=== PATIENT | male | born 1950 | race Caucasian/White ===

== ENCOUNTER 2020-08-09 12:09 | Outpatient (REF) | payer MEDICARE, MEDICAID, SELFPAY ==
[2020-08-09 13:25] LABS: MANUAL DIFF FLAG NO
[2020-08-09 13:29] LABS: Basophils Absolute Auto 0.1 X10*3/uL (0.0-0.2); Eosinophils Absolute Auto 0.6 X10*3/uL (0.0-0.4); Eosinophils Percent Auto 5.3 % (0-4); Hemoglobin 15.6 g/dl (14.0-18.0); Imm Gran Abs Auto 0.03 X10*3/uL (0.00-0.03); Imm Gran Pct Auto 0.3 % (0.0-0.4); Lymphocytes Absolute Auto 2.3 X10*3/uL (1.2-4.9); Lymphocytes Percent Auto 22.3 % (20-40); Mean Corpuscular HGB Conc 32.5 g/dl (31.0-36.0); Mean Corpuscular Hemoglobin 30.8 pg (27.0-33.0); Mean Corpuscular Volume 94.7 fL (80-98); Mean Platelet Volume 11.4 fL (9.4-12.4); Monocytes Absolute Auto 0.9 X10*3/uL (0.1-1.2); Monocytes Percent Auto 8.5 % (2-11); Neutrophils Absolute Auto 6.6 X10*3/uL (2.0-8.3); Neutrophils Percent Auto 62.6 % (45-73); Platelet Count 300 X10*3/uL (160-400); Red Blood Count 5.07 X10*6/uL (4.60-5.80); Red Cell Distribution Width 12.5 % (11.0-16.0); White Blood Count 10.5 X10*3/uL (4.8-10.8)
[2020-08-09 14:01] LABS: Alanine Aminotransferase 31 U/L (0-40); Albumin Level 4.7 g/dL (3.5-5.0); Alkaline Phosphatase 113 U/L (39-117); Anion Gap 14 (12-20); Aspartate Amino Transferase 25 U/L (5-37); Bilirubin Total 1.7 mg/dL (0.0-1.0); Blood Urea Nitrogen 21 mg/dL (9-16); Calcium 9.5 mg/dL (8.4-10.2); Carbon Dioxide 28 mmol/L (22-29); Chloride 105 mmol/L (96-108); Cholesterol 111 mg/dL; Estimated Glomerular Filt Rate > 60; Glucose Fasting 106 mg/dL (60-99); HDL Cholesterol 40 mg/dL; LDL Cholesterol Calculated 58 mg/dl; Sodium 142 mmol/L (135-145); Total Protein 7.3 g/dL (6.5-8.0); Triglycerides 67 mg/dL
[2020-08-09 14:21] LABS: TSH reflex Free T4 < 0.01 mIU/mL (0.32-4.0)
[2020-08-09 15:25] LABS: Free T4 (Free Thyroxine) 1.67 ng/dL (0.71-1.85)
== END 2020-08-09 12:10 | disposition home or self-care (01) ==
LOC: HO.WFDLDS 12:09
PROVIDERS: Visit Provider Pediatrics
DX: E78.00 Pure hypercholesterolemia, unspecified (principal); I26.99 Other pulmonary embolism without acute cor pulmonale; E03.9 Hypothyroidism, unspecified
CPT/HCPCS: 36415; 80053; 80061; 84439; 84443; 85025

== ENCOUNTER 2020-12-30 10:07 | Outpatient (REF) | payer MEDICARE, MEDICAID, SELFPAY ==
[2020-12-30 11:42] LABS: Hematocrit 47.9 % (42-52); Hemoglobin 15.8 g/dl (14.0-18.0); Mean Corpuscular Hemoglobin 30.9 pg (27.0-33.0); Mean Corpuscular Volume 93.6 fL (80-98); Mean Platelet Volume 12.2 fL (9.4-12.4); Platelet Count 253 X10*3/uL (160-400); Red Blood Count 5.12 X10*6/uL (4.60-5.80); Red Cell Distribution Width 12.4 % (11.0-16.0); White Blood Count 11.6 X10*3/uL (4.8-10.8)
[2020-12-30 12:20] LABS: TSH reflex Free T4 < 0.01 uIU/mL (0.32-4.0)
[2020-12-30 12:35] LABS: Alanine Aminotransferase 32 U/L (0-40); Albumin Level 4.6 g/dL (3.5-5.0); Alkaline Phosphatase 107 U/L (39-117); Anion Gap 13 (12-20); Aspartate Amino Transferase 25 U/L (5-37); Bilirubin Direct 0.6 mg/dL (0.0-0.5); Bilirubin Total 1.7 mg/dL (0.0-1.0); Blood Urea Nitrogen 22 mg/dL (9-16); Calcium 9.5 mg/dL (8.4-10.2); Carbon Dioxide 25 mmol/L (22-29); Chloride 108 mmol/L (96-108); Cholesterol 117 mg/dL; Estimated Glomerular Filt Rate > 60; Glucose Fasting 95 mg/dL (60-99); HDL Cholesterol 41 mg/dL; LDL Cholesterol Calculated 62 mg/dl; Potassium 4.2 mmol/L (3.3-5.1); Sodium 142 mmol/L (135-145); Triglycerides 74 mg/dL
[2020-12-30 14:14] LABS: Free T4 (Free Thyroxine) 1.68 ng/dL (0.71-1.85)
== END 2020-12-30 10:08 | disposition home or self-care (01) ==
LOC: HO.WFDLDS 10:07
PROVIDERS: Visit Provider Hospitalist
DX: Z00.00 Encounter for general adult medical examination without abnormal findings (principal)
CPT/HCPCS: 36415; 80048; 80061; 80076; 84439; 84443; 85027

== ENCOUNTER 2021-03-01 10:22 | Outpatient (REF) | payer MEDICARE, MEDICAID, SELFPAY ==
[2021-03-01 14:29] LABS: Alanine Aminotransferase 30 U/L (0-40); Albumin Level 4.4 g/dL (3.5-5.0); Alkaline Phosphatase 99 U/L (39-117); Aspartate Amino Transferase 28 U/L (5-37); Bilirubin Direct 0.6 mg/dL (0.0-0.5); Bilirubin Total 1.7 mg/dL (0.0-1.0); Total Protein 6.7 g/dL (6.5-8.0)
[2021-03-01 14:38] LABS: TSH reflex Free T4 0.34 uIU/mL (0.32-4.0)
== END 2021-03-01 10:23 | disposition home or self-care (01) ==
LOC: HO.WFDLDS 10:22
PROVIDERS: Visit Provider Physician Assistant
DX: R17 Unspecified jaundice (principal); E05.90 Thyrotoxicosis, unspecified without thyrotoxic crisis or storm; R94.6 Abnormal results of thyroid function studies
CPT/HCPCS: 36415; 80076; 84443

== ENCOUNTER 2021-08-02 10:35 | Outpatient (REF) | payer MEDICARE, MEDICAID, SELFPAY ==
[2021-08-02 14:14] LABS: Appearance Urine CLEAR; Color Urine YELLOW; Glucose Urine UA NEG (NEG); Leukocyte Esterase Urine NEG (NEG); Nitrite Urine NEG (NEG); Urine Blood NEG (NEG); Urine Ketones NEG (NEG); Urine Protein NEG (NEG-TRACE)
[2021-08-02 14:24] LABS: Alanine Aminotransferase 19 U/L (0-40); Albumin Level 4.5 g/dL (3.5-5.0); Alkaline Phosphatase 91 U/L (39-117); Anion Gap 14 (12-20); Aspartate Amino Transferase 20 U/L (5-37); Bilirubin Total 1.5 mg/dL (0.0-1.0); Blood Urea Nitrogen 18 mg/dL (9-16); Calcium 9.8 mg/dL (8.4-10.2); Carbon Dioxide 26 mmol/L (22-29); Chloride 108 mmol/L (96-108); Estimated Glomerular Filt Rate > 60; Glucose Random 93 mg/dL (60-115); Potassium 4.4 mmol/L (3.3-5.1); Sodium 144 mmol/L (135-145); Total Protein 6.8 g/dL (6.5-8.0)
[2021-08-02 15:19] LABS: Free T4 (Free Thyroxine) 0.77 ng/dL (0.71-1.85)
== END 2021-08-02 10:36 | disposition home or self-care (01) ==
LOC: HO.WFDLDS 10:35
PROVIDERS: PCP Hospitalist; Visit Provider Family Medicine
DX: Z00.00 Encounter for general adult medical examination without abnormal findings (principal); E86.0 Dehydration; R17 Unspecified jaundice; R94.6 Abnormal results of thyroid function studies; E05.90 Thyrotoxicosis, unspecified without thyrotoxic crisis or storm
CPT/HCPCS: 36415; 80053; 81003; 84439; 84443

== ENCOUNTER 2021-09-22 10:08 | Outpatient (REF) | payer MEDICARE, OTHER, SELFPAY ==
[2021-09-22 14:47] LABS: TSH reflex Free T4 0.01 uIU/mL (0.32-4.0)
[2021-09-22 15:32] LABS: Free T4 (Free Thyroxine) 1.81 ng/dL (0.71-1.85)
== END 2021-09-22 10:09 | disposition home or self-care (01) ==
LOC: HO.WFDLDS 10:08
PROVIDERS: Visit Provider Hospitalist
DX: E03.9 Hypothyroidism, unspecified (principal)
CPT/HCPCS: 36415; 84439; 84443

== ENCOUNTER 2021-10-08 00:47 | Inpatient (IN) | payer MEDICARE, OTHER, SELFPAY ==
[2021-10-08] VITALS (21 sets, daily range): BP systolic 78–138; BP diastolic 47–104; PULSE 88–170; RESP 14–33; TEMP 36.7–37; O2SAT 95–100; BMI 27.4
--- NOTE | 2021-10-08 | ECG_ITS ---
Test Reason : REPEAT Blood Pressure : / mmHG Vent. Rate : 078 BPM Atrial Rate : 078 BPM P-R Int : 122 ms QRS Dur : 088 ms QT Int : 446 ms P-R-T Axes : 045 003 211 degrees QTc Int : 508 ms Sinus rhythm with Premature atrial complexes ST & T wave abnormality, consider inferolateral ischemia Prolonged QT Abnormal ECG When compared with ECG of 08-OCT-2021 05:40, Sinus rhythm has replaced Atrial fibrillation Vent. rate has decreased BY 42 BPM Referred By: Omega Pierson Electronically Signed By:TUYET AGUILAR
--- NOTE | ~2021-10-08 | XR_ITS ---
EXAMINATION: XR CHEST CLINICAL INFORMATION: Shortness of breath COMPARISON: None TECHNIQUE: Frontal view of the chest was obtained. FINDINGS: The lungs are well expanded. There is no focal consolidation, edema, or effusion. No pneumothorax. The cardiomediastinal silhouette is within normal limits. No acute osseous abnormality. XR/XR chest 1V IMPRESSION: Clear lungs.
--- NOTE | 2021-10-08 05:20 | ED.SOB ---
HPI - SOB/Dyspnea General Chief Complaint: Dyspnea Stated Complaint: difficulty breathing Time Seen by Provider: 10/08/21 05:18 Source: patient Mode of arrival: ambulatory Limitations: no limitations History of Present Illness HPI Narrative: Patient with history of COPD with emphysema, ex-smoker, depression, diabetes, pulmonary embolism , CHF with LV ejection fraction 20-25% on Eliquis with lung nodules in the right lung been complaining of increased shortness of breath and cough mostly dry for last 5 weeks was seen at [facility] 09/05 workup was negative patient feels discomfort mid chest while coughing came here as is not getting better after course prednisone and Z-Vernon. No fever no chills no hemoptysis patient does have history of irregular heartbeat diagnose as PACs in the past. Patient does get palpitation whenever he exerts or ambulate. Related Data Home Medications Medication Instructions Recorded Confirmed apixaban 5 mg tablet (Eliquis) 5 mg PO BID 12/29/20 09/22/21 aspirin 81 mg chewable tablet 81 mg PO DAILY 12/29/20 09/22/21 (Lacy Chewable Low Dose Aspirin) Previous Rx's Medication Instructions Recorded atorvastatin 40 mg tablet 40 mg PO BEDTIME 90 Days #90 tab 07/04/21 fluticasone furoate 200 1 inh INHALATION DAILY 30 Days #28 08/10/21 mcg-vilanterol 25 mcg/dose ea inhalation powder (Breo Ellipta) albuterol sulfate 90 mcg/actuation 2 puff INHALATION Q6H PRN 30 Days 09/22/21 aerosol inhaler (ProAir HFA) #8.5 g levothyroxine 175 mcg capsule 175 mcg PO DAILY 30 Days #30 cap 09/29/21 Allergies Allergy/AdvReac Type Severity Reaction Status Date / Time No Known Allergies Allergy Mild NOT Verified 10/06/21 10:58 APPLICABLE Review of Systems Review of Systems: Yes all other systems are reviewed and are negative [facility] Past Medical History Medical History COPD (chronic obstructive pulmonary disease) Hypothyroid Surgical History History of cholecystectomy Family History Family History Father Stroke Other Mental health disorder Social History Social History Housing: Other Housing Other:: mobile home Alcohol intake: former Year quit: 1987 Patient Tobacco Use Status: Former Tobacco user (5.5 years ago ) e-Cigarette/Vaping Use: Never Used Advance Directives: No Advance Directives Information Provided: Yes Current occupational status: disabled Physical Exam Vital Signs: Vital Signs: Last Vital Signs Temp 98.6 F 10/08/21 05:04 Pulse 110 H 10/08/21 07:07 Resp 15 10/08/21 07:07 BP 100/47 L 10/08/21 07:07 Pulse Ox 95 10/08/21 07:07 BMI result Body Mass Index 27.4 Appearance: Alert. Oriented X3. No acute distress. Eyes: No pallor or icterus ENT: Pharynx normal. Oral Mucosa moist Neck: Normal inspection. Neck supple. CVS: Irregularly irregular heart rate tachycardia systolic ejection murmur at the base, Pulses normal. Respiratory: No respiratory distress. Equal air entry bilateral, no wheezing/rales, occasional rhonchi Abdomen: Soft and nontender. Bowel sounds are present, no mass palpable, no CVA tenderness Skin: Skin warm and dry. Normal skin color. Normal skin turgor. Extremities: No lower extremity edema. No calf tenderness Neuro: Oriented X 3. MDM - SOB/Dyspnea MDM Narrative Medical decision making narrative: Patient with COPD with chronic shortness of breath chest x-ray negative labs are stable, waiting for BNP and D-dimer unlikely to be CHF or PE as patient already on Eliquis and no signs of congestive heart failure. Patient records from [facility] reviewed had a echo done last year which showed decreased ejection fraction 20-25% old EKG showed PACs, today's EKG showed AFib heart rate increased to 164 beats per minute partially responded to IV Cardizem. 5 mg of Lopressor was also given , will start patient on Cardizem drip, Will admit patient for atrial fibrillation with fast ventricular rate with CHF. 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 Medical records narrative: cho Complete-Doppler, Colorflow, M-Mode Transthoracic Echocardiography Report (TTE) Indications TIA. Study Data Type of Study TTE procedure:Echo Complete-Doppler, Colorflow, M-Mode. Study Date07/16/2020 Start Time: 07:36 AM Study Location: [facility] Echo Study Status: Echo lab Patient Status: Routine Technical Quality: Adequate Blood Pressure:127/81 mmHg EKG: Normal sinus rhythm HR: 75 bpm 2D Measurements LV Diastolic Dimension: 5.23 cm LV Systolic Dimension: 4.13 cm LV Septum Diastolic: 0.83 cm LV PW Diastolic: 1.02 cm AO Root Dimension: 3.46 cm RV Diastolic Dimension: 3.4 cm LA Dimension: 3.63 cm LVOT Stroke Volume: 45.56 ml LVOT: 2.42 cm Stroke Volume Index26.96 ml/m2 Ascending Aorta:3.11 cm Cardiac Index:2.02 l/min/m2 Doppler Measurements AV Peak Velocity: 73.9 cm/s MV Peak E-Wave: 65.5 cm/s AV Peak Gradient: 2.18 mmHg MV Peak A-Wave: 21.8 cm/s AV Mean Gradient: 1.25 mmHg MV E/A Ratio: 3 AV VTI:14.9 cm MV P1/2t: 43.5 msec LVOT Peak Velocity: 57.2 cm/s MV Mean Gradient: 0.41 mmHg LVOT VTI9.91 cm MV Area (continuity): 3.35 cm2 AV Area (Continuity):3.06 cm2 MV Area (PHT): 5.06 cm2 TR Velocity:336 cm/s TR Gradient:45.16 mmHg PV Peak Velocity: 48.5 cm/s Estimated RAP:3 mmHg PV Peak Gradient: 0.94 mmHg Estimated RVSP: 48.2 mmHg E' Lateral Velocity: 6.27 cm/s E/Lat E':[id number] Cardiac Anatomy Left Ventricle/Interventricular Septum The left ventricular size is normal. Left ventricular wall thickness is normal. The LV systolic function is severely reduced . The left ventricular ejection fraction is 20-25 %. There is severe global hypokinesis with regional variation. Left ventricular filling pressures are indeterminate. Left Atrium/Interatrial Septum The left atrium is mildly dilated. The interatrial septum appears intact. Aortic Valve The aortic valve is trileaflet and normal in structure and function. There is no aortic stenosis or insufficiency. Mitral Valve The mitral valve is normal in structure and function. There is no mitral stenosis or insufficiency. Aorta The ascending aorta and aortic root are normal in size. Right Ventricle The right ventricle is mildly dilated. The right ventricular wall thickness is normal. Right ventricular systolic function is normal. Right Atrium The right atrium is normal in size. Pulmonic Valve The pulmonic valve is normal in structure and function. Tricuspid Valve There is mild tricuspid valve regurgitation. Pumonary Artery The main pulmonary artery appears mildly dilated. There is mild pulmonary hypertension. The pulmonary artery systolic pressure estimation is 40-45 mmHg. Venous Structures The inferior vena cava appears normal. Pericardium/Extracardiac There is no pericardial effusion. Summary The left atrium is mildly dilated. There is mild tricuspid valve regurgitation. There is mild pulmonary hypertension. The pulmonary artery systolic pressure estimation is 40-45 mmHg. The right ventricle is mildly dilated. The right ventricular wall thickness is normal. Right ventricular systolic function is normal. The left ventricular size is normal. Left ventricular wall thickness is normal. The LV systolic function is severely reduced . The left ventricular ejection fraction is 20-25 %. There is severe global hypokinesis with regional variation. Left ventricular filling pressures are indeterminate. Comparison No prior study available for comparison. Signature Lab Data Result diagrams: 10/08/21 06:00 10/08/21 06:01 Labs: Lab Results 10/08/21 10/08/21 10/08/21 Range/Units 05:03 06:00 06:00 WBC 12.3 H (4.8-10.8) X10*3/uL RBC 4.72 (4.60-5.80) X10*6/uL Hgb 14.7 (14.0-18.0) g/dl Hct 44.8 (42.0-52.0) % MCV 94.9 (80.0-98.0) fL MCH 31.1 (27.0-33.0) pg MCHC 32.8 (31.0-36.0) g/dl RDW 12.4 (11.0-16.0) % Plt Count 210 (160-400) X10*3/uL MPV 10.9 (9.4-12.4) fL Immature Gran % (Auto) 0.2 (0.0-0.4) % Neut % (Auto) 68.3 (45-73) % Lymph % (Auto) 19.1 L (20-40) % [place] % (Auto) 10.5 (2-11) % Eos % (Auto) 1.2 (0-4) % Baso % (Auto) 0.7 (0-2) % Lymph # (Auto) 2.3 (1.2-4.9) X10*3/uL Fill[place] # (Auto) 1.3 H (0.1-1.2) X10*3/uL Eos # (Auto) 0.2 (0.0-0.4) X10*3/uL Baso # (Auto) 0.1 (0.0-0.2) X10*3/uL Abs Immat Gran (auto) 0.03 (0.00-0.03) X10*3/uL Absolute Neuts (auto) 8.4 H (2.0-8.3) x10*3/uL Absolute Nucleated RBC 0.000 (0.0-0.012) X10*3/uL Nucleated RBC % (auto) 0.0 (0.0-0.2) /100WBC PT (9.9-13.0) SEC INR (0.9-1.1) APTT (24.1-38.0) SEC D-Dimer High Sensitivty NG/ML Sodium (135-145) mmol/L Potassium (3.3-5.1) mmol/L Chloride (96-108) mmol/L Carbon Dioxide (22-29) mmol/L Anion Gap (12-20) BUN (9-16) mg/dL Creatinine (0.5-1.4) mg/dL Estim Creat Clear Calc Estimated GFR Random Glucose (60-115) mg/dL Calcium (8.4-10.2) mg/dL Troponin I High Sens (<3.5-35.0) ng/L B-Natriuretic Peptide 1096 H (<100) pg/mL Influenza Type A (PCR) NEGATIVE (Negative) Influenza Type B (PCR) NEGATIVE (Negative) RSV RNA Qual (PCR) NEGATIVE (Negative) SARS-CoV-2 RNA (RT-PCR) NEGATIVE (Negative) 10/08/21 10/08/21 10/08/21 Range/Units 06:00 06:00 06:01 WBC (4.8-10.8) X10*3/uL RBC (4.60-5.80) X10*6/uL Hgb (14.0-18.0) g/dl Hct (42.0-52.0) % MCV (80.0-98.0) fL MCH (27.0-33.0) pg MCHC (31.0-36.0) g/dl RDW (11.0-16.0) % Plt Count (160-400) X10*3/uL MPV (9.4-12.4) fL Immature Gran % (Auto) (0.0-0.4) % Neut % (Auto) (45-73) % Lymph % (Auto) (20-40) % Fill[place] % (Auto) (2-11) % Eos % (Auto) (0-4) % Baso % (Auto) (0-2) % Lymph # (Auto) (1.2-4.9) X10*3/uL Fill[place] # (Auto) (0.1-1.2) X10*3/uL Eos # (Auto) (0.0-0.4) X10*3/uL Baso # (Auto) (0.0-0.2) X10*3/uL Abs Immat Gran (auto) (0.00-0.03) X10*3/uL Absolute Neuts (auto) (2.0-8.3) x10*3/uL Absolute Nucleated RBC (0.0-0.012) X10*3/uL Nucleated RBC % (auto) (0.0-0.2) /100WBC PT 18.0 H (9.9-13.0) SEC INR 1.6 H (0.9-1.1) APTT 44.7 H (24.1-38.0) SEC D-Dimer High Sensitivty < 150 NG/ML Sodium 143 (135-145) mmol/L Potassium 4.1 (3.3-5.1) mmol/L Chloride 109 H (96-108) mmol/L Carbon Dioxide 23 (22-29) mmol/L Anion Gap 15 (12-20) BUN 22 H (9-16) mg/dL Creatinine 0.79 (0.5-1.4) mg/dL Estim Creat Clear Calc 86.6 Estimated GFR > 60 Random Glucose 107 (60-115) mg/dL Calcium 9.5 (8.4-10.2) mg/dL Troponin I High Sens 212.1 H* (<3.5-35.0) ng/L B-Natriuretic Peptide (<100) pg/mL Influenza Type A (PCR) (Negative) Influenza Type B (PCR) (Negative) RSV RNA Qual (PCR) (Negative) SARS-CoV-2 RNA (RT-PCR) (Negative) ECG Data Attestation: I personally reviewed and interpreted this ECG as follows: Interpretation: Tachycardia atrial fibrillation with heart rate 120 beats per minute T inversion in lateral leads Critical Care Time Critical Care Time Critical Care Time: Yes Total Critical Care Time: 65 Attestation: I spent 65 minutes of critical care, with interventions, assessments, speaking to patient, consultants, and family. Discharge Plan Discharge Clinical Impression: Atrial fibrillation with rapid ventricular response COPD (chronic obstructive pulmonary disease) Qualifiers: COPD type: emphysema Emphysema type: panlobular Qualified Code(s): J43.1 - Panlobular emphysema Congestive heart failure Qualifiers: Heart failure type: systolic Heart failure chronicity: acute on chronic Qualified Code(s): I50.23 - Acute on chronic systolic (congestive) heart failure Patient Disposition: Admitted As Inpatient
--- NOTE | 2021-10-08 05:28 | ECG_ITS ---
Test Reason : SOB Blood Pressure : / mmHG Vent. Rate : 120 BPM Atrial Rate : 000 BPM P-R Int : 000 ms QRS Dur : 074 ms QT Int : 292 ms P-R-T Axes : 000 006 192 degrees QTc Int : 412 ms Sinus tachycardia with Premature atrial complexes ST & T wave changes, consider ischemia Abnormal ECG No previous ECGs available Referred By: Fransisco Whitehead Electronically Signed By:TUYET AGUILAR
[2021-10-08] MEDS: Albuterol/Iprat 2.5/0.5MG 3 ML AMPUL.NEB INHALE (05:48)
[2021-10-08] MEDS: methylPREDNISolone Sod Succ 125 MG/2 ML VIAL IVPUSH (06:02)
[2021-10-08 06:05] LABS: Basophils Absolute Auto 0.1 X10*3/uL (0.0-0.2); Basophils Percent Auto 0.7 % (0-2); Eosinophils Absolute Auto 0.2 X10*3/uL (0.0-0.4); Eosinophils Percent Auto 1.2 % (0-4); Hematocrit 44.8 % (42.0-52.0); Hemoglobin 14.7 g/dl (14.0-18.0); Imm Gran Abs Auto 0.03 X10*3/uL (0.00-0.03); Imm Gran Pct Auto 0.2 % (0.0-0.4); Lymphocytes Absolute Auto 2.3 X10*3/uL (1.2-4.9); Lymphocytes Percent Auto 19.1 % (20-40); MANUAL DIFF FLAG NO; Mean Corpuscular HGB Conc 32.8 g/dl (31.0-36.0); Mean Corpuscular Hemoglobin 31.1 pg (27.0-33.0); Mean Corpuscular Volume 94.9 fL (80.0-98.0); Mean Platelet Volume 10.9 fL (9.4-12.4); Monocytes Absolute Auto 1.3 X10*3/uL (0.1-1.2); Monocytes Percent Auto 10.5 % (2-11); Neutrophils Absolute Auto 8.4 x10*3/uL (2.0-8.3); Neutrophils Percent Auto 68.3 % (45-73); Platelet Count 210 X10*3/uL (160-400); Red Blood Count 4.72 X10*6/uL (4.60-5.80); Red Cell Distribution Width 12.4 % (11.0-16.0); White Blood Count 12.3 X10*3/uL (4.8-10.8)
[2021-10-08 06:29] LABS: Anion Gap 15 (12-20); Blood Urea Nitrogen 22 mg/dL (9-16); Calcium 9.5 mg/dL (8.4-10.2); Carbon Dioxide 23 mmol/L (22-29); Chloride 109 mmol/L (96-108); Creatinine Clr Calc Pharmacy 86.6; Estimated Glomerular Filt Rate > 60; Glucose Random 107 mg/dL (60-115); Potassium 4.1 mmol/L (3.3-5.1); Sodium 143 mmol/L (135-145)
[2021-10-08 06:32] LABS: B Type Natriuretic Peptide 1096 pg/mL (<100)
[2021-10-08 06:34] LABS: Troponin-I High Sensitivity 212.1 ng/L (<3.5-35.0)
--- NOTE | 2021-10-08 06:39 | PC.NURSE ---
per v/o from demarcus, 10mg cardizem IV. This RN overrode from pyxis
[2021-10-08] MEDS: dilTIAZem HCL 50 MG/10 ML VIAL 20 MG IVPUSH (06:50)
[2021-10-08] MEDS: Metoprolol Tartrate 5 MG/5 ML VIAL IVPUSH (06:51)
[2021-10-08] MEDS: 0.9 % Sodium Chloride 1,000 ML 999 ML IVCONT (06:52)
[2021-10-08 06:55] LABS: INTERNATIONAL NORM RATIO 1.6 (0.9-1.1)
[2021-10-08 06:58] LABS: Partial Thromboplastin Time 44.7 SEC (24.1-38.0)
[2021-10-08 07:02] LABS: D Dimer High Sensitivity < 150 NG/ML
[2021-10-08 07:11] LABS: Influenza A PCR NEGATIVE (Negative); Influenza B PCR NEGATIVE (Negative); Resp Syncy Virus RNA Qual PCR NEGATIVE (Negative); SARS COV2 PCR INHOUSE NEGATIVE (Negative)
--- NOTE | 2021-10-08 07:40 | PC.NURSE ---
this nurse assumed care at 0700. Cardizem titrated down to 5mg/hr per Dr. Armijo. Cardizem drip started by prior RN at 10mg/hr not noted in DEC. Per Dr. Armijo restart fluids to assist with low b/p
[2021-10-08] MEDS: dilTIAZem HCL 125 MG in 0.9 % Sodium Chloride 100 ML IVCONT (07:44)
[2021-10-08 08:04] LABS: Thyroid Stimulating Hormone < 0.01 uIU/mL (0.32-4.0)
[2021-10-08] MEDS: Digoxin 0.5 MG/2 ML AMPUL 0.25 MG IVPUSH (08:19)
--- NOTE | 2021-10-08 08:37 | PHA.MEDREC ---
Pharmacy Consult ? Medication Reconciliation Pharmacy has completed the medication reconciliation. Verified with HCP Goergette Barreto [phone]
--- NOTE | 2021-10-08 09:37 | P.HPHOSP_ITS ---
History of Present Illness Date of Service: 10/08/21 Chief Complaint: sob 71M presented with sob and chest discomfort with dry cough. pateint reports symptoms have been on and off over the past month or so. his sob is worse on exertion, denies orthopnea, pnd, or weight gain. he chest pain is sharp, midsternal, non radiating, and only when coughing, not reporducible. he was previously treated with prednisone and zpak with no improvement, so came to ED. in ED was noted to have irregualr tachycardia. was given diltiazem and digoxin, now appears to be sinus with pacs, feeling better. Review of Systems Review of Systems: Constitutional: Denies fever, denies Chills Eyes: denies blurry vision ENT: denies sore throat CVS: chest pain Respiratory: dyspnea GI: no abdominal pain : denies dysuria MSK: denies neck pain Skin: denies rash Neuro: denies specific motor weakness Psych: denies suicidal ideation Endocrine: denies heat/cold intolerance Hematologic: denies easy bleeding Allergy: denies hives [facility] Medical History Chronic systolic CHF (congestive heart failure) COPD (chronic obstructive pulmonary disease) Hypothyroid Pulmonary embolism Family History Father Stroke Other Mental health disorder Surgical History History of cholecystectomy Social History Housing: Other Housing Other:: mobile home Alcohol intake: former Year quit: 1987 Patient Tobacco Use Status: Former Tobacco user e-Cigarette/Vaping Use: Never Used Use of substances other than those prescribed or required for medical reasons: No Advance Directives: No Advance Directives Information Provided: Yes Current occupational status: disabled Meds Allergies Allergy/AdvReac Type Severity Reaction Status Date / Time No Known Allergies Allergy Mild NOT Verified 10/06/21 10:58 APPLICABLE Active Medications: Current Medications Acetaminophen (Acetaminophen 325 Mg Tablet) 650 mg PO Q6H PRN PRN Reason: Pain, Mild (Pain Scale 1-3) Albuterol Sulfate (Albuterol Sulfate 90 Mcg 8 Gm Inhaler) 2 puff INHALE Q6H PRN PRN Reason: wheezing and shortness of breast Apixaban (Apixaban 5 Mg Tablet) 5 mg PO BID [facility] Aspirin (Aspirin 81 Mg Tab.Chew) 81 mg PO DAILY [facility] Atorvastatin Calcium (Atorvastatin Calcium 40 Mg Tablet) 40 mg PO BEDTIME [facility] Fluticasone/Vilanterol (Fluticasone/Vilanterol 100/25 Blst.W.Dev) 1 puff INHALE RDAILY [facility] Last Admin: 10/08/21 09:31 Dose: Not Given Documented by: Levothyroxine Sodium (Levothyroxine Sodium 150 Mcg Tablet) 150 mcg PO DAILY@060 0 [facility] Pharmacy Consult (Consult Rx Perform Med Rec) 1 each MISCELLANE ONCE PRN PRN Reason: Consult order Sodium Chloride (0.9 % Sodium Chloride Flush 3 Ml Syringe) 3 ml IVFLUSH QSHIFT [facility] Tiotropium Holmen (Tiotropium Holmen 18 Mcg Cap.W.Dev) 1 puff INHALE RDAILY [facility] Home Medications Medication Instructions Recorded Confirmed Last Taken Type apixaban 5 mg tablet (Eliquis) 5 mg PO BID 12/29/20 10/08/21 10/07/21 History aspirin 81 mg chewable tablet 81 mg PO DAILY 12/29/20 10/08/21 10/07/21 History (Lacy Chewable Low Dose Aspirin) fluticasone furoate 100 1 puff INHALATION DAILY 10/08/21 10/08/21 10/07/21 History mcg-vilanterol 25 mcg/dose inhalation powder (Breo Ellipta) umeclidinium 62.5 mcg/actuation 1 puff INHALATION DAILY 10/08/21 10/08/21 10/07/21 History blister powder for inhalation (Incruse Ellipta) Physical Exam 2 Vital Signs and Narrative: Vital Signs: Last Vital Signs Temp 98.6 F 10/08/21 05:04 Pulse 91 10/08/21 09:27 Resp 22 H 10/08/21 09:27 BP 90/63 10/08/21 09:27 Pulse Ox 97 10/08/21 09:27 BMI result Body Mass Index 27.4 General: no acute distress HEENT: atraumatic Neck: normal to visual inspection CVS: S1, S2, irregular Resp: diminished Chest: non tender GI: soft, non tender, non distended : no CVA tenderness Skin: no rashes Extremities: no edema Neuro: Oriented X3, grossly intact Psych: cooperative Results Labs CBC and Chem 7: 10/08/21 06:00 10/08/21 06:01 Labs: Laboratory Results - last 24 hr 10/08/21 10/08/21 10/08/21 05:03 06:00 06:00 MCV 94.9 MCH 31.1 MCHC 32.8 RDW 12.4 Plt Count 210 MPV 10.9 Immature Gran % (Auto) 0.2 Neut % (Auto) 68.3 Lymph % (Auto) 19.1 L Cole % (Auto) 10.5 Eos % (Auto) 1.2 Baso % (Auto) 0.7 Lymph # (Auto) 2.3 Cole # (Auto) 1.3 H Eos # (Auto) 0.2 Baso # (Auto) 0.1 Abs Immat Gran (auto) 0.03 Absolute Neuts (auto) 8.4 H Absolute Nucleated RBC 0.000 Nucleated RBC % (auto) 0.0 PT INR APTT D-Dimer High Sensitivty Anion Gap Estim Creat Clear Calc Estimated GFR Random Glucose Calcium Troponin I High Sens B-Natriuretic Peptide 1096 H TSH Influenza Type A (PCR) NEGATIVE Influenza Type B (PCR) NEGATIVE RSV RNA Qual (PCR) NEGATIVE SARS-CoV-2 RNA (RT-PCR) NEGATIVE 10/08/21 10/08/21 10/08/21 06:00 06:00 06:01 MCV MCH MCHC RDW Plt Count MPV Immature Gran % (Auto) Neut % (Auto) Lymph % (Auto) Cole % (Auto) Eos % (Auto) Baso % (Auto) Lymph # (Auto) Cole # (Auto) Eos # (Auto) Baso # (Auto) Abs Immat Gran (auto) Absolute Neuts (auto) Absolute Nucleated RBC Nucleated RBC % (auto) PT 18.0 H INR 1.6 H APTT 44.7 H D-Dimer High Sensitivty < 150 Anion Gap 15 Estim Creat Clear Calc 86.6 Estimated GFR > 60 Random Glucose 107 Calcium 9.5 Troponin I High Sens 212.1 H* B-Natriuretic Peptide TSH < 0.01 L Influenza Type A (PCR) Influenza Type B (PCR) RSV RNA Qual (PCR) SARS-CoV-2 RNA (RT-PCR) Imaging Radiologist's Impressions: Impressions Chest X-Ray 10/08/21 02:20 IMPRESSION: Clear lungs. Assessment and Plan (1) Atrial fibrillation with rapid ventricular response: Status: Acute (2) Chronic systolic CHF (congestive heart failure): Status: Acute 71M presented with sob, chest pain, found to be in rapid irregular rhythm sob, chest pain, irregular rhythm appears to be aflutter vs afib, not mentioned previously, would be new onset chest pain appears to be MSK from cough, but has positive troponins and high risk for ischemia, follow up repeat, cardio eval continue eliquis (was on for pe) added toprol dc diltiazem thyrotoxicosis decrease synthroid from 175 to 150mcg, repeat tsh in 4 weeks chronic systolic chf toprol repeat echo, last 07/2020 (see ED note) COPD prn bronchodilators breo history of PE eliquis Quality Stroke Does the patient have a stroke diagnosis?: No VTE Prior VTE?: Yes VTE Risk Level:: Medical - moderate - high VTE Device Contraindication: Treatment Not Indicated VTE Drug Contraindication: N/A - Med Ordered
[2021-10-08] MEDS: Apixaban 5 MG TABLET PO ×2 (09:55→21:32)
[2021-10-08] MEDS: Metoprolol Succinate ER 25 MG TAB.ER.24H PO (09:55)
[2021-10-08] MEDS: Aspirin 81 MG TAB.CHEW PO (09:55)
--- NOTE | 2021-10-08 10:23 | P.CONCA_ITS ---
History of Present Illness History of Present Illness Date of Service: 10/08/21 Chief complaint: SOB Narrative: This is a cardiology consultation regarding atrial fibrillation. 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 When I questioned him regarding any cardiac issues, he states that he has never had any cardiac problems whatsoever. Denies any coronary disease or in fact any other issues. Current admission is because of coughing and discomfort like a pressure in the lower retrosternal/epigastric region. Apparently once in atrial fibrillation per ER and then converted to sinus/PACs. He was on Cardizem drip. Currently states he feels okay. Denies any clear anginal complaints. Not listed have any diabetes hypertension. Smoked till a few years ago. Has history of pulmonary embolism for which he takes Eliquis. With regard to family history, denies any coronary disease but father has had strokes. Review of Systems Review of Systems: Yes all other systems are reviewed and are negative Cardiovascular: Cardiovascular: Reports as per HPI, Reports no additional cardiovascular complaints, Denies acrocyanosis, Denies cool extremities, Denies painful fingertips, Denies chest pain, Denies chest pain at rest, Denies diaphoresis, Denies syncope, Denies irregular heart rhythm, Denies claudication, Denies leg edema, Denies lightheadedness, Denies palpitations and Reports dyspnea Respiratory: Respiratory: Reports cough and Reports dyspnea Neurologic: Denies syncope Endocrine: Endocrine: Denies palpitations PMFSH Past Medical History Medical History Chronic systolic CHF (congestive heart failure) COPD (chronic obstructive pulmonary disease) Hypothyroid Pulmonary embolism Family History Family History Father Stroke Other Mental health disorder Surgical History Surgical History History of cholecystectomy Social History Social History Housing: Other Housing Other:: mobile home Alcohol intake: former Year quit: 1987 Patient Tobacco Use Status: Former Tobacco user e-Cigarette/Vaping Use: Never Used Use of substances other than those prescribed or required for medical reasons: No Advance Directives: No Advance Directives Information Provided: Yes Current occupational status: disabled Meds Allergies Allergy/AdvReac Type Severity Reaction Status Date / Time No Known Allergies Allergy Mild NOT Verified 10/06/21 10:58 APPLICABLE Active Medications: Current Medications Acetaminophen (Acetaminophen 325 Mg Tablet) 650 mg PO Q6H PRN PRN Reason: Pain, Mild (Pain Scale 1-3) Albuterol Sulfate (Albuterol Sulfate 90 Mcg 8 Gm Inhaler) 2 puff INHALE Q6H PRN PRN Reason: wheezing and shortness of breast Apixaban (Apixaban 5 Mg Tablet) 5 mg PO BID [facility] Last Admin: 10/08/21 09:55 Dose: 5 mg Documented by: Aspirin (Aspirin 81 Mg Tab.Chew) 81 mg PO DAILY [facility] Last Admin: 10/08/21 09:55 Dose: 81 mg Documented by: Atorvastatin Calcium (Atorvastatin Calcium 40 Mg Tablet) 40 mg PO BEDTIME [facility] Fluticasone/Vilanterol (Fluticasone/Vilanterol 100/25 Blst.W.Dev) 1 puff INHALE RDAILY [facility] Last Admin: 10/08/21 09:31 Dose: Not Given Documented by: Levothyroxine Sodium (Levothyroxine Sodium 150 Mcg Tablet) 150 mcg PO DAILY@0600 [facility] Metoprolol Succinate (Metoprolol Succinate Er 25 Mg Tab.Er.24h) 25 mg PO DAILY [facility]; Protocol Last Admin: 10/08/21 09:55 Dose: 25 mg Documented by: Pharmacy Consult (Consult Rx Perform Med Rec) 1 each MISCELLANE ONCE PRN PRN Reason: Consult order Sodium Chloride (0.9 % Sodium Chloride Flush 3 Ml Syringe) 3 ml IVFLUSH QSHIFT [facility] Tiotropium [place] (Tiotropium [place] 18 Mcg Cap.W.Dev) 1 puff INHALE RDAILY [facility] Home Medications Medication Instructions Recorded Confirmed Last Taken Type apixaban 5 mg tablet (Eliquis) 5 mg PO BID 12/29/20 10/08/21 10/07/21 History aspirin 81 mg chewable tablet 81 mg PO DAILY 12/29/20 10/08/21 10/07/21 History (Lacy Chewable Low Dose Aspirin) fluticasone furoate 100 1 puff INHALATION DAILY 10/08/21 10/08/21 10/07/21 History mcg-vilanterol 25 mcg/dose inhalation powder (Breo Ellipta) umeclidinium 62.5 mcg/actuation 1 puff INHALATION DAILY 10/08/21 10/08/21 10/07/21 History blister powder for inhalation (Incruse Ellipta) Physical Exam Vital Signs: Vital Signs: Last Vital Signs Temp 98.6 F 10/08/21 05:04 Pulse 98 10/08/21 09:55 Resp 22 H 10/08/21 09:27 BP 94/68 10/08/21 09:55 Pulse Ox 97 10/08/21 09:27 BMI result Body Mass Index 27.4 Const: General: no acute distress HENMT: Other: Unremarkable Neck: Neck: Yes normal visual inspection Chest: Chest palpation & inspection: normal inspection of the chest Resp: Auscultation: no crackles and no wheezes Cardio: Palpation: normal PMI Heart sounds: S1 normal heart sound present, S2 normal heart sound present, no gallops, no murmurs and no rubs GI: Palpation (GI): Soft to palpation Back/Spine/Pelvis: Other: unremarkable Skin: Lesions: other Neuro: Cranial nerves: Yes Other cranial nerve findings present Extrem: General: Yes other Psych: Mental Status: other Objective Labs and Meds Result diagrams: 10/08/21 06:00 10/08/21 06:01 Lab results: Laboratory Results - last 24 hr 10/08/21 10/08/21 10/08/21 05:03 06:00 06:00 WBC 12.3 H RBC 4.72 Hgb 14.7 Hct 44.8 MCV 94.9 MCH 31.1 MCHC 32.8 RDW 12.4 Plt Count 210 MPV 10.9 Immature Gran % (Auto) 0.2 Neut % (Auto) 68.3 Lymph % (Auto) 19.1 L [place] % (Auto) 10.5 Eos % (Auto) 1.2 Baso % (Auto) 0.7 Lymph # (Auto) 2.3 [place] # (Auto) 1.3 H Eos # (Auto) 0.2 Baso # (Auto) 0.1 Abs Immat Gran (auto) 0.03 Absolute Neuts (auto) 8.4 H Absolute Nucleated RBC 0.000 Nucleated RBC % (auto) 0.0 PT INR APTT D-Dimer High Sensitivty Sodium Potassium Chloride Carbon Dioxide Anion Gap BUN Creatinine Estim Creat Clear Calc Estimated GFR Random Glucose Calcium Troponin I High Sens B-Natriuretic Peptide 1096 H TSH Influenza Type A (PCR) NEGATIVE Influenza Type B (PCR) NEGATIVE RSV RNA Qual (PCR) NEGATIVE SARS-CoV-2 RNA (RT-PCR) NEGATIVE 10/08/21 10/08/21 10/08/21 06:00 06:00 06:01 WBC RBC Hgb Hct MCV MCH MCHC RDW Plt Count MPV Immature Gran % (Auto) Neut % (Auto) Lymph % (Auto) [place] % (Auto) Eos % (Auto) Baso % (Auto) Lymph # (Auto) [place] # (Auto) Eos # (Auto) Baso # (Auto) Abs Immat Gran (auto) Absolute Neuts (auto) Absolute Nucleated RBC Nucleated RBC % (auto) PT 18.0 H INR 1.6 H APTT 44.7 H D-Dimer High Sensitivty < 150 Sodium 143 Potassium 4.1 Chloride 109 H Carbon Dioxide 23 Anion Gap 15 BUN 22 H Creatinine 0.79 Estim Creat Clear Calc 86.6 Estimated GFR > 60 Random Glucose 107 Calcium 9.5 Troponin I High Sens 212.1 H* B-Natriuretic Peptide TSH < 0.01 L Influenza Type A (PCR) Influenza Type B (PCR) RSV RNA Qual (PCR) SARS-CoV-2 RNA (RT-PCR) ECG Interpretation: EKG that is available shows sinus rhythm with PACs and lateral ST depression/T inversion which could be from ischemia or LVH. Rate in that EKGs 120/Min. There is another EKG there is not available in [place] but only in the paper chart and that could be either flutter or MAT versus atrial fibrillation at a faster rate. Imaging Radiologist's impression: Impressions Chest X-Ray 10/08/21 02:20 IMPRESSION: Clear lungs. Assessment and Plan (1) Atrial fibrillation with rapid ventricular response: Status: Acute (2) Chronic systolic CHF (congestive heart failure): Status: Acute Based on EKGs, difficult to say. Could be atrial fibrillation or flutter or multifocal atrial tachycardia. Currently in sinus with PACs. We can start him on a small dose of [id number]. Blood pressure is already on the lower side. Based on a prior echocardiogram from [facility], diminished LVEF in the 20% range. We need to repeat this as it is almost an year old. At that time, indication was TIA. Elevated troponin could be from demand from atrial arrhythmias but underlying coronary disease not excluded. We will repeat this. Ischemia workup at some point, probable cardiac catheterization. Will follow. Procedures Date of Service Date of Service: 10/08/21
[2021-10-08 11:24] LABS: Troponin-I High Sensitivity 285.5 ng/L (<3.5-35.0)
--- NOTE | 2021-10-08 11:45 | PC.NURSE ---
pt's repeat Trop 285.5, b/p running soft high 80s over high 50s, Dr. Pierson aware.
--- NOTE | 2021-10-08 12:53 | PC.NURSE ---
alert and oriented, vss remains stable. no c/o pain. no sob, no headache, no dizziness. pt resting quietly, no apparent distress. pt awaiting bed assignment.
--- NOTE | 2021-10-08 14:21 | MHC.CM.PN ---
IMM 10/08/21 male 71 dx sob. Vax x3 Pfizer. He lives with S.O.. He is independent all functional mobility. PCP Taye Hsieh. DP home no services family transport.
--- NOTE | 2021-10-08 15:14 | ECG_ITS ---
Test Reason : AFIB Blood Pressure : / mmHG Vent. Rate : 164 BPM Atrial Rate : 000 BPM P-R Int : 000 ms QRS Dur : 082 ms QT Int : 262 ms P-R-T Axes : 000 010 219 degrees QTc Int : 432 ms Atrial fibrillation with rapid ventricular response Minimal voltage criteria for LVH, may be normal variant ( Sokolow-Hinkle ) Marked ST abnormality, possible inferior subendocardial injury Marked ST abnormality, possible anterior subendocardial injury Abnormal ECG When compared with ECG of 08-OCT-2021 05:40, Previous ECG has undetermined rhythm, needs review ST more depressed Inferior leads Referred By: Yakelin Ceballos Electronically Signed By:Santi Gonzalez
[2021-10-08] MEDS: Atorvastatin Calcium 40 MG TABLET PO (21:32)
[2021-10-09] VITALS (8 sets, daily range): BP systolic 90–96; BP diastolic 55–80; PULSE 72–102; RESP 16–22; TEMP 36.6–36.8; O2SAT 94–97
[2021-10-09] MEDS: 0.9 % Sodium Chloride Flush 3 ML SYRINGE IVFLUSH ×3 (01:14→18:26)
[2021-10-09] MEDS: Levothyroxine Sodium 150 MCG TABLET PO (05:57)
[2021-10-09 08:02] LABS: Hemoglobin 13.8 g/dl (14.0-18.0); Mean Corpuscular HGB Conc 32.9 g/dl (31.0-36.0); Mean Corpuscular Hemoglobin 30.8 pg (27.0-33.0); Mean Corpuscular Volume 93.8 fL (80.0-98.0); Mean Platelet Volume 12.1 fL (9.4-12.4); Platelet Count 220 X10*3/uL (160-400); Red Blood Count 4.48 X10*6/uL (4.60-5.80); Red Cell Distribution Width 12.4 % (11.0-16.0)
[2021-10-09 08:22] LABS: Anion Gap 14 (12-20); Blood Urea Nitrogen 26 mg/dL (9-16); Calcium 9.5 mg/dL (8.4-10.2); Carbon Dioxide 24 mmol/L (22-29); Chloride 109 mmol/L (96-108); Creatinine Clr Calc Pharmacy 99.2; Estimated Glomerular Filt Rate > 60; Glucose Fasting 125 mg/dL (60-99); Magnesium 2.3 mg/dL (1.6-2.6); Potassium 4.5 mmol/L (3.3-5.1); Sodium 142 mmol/L (135-145)
[2021-10-09] MEDS: Apixaban 5 MG TABLET PO (08:31)
[2021-10-09] MEDS: Aspirin 81 MG TAB.CHEW PO (08:31)
[2021-10-09] MEDS: Metoprolol Succinate ER 25 MG TAB.ER.24H PO (08:31)
[2021-10-09] MEDS: Fluticasone/Vilanterol 100/25 BLST.W.DEV 1 PUFF INHALE (09:15)
--- NOTE | 2021-10-09 09:24 | HO.PM.IMPN ---
Subjective Subjective Date of Service: 10/09/21 Interval History: cc: chest pain, sob interval history: unchanged Gastrointestinal Gastrointestinal: Reports no additional gastrointestinal complaints Genitourinary Genitourinary: Reports no additional male genitourinary complaints Physical Exam Vital Signs: Vital Signs: Last Vital Signs Temp 98.0 F 10/09/21 09:20 Pulse 89 10/09/21 09:20 Resp 21 H 10/09/21 09:20 BP 92/67 10/09/21 09:20 Pulse Ox 94 10/09/21 09:20 BMI result Body Mass Index 27.4 General: AO X 3, no acute distress Resp: CTA bilateral, no accessory muscles used CVS: S1,S2,RRR GI: soft, non tender, non distended Neuro: motor grossly intact, alert Psych: appropriate affect, appropriate insight Objective Data Active Medications Acetaminophen (Acetaminophen 325 Mg Tablet) 650 mg PO Q6H PRN PRN Reason: Pain, Mild (Pain Scale 1-3) Albuterol Sulfate (Albuterol Sulfate 90 Mcg 8 Gm Inhaler) 2 puff INHALE Q6H PRN PRN Reason: wheezing and shortness of breast Apixaban (Apixaban 5 Mg Tablet) 5 mg PO BID [facility] Last Admin: 10/09/21 08:31 Dose: 5 mg Documented by: LEXI Aspirin (Aspirin 81 Mg Tab.Chew) 81 mg PO DAILY [facility] Last Admin: 10/09/21 08:31 Dose: 81 mg Documented by: LEXI Atorvastatin Calcium (Atorvastatin Calcium 40 Mg Tablet) 40 mg PO BEDTIME [facility] Last Admin: 10/08/21 21:32 Dose: 40 mg Documented by: ANEUDY Fluticasone/Vilanterol (Fluticasone/Vilanterol 100/25 Blst.W.Dev) 1 puff INHALE RDAILY [facility] Last Admin: 10/09/21 09:15 Dose: 1 puff Documented by: CLAUDE Levothyroxine Sodium (Levothyroxine Sodium 150 Mcg Tablet) 150 mcg PO DAILY@0600 [facility] Last Admin: 10/09/21 05:57 Dose: 150 mcg Documented by: JANIS Metoprolol Succinate (Metoprolol Succinate Er 25 Mg Tab.Er.24h) 25 mg PO DAILY [facility]; Protocol Last Admin: 10/09/21 08:31 Dose: 25 mg Documented by: LEXI Pharmacy Consult (Consult Rx Perform Med Rec) 1 each MISCELLANE ONCE PRN PRN Reason: Consult order Sodium Chloride (0.9 % Sodium Chloride Flush 3 Ml Syringe) 3 ml IVFLUSH QSHIFT [facility] Last Admin: 10/09/21 08:35 Dose: 3 ml Documented by: LEXI Tiotropium [place] (Tiotropium [place] 18 Mcg Cap.W.Dev) 1 puff INHALE RDAILY [facility] Last Admin: 10/09/21 09:15 Dose: 1 puff Documented by: CLAUDE Labs CBC & Chem 7: 10/09/21 07:12 10/09/21 07:12 Labs: Laboratory Results - last 24 hr 10/08/21 10/09/21 10/09/21 10:50 07:12 07:12 MCV 93.8 MCH 30.8 MCHC 32.9 RDW 12.4 Plt Count 220 MPV 12.1 Absolute Nucleated RBC 0.000 Nucleated RBC % (auto) 0.0 Anion Gap Estim Creat Clear Calc Estimated GFR Fasting Glucose Calcium Magnesium Troponin I High Sens 285.5 H* 223.0 H* 10/09/21 07:12 MCV MCH MCHC RDW Plt Count MPV Absolute Nucleated RBC Nucleated RBC % (auto) Anion Gap 14 Estim Creat Clear Calc 99.2 Estimated GFR > 60 Fasting Glucose 125 H Calcium 9.5 Magnesium 2.3 Troponin I High Sens Assessment and Plan (1) Chronic systolic CHF (congestive heart failure): Status: Acute (2) Atrial fibrillation with rapid ventricular response: Status: Acute Assessment and Plan: 71M presented with sob, chest pain, found to be in rapid irregular rhythm sob, chest pain, irregular rhythm appears to be aflutter vs afib vs MAT not mentioned previously, would be new onset now in sinus chest pain appears to be MSK from cough, but has positive troponins and high risk for ischemia, follow up repeat, cardio appreciated, likely need ischemic work up continue eliquis (was on for pe) started on toprol thyrotoxicosis decreased synthroid from 175 to 150mcg, repeat tsh in 4 weeks chronic systolic chf toprol repeat echo, last 07/2020 (see ED note) COPD prn bronchodilators breo history of PE eliquis Quality Stroke Does the patient have a stroke diagnosis?: No VTE Prior VTE?: Yes VTE Risk Level:: Medical - moderate - high VTE Device Contraindication: Treatment Not Indicated VTE Drug Contraindication: N/A - Med Ordered
--- NOTE | 2021-10-09 11:24 | PM.PNCARD ---
Subjective Subjective Date of Service: 10/09/21 Interval history: He feels ok. Denies any angina or other complaints. Review of Systems Review of Systems Yes all other systems are reviewed and are negative Cardiovascular: Reports as per HPI, Reports no additional cardiovascular complaints, Denies acrocyanosis, Denies cool extremities, Denies painful fingertips, Denies chest pain, Denies chest pain at rest, Denies diaphoresis, Denies syncope, Denies irregular heart rhythm, Denies claudication, Denies leg edema, Denies lightheadedness, Denies palpitations and Reports dyspnea Respiratory: Reports cough and Reports dyspnea Denies syncope Endocrine: Denies palpitations Physical Exam Vital Signs: Last Vital Signs Temp 98.0 F 10/09/21 09:20 Pulse 89 10/09/21 09:20 Resp 21 H 10/09/21 09:20 BP 92/67 10/09/21 09:20 Pulse Ox 94 10/09/21 09:20 BMI result Body Mass Index 27.4 Const General: no acute distress HENKS Other: Unremarkable Neck Neck: Yes normal visual inspection Chest Chest palpation & inspection: normal inspection of the chest Resp Auscultation: no crackles and no wheezes Cardio Palpation: normal PMI Heart sounds: S1 normal heart sound present, S2 normal heart sound present, no gallops, no murmurs and no rubs GI Palpation (GI): Soft to palpation Back/Spine/Pelvis Other: unremarkable Skin Lesions: other Neuro Cranial nerves: Yes Other cranial nerve findings present Extrem General: Yes other Psych Mental Status: other Objective Labs and Meds Result diagrams: 10/09/21 07:12 10/09/21 07:12 Lab results: Laboratory Results - last 24 hr 10/08/21 10/09/21 10/09/21 10:50 07:12 07:12 WBC 17.0 H RBC 4.48 L Hgb 13.8 L Hct 42.0 MCV 93.8 MCH 30.8 MCHC 32.9 RDW 12.4 Plt Count 220 MPV 12.1 Absolute Nucleated RBC 0.000 Nucleated RBC % (auto) 0.0 Sodium Potassium Chloride Carbon Dioxide Anion Gap BUN Creatinine Estim Creat Clear Calc Estimated GFR Fasting Glucose Calcium Magnesium Troponin I High Sens 285.5 H* 223.0 H* 10/09/21 07:12 WBC RBC Hgb Hct MCV MCH MCHC RDW Plt Count MPV Absolute Nucleated RBC Nucleated RBC % (auto) Sodium 142 Potassium 4.5 Chloride 109 H Carbon Dioxide 24 Anion Gap 14 BUN 26 H Creatinine 0.69 Estim Creat Clear Calc 99.2 Estimated GFR > 60 Fasting Glucose 125 H Calcium 9.5 Magnesium 2.3 Troponin I High Sens Progress Note: A&P Assessment and plan (1) Atrial fibrillation with rapid ventricular response: Status: Acute (2) Chronic systolic CHF (congestive heart failure): Status: Acute Assessment and Plan: Based on EKGs, difficult to say. Could be atrial fibrillation or flutter or multifocal atrial tachycardia. Currently in sinus with PACs. Continue Toprol-XL. Blood pressure is already on the lower side. Based on a prior echocardiogram from [facility], diminished LVEF in the 20% range. At that time, indication was TIA. Repeat echo is similar. . Elevated troponin could be from demand from atrial arrhythmias but underlying coronary disease not excluded. Ideally needs cardiac catheterization. Will follow with you. Fall Risk Details Current Medications: Current Medications Acetaminophen (Acetaminophen 325 Mg Tablet) 650 mg PO Q6H PRN PRN Reason: Pain, Mild (Pain Scale 1-3) Albuterol Sulfate (Albuterol Sulfate 90 Mcg 8 Gm Inhaler) 2 puff INHALE Q6H PRN PRN Reason: wheezing and shortness of breast Apixaban (Apixaban 5 Mg Tablet) 5 mg PO BID [facility] Last Admin: 10/09/21 08:31 Dose: 5 mg Documented by: Aspirin (Aspirin 81 Mg Tab.Chew) 81 mg PO DAILY [facility] Last Admin: 10/09/21 08:31 Dose: 81 mg Documented by: Atorvastatin Calcium (Atorvastatin Calcium 40 Mg Tablet) 40 mg PO BEDTIME [facility] Last Admin: 10/08/21 21:32 Dose: 40 mg Documented by: Fluticasone/Vilanterol (Fluticasone/Vilanterol 100/25 Blst.W.Dev) 1 puff INHALE RDAILY [facility] Last Admin: 10/09/21 09:15 Dose: 1 puff Documented by: Levothyroxine Sodium (Levothyroxine Sodium 150 Mcg Tablet) 150 mcg PO DAILY@0600 [facility] Last Admin: 10/09/21 05:57 Dose: 150 mcg Documented by: Metoprolol Succinate (Metoprolol Succinate Er 25 Mg Tab.Er.24h) 25 mg PO DAILY [facility]; Protocol Last Admin: 10/09/21 08:31 Dose: 25 mg Documented by: Pharmacy Consult (Consult Rx Perform Med Rec) 1 each MISCELLANE ONCE PRN PRN Reason: Consult order Sodium Chloride (0.9 % Sodium Chloride Flush 3 Ml Syringe) 3 ml IVFLUSH QSHIFT [facility] Last Admin: 10/09/21 08:35 Dose: 3 ml Documented by: Tiotropium [place] (Tiotropium [place] 18 Mcg Cap.W.Dev) 1 puff INHALE RDAILY [facility] Last Admin: 10/09/21 09:15 Dose: 1 puff Documented by: Time Spent With Patient Time: Total time spent is greater than 50% in coordination of care (as documented) at patient's floor/unit and/or counseling patient: Time with patient: less than 15 minutes Progress Note: Quality Stroke Does the patient have a stroke diagnosis?: No Procedures Date of Service Date of Service: 10/09/21
--- NOTE | 2021-10-09 14:00 | CA_ITS ---
Transthoracic Echocardiogram Patient (Last, First, Middle): Tico Barahona, Gender: Male Date of : 1950 Age: 71 Procedure Date: 10/09/2021 Procedure Type: Transthoracic Echocardiogram Location: ER Height: 170.18 cm Weight: 79.38 kg BSA: 1.91 m2 Heart Rate: bpm BP: 96 / 68 mmHg Real Estate Associate: Referring MD: Omega Pierson MD Symptoms: afib Study Quality: Fair ECG Rhythm: Sinus/PACs Conclusions: - The left ventricular systolic function is severely decreased. The visually estimated ejection fraction is between 20-25%. - Evidence suggests grade II (moderate) diastolic dysfunction. - The left atrium is severely dilated. - Mild pulmonary hypertension is present. Findings Left Ventricle Normal left ventricular cavity size. There is mildly increased left ventricular wall thickness. The left ventricular systolic function is severely decreased. The visually estimated ejection fraction is between 20 25%. There is severe global hypokinesis. E/E prime ratio is >15, consistent with elevated filling pressures. Evidence suggests grade II (moderate) diastolic dysfunction. Right Ventricle Normal right ventricular cavity size and systolic function. Atria The left atrium is severely dilated. The right atrium is normal in size. Aortic Valve There is a normal trileaflet aortic valve. There is no aortic valve stenosis. There is no aortic valve regurgitation. Mitral Valve The mitral valve appears normal. There is trace mitral valve regurgitation. There is no mitral valve stenosis. Pulmonic Valve The pulmonic valve was not well visualized. There is trace to mild pulmonic valve regurgitation. Tricuspid Valve Normal tricuspid valve structure. There is mild tricuspid valve regurgitation. The right ventricular systolic pressure is 47 mmHg. Mild pulmonary hypertension is present. Great Vessels The aortic annulus, sinuses of valsalva, and asc aorta are normal in size. Venous The inferior vena cava is normal in size and collapses less than 50% with inspiration. Pericardium/Pleural There is a trivial pericardial effusion. Prior Study Comparison No prior study available for comparison. Measurements 2D Linear Measurements IVSd: 1.10 0.6-0.9/0.6-1.0 cm LVIDd: 5.10 3.9-5.3/4.2-5.9 cm LVIDd Index: 2.67 2.4-3.2/2.2-3.1 cm/m2 LVIDs: 3.80 2.0-3.6 cm LVPWd: 1.07 0.7-1.1 cm Ao Root: 3.40 2.1-3.5 cm LA Diam: 3.90 2.7-3.8/3.0-4.0 cm LAIDs Index: 2.04 1.5-2.3 cm/m2 LV Mass: 261.65 67-162/88-224 g LV Mass Index: 136.99 43-95/49-115 g/m2 LVOT Diam: 2.40 3.0+(-)1.3 cm 2D Systolic Function EF 4C: 33.90 >55% EF 2C: 9.49 >55% EF BiP: 24.00 >55% Mitral Valve MV Pk E: 0.67 MV PK A: 0.33 MV Decel Time: 150.00 E/A: 2.10 E'Lateral: 4.35 E'Medial: 3.81 E/E' Med: 17.70 E/E' Lat: 15.50 PHT: 44.00 MVA PHT: 5.00 Decel [place]: 4.49 Aortic Valve AoV Pk Kwadwo: 0.82 AoV Mn Kwadwo: 0.49 AoV VTI: 0.19 AoV Pk Grad: 3.00 Aov Mn Grad: 1.00 SONAL Cont.VTI: 2.31 LVOT LVOT Pk Kwadwo: 0.48 LVOT Mn Kwadwo: 0.29 LVOT VTI: 0.10 LVOT Pk Grad: 1.00 LVOT Mn Grad: 0.00 LVOT Diam: 2.40 LVOT Area: 4.52 Diastolic Function MV Pk E: 0.67 MV Pk A: 0.33 E/A: 2.10 E'Medial: 3.81 E/E' Med: 17.70 E' Laterial: 4.35 E/E' Lat: 15.50 Right Ventricle TAPSE (mm): 21.00 TVS' Kwadwo: 10.00 Tricuspid Valve TR Pk Kwadwo: 3.12 TR Pk Grad: 39.00 RVSP: 47.00 Great Vessels Aorta Ao Root-2D: 3.40 2.0-3.7 cm Ao Asc: 3.20 2.1-3.4 cm Pulmonary Valve PV Pk Kwadwo: 0.54 Peak PV Grad: 1.00 Updated in Other Vendor System with Status of Final Orestes Melvin MD electronically signed on 10/09/2021 11:24:10 AM with status of Final
[2021-10-09] MEDS: Acetaminophen 325 MG TABLET 650 MG PO (19:44)
[2021-10-09] MEDS: Atorvastatin Calcium 40 MG TABLET PO (21:42)
[2021-10-09] MEDS: Enoxaparin Sodium 80 MG/0.8 ML SYRINGE SUBCUT (21:42)
[2021-10-10] VITALS (14 sets, daily range): BP systolic 89–128; BP diastolic 55–89; PULSE 50–170; RESP 15–30; TEMP 36.2–37.5; O2SAT 93–98; BMI 27.2
[2021-10-10] MEDS: Benzonatate 100 MG CAPSULE PO (02:54)
[2021-10-10] MEDS: 0.9 % Sodium Chloride Flush 3 ML SYRINGE IVFLUSH ×4 (02:55→20:24)
[2021-10-10] MEDS: Levothyroxine Sodium 150 MCG TABLET PO (06:31)
[2021-10-10 07:17] LABS: Hematocrit 45.2 % (42.0-52.0); Hemoglobin 14.9 g/dl (14.0-18.0); Mean Corpuscular Hemoglobin 31.2 pg (27.0-33.0); Mean Corpuscular Volume 94.6 fL (80.0-98.0); Mean Platelet Volume 12.1 fL (9.4-12.4); Platelet Count 213 X10*3/uL (160-400); Red Blood Count 4.78 X10*6/uL (4.60-5.80); Red Cell Distribution Width 12.5 % (11.0-16.0); White Blood Count 15.4 X10*3/uL (4.8-10.8)
[2021-10-10 07:44] LABS: Alanine Aminotransferase 41 U/L (0-40); Albumin Level 3.8 g/dL (3.5-5.0); Alkaline Phosphatase 82 U/L (39-117); Anion Gap 13 (12-20); Aspartate Amino Transferase 79 U/L (5-37); Bilirubin Direct 0.6 mg/dL (0.0-0.5); Bilirubin Total 1.6 mg/dL (0.0-1.0); Blood Urea Nitrogen 22 mg/dL (9-16); Calcium 9.2 mg/dL (8.4-10.2); Carbon Dioxide 24 mmol/L (22-29); Chloride 109 mmol/L (96-108); Creatinine Clr Calc Pharmacy 102.1; Estimated Glomerular Filt Rate > 60; Glucose Fasting 92 mg/dL (60-99); Potassium 4.2 mmol/L (3.3-5.1); Sodium 142 mmol/L (135-145); Total Protein 5.8 g/dL (6.5-8.0)
[2021-10-10] MEDS: Fluticasone/Vilanterol 100/25 BLST.W.DEV 1 PUFF INHALE (07:59)
[2021-10-10] MEDS: Enoxaparin Sodium 80 MG/0.8 ML SYRINGE SUBCUT ×2 (08:55→20:23)
[2021-10-10] MEDS: Aspirin 81 MG TAB.CHEW PO (08:56)
--- NOTE | 2021-10-10 08:57 | PC.NURSE ---
Addendum entered by Miranda Ngo RN 10/10/21 15:07: RN TO RN GIVEN TO [facility] [place] BELONGINGS BAGGED. Addendum entered by Miranda Ngo RN 10/10/21 09:28: FREDDIE DOAN COLLECTED AND SENT TO LAB ORDERED. Original Note: AM METOPROLOL HELD PER MD DUE TO SBP 80S MANUALLY. WILL CONTINUE TO MONITOR. MD NOTIFIED OF PERSISTENT WET, NONPRODUCTIVE COUGH.
--- NOTE | 2021-10-10 09:14 | P.PNCA_ITS ---
Subjective Subjective Date of Service: 10/10/21 Principal diagnosis: Atrial arrythmia, Elevated Troponin, CMP, hyperthyroid Interval history: Cardiology follow up for the above. Seen at 0830. Today he reports frequent coughing, especially when he lays down. Feels sob only during coughing episodes. No chest pains or pressure. No heart palpitations or dizziness. No abdominal discomfort. States he has not slept in 3 nights due to the cough. Ate breakfast. Review of Systems Review of Systems as above Yes all other systems are reviewed and are negative Physical Exam Vital Signs: Last Vital Signs Temp 99.5 F 10/10/21 09:00 Pulse 102 H 10/10/21 09:00 Resp 20 10/10/21 09:00 BP 89/64 L 10/10/21 09:00 Pulse Ox 95 10/10/21 09:00 BMI result Body Mass Index 27.4 Const Other: nonproductive cough present when laying down during exam General: cooperative, no acute distress, alert and awake Orientation/consciousness: patient oriented x3 Eyes Conjunctivae: conjunctivae normal Neck Neck: Yes normal visual inspection and Yes JVD (mild elevation) Resp Effort & Inspection: normal respiratory effort, able to speak in complete sentences, Actively coughing and not labored Auscultation: clear to auscultation bilaterally, no rales, no rhonchi and no wheezes Cardio Jugular venous distension: JVD Palpation: normal PMI Rate: regular rate Rhythm: abnormal rhythm irregularly irregular Heart sounds: S1 normal heart sound present and S2 normal heart sound present Peripheral pulses: Peripheral pulses 2+ throughout GI Other: not distended, nontender Inspection: Yes normal to inspection Neuro General: patient oriented x3 Extrem General: Yes normal to inspection and No edema Objective Labs and Meds Result diagrams: 10/10/21 06:48 10/10/21 06:48 Lab results: Laboratory Results - last 24 hr 10/10/21 10/10/21 06:48 06:48 WBC 15.4 H RBC 4.78 Hgb 14.9 Hct 45.2 MCV 94.6 MCH 31.2 MCHC 33.0 RDW 12.5 Plt Count 213 MPV 12.1 Absolute Nucleated RBC 0.000 Nucleated RBC % (auto) 0.0 Sodium 142 Potassium 4.2 Chloride 109 H Carbon Dioxide 24 Anion Gap 13 BUN 22 H Creatinine 0.67 Estim Creat Clear Calc 102.1 Estimated GFR > 60 Fasting Glucose 92 Calcium 9.2 Total Bilirubin 1.6 H Direct Bilirubin 0.6 H AST 79 H ALT 41 H Alkaline Phosphatase 82 Total Protein 5.8 L Albumin 3.8 Progress Note: A&P Assessment and plan (1) Atrial arrhythmia: Status: Acute Assessment and Plan: Presented to [facility] with cough and sob. EKG and Tele with narrow complex irregular rhythm, concerning for possible AF vs MAT. Rates elevated and he was started on Metoprolol to assist with rate control. Tele still shows irregular rhythm with frequent atrial ectopy, could be SR/ ST with freq PACs vs MAT, rates 80s- 110. Pt denies having heart palpitations. Echo shows EF 20-25%, grade II diastolic dysfunction, LA severely dilated. Ongoing tele monitoring while inpt. BP low with Metoprolol this am. Will stop Metoprolol and start on Digoxin. (2) Hyperthyroidism: Status: Acute Assessment and Plan: TSH < 0.01. On Levothyroxine for hypothyroidism - Home dose was 175mcg. Was already reduced by hospitalist to 150mcq. Recommend further eval of thyroid. Being hyperthyroid will contribute to his fast heart rates. (3) Elevated troponin: Status: Acute Assessment and Plan: Troponin elevated up to 285 then down to 223 yesterday. No known hx of CAD. Does have prior echo showing reduced EF. Had not been on medical mgt. Unknown if CMP is ischemia or nonischemia. Troponin elevation may be related demand from atrial arrythmia and elevated heart rates. His is on Lovenox therapeutic dose for anticoagulation. On Aspirin, Atorvastatin, Metoprolol. Cardiac cath was discussed however will be placed on hold at present due to hyperthyroid state. No plan for [facility] transfer at ths time. (4) NSVT (nonsustained ventricular tachycardia): Status: Acute Assessment and Plan: Short runs of NSVT seen on tele monitoring this admit. Has known reduced EF. No reports of dizziness, presycope. Longest 9 beats in last 24 hr. Has known reduced EF. Changing Metoprolol to Dig as above. Will follow. (5) Cardiomyopathy: Status: Acute Assessment and Plan: Echo at [facility] last year with EF 20%. He was not on neurohormonal modulators for unclear reason. Echo this admit, again with reduced EF 20-25%. He had been started on Metoprolol. BP now low and will need to hold BB at present. Not yet started on grace/ arb. (6) Chronic systolic CHF (congestive heart failure): Status: Acute Assessment and Plan: He does report sob and cough. On exam he has mild JVD elevation, no rales or edema. BNP elevated on admit 1096 and down to 907 today. CXR showed NAD. He has not recieved diuretics this admit. Does not appear fluid overloaded. Fall Risk Details Current Medications: Current Medications Acetaminophen (Acetaminophen 325 Mg Tablet) 650 mg PO Q6H PRN PRN Reason: Pain, Mild (Pain Scale 1-3) Last Admin: 10/09/21 19:44 Dose: 650 mg Documented by: Albuterol Sulfate (Albuterol Sulfate 90 Mcg 8 Gm Inhaler) 2 puff INHALE Q6H PRN PRN Reason: wheezing and shortness of breast Aspirin (Aspirin 81 Mg Tab.Chew) 81 mg PO DAILY [facility] Last Admin: 10/10/21 08:56 Dose: 81 mg Documented by: Atorvastatin Calcium (Atorvastatin Calcium 40 Mg Tablet) 40 mg PO BEDTIME [facility] Last Admin: 10/09/21 21:42 Dose: 40 mg Documented by: Benzonatate (Benzonatate 100 Mg Capsule) 100 mg PO TID PRN PRN Reason: Cough Last Admin: 10/10/21 02:54 Dose: 100 mg Documented by: Enoxaparin Sodium (Enoxaparin Sodium 80 Mg/0.8 Ml Syringe) 80 mg 1 mg/kg (80 mg) SUBCUT Q12H [facility] Last Admin: 10/10/21 08:55 Dose: 80 mg Documented by: Fluticasone/Vilanterol (Fluticasone/Vilanterol 100/25 Blst.W.Dev) 1 puff INHALE RDAILY [facility] Last Admin: 10/10/21 07:59 Dose: 1 puff Documented by: Levothyroxine Sodium (Levothyroxine Sodium 150 Mcg Tablet) 150 mcg PO DAILY@0600 [facility] Last Admin: 10/10/21 06:31 Dose: 150 mcg Documented by: Metoprolol Succinate (Metoprolol Succinate Er 25 Mg Tab.Er.24h) 25 mg PO DAILY [facility]; Protocol Last Admin: 10/10/21 08:56 Dose: Not Given Documented by: Pharmacy Consult (Consult Rx Perform Med Rec) 1 each MISCELLANE ONCE PRN PRN Reason: Consult order Sodium Chloride (0.9 % Sodium Chloride Flush 3 Ml Syringe) 3 ml IVFLUSH QSHIFT [facility] Last Admin: 10/10/21 08:34 Dose: 3 ml Documented by: Tiotropium [place] (Tiotropium [place] 18 Mcg Cap.W.Dev) 1 puff INHALE RDAILY [facility] Last Admin: 10/10/21 07:59 Dose: 1 puff Documented by: Time Spent With Patient Time: Total time spent is greater than 50% in coordination of care (as documented) at patient's floor/unit and/or counseling patient: Time with patient: 15 - 24 minutes Progress Note: Quality Stroke Does the patient have a stroke diagnosis?: No Procedures Date of Service Date of Service: 10/10/21
[2021-10-10 09:58] LABS: COVID-19 Test Negative (Negative); IDNOW Serial# 9DD0AD1C
[2021-10-10 10:58] LABS: B Type Natriuretic Peptide 907 pg/mL (<100)
[2021-10-10 11:00] LABS: Free T4 (Free Thyroxine) 1.62 ng/dL (0.71-1.85)
--- NOTE | 2021-10-10 11:24 | P.PNIM_ITS ---
Subjective Subjective Date of Service: 10/10/21 Interval History: cc: chest pain, sob interval history: unchanged Cardiovascular Cardiovascular: Reports no additional cardiovascular complaints Respiratory Respiratory: Reports no additional respiratory complaints Physical Exam Vital Signs: Vital Signs: Last Vital Signs Temp 98.6 F 10/10/21 11:13 Pulse 83 10/10/21 11:13 Resp 24 H 10/10/21 11:13 BP 111/61 10/10/21 11:13 Pulse Ox 96 10/10/21 11:13 BMI result Body Mass Index 27.4 General: AO X 3, no acute distress Resp:? CTA bilateral, no accessory muscles used CVS: S1,S2,RRR GI: soft, non tender, non distended Neuro:? motor grossly intact, alert Psych: appropriate affect, appropriate insight? Objective Data Active Medications Acetaminophen (Acetaminophen 325 Mg Tablet) 650 mg PO Q6H PRN PRN Reason: Pain, Mild (Pain Scale 1-3) Last Admin: 10/09/21 19:44 Dose: 650 mg Documented by: LEXI Albuterol Sulfate (Albuterol Sulfate 90 Mcg 8 Gm Inhaler) 2 puff INHALE Q6H PRN PRN Reason: wheezing and shortness of breast Aspirin (Aspirin 81 Mg Tab.Chew) 81 mg PO DAILY [facility] Last Admin: 10/10/21 08:56 Dose: 81 mg Documented by: JORGE Atorvastatin Calcium (Atorvastatin Calcium 40 Mg Tablet) 40 mg PO BEDTIME [facility] Last Admin: 10/09/21 21:42 Dose: 40 mg Documented by: LEXI Benzonatate (Benzonatate 100 Mg Capsule) 100 mg PO TID PRN PRN Reason: Cough Last Admin: 10/10/21 02:54 Dose: 100 mg Documented by: LANCE Enoxaparin Sodium (Enoxaparin Sodium 80 Mg/0.8 Ml Syringe) 80 mg 1 mg/kg (80 mg) SUBCUT Q12H [facility] Last Admin: 10/10/21 08:55 Dose: 80 mg Documented by: JORGE Fluticasone/Vilanterol (Fluticasone/Vilanterol 100/25 Blst.W.Dev) 1 puff INHALE RDAILY [facility] Last Admin: 10/10/21 07:59 Dose: 1 puff Documented by: SORAIDA Levothyroxine Sodium (Levothyroxine Sodium 150 Mcg Tablet) 150 mcg PO DAILY@0600 [facility] Last Admin: 10/10/21 06:31 Dose: 150 mcg Documented by: LANCE Pharmacy Consult (Consult Rx Perform Med Rec) 1 each MISCELLANE ONCE PRN PRN Reason: Consult order Sodium Chloride (0.9 % Sodium Chloride Flush 3 Ml Syringe) 3 ml IVFLUSH QSHIFT [facility] Last Admin: 10/10/21 08:34 Dose: 3 ml Documented by: JORGE Tiotropium [place] (Tiotropium [place] 18 Mcg Cap.W.Dev) 1 puff INHALE RDAILY [facility] Last Admin: 10/10/21 07:59 Dose: 1 puff Documented by: SORAIDA Labs CBC & Chem 7: 10/10/21 06:48 10/10/21 06:48 Labs: Laboratory Results - last 24 hr 10/10/21 10/10/21 10/10/21 06:48 06:48 06:48 MCV 94.6 MCH 31.2 MCHC 33.0 RDW 12.5 Plt Count 213 MPV 12.1 Absolute Nucleated RBC 0.000 Nucleated RBC % (auto) 0.0 Anion Gap 13 Estim Creat Clear Calc 102.1 Estimated GFR > 60 Fasting Glucose 92 Calcium 9.2 Total Bilirubin 1.6 H Direct Bilirubin 0.6 H AST 79 H ALT 41 H Alkaline Phosphatase 82 B-Natriuretic Peptide 907 H Total Protein 5.8 L Albumin 3.8 Free T4 1.62 COVID-19 (KELLEN) COVID-19 [place] 10/10/21 09:23 MCV MCH MCHC RDW Plt Count MPV Absolute Nucleated RBC Nucleated RBC % (auto) Anion Gap Estim Creat Clear Calc Estimated GFR Fasting Glucose Calcium Total Bilirubin Direct Bilirubin AST ALT Alkaline Phosphatase B-Natriuretic Peptide Total Protein Albumin Free T4 COVID-19 (KELLEN) Negative COVID-19 Clin [email or web address] See Note Assessment and Plan (1) Chronic systolic CHF (congestive heart failure): Status: Acute (2) Atrial fibrillation with rapid ventricular response: Status: Acute Assessment and Plan: 71M presented with sob, chest pain, found to be in rapid irregular rhythm sob, chest pain, irregular rhythm appears to be aflutter vs afib vs MAT not mentioned previously, would be new onset frequent PVCs, nsvt chest pain appears to be MSK from cough, but has positive troponins and high risk for ischemia, follow up repeat, cardio appreciated, likely need ischemic work up changed eliquis to lovenox for possible cath started on toprol, but low bp, not getting consistently thyrotoxicosis decreased synthroid from 175 to 150mcg, repeat tsh in 4 weeks, follow up t3,t4 chronic systolic chf toprol echo wiith global hypokniesis, ef 20-25%, grade II diasotlic dysfunction, mild pulm htn COPD prn bronchodilators breo history of PE lvoenox (normally on eliquis) Quality Stroke Does the patient have a stroke diagnosis?: No VTE Prior VTE?: Yes VTE Risk Level:: Medical - moderate - high VTE Device Contraindication: Treatment Not Indicated VTE Drug Contraindication: N/A - Med Ordered
[2021-10-10] MEDS: Digoxin 0.5 MG/2 ML AMPUL 0.25 MG IVPUSH ×2 (13:37→20:23)
[2021-10-10] MEDS: Atorvastatin Calcium 40 MG TABLET PO (20:23)
[2021-10-10] MEDS: Metoprolol Tartrate 5 MG/5 ML VIAL IVPUSH (21:55)
[2021-10-10] MEDS: dilTIAZem HCL 125 MG in 0.9 % Sodium Chloride 100 ML 10 MG IVCONT (22:19)
--- NOTE | 2021-10-10 22:22 | PM.EVENT ---
Event Note Date of Service: 10/10/21 Event Note: Pt went into SVT w HR between 140s-170s. pt HDS with no symptoms. laying in bed comfortably. multiple vasovagel maneuvers attempted with no change in HR. BP 100s/50s. received 5 mg of IV lopressor push with no change, received 2 x 6mg IV adenosis with HR dropping to 110s-130s. EKG obtained at this time showed A.fib with RVR. given 5 mg of diltiazem iv, and started on dilt drip. pt remained HDS through the whole event.
[2021-10-10] MEDS: Acetaminophen 325 MG TABLET 650 MG PO (22:49)
[2021-10-10] MEDS: guaiFENesin 200 MG/10 ML 10 ML LIQUID PO (22:49)
[2021-10-10 23:11] LABS: Troponin-I High Sensitivity 244.1 ng/L (<3.5-35.0)
--- NOTE | 2021-10-11 00:28 | PC.NURSE ---
Around 21:50 pt HR jumped to 120-170's. Pt laying in bed, asymptomatic. MD made aware and order for 5mg IV Lopressor ordered and administered with no effect. MD order for 6mg Adenosine x2 with minimal to no effect. Pt ordered to bear down. HR sustaining 120's-140's. EKG obtained and showing Afib RVR. MD order for 5mg IVP cardizem administered with some effect. HR slowly dropped to low 100's. Cardizem gtt started at 10mg/hr, but only ran for a couple of minutes due to pt rhythm converting back to NSR with HR sustaining in the 80's. Pt remained asymptomatic, only complaining of slight headache which he was medicated for with tylenol. He has pacer pads placed. Troponin was ordered, first came back 244.1. Awaiting results for next tropinin. MD aware. HR sustaining 70-80's. Pt resting. Will continue to monitor.
[2021-10-11 02:35] LABS: Troponin-I High Sensitivity 218.2 ng/L (<3.5-35.0)
[2021-10-11 03:04] VITALS: BP 123/64; PULSE 62; RESP 15; TEMP 36.5; O2SAT 95
[2021-10-11] MEDS: Levothyroxine Sodium 150 MCG TABLET PO (05:28)
[2021-10-11 07:25] VITALS: BP 105/61; PULSE 70; RESP 18; TEMP 36.6; O2SAT 97
[2021-10-11] MEDS: Enoxaparin Sodium 80 MG/0.8 ML SYRINGE SUBCUT (07:33)
[2021-10-11] MEDS: Aspirin 81 MG TAB.CHEW PO (07:33)
[2021-10-11] MEDS: 0.9 % Sodium Chloride Flush 3 ML SYRINGE IVFLUSH ×2 (07:33→20:41)
[2021-10-11 08:57] LABS: Triiodothyronine T3 Total 105 ng/dL (76-181)
--- NOTE | 2021-10-11 09:27 | P.PNIM_ITS ---
Subjective Subjective Date of Service: 10/11/21 Interval History: ?cc: chest pain, sob interval history: unchanged Cardiovascular Cardiovascular: Reports no additional cardiovascular complaints Respiratory Respiratory: Reports no additional respiratory complaints Physical Exam Vital Signs: Vital Signs: Last Vital Signs Temp 97.8 F 10/11/21 07:25 Pulse 70 10/11/21 07:25 Resp 18 10/11/21 07:25 BP 105/61 10/11/21 07:25 Pulse Ox 97 10/11/21 07:25 BMI result Body Mass Index 27.2 General: AO X 3, no acute distress Resp:? CTA bilateral, no accessory muscles used CVS: S1,S2,RRR GI: soft, non tender, non distended Neuro:? motor grossly intact, alert Psych: appropriate affect, appropriate insight? Objective Data Active Medications Acetaminophen (Acetaminophen 325 Mg Tablet) 650 mg PO Q6H PRN PRN Reason: Pain, Mild (Pain Scale 1-3) Last Admin: 10/10/21 22:49 Dose: 650 mg Documented by: SAUL Albuterol Sulfate (Albuterol Sulfate 90 Mcg 8 Gm Inhaler) 2 puff INHALE Q6H PRN PRN Reason: wheezing and shortness of breast Aspirin (Aspirin 81 Mg Tab.Chew) 81 mg PO DAILY [facility] Last Admin: 10/11/21 07:33 Dose: 81 mg Documented by: TIMOTHY Atorvastatin Calcium (Atorvastatin Calcium 40 Mg Tablet) 40 mg PO BEDTIME [facility] Last Admin: 10/10/21 20:23 Dose: 40 mg Documented by: SAUL Benzonatate (Benzonatate 100 Mg Capsule) 100 mg PO TID PRN PRN Reason: Cough Last Admin: 10/10/21 02:54 Dose: 100 mg Documented by: LANCE Enoxaparin Sodium (Enoxaparin Sodium 80 Mg/0.8 Ml Syringe) 80 mg 1 mg/kg (80 mg) SUBCUT Q12H [facility] Last Admin: 10/11/21 07:33 Dose: 80 mg Documented by: TIMOTHY Fluticasone/Vilanterol (Fluticasone/Vilanterol 100/25 Blst.W.Dev) 1 puff INHALE RDAILY [facility] [place] Last Admin: 10/11/21 07:33 Dose: Not Given Documented by: CLARENCE Non-Admin Reason: Med Not Available Guaifenesin (Guaifenesin 200 Mg/10 Ml 10 Ml Liquid) 10 ml PO Q6H PRN PRN Reason: cough Last Admin: 10/10/21 22:49 Dose: 10 ml Documented by: SAUL Levothyroxine Sodium (Levothyroxine Sodium 150 Mcg Tablet) 150 mcg PO DAILY@0600 [facility] [place] Last Admin: 10/11/21 05:28 Dose: 150 mcg Documented by: SAUL Pharmacy Consult (Consult Rx Perform Med Rec) 1 each MISCELLANE ONCE PRN PRN Reason: Consult order Sodium Chloride (0.9 % Sodium Chloride Flush 3 Ml Syringe) 3 ml IVFLUSH QSHIFT [facility] [place] Last Admin: 10/11/21 07:33 Dose: 3 ml Documented by: TIMOTHY Tiotropium [place] (Tiotropium [place] 18 Mcg Cap.W.Dev) 1 puff INHALE RDAILY [facility] [place] Last Admin: 10/11/21 07:33 Dose: Not Given Documented by: CLARENCE Non-Admin Reason: Med Not Available Labs CBC & Chem 7: 10/10/21 06:48 10/10/21 06:48 Labs: Laboratory Results - last 24 hr 10/10/21 10/10/21 10/10/21 06:48 06:48 06:48 Troponin I High Sens B-Natriuretic Peptide 907 H Free T4 1.62 Total T3 105 COVID-19 (KELLEN) COVID-19 Clin Com 10/10/21 10/10/21 10/11/21 09:23 22:30 01:46 Troponin I High Sens 244.1 H* 218.2 H* B-Natriuretic Peptide Free T4 Total T3 COVID-19 (KELLEN) Negative COVID-19 Clin Com See Note Assessment and Plan (1) Chronic systolic CHF (congestive heart failure): Status: Acute (2) Atrial fibrillation with rapid ventricular response: Status: Acute Assessment and Plan: 71M presented with sob, chest pain, found to be in rapid irregular rhythm sob, chest pain, irregular rhythm appears to be aflutter vs afib vs MAT not mentioned previously, would be new onset frequent PVCs, nsvt chest pain appears to be MSK from cough, but has positive troponins and high risk for ischemia, follow up repeat, cardio appreciated, likely need ischemic work up changed eliquis to lovenox for possible cath started on toprol, but low bp, not getting consistently had rapid irregular rhythm again last night, was given adenosine and diltiazem nad lopressor, no in sinus, will dc diltiazem subclinical thyrotoxicosis decreased synthroid from 175 to 150mcg, repeat tsh in 4 weeks, t3, t4 WNL chronic systolic chf toprol echo wiith global hypokniesis, ef 20-25%, grade II diasotlic dysfunction, mild pulm htn COPD prn bronchodilators breo history of PE lovenox (normally on eliquis) Quality Stroke Does the patient have a stroke diagnosis?: No VTE Prior VTE?: Yes VTE Risk Level:: Medical - moderate - high VTE Device Contraindication: Treatment Not Indicated VTE Drug Contraindication: N/A - Med Ordered
--- NOTE | 2021-10-11 09:42 | PM.PNCARD ---
Subjective Subjective Date of Service: 10/11/21 Principal diagnosis: Atrial arrythmia, Elevated Troponin, CMP, hyperthyroid Interval history: Cardiology follow up for the above. Seen at 0930. Today he reports that he did not feel symptoms when he had the fast heart beat last evening. He does notice some increased sob this am. Intermittent cough which is not new. No chest pains or palpitation. He does feel an epigastric discomfort when he drinks water. Able to eat breakfast without issues. Did not sleep well due to interruptions. Has been up to bathroom without assistance. Review of Systems Review of Systems as above Yes all other systems are reviewed and are negative Physical Exam Vital Signs: Last Vital Signs Temp 97.8 F 10/11/21 07:25 Pulse 70 10/11/21 07:25 Resp 18 10/11/21 07:25 BP 105/61 10/11/21 07:25 Pulse Ox 97 10/11/21 07:25 BMI result Body Mass Index 27.2 Const General: cooperative, no acute distress, alert and awake Orientation/consciousness: patient oriented x3 Neck Neck: Yes normal visual inspection and Yes no JVD Resp Effort & Inspection: normal respiratory effort, able to speak in complete sentences and not labored Auscultation: clear to auscultation bilaterally, no rales, no rhonchi and no wheezes Cardio Palpation: normal PMI Rate: regular rate Rhythm: abnormal rhythm Heart sounds: S1 normal heart sound present and S2 normal heart sound present Peripheral pulses: Peripheral pulses 2+ throughout GI Inspection: Yes normal to inspection Neuro General: patient oriented x3 Extrem General: Yes normal to inspection and No edema Objective Labs and Meds Result diagrams: 10/10/21 06:48 10/10/21 06:48 Lab results: Laboratory Results - last 24 hr 10/10/21 10/10/21 10/10/21 06:48 06:48 06:48 Troponin I High Sens B-Natriuretic Peptide 907 H Free T4 1.62 Total T3 105 COVID-19 ([facility]) COVID-19 Clin Com 10/10/21 10/10/21 10/11/21 09:23 22:30 01:46 Troponin I High Sens 244.1 H* 218.2 H* B-Natriuretic Peptide Free T4 Total T3 COVID-19 ([facility]) Negative COVID-19 Clin Com See Note Progress Note: A&P Assessment and plan (1) Atrial arrhythmia: Status: Acute Assessment and Plan: Presented to [facility] with cough and sob. EKG and Tele with narrow complex irregular rhythm, concerning for possible AF vs MAT. Rates elevated and he was started on Metoprolol to assist with rate control. BP low yesterday and Metoprolol stopped - he was given 2 doses of Digoxin 0.25mg IV. Last evening he had episode of narrow complex tachycardia that was treated with Metoprolol IV, adenosine IV x2 and then Diltiazem IV. Tele strips reviewed and does look like atrial fibrillation with RVR. He has since gone back into his SR with freq PACs Vs multifocal atrial rhythm. Today he does report feeling sob but no chest pains or palpitation. Echo shows EF 20-25%, grade II diastolic dysfunction, LA severely dilated. Would not use Diltiazem on him due to reduced EF. Will give Digoxin 0.125mg EOD. Will add Bisoprolol 2.5mg daily to help with rate control. CHADSVASc score 2. He normally is on Eliquis due to prior PE. At present he is on Lovenox at therapeutic dose. No plan for cardiac cath at this time - Recommend stop Lovenox and restart Eliquis. Ongoing tele monitoring while inpt. (2) Atrial fibrillation with rapid ventricular response: Status: Acute Assessment and Plan: as above. He does recall having episode of afib in the past as well. He is currently thyroid toxic which likely contributes to his tachyarrythmias. Thyroid supplement has already been reduced. (3) Cardiomyopathy: Status: Acute Assessment and Plan: [place] [facility] [place] EF 20%. He was not on neurohormonal modulators for unclear reason. Echo this admit, again with reduced EF 20-25%. He had been started on Metoprolol and BP was too low and it was stopped. BPs this am 105/61 and 123/64. Will be starting Bisoprolol as above. No grace/ arb at this time due to low BPs. He does have an intermittent cough and reports feeling sob. Lungs seem clear, JVD is present. Hx of COPD. Will start on Lasix 40mg IV daily. Follow I+Os on him. Close monitoring of electrolyte and kidney function. (4) NSVT (nonsustained ventricular tachycardia): Status: Acute Assessment and Plan: Short runs of NSVT this admit. Asymptomatic. Longest 10 beats, occurring last evening. Has known reduced EF. Following. (5) Thyrotoxicosis: Status: Acute Assessment and Plan: TSH < 0.01, Normal free T4 and free T3. Hx of hypothyroid and on supplement. Had his dose increased a month ago and this admit it was decreased already based on labs. Followed by hospitalist (6) Elevated troponin: Status: Acute Assessment and Plan: Troponin elevated up to 285 then trending down. No known hx of CAD. Does have prior echo showing reduced EF. Had not been on medical mgt. Unknown if CMP is ischemic or nonischemic. Troponin elevation may be related demand from atrial arrythmia and elevated heart rates. His is on Lovenox therapeutic dose for anticoagulation. On Aspirin, Atorvastatin, Metoprolol. Cardiac cath was discussed however will be placed on hold at present due to thyroid toxic state. No plan for [facility] transfer at this time. Will likely plan for diagnostic cardiac cath as outpt (7) Chronic systolic CHF (congestive heart failure): Status: Acute Assessment and Plan: He does report sob and cough. Starting Lasix as above Fall Risk Details Current Medications: Current Medications Acetaminophen (Acetaminophen 325 Mg Tablet) 650 mg PO Q6H PRN PRN Reason: Pain, Mild (Pain Scale 1-3) Last Admin: 10/10/21 22:49 Dose: 650 mg Documented by: Albuterol Sulfate (Albuterol Sulfate 90 Mcg 8 Gm Inhaler) 2 puff INHALE Q6H PRN PRN Reason: wheezing and shortness of breast Aspirin (Aspirin 81 Mg Tab.Chew) 81 mg PO DAILY [facility] Last Admin: 10/11/21 07:33 Dose: 81 mg Documented by: Atorvastatin Calcium (Atorvastatin Calcium 40 Mg Tablet) 40 mg PO BEDTIME KAREN Last Admin: 10/10/21 20:23 Dose: 40 mg Documented by: Benzonatate (Benzonatate 100 Mg Capsule) 100 mg PO TID PRN PRN Reason: Cough Last Admin: 10/10/21 02:54 Dose: 100 mg Documented by: Enoxaparin Sodium (Enoxaparin Sodium 80 Mg/0.8 Ml Syringe) 80 mg 1 mg/kg (80 mg) SUBCUT Q12H [facility] Last Admin: 10/11/21 07:33 Dose: 80 mg Documented by: Fluticasone/Vilanterol (Fluticasone/Vilanterol 100/25 Blst.W.Dev) 1 puff INHALE RDAILY [facility], [facility] Last Admin: 10/11/21 07:33 Dose: Not Given Documented by: Guaifenesin (Guaifenesin 200 Mg/10 Ml 10 Ml Liquid) 10 ml PO Q6H PRN PRN Reason: cough Last Admin: 10/10/21 22:49 Dose: 10 ml Documented by: Levothyroxine Sodium (Levothyroxine Sodium 150 Mcg Tablet) 150 mcg PO DAILY@0600 [facility] Last Admin: 10/11/21 05:28 Dose: 150 mcg Documented by: Pharmacy Consult (Consult Rx Perform Med Rec) 1 each MISCELLANE ONCE PRN PRN Reason: Consult order Sodium Chloride (0.9 % Sodium Chloride Flush 3 Ml Syringe) 3 ml IVFLUSH QSHIFT [facility] Last Admin: 10/11/21 07:33 Dose: 3 ml Documented by: Tiotropium [place] (Tiotropium [place] 18 Mcg Cap.W.Dev) 1 puff INHALE RDAILY [facility] Last Admin: 10/11/21 07:33 Dose: Not Given Documented by: Time Spent With Patient Time: Total time spent is greater than 50% in coordination of care (as documented) at patient's floor/unit and/or counseling patient: Time with patient: 15 - 24 minutes Progress Note: Quality Stroke Does the patient have a stroke diagnosis?: No Procedures Date of Service Date of Service: 10/11/21
--- NOTE | 2021-10-11 10:31 | PC.NURSE ---
HR pt has frequent episodes of ST with PAC's; MD sal aware and cardiology consulted.
[2021-10-11 11:09] VITALS: BP 132/79; PULSE 83; RESP 18; TEMP 36.8; O2SAT 98
[2021-10-11] MEDS: Bisoprolol Fumarate 5 MG TABLET 2.5 MG PO (13:24)
[2021-10-11] MEDS: Furosemide 40 MG/4 ML VIAL IVPUSH (13:24)
[2021-10-11 14:56] VITALS: BP 109/61; PULSE 48; RESP 20; TEMP 36.2; O2SAT 94
[2021-10-11 19:23] VITALS: BP 124/76; PULSE 73; RESP 16; TEMP 36.5; O2SAT 96
[2021-10-11] MEDS: Acetaminophen 325 MG TABLET 650 MG PO (20:41)
[2021-10-11] MEDS: Apixaban 5 MG TABLET PO (20:41)
[2021-10-11] MEDS: Atorvastatin Calcium 40 MG TABLET PO (20:41)
[2021-10-11 23:03] VITALS: BP 102/70; PULSE 53; RESP 15; TEMP 36.7; O2SAT 97
--- NOTE | 2021-10-12 02:15 | PC.NURSE ---
at approx 0130 pt had a 9 beat of vtach. pt asymptomatic, notified. No new orders at this time.
[2021-10-12 04:00] VITALS: BP 131/93; PULSE 72; RESP 15; TEMP 36.2; O2SAT 98
[2021-10-12 04:46] LABS: Hematocrit 50.6 % (42.0-52.0); Mean Corpuscular HGB Conc 33.6 g/dl (31.0-36.0); Mean Corpuscular Hemoglobin 31.3 pg (27.0-33.0); Mean Platelet Volume 11.1 fL (9.4-12.4); Platelet Count 314 X10*3/uL (160-400); Red Blood Count 5.44 X10*6/uL (4.60-5.80); Red Cell Distribution Width 12.1 % (11.0-16.0); White Blood Count 12.9 X10*3/uL (4.8-10.8)
[2021-10-12 05:06] LABS: Anion Gap 14 (12-20); Blood Urea Nitrogen 25 mg/dL (9-16); Calcium 9.8 mg/dL (8.4-10.2); Carbon Dioxide 29 mmol/L (22-29); Chloride 103 mmol/L (96-108); Creatinine Clr Calc Pharmacy 79.1; Estimated Glomerular Filt Rate > 60; Glucose Random 94 mg/dL (60-115); Magnesium 2.1 mg/dL (1.6-2.6); Potassium 4.1 mmol/L (3.3-5.1); Sodium 142 mmol/L (135-145)
[2021-10-12] MEDS: Levothyroxine Sodium 150 MCG TABLET PO (05:17)
[2021-10-12 06:53] VITALS: BP 110/73; PULSE 62; RESP 20; TEMP 35.9; O2SAT 99
[2021-10-12] MEDS: 0.9 % Sodium Chloride Flush 3 ML SYRINGE IVFLUSH (10:53)
[2021-10-12] MEDS: Aspirin 81 MG TAB.CHEW PO (10:54)
[2021-10-12] MEDS: Bisoprolol Fumarate 5 MG TABLET 2.5 MG PO (10:54)
[2021-10-12] MEDS: Apixaban 5 MG TABLET PO (10:55)
[2021-10-12] MEDS: Furosemide 40 MG/4 ML VIAL IVPUSH (10:55)
[2021-10-12 10:59] VITALS: PULSE 62
[2021-10-12] MEDS: Digoxin 0.125 MG TABLET PO (10:59)
--- NOTE | 2021-10-12 10:59 | P.PNCA_ITS ---
Subjective Subjective Date of Service: 10/12/21 Principal diagnosis: Atrial arrythmia, Afib, Elevated Troponin, CMP, hyperthyroid Interval history: Cardiology follow up for the above. Seen at 1030. Today he continues to report having cough that bothers him mostly at night. He states having shortness of breath. Observed to be ambulating steady in room without noted sob. Denies have chest pains, palpitations, dizziness. Slept 4 hrs last night. Voiding in bathroom. States he may be going home today. Review of Systems Review of Systems as above Yes all other systems are reviewed and are negative Physical Exam Vital Signs: Last Vital Signs Temp 96.7 F L 10/12/21 06:53 Pulse 62 10/12/21 06:53 Resp 20 10/12/21 06:53 BP 110/73 10/12/21 06:53 Pulse Ox 99 10/12/21 06:53 BMI result Body Mass Index 27.2 Const General: cooperative, no acute distress, alert and awake Orientation/consciousness: patient oriented x3 Neck Neck: Yes normal visual inspection and Yes no JVD Resp Effort & Inspection: normal respiratory effort, able to speak in complete sentences and not labored Auscultation: clear to auscultation bilaterally, no crackles, no rales, no rhonchi and no wheezes Cardio Palpation: normal PMI Rate: regular rate Rhythm: regular rhythm Heart sounds: S1 normal heart sound present and S2 normal heart sound present Peripheral pulses: Peripheral pulses 2+ throughout GI Inspection: Yes normal to inspection Neuro General: patient oriented x3 Extrem General: Yes normal to inspection and No edema Objective Labs and Meds Result diagrams: 10/12/21 04:29 10/12/21 04:29 Lab results: Laboratory Results - last 24 hr 10/12/21 10/12/21 10/12/21 04:29 04:29 04:29 WBC 12.9 H RBC 5.44 Hgb 17.0 Hct 50.6 MCV 93.0 MCH 31.3 MCHC 33.6 RDW 12.1 Plt Count 314 D MPV 11.1 Absolute Nucleated RBC 0.000 Nucleated RBC % (auto) 0.0 Sodium Cancelled 142 Potassium Cancelled 4.1 Chloride Cancelled 103 Carbon Dioxide Cancelled 29 Anion Gap Cancelled 14 BUN Cancelled 25 H Creatinine Cancelled 0.80 Estim Creat Clear Calc Cancelled 79.1 Estimated GFR Cancelled > 60 Random Glucose 94 Fasting Glucose Cancelled Calcium Cancelled 9.8 D Magnesium 2.1 Progress Note: A&P Assessment and plan (1) Atrial fibrillation with rapid ventricular response: Status: Acute Assessment and Plan: Initially this admit with narrow complex irregular rhythm thought to be multifoc al atrrial tach. During admit he has had confirmed atrial fibrillation with RVR treated with rate slowing meds. No prior known hx of atrial fibrillation. He initially was on Metoprolol and BP was low. He was started on Digoxin load then 0.125mg EOD and Bisoprolol 2.5mg added yesterday. Tele this am shows SR, freq PACs, rate 60-80s. He has hx of ?PE and was already on Eliquis for anticoagulation. CHADSVASc score of 2. Continue Eliquis. Can be discharged from a cardiology perspective. We will arrange for outpt holter monitor and follow up. (2) NSVT (nonsustained ventricular tachycardia): Status: Acute Assessment and Plan: Episodes of NSVT noted while on Tele monitor this admit. Longest 10 beats, noted this am. Today K 4.1, Mg 2.1. No dizziness, presyncope, syncope, falls. Has EF 20-25%. Started on Bisoprolol. Will check outpt holter. (3) Cardiomyopathy: Status: Acute Assessment and Plan: Echo at [facility] [place] last year with EF 20%. He was not on neurohormonal modulators for unclear reason. Echo this admit, again with reduced EF 20-25%. He had been started on Metoprolol and BP was too low and it was stopped.?He was started on Bisoprolol yesterday. BP this amd 110/73. Not on grace/ arb at this time due to low BPs.?Has normal Cr. Will plan to add when BP allows. He does have an intermittent cough and reports feeling sob that has been present throughout admit. His BNP was elevated. Was started on Lasix 40mg IV daily yesterday. On exam today has no findings of fluid overload. Less cough noted. Discussed with Dr Gonzalez, recommend continue lasix 40mg po daily for now. Labs ordered for 1 week from now. (4) Elevated troponin: Status: Acute Assessment and Plan: Troponin elevated up to 285 then trending down.? No known hx of CAD. Does have prior echo showing reduced EF. Had not been on medical mgt. Unknown if CMP is ischemic or nonischemic. Troponin elevation may be related demand from atrial arrythmia and elevated heart rates. Initially discussed cardiac cath, Now due to atrial arrythmias, thyroidtoxicosis, it will be planned as outpt. He has not reported chest discomfort. Will continue medical mgt with Aspirin, Atorvastatin, Bisoprolol. Pt agreeable to this plan. We will see him as outpt and set up outpt cath. (5) Thyrotoxicosis: Status: Acute Assessment and Plan: TSH < 0.01, Normal free T4 and free T3. Hx of hypothyroid and on supplement. Had his dose increased a month ago and this admit it was decreased already based on labs. Followed by hospitalist Fall Risk Details Current Medications: Current Medications Acetaminophen (Acetaminophen 325 Mg Tablet) 650 mg PO Q6H PRN PRN Reason: Pain, Mild (Pain Scale 1-3) Last Admin: 10/11/21 20:41 Dose: 650 mg Documented by: Albuterol Sulfate (Albuterol Sulfate 90 Mcg 8 Gm Inhaler) 2 puff INHALE Q6H PRN PRN Reason: wheezing and shortness of breast Apixaban (Apixaban 5 Mg Tablet) 5 mg PO BID [facility] Last Admin: 10/11/21 20:41 Dose: 5 mg Documented by: Aspirin (Aspirin 81 Mg Tab.Chew) 81 mg PO DAILY [facility] Last Admin: 10/11/21 07:33 Dose: 81 mg Documented by: Atorvastatin Calcium (Atorvastatin Calcium 40 Mg Tablet) 40 mg PO BEDTIME [facility] Last Admin: 10/11/21 20:41 Dose: 40 mg Documented by: Benzonatate (Benzonatate 100 Mg Capsule) 100 mg PO TID PRN PRN Reason: Cough Last Admin: 10/10/21 02:54 Dose: 100 mg Documented by: Bisoprolol Fumarate (Bisoprolol Fumarate 5 Mg Tablet) 2.5 mg PO DAILY [facility] Last Admin: 10/11/21 13:24 Dose: 2.5 mg Documented by: Digoxin (Digoxin 0.125 Mg Tablet) 0.125 mg PO Q2D [facility] Fluticasone/Vilanterol (Fluticasone/Vilanterol 100/25 Blst.W.Dev) 1 puff INHALE RDAILY [facility] Last Admin: 10/12/21 07:19 Dose: Not Given Documented by: Furosemide (Furosemide 40 Mg/4 Ml Vial) 40 mg IVPUSH DAILY [facility]; Protocol Last Admin: 10/11/21 13:24 Dose: 40 mg Documented by: Guaifenesin (Guaifenesin 200 Mg/10 Ml 10 Ml Liquid) 10 ml PO Q6H PRN PRN Reason: cough Last Admin: 10/10/21 22:49 Dose: 10 ml Documented by: Levothyroxine Sodium (Levothyroxine Sodium 150 Mcg Tablet) 150 mcg PO DAILY@0600 [facility] Last Admin: 10/12/21 05:17 Dose: 150 mcg Documented by: Pharmacy Consult (Consult Rx Perform Med Rec) 1 each MISCELLANE ONCE PRN PRN Reason: Consult order Sodium Chloride (0.9 % Sodium Chloride Flush 3 Ml Syringe) 3 ml IVFLUSH QSHIFT [facility] Last Admin: 10/11/21 20:41 Dose: 3 ml Documented by: Tiotropium [place] (Tiotropium [place] 18 Mcg Cap.W.Dev) 1 puff INHALE RDAILY [facility] Last Admin: 10/12/21 07:19 Dose: Not Given Documented by: Time Spent With Patient Time: Total time spent is greater than 50% in coordination of care (as documented) at patient's floor/unit and/or counseling patient: Time with patient: 15 - 24 minutes Progress Note: Quality Stroke Does the patient have a stroke diagnosis?: No Procedures Date of Service Date of Service: 10/12/21
--- NOTE | 2021-10-12 11:19 | PM.DS ---
DS: Providers Provider Date of Service: 10/12/21 Date of admission: 10/08/21 09:33 Primary care physician: Unknown Physician Consults: 10/08/21 07:57 Consult to Cardiology Routine Consulting Provider: Orestes Melvin Reason for consultation: afib rvr, chf DS: Diagnosis Discharge Diagnosis (1) Atrial fibrillation with rapid ventricular response: Status: Acute (2) NSVT (nonsustained ventricular tachycardia): Status: Acute (3) Cardiomyopathy: Status: Acute (4) Elevated troponin: Status: Acute (5) Thyrotoxicosis: Status: Acute (6) Atrial arrhythmia: Status: Acute (7) Chronic systolic CHF (congestive heart failure): Status: Acute DS: Summary Hospital Course Hospital Course: Admission note HPI 71M presented with sob and chest discomfort with dry cough. pateint reports symptoms have been on and off over the past month or so. his sob is worse on exertion, denies orthopnea, pnd, or weight gain. he chest pain is sharp, midsternal, non radiating, and only when coughing, not reporducible. he was previously treated with prednisone and zpak with no improvement, so came to ED. in ED was noted to have irregualr tachycardia. was given diltiazem and digoxin, now appears to be sinus with pacs, feeling better. Hospital Course Patient was admitted to the hospital. Appears to be on a flutter versus AFib. Evaluated by Cardiology team with thought also about possible atria tachycardia. The patient started on bisoprolol and loaded with digoxin with good response as the heart rate controlled and the chest pain resolved. Troponin was mildly elevated but cardiology recommended not to do ischemia workup at this point and to follow in the clinic. Most recent echo showed low EF. He was treated for a acute on chronic CHF exacerbation with IV Lasix with good response. Plan to follow up with Cardiology as outpatient. Noticed to a very low TSH of 0.01. Normal T3, T4. Levothyroxine dose decreased to 150 mcg from 175. To follow-up as outpatient with primary to repeat TSH in 2 3 months. Time Spent with Patient Time attestation: Total time spent providing and/or coordinating discharge services: Discharge coordination time: Greater than 30 minutes Quality: Stroke Does the patient have a stroke diagnosis?: No Physical Exam Vital Signs: Vital Signs: Last Vital Signs Temp 96.7 F L 10/12/21 06:53 Pulse 62 10/12/21 10:59 Resp 20 10/12/21 06:53 BP 110/73 10/12/21 06:53 Pulse Ox 99 10/12/21 06:53 BMI result Body Mass Index 27.2 Const: Other: Constitutional : Alert, oriented, not in distress Neck : Normal inspection, Supple Cardiovascular : RRR, S1 S2, no lower extremity edema Respiratory : Good bilateral air entry, Basal fine left-sided crackles, no wheezes or rhonchi Gastrointestinal: soft, lax, Normal bowel sounds, Non tender Skin : Warm, Dry Neurological : Alert & oriented x3, No focal deficit DS: Data Data Completed and Pending Labs on day of discharge: Laboratory Results - last 24 hr 10/12/21 10/12/21 10/12/21 04:29 04:29 04:29 WBC 12.9 H RBC 5.44 Hgb 17.0 Hct 50.6 MCV 93.0 MCH 31.3 MCHC 33.6 RDW 12.1 Plt Count 314 D MPV 11.1 Absolute Nucleated RBC 0.000 Nucleated RBC % (auto) 0.0 Sodium Cancelled 142 Potassium Cancelled 4.1 Chloride Cancelled 103 Carbon Dioxide Cancelled 29 Anion Gap Cancelled 14 BUN Cancelled 25 H Creatinine Cancelled 0.80 Estim Creat Clear Calc Cancelled 79.1 Estimated GFR Cancelled > 60 Random Glucose 94 Fasting Glucose Cancelled Calcium Cancelled 9.8 D Magnesium 2.1 Discharge Plan Discharge Patient Disposition: Home Health Service Discharge Diagnosis: Heart failure exacerbation Atrial tachycardia Referrals: [facility] [Other] - 1 Week Physician,Unknown J [Physician] - 1 Week Discharge Medications: New bisoprolol fumarate 5 mg Tablet 2.5 mg PO DAILY 30 Days Qty: 15 RF: 0 benzonatate 100 mg Capsule 100 mg PO TID PRN (Reason: Cough) Qty: 30 RF: 0 levothyroxine 150 mcg Tablet 150 mcg PO DAILY@0600 30 Days Qty: 30 RF: 0 digoxin 125 mcg (0.125 mg) Tablet 0.125 mg PO Q2D 30 Days Qty: 15 RF: 0 furosemide 40 mg tablet 40 mg PO DAILY Qty: 30 RF: 0 Continued atorvastatin 40 mg tablet 40 mg PO BEDTIME 90 Days Qty: 90 RF: 2 Breo Ellipta 100-25 mcg/dose blister with device 1 puff inhalation DAILY RF: 0 Incruse Ellipta 62.5 mcg/actuation blister with device 1 puff inhalation DAILY RF: 0 Eliquis 5 mg tablet 5 mg PO BID RF: 0 aspirin [Lacy Chewable Aspirin] 81 mg tablet,chewable 81 mg PO DAILY RF: 0 albuterol sulfate [ProAir HFA] 90 mcg/actuation HFA aerosol inhaler 2 puff inhalation Q6H PRN (Reason: wheezing and shortness of breast) 30 Days Qty: 8.5 RF: 5 Discontinued levothyroxine 175 mcg capsule 175 mcg PO DAILY 30 Days Qty: 30 RF: 3 Discharge Orders: Discharge Order (Routine); Ordered 10/12/21 Ordered By: Barb Simons Diet: advance to usual diet and low salt diet Activity on Discharge: As tolerated Stand Alone Forms: Patient Portal Discharge page Other Ambulatory Orders: Basic Metabolic Panel (Routine) Timeframe: 1 Week Facility: [facility] - Location: Laboratory Ordered By: Barb Simons Care Plan Goals: Read below Health Concerns: Read below Plan of Treatment: Read below Assessment: you were admitted to the hospital for evaluation of difficulty breathing. Found to be on heart failure. Treated with IV Lasix with good response over the course of hospital stay. Your noted to rapid heartbeats on occasions. Evaluated by Cardiology team and started on bisoprolol and digoxin with good response. Your thyroid gland function was evaluated and we ended up decreasing the dose of levothyroxine. To repeat the test in months after following up with your PCP. Start Lasix, digoxin and bisoprolol as prescribed To follow up with Cardiology as outpatient for Holter monitor placement and to plan for cardiac angiogram Decrease levothyroxine to 150 mcg daily, follow-up with PCP To repeat kidney function test in 1 week Discharge Date/Time: 10/12/21 17:12
--- NOTE | 2021-10-12 11:29 | W.MHC.F2F ---
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 Certification: Based on the above findings, I certify that this patient is confined to the home and needs intermittent retirement care, physical therapy and/or speech therapy, or continues to need occupational therapy. The patient is under my care, and I have initiated the establishment of the plan of care. The patient will be followed by a physician who will periodically review the plan of care.
[2021-10-12 12:00] VITALS: BP 132/64; PULSE 87; RESP 16; TEMP 36.6; O2SAT 96
--- NOTE | 2021-10-12 12:11 | MHC.CM.PN ---
prt is dcd today will be seen by [facility]
[2021-10-12 12:36] VITALS: BP 132/64; PULSE 87; O2SAT 96
[2021-10-12] MEDS: Omeprazole 20 MG CAPSULE.DR PO (12:56)
[2021-10-12 15:20] VITALS: BP 109/73; PULSE 70; RESP 16; TEMP 36.1; O2SAT 97
== END 2021-10-12 17:12 | disposition home health service (06) | DRG 308 ==
LOC: HO.ED 07:19 → HO.EDOVER 09:38 → HO.IMC 10-10 15:43
PROVIDERS: Internal Medicine; Admitting Provider Internal Medicine; Emergency Provider Internal Medicine; PCP Hospitalist; Visit Provider Student in an Organized Health Care Education/Training Program
DX: I48.91 Unspecified atrial fibrillation (principal); I50.23 Acute on chronic systolic (congestive) heart failure; J43.1 Panlobular emphysema; I42.9 Cardiomyopathy, unspecified; I47.1 Supraventricular tachycardia; I48.92 Unspecified atrial flutter; Z20.822 Contact with and (suspected) exposure to COVID-19; E05.90 Thyrotoxicosis, unspecified without thyrotoxic crisis or storm; E03.9 Hypothyroidism, unspecified; Z86.711 Personal history of pulmonary embolism; Z87.891 Personal history of nicotine dependence; Z79.01 Long term (current) use of anticoagulants; Z79.82 Long term (current) use of aspirin; Z79.890 Hormone replacement therapy; Z79.899 Other long term (current) drug therapy
CPT/HCPCS: 0241U; 36415; 71045; 80048; 80076; 83735; 83880; 84439; 84443; 84480; 84484; 85025; 85027; 85379; 85610; 85730; 87635; 93005; 93306; 94640; 96365; 96366; 96375; 97162; 99285; 99291; J0153; J1160; J1650; J1940; J2930

== ENCOUNTER 2021-10-18 17:09 | Outpatient (REF) | payer OTHER, SELFPAY ==
[2021-10-18 19:05] LABS: Influenza A PCR NEGATIVE (Negative); Influenza B PCR NEGATIVE (Negative); Resp Syncy Virus RNA Qual PCR NEGATIVE (Negative); SARS COV2 PCR INHOUSE NEGATIVE (Negative)
== END 2021-10-18 17:10 | disposition home or self-care (01) ==
LOC: HO.LAB 17:09
PROVIDERS: Visit Provider Family Medicine
DX: Z20.822 Contact with and (suspected) exposure to COVID-19 (principal); B34.9 Viral infection, unspecified
CPT/HCPCS: 0241U

== ENCOUNTER 2021-11-01 11:07 | Outpatient (REF) | payer OTHER, MEDICARE, SELFPAY ==
[2021-11-01 14:25] LABS: Anion Gap 14 (12-20); Blood Urea Nitrogen 21 mg/dL (9-16); Calcium 10.1 mg/dL (8.4-10.2); Carbon Dioxide 31 mmol/L (22-29); Chloride 105 mmol/L (96-108); Estimated Glomerular Filt Rate > 60; Glucose Random 108 mg/dL (60-115); Potassium 4.6 mmol/L (3.3-5.1); Sodium 145 mmol/L (135-145)
== END 2021-11-01 11:08 | disposition home or self-care (01) ==
LOC: HO.WFDLDS 11:07
PROVIDERS: Absent Provider Hospitalist; Visit Provider Student in an Organized Health Care Education/Training Program
DX: I50.41 Acute combined systolic (congestive) and diastolic (congestive) heart failure (principal)
CPT/HCPCS: 36415; 80048

== ENCOUNTER → 2021-11-09 13:41 | Outpatient (BNVA) | payer OTHER, SELFPAY | PROVIDERS: PCP Family Medicine; Referring Provider Family Medicine; Visit Provider Internal Medicine | DX: I50.22 Chronic systolic (congestive) heart failure (principal); I48.0 Paroxysmal atrial fibrillation | CPT/HCPCS: 93005; 99212 ==

== ENCOUNTER 2021-11-16 11:38 | Outpatient (REF) | payer MEDICARE, OTHER, SELFPAY ==
[2021-11-16 14:11] LABS: Hematocrit 50.2 % (42.0-52.0); Hemoglobin 16.2 g/dl (14.0-18.0); Mean Corpuscular HGB Conc 32.3 g/dl (31.0-36.0); Mean Corpuscular Hemoglobin 30.7 pg (27.0-33.0); Mean Corpuscular Volume 95.1 fL (80.0-98.0); Mean Platelet Volume 11.9 fL (9.4-12.4); Platelet Count 256 X10*3/uL (160-400); Red Blood Count 5.28 X10*6/uL (4.60-5.80); Red Cell Distribution Width 12.2 % (11.0-16.0); White Blood Count 10.4 X10*3/uL (4.8-10.8)
[2021-11-16 14:41] LABS: Anion Gap 11 (12-20); Blood Urea Nitrogen 18 mg/dL (9-16); Calcium 9.9 mg/dL (8.4-10.2); Carbon Dioxide 32 mmol/L (22-29); Chloride 104 mmol/L (96-108); Estimated Glomerular Filt Rate > 60; Glucose Random 100 mg/dL (60-115); Potassium 4.4 mmol/L (3.3-5.1); Sodium 143 mmol/L (135-145)
[2021-11-16 15:31] LABS: INTERNATIONAL NORM RATIO 1.2 (0.9-1.1); Prothrombin Time 13.8 SEC (9.9-13.0)
== END 2021-11-16 11:39 | disposition home or self-care (01) ==
LOC: HO.WFDLDS 11:38
PROVIDERS: Visit Provider Internal Medicine
DX: I50.22 Chronic systolic (congestive) heart failure (principal)
CPT/HCPCS: 36415; 80048; 85027; 85610

== ENCOUNTER 2021-12-17 10:24 | Outpatient (REF) | payer MEDICARE, SELFPAY ==
[2021-12-17 11:16] LABS: Hematocrit 47.8 % (42.0-52.0); Hemoglobin 15.5 g/dl (14.0-18.0); Mean Corpuscular HGB Conc 32.4 g/dl (31.0-36.0); Mean Corpuscular Hemoglobin 30.4 pg (27.0-33.0); Mean Corpuscular Volume 93.7 fL (80.0-98.0); Mean Platelet Volume 11.4 fL (9.4-12.4); Platelet Count 304 X10*3/uL (160-400); Red Cell Distribution Width 12.8 % (11.0-16.0); White Blood Count 11.8 X10*3/uL (4.8-10.8)
[2021-12-17 11:35] LABS: INTERNATIONAL NORM RATIO 1.8 (0.9-1.1); Prothrombin Time 20.2 SEC (9.9-13.0)
[2021-12-17 11:36] LABS: Anion Gap 13 (12-20); Blood Urea Nitrogen 21 mg/dL (9-16); Calcium 10.5 mg/dL (8.4-10.2); Carbon Dioxide 33 mmol/L (22-29); Chloride 102 mmol/L (96-108); Estimated Glomerular Filt Rate > 60; Glucose Random 96 mg/dL (60-115); Potassium 4.6 mmol/L (3.3-5.1); Sodium 143 mmol/L (135-145)
== END 2021-12-17 10:25 | disposition home or self-care (01) ==
LOC: HO.LAB 10:24
PROVIDERS: PCP Family Medicine; Visit Provider Internal Medicine
DX: I50.22 Chronic systolic (congestive) heart failure (principal); I42.9 Cardiomyopathy, unspecified; I48.0 Paroxysmal atrial fibrillation
CPT/HCPCS: 36415; 80048; 85027; 85610

== ENCOUNTER 2021-12-27 08:59 | Outpatient (REF) | payer MEDICARE, SELFPAY ==
[2021-12-27 11:27] LABS: MANUAL DIFF FLAG NO
[2021-12-27 11:53] LABS: Basophils Absolute Auto 0.1 X10*3/uL (0.0-0.2); Basophils Percent Auto 0.8 % (0-2); Eosinophils Absolute Auto 0.4 X10*3/uL (0.0-0.4); Eosinophils Percent Auto 3.8 % (0-4); Hematocrit 46.4 % (42.0-52.0); Imm Gran Abs Auto 0.06 X10*3/uL (0.00-0.03); Imm Gran Pct Auto 0.5 % (0.0-0.4); Lymphocytes Absolute Auto 2.4 X10*3/uL (1.2-4.9); Lymphocytes Percent Auto 21.4 % (20-40); Mean Corpuscular HGB Conc 32.3 g/dl (31.0-36.0); Mean Corpuscular Hemoglobin 30.9 pg (27.0-33.0); Mean Corpuscular Volume 95.7 fL (80.0-98.0); Monocytes Absolute Auto 0.8 X10*3/uL (0.1-1.2); Monocytes Percent Auto 7.3 % (2-11); Neutrophils Absolute Auto 7.4 x10*3/uL (2.0-8.3); Neutrophils Percent Auto 66.2 % (45-73); Platelet Count 307 X10*3/uL (160-400); Red Blood Count 4.85 X10*6/uL (4.60-5.80); Red Cell Distribution Width 13.2 % (11.0-16.0); White Blood Count 11.2 X10*3/uL (4.8-10.8)
[2021-12-27 12:12] LABS: Alanine Aminotransferase 25 U/L (0-40); Albumin Level 4.2 g/dL (3.5-5.0); Alkaline Phosphatase 90 U/L (39-117); Anion Gap 12 (12-20); Aspartate Amino Transferase 23 U/L (5-37); Bilirubin Total 1.9 mg/dL (0.0-1.0); Blood Urea Nitrogen 16 mg/dL (9-16); Calcium 9.6 mg/dL (8.4-10.2); Carbon Dioxide 27 mmol/L (22-29); Chloride 106 mmol/L (96-108); Estimated Glomerular Filt Rate > 60; Glucose Random 102 mg/dL (60-115); Potassium 4.1 mmol/L (3.3-5.1); Sodium 141 mmol/L (135-145); Total Protein 6.5 g/dL (6.5-8.0)
[2021-12-27 12:23] LABS: TSH reflex Free T4 < 0.01 uIU/mL (0.32-4.0)
[2021-12-27 12:38] LABS: Free T4 (Free Thyroxine) 1.92 ng/dL (0.71-1.85); Thyroid Stimulating Hormone < 0.01 uIU/mL (0.32-4.0)
[2021-12-28 21:57] LABS: Triiodothyronine T3 Total 125 ng/dL (76-181)
== END 2021-12-27 09:00 | disposition home or self-care (01) ==
LOC: HO.WFDLDS 08:59
PROVIDERS: Hospitalist; Visit Provider Family Medicine
DX: Z00.00 Encounter for general adult medical examination without abnormal findings (principal); E05.90 Thyrotoxicosis, unspecified without thyrotoxic crisis or storm; E03.9 Hypothyroidism, unspecified; I48.91 Unspecified atrial fibrillation
CPT/HCPCS: 36415; 80053; 84439; 84443; 84480; 85025

== ENCOUNTER → 2022-01-03 13:35 | Outpatient (BNVA) | payer MEDICARE, SELFPAY | PROVIDERS: PCP Family Medicine; Referring Provider Family Medicine; Visit Provider Nurse Practitioner Family | DX: I42.9 Cardiomyopathy, unspecified (principal); I47.2 Ventricular tachycardia; I50.22 Chronic systolic (congestive) heart failure; I48.0 Paroxysmal atrial fibrillation; Z98.890 Other specified postprocedural states; E05.90 Thyrotoxicosis, unspecified without thyrotoxic crisis or storm | CPT/HCPCS: Q3014 ==

== ENCOUNTER 2022-01-11 08:47 | Outpatient (REF) | payer MEDICARE, MEDICAID, SELFPAY ==
--- NOTE | ~2022-01-11 | CT_ITS ---
EXAMINATION: CT CHEST WITHOUT CONTRAST CLINICAL INFORMATION: Pulmonary nodule COMPARISON: Previous chest x-ray September 2021 TECHNIQUE: Multidetector volumetric CT imaging of the chest was done. Axial MIP volume rendering provided. Sagittal and coronal reformatted images were obtained. This CT examination was performed using dose optimization techniques as appropriate, variously including the following: *Automated exposure control *Adjustment of mA and/or kV according to patient size (this includes techniques or standardized protocols for targeted exams where dose is matched to indication/reason for exam; i.e. extremities or head) *Use of iterative reconstruction technique DLP: 104 mGy-cm FINDINGS: LUNGS: There is mild biapical pleural parenchymal scarring. There is emphysema. There is a 6 mm nodule in the right middle lobe along the minor fissure probably representing a peripheral or subpleural lymph node axial image 341 series 5. There is a 3 mm peripheral or subpleural right middle lobe nodule axial image 360 series 5 probably representing a subpleural lymph node. The lungs are otherwise clear. There is a surgical sutures seen in the anterior right lower lobe at the right lung base adjacent to the diaphragm. There is increased soft tissue seen in the kay. This is mixed with air and probably related to patient secretions. MEDIASTINUM: There is mild coronary artery calcification. The mediastinum is otherwise normal. PLEURA: There is no pleural effusion. No pleural mass or thickening. AXILLA: No lymphadenopathy. UPPER ABDOMEN: The gallbladder has been removed. There is a small high attenuation subcentimeter lesion in the upper pole of the right kidney probably representing a hyperdense cyst. OSSEOUS STRUCTURES: Mild degenerative changes of the spine. CT/CT chest wo con IMPRESSION: Biapical pleural parenchymal scarring. Emphysema. Postsurgical changes to the right lower lobe. 2 small right middle lobe nodules probably representing subpleural lymph nodes. Mild coronary artery calcification. Fleischner guidelines were followed.
== END 2022-01-11 08:48 | disposition home or self-care (01) ==
LOC: HO.CT 08:47
PROVIDERS: Visit Provider Internal Medicine Critical Care Medicine
DX: R91.1 Solitary pulmonary nodule (principal)
CPT/HCPCS: 71250

== ENCOUNTER → 2022-03-22 07:04 | Outpatient (REF) | payer MEDICARE, MEDICAID, SELFPAY ==
--- NOTE | 2022-03-22 07:10 | CA_ITS ---
Transthoracic Echocardiogram Patient (Last, First, Middle): Tico Barahona, Gender: Male Date of : 1950 Age: 71 Procedure Date: 03/22/2022 Procedure Type: Transthoracic Echocardiogram Location: OP Height: 167.64 cm Weight: 56.7 kg BSA: 1.64 m2 Heart Rate: bpm BP: 124 / 70 mmHg Pulp Screen Operator: BARON Referring MD: Chaya Solis TELECOM NETWORK MANAGERRadha Symptoms: I42.9 - Cardiomyopathy, unspecified Study Quality: Good ECG Rhythm: Sinus with extra beats Conclusions: - The left ventricular systolic function is severely decreased. The visually estimated ejection fraction is between 25-30%. Findings Left Ventricle Normal left ventricular cavity size. There is mildly increased left ventricular wall thickness. The left ventricular systolic function is severely decreased. The visually estimated ejection fraction is between 25 30%. There is severe global hypokinesis. Right Ventricle Normal right ventricular cavity size and systolic function. Tricuspid Valve There is mild tricuspid valve regurgitation. The pulmonary artery systolic pressure is normal. Venous The inferior vena cava is normal in size and collapses greater than 50% with inspiration. Prior Study Comparison No significant change compared to prior study dated: 10/09/2021. Measurements 2D Linear Measurements IVSd: 1.28 0.6-0.9/0.6-1.0 cm LVIDd: 4.61 3.9-5.3/4.2-5.9 cm LVIDd Index: 2.81 2.4-3.2/2.2-3.1 cm/m2 LVIDs: 3.79 2.0-3.6 cm LVPWd: 1.24 0.7-1.1 cm LA Diam: 4.10 2.7-3.8/3.0-4.0 cm LAIDs Index: 2.50 1.5-2.3 cm/m2 LV Mass: 275.07 67-162/88-224 g LV Mass Index: 167.73 43-95/49-115 g/m2 LVOT Diam: 2.40 3.0+(-)1.3 cm 2D Systolic Function EF 4C: 30.90 >55% EF 2C: 33.10 >55% EF BiP: 33.90 >55% Mitral Valve MV Pk E: 0.57 MV PK A: 0.42 MV Decel Time: 142.00 E/A: 1.30 E'Lateral: 5.22 E'Medial: 4.35 E/E' Med: 13.10 E/E' Lat: 10.90 PHT: 42.00 MVA PHT: 5.24 Decel [place]: 4.00 LVOT LVOT Pk Kwadwo: 0.52 LVOT Mn Kwadwo: 0.33 LVOT VTI: 0.10 LVOT Pk Grad: 1.00 LVOT Mn Grad: 1.00 LVOT Diam: 2.40 LVOT Area: 4.52 Diastolic Function MV Pk E: 0.57 MV Pk A: 0.42 E/A: 1.30 E'Medial: 4.35 E/E' Med: 13.10 E' Laterial: 5.22 E/E' Lat: 10.90 Tricuspid Valve TR Pk Kwadwo: 2.58 TR Pk Grad: 27.00 RA Press: 3.00 RVSP: 30.00 Updated in Other Vendor System with Status of Final Orestes Melvin MD electronically signed on 03/26/2022 1:42:52 PM with status of Final
--- NOTE | 2022-03-22 07:11 | HM_ITS ---
* Total monitoring time 3 days and 14 hours. * Underlying rhythm is sinus. Average 79/Min. Range 75 to 134/Min. * Frequent supraventricular ectopy. Overall burden 27%. Short runs but nothing prolonged. * Rare PVCs. 3 short runs. Longest 7 beats. * No patient events. MTDD
== END ==
LOC: HO.CARD 07:04
PROVIDERS: Visit Provider Nurse Practitioner Family
DX: I42.9 Cardiomyopathy, unspecified (principal)
CPT/HCPCS: 93242; 93308

== ENCOUNTER 2022-04-07 11:26 | Outpatient (REF) | payer MEDICARE, SELFPAY ==
[2022-04-07 13:56] LABS: Alanine Aminotransferase 24 U/L (0-40); Albumin Level 4.4 g/dL (3.5-5.0); Alkaline Phosphatase 129 U/L (39-117); Anion Gap 15 (12-20); Aspartate Amino Transferase 20 U/L (5-37); Bilirubin Total 1.1 mg/dL (0.0-1.0); Blood Urea Nitrogen 14 mg/dL (9-16); Calcium 9.7 mg/dL (8.4-10.2); Carbon Dioxide 29 mmol/L (22-29); Chloride 103 mmol/L (96-108); Estimated Glomerular Filt Rate > 60; Glucose Random 107 mg/dL (60-115); Potassium 4.2 mmol/L (3.3-5.1); Sodium 143 mmol/L (135-145); Total Protein 7.1 g/dL (6.5-8.0)
[2022-04-07 14:09] LABS: B Type Natriuretic Peptide 438 pg/mL (<100)
[2022-04-07 14:14] LABS: Free T4 (Free Thyroxine) 1.78 ng/dL (0.71-1.85); Thyroid Stimulating Hormone < 0.01 uIU/mL (0.32-4.0)
[2022-04-08 22:27] LABS: Triiodothyronine T3 Total 146 ng/dL (76-181)
== END 2022-04-07 11:27 | disposition home or self-care (01) ==
LOC: HO.WFDLDS 11:26
PROVIDERS: Visit Provider Family Medicine
DX: I50.22 Chronic systolic (congestive) heart failure (principal); E03.9 Hypothyroidism, unspecified
CPT/HCPCS: 36415; 80053; 83880; 84439; 84443; 84480

== ENCOUNTER → 2022-04-13 13:28 | Outpatient (BNVA) | payer MEDICARE, MEDICAID, SELFPAY | PROVIDERS: PCP Family Medicine; Referring Provider Family Medicine; Visit Provider Nurse Practitioner Family | DX: I42.9 Cardiomyopathy, unspecified (principal); I50.22 Chronic systolic (congestive) heart failure; I48.0 Paroxysmal atrial fibrillation; I47.2 Ventricular tachycardia; E05.90 Thyrotoxicosis, unspecified without thyrotoxic crisis or storm; Z79.01 Long term (current) use of anticoagulants; Z79.899 Other long term (current) drug therapy | CPT/HCPCS: 99212 ==

== ENCOUNTER 2022-05-11 09:13 | Outpatient (REF) | payer MEDICARE, MEDICAID, SELFPAY ==
[2022-05-11 11:44] LABS: MANUAL DIFF FLAG NO
[2022-05-11 11:50] LABS: Basophils Absolute Auto 0.1 X10*3/uL (0.0-0.2); Basophils Percent Auto 0.9 % (0-2); Eosinophils Absolute Auto 0.3 X10*3/uL (0.0-0.4); Eosinophils Percent Auto 2.9 % (0-4); Hematocrit 46.5 % (42.0-52.0); Hemoglobin 14.9 g/dl (14.0-18.0); Imm Gran Abs Auto 0.05 X10*3/uL (0.00-0.03); Imm Gran Pct Auto 0.5 % (0.0-0.4); Lymphocytes Absolute Auto 2.2 X10*3/uL (1.2-4.9); Lymphocytes Percent Auto 19.5 % (20-40); Mean Corpuscular Hemoglobin 30.5 pg (27.0-33.0); Mean Corpuscular Volume 95.3 fL (80.0-98.0); Mean Platelet Volume 11.8 fL (9.4-12.4); Neutrophils Absolute Auto 7.5 x10*3/uL (2.0-8.3); Neutrophils Percent Auto 67.2 % (45-73); Platelet Count 300 X10*3/uL (160-400); Red Blood Count 4.88 X10*6/uL (4.60-5.80); Red Cell Distribution Width 12.8 % (11.0-16.0); White Blood Count 11.1 X10*3/uL (4.8-10.8)
[2022-05-11 12:05] LABS: Alanine Aminotransferase 30 U/L (0-40); Albumin Level 4.5 g/dL (3.5-5.0); Alkaline Phosphatase 114 U/L (39-117); Anion Gap 13 (12-20); Aspartate Amino Transferase 22 U/L (5-37); Bilirubin Total 1.2 mg/dL (0.0-1.0); Blood Urea Nitrogen 21 mg/dL (9-16); Calcium 9.7 mg/dL (8.4-10.2); Carbon Dioxide 27 mmol/L (22-29); Chloride 106 mmol/L (96-108); Estimated Glomerular Filt Rate > 60; Glucose Random 101 mg/dL (60-115); Potassium 4.6 mmol/L (3.3-5.1); Sodium 141 mmol/L (135-145); Total Protein 6.9 g/dL (6.5-8.0)
[2022-05-11 12:15] LABS: B Type Natriuretic Peptide 298 pg/mL (<100)
[2022-05-11 12:28] LABS: Free T4 (Free Thyroxine) 1.61 ng/dL (0.71-1.85); Thyroid Stimulating Hormone < 0.01 uIU/mL (0.32-4.0)
[2022-05-14 01:37] LABS: Triiodothyronine T3 Total 111 ng/dL (76-181)
== END 2022-05-11 09:14 | disposition home or self-care (01) ==
LOC: HO.WFDLDS 09:13
PROVIDERS: Visit Provider Family Medicine
DX: Z00.00 Encounter for general adult medical examination without abnormal findings (principal); E03.9 Hypothyroidism, unspecified; E05.90 Thyrotoxicosis, unspecified without thyrotoxic crisis or storm; I50.9 Heart failure, unspecified; I42.9 Cardiomyopathy, unspecified; I48.0 Paroxysmal atrial fibrillation
CPT/HCPCS: 36415; 80053; 83880; 84439; 84443; 84480; 85025

== ENCOUNTER → 2022-06-08 13:01 | Outpatient (BNVA) | payer MEDICARE, MEDICAID, SELFPAY | PROVIDERS: PCP Family Medicine; Referring Provider Family Medicine; Visit Provider Nurse Practitioner Family | DX: I42.9 Cardiomyopathy, unspecified (principal); I50.22 Chronic systolic (congestive) heart failure; I48.0 Paroxysmal atrial fibrillation; I47.2 Ventricular tachycardia; E05.90 Thyrotoxicosis, unspecified without thyrotoxic crisis or storm; Z79.01 Long term (current) use of anticoagulants; Z79.899 Other long term (current) drug therapy | CPT/HCPCS: 99212 ==

== ENCOUNTER 2022-07-03 09:27 | Outpatient (REF) | payer MEDICARE, SELFPAY ==
[2022-07-03 11:48] LABS: Alanine Aminotransferase 24 U/L (0-40); Albumin Level 4.2 g/dL (3.5-5.0); Alkaline Phosphatase 108 U/L (39-117); Anion Gap 16 (12-20); Aspartate Amino Transferase 21 U/L (5-37); Bilirubin Total 1.6 mg/dL (0.0-1.0); Blood Urea Nitrogen 22 mg/dL (9-16); Calcium 9.5 mg/dL (8.4-10.2); Carbon Dioxide 25 mmol/L (22-29); Chloride 106 mmol/L (96-108); Estimated Glomerular Filt Rate > 60; Glucose Random 105 mg/dL (60-115); Potassium 4.2 mmol/L (3.3-5.1); Sodium 143 mmol/L (135-145); Total Protein 6.4 g/dL (6.5-8.0)
[2022-07-03 12:11] LABS: B Type Natriuretic Peptide 265 pg/mL (<100); Free T4 (Free Thyroxine) 1.56 ng/dL (0.71-1.85); Thyroid Stimulating Hormone < 0.01 uIU/mL (0.32-4.0)
[2022-07-04 21:52] LABS: Triiodothyronine T3 Total 119 ng/dL (76-181)
== END 2022-07-03 09:28 | disposition home or self-care (01) ==
LOC: HO.WFDLDS 09:27
PROVIDERS: Visit Provider Family Medicine
DX: E03.9 Hypothyroidism, unspecified (principal); I50.22 Chronic systolic (congestive) heart failure
CPT/HCPCS: 36415; 80053; 83880; 84439; 84443; 84480

== ENCOUNTER → 2022-07-11 12:09 | Outpatient (REF) | payer MEDICARE, MEDICAID, SELFPAY ==
--- NOTE | 2022-07-11 12:21 | CA_ITS ---
Transthoracic Echocardiogram Patient (Last, First, Middle): Tico Barahona, Gender: Male Date of : 1950 Age: 71 Procedure Date: 07/11/2022 Procedure Type: Transthoracic Echocardiogram Location: OP Height: 167.64 cm Weight: 58.97 kg BSA: 1.67 m2 Heart Rate: 58 bpm BP: 100 / 60 mmHg Telecom Specialist: MARYANNE Referring MD: Chaya Solis COIL FINISHER-Lizette Symptoms: I42.9 - Cardiomyopathy, unspecified Study Quality: Adequate ECG Rhythm: Bradycardia Conclusions: - The left ventricular systolic function is moderately decreased. The calculated ejection fraction is 39% by biplane method. Findings Left Ventricle Normal left ventricular cavity size. There is mildly increased left ventricular wall thickness. The left ventricular systolic function is moderately decreased. The calculated ejection fraction is 39% by biplane method. There is moderate global hypokinesis. E/E prime ratio is between 8 and 15 consistent with indeterminate filling pressures. Evidence suggests grade II (moderate) diastolic dysfunction. Tricuspid Valve There is mild tricuspid valve regurgitation. Borderline pulmonary artery systolic pressure. Venous The inferior vena cava is normal in size and collapses greater than 50% with inspiration. Prior Study Comparison Changes noted compared to prior study dated: 03/22/2022. LVEF seems improved. Measurements 2D Linear Measurements IVSd: 1.06 0.6-0.9/0.6-1.0 cm LVIDd: 4.99 3.9-5.3/4.2-5.9 cm LVIDd Index: 2.99 2.4-3.2/2.2-3.1 cm/m2 LVIDs: 4.05 2.0-3.6 cm LVPWd: 1.23 0.7-1.1 cm LV Mass: 272.04 67-162/88-224 g LV Mass Index: 162.90 43-95/49-115 g/m2 2D Systolic Function EF 4C: 47.80 >55% EF 2C: 29.90 >55% EF BiP: 39.10 >55% Mitral Valve MV Pk E: 0.56 MV PK A: 0.25 MV Decel Time: 232.00 E/A: 2.20 E'Lateral: 6.20 E'Medial: 4.90 E/E' Med: 11.40 E/E' Lat: 9.00 PHT: 68.00 MVA PHT: 3.24 Decel [place]: 2.42 Diastolic Function MV Pk E: 0.56 MV Pk A: 0.25 E/A: 2.20 E'Medial: 4.90 E/E' Med: 11.40 E' Laterial: 6.20 E/E' Lat: 9.00 Tricuspid Valve TR Pk Kwadwo: 2.72 TR Pk Grad: 30.00 Updated in Other Vendor System with Status of Final Orestes Melvin MD electronically signed on 07/12/2022 2:54:39 PM with status of Final
== END ==
LOC: HO.CARD 12:09
PROVIDERS: PCP Family Medicine; Visit Provider Nurse Practitioner Family
DX: I42.9 Cardiomyopathy, unspecified (principal)
CPT/HCPCS: 93308

== ENCOUNTER → 2022-07-19 09:39 | Outpatient (BNVA) | payer MEDICARE, SELFPAY | PROVIDERS: PCP Family Medicine; Referring Provider Family Medicine; Visit Provider Internal Medicine | DX: I42.9 Cardiomyopathy, unspecified (principal); I50.22 Chronic systolic (congestive) heart failure; I48.0 Paroxysmal atrial fibrillation; Z79.01 Long term (current) use of anticoagulants; Z79.899 Other long term (current) drug therapy | CPT/HCPCS: 99212 ==

== ENCOUNTER 2022-08-03 10:47 | Outpatient (REF) | payer MEDICARE, SELFPAY ==
[2022-08-03 14:40] LABS: Free T4 (Free Thyroxine) 1.56 ng/dL (0.71-1.85); Thyroid Stimulating Hormone < 0.01 uIU/mL (0.32-4.0)
[2022-08-05 04:32] LABS: Triiodothyronine T3 Total 101 ng/dL (76-181)
== END 2022-08-03 10:48 | disposition home or self-care (01) ==
LOC: HO.WFDLDS 10:47
PROVIDERS: Visit Provider Family Medicine
DX: E03.9 Hypothyroidism, unspecified (principal)
CPT/HCPCS: 36415; 84439; 84443; 84480

== ENCOUNTER 2022-08-22 09:28 | Outpatient (REF) | payer MEDICARE, MEDICAID, SELFPAY ==
--- NOTE | ~2022-08-22 | CT_ITS ---
EXAMINATION: CT CHEST WITHOUT CONTRAST CLINICAL INFORMATION: Emphysema, pulmonary nodule. COMPARISON: None TECHNIQUE: Multidetector volumetric CT imaging of the chest was done. Axial MIP volume rendering provided. Sagittal and coronal reformatted images were obtained. This CT examination was performed using dose optimization techniques as appropriate, variously including the following: *Automated exposure control *Adjustment of mA and/or kV according to patient size (this includes techniques or standardized protocols for targeted exams where dose is matched to indication/reason for exam; i.e. extremities or head) *Use of iterative reconstruction technique DLP: 119 mGy-cm FINDINGS: PROPULSION MOTOR AND GENERATOR REPAIRER: Unremarkable. LUNGS: There is diffuse centrilobular emphysema with bilateral apical pleural/parenchymal scarring and thickening. Postsurgical suture line is seen in the right lower lobe. There is a 4 mm nodular thickening right middle lobe along the minor fissure axial image 351/5, previously measured 6 mm. 3 mm nodule subpleural based right middle lobe axial image 358/5 is stable. There is a right lower lobe 4 mm nodule adjacent to the right hemidiaphragm axial image 501/5, stable. There are several 2 mm nodules adjacent to each other on axial image 388/5 and 397/5. 7 mm thickening left major fissure axial image 298/5 is stable. MEDIASTINUM: The heart size and great vessels are normal caliber. Central trachea and the bronchi widely patent. No abnormal size mediastinal or hilar lymph nodes seen. No pericardial effusion seen. CORONARY ARTERY CALCIFICATION: Trace coronary artery calcifications are present. PLEURA: There is no pleural effusion. No pleural mass or thickening. AXILLA: No lymphadenopathy. UPPER ABDOMEN: Visualized liver, spleen, pancreas, and bilateral adrenal glands unremarkable. The gallbladder has been surgically removed. OSSEOUS STRUCTURES: No aggressive lytic or sclerotic process seen. CT/CT chest wo IV con IMPRESSION: 1. Diffuse centrilobular emphysema with postsurgical changes right lower lobe. 2. Multiple bilateral pulmonary nodules are stable. No new nodules seen. 3. No abnormal mediastinal or axillary lymphadenopathy seen. Fleischner guidelines were followed.
== END 2022-08-22 09:29 | disposition home or self-care (01) ==
LOC: HO.CT 09:28
PROVIDERS: PCP Family Medicine; Visit Provider Internal Medicine Critical Care Medicine
DX: R91.8 Other nonspecific abnormal finding of lung field (principal); J43.9 Emphysema, unspecified
CPT/HCPCS: 71250

== ENCOUNTER 2022-09-04 | Outpatient (REF) | payer MEDICARE, MEDICAID, SELFPAY ==
[2022-09-05 12:29] LABS: Influenza A PCR NEGATIVE (Negative); Influenza B PCR NEGATIVE (Negative); Resp Syncy Virus RNA Qual PCR NEGATIVE (Negative); SARS COV2 PCR INHOUSE NEGATIVE (Negative)
== END 2022-09-04 00:01 | disposition home or self-care (01) ==
LOC: HO.LNP
PROVIDERS: Visit Provider Hospitalist
DX: Z20.822 Contact with and (suspected) exposure to COVID-19 (principal); R05.9 Cough, unspecified
CPT/HCPCS: 0241U

== ENCOUNTER 2022-09-05 11:38 | Outpatient (REF) | payer MEDICARE, MEDICAID, SELFPAY | END 2022-09-05 11:39 | disposition home or self-care (01) | LOC: HO.LNP 11:38 | PROVIDERS: Visit Provider Hospitalist | DX: Z13.89 Encounter for screening for other disorder (principal) ==

== ENCOUNTER 2022-09-19 12:58 | Outpatient (REF) | payer MEDICARE, MEDICAID, SELFPAY ==
[2022-09-19 14:32] LABS: B Type Natriuretic Peptide 245 pg/mL (<100)
[2022-09-19 14:44] LABS: Anion Gap 13 (12-20); Blood Urea Nitrogen 19 mg/dL (9-16); Calcium 9.8 mg/dL (8.4-10.2); Carbon Dioxide 31 mmol/L (22-29); Chloride 105 mmol/L (96-108); Estimated Glomerular Filt Rate > 60; Glucose Random 89 mg/dL (60-115); Potassium 4.7 mmol/L (3.3-5.1); Prostate Specific Antigen Scr 0.82 ng/mL (<0.05-4.0); Sodium 144 mmol/L (135-145)
== END 2022-09-19 12:59 | disposition home or self-care (01) ==
LOC: HO.LAB 12:58
PROVIDERS: PCP Family Medicine; Visit Provider Internal Medicine
DX: I50.22 Chronic systolic (congestive) heart failure (principal); I42.9 Cardiomyopathy, unspecified; Z12.5 Encounter for screening for malignant neoplasm of prostate
CPT/HCPCS: 36415; 80048; 83880; 84153

== ENCOUNTER 2022-10-05 09:42 | Outpatient (REF) | payer MEDICARE, MEDICAID, SELFPAY ==
[2022-10-05 12:06] LABS: Free T4 (Free Thyroxine) 1.28 ng/dL (0.71-1.85); Thyroid Stimulating Hormone 0.02 uIU/mL (0.32-4.0)
[2022-10-06 21:43] LABS: Triiodothyronine T3 Total 122 ng/dL (76-181)
== END 2022-10-05 09:43 | disposition home or self-care (01) ==
LOC: HO.WFDLDS 09:42
PROVIDERS: Visit Provider Family Medicine
DX: E05.90 Thyrotoxicosis, unspecified without thyrotoxic crisis or storm (principal); E03.9 Hypothyroidism, unspecified
CPT/HCPCS: 36415; 84439; 84443; 84480

== ENCOUNTER → 2022-10-20 13:58 | Outpatient (BNVA) | payer MEDICARE, MEDICAID, SELFPAY | PROVIDERS: PCP Family Medicine; Visit Provider Nurse Practitioner Family | DX: Z12.11 Encounter for screening for malignant neoplasm of colon (principal); I42.9 Cardiomyopathy, unspecified; J44.9 Chronic obstructive pulmonary disease, unspecified; I50.22 Chronic systolic (congestive) heart failure | CPT/HCPCS: 99202 ==

== ENCOUNTER → 2022-10-25 13:07 | Outpatient (BNVA) | payer MEDICARE, MEDICAID, SELFPAY | PROVIDERS: PCP Family Medicine; Referring Provider Family Medicine; Visit Provider Internal Medicine | DX: Z01.810 Encounter for preprocedural cardiovascular examination (principal); I50.22 Chronic systolic (congestive) heart failure; I48.0 Paroxysmal atrial fibrillation | CPT/HCPCS: 93005; 99212 ==

== ENCOUNTER 2022-12-07 08:32 | Outpatient (REF) | payer MEDICARE, MEDICAID, SELFPAY ==
[2022-12-07 11:51] LABS: Anion Gap 16 (12-20); Blood Urea Nitrogen 17 mg/dL (9-16); Calcium 9.5 mg/dL (8.4-10.2); Carbon Dioxide 27 mmol/L (22-29); Chloride 107 mmol/L (96-108); Estimated Glomerular Filt Rate > 60; Glucose Random 98 mg/dL (60-115); Potassium 4.5 mmol/L (3.3-5.1); Sodium 145 mmol/L (135-145)
[2022-12-07 12:15] LABS: Free T4 (Free Thyroxine) 1.17 ng/dL (0.71-1.85); Thyroid Stimulating Hormone 0.04 uIU/mL (0.32-4.0)
[2022-12-08 18:48] LABS: Triiodothyronine T3 Total 99 ng/dL (76-181)
== END 2022-12-07 08:33 | disposition home or self-care (01) ==
LOC: HO.WFDLDS 08:32
PROVIDERS: Visit Provider Family Medicine
DX: Z00.00 Encounter for general adult medical examination without abnormal findings (principal); E03.9 Hypothyroidism, unspecified
CPT/HCPCS: 36415; 80048; 84439; 84443; 84480

== ENCOUNTER → 2023-01-30 13:45 | Outpatient (BNVA) | payer MEDICARE, MEDICAID, SELFPAY | PROVIDERS: PCP Family Medicine; Visit Provider Nurse Practitioner Family | DX: Z12.11 Encounter for screening for malignant neoplasm of colon (principal) | CPT/HCPCS: 99212 ==

== ENCOUNTER → 2023-02-13 12:37 | Outpatient (REF) | payer MEDICARE, MEDICAID, SELFPAY ==
--- NOTE | 2023-02-13 12:40 | CA_ITS ---
Transthoracic Echocardiogram Patient (Last, First, Middle): Tico Barahona, Gender: Male Date of : 1950 Age: 72 Procedure Date: 02/13/2023 Procedure Type: Transthoracic Echocardiogram Location: OP Height: 167.64 cm Weight: 58.51 kg BSA: 1.66 m2 Heart Rate: 47 bpm BP: 110 / 60 mmHg Director Of National Sales: SAV Referring MD: Orestes Melvin MD Carbonizer: Fransisco Menjivar MD Symptoms: cardiomyopathy Study Quality: Adequate ECG Rhythm: Bradycardia Conclusions: - [id number] LV systolic dysfunction with LVEF of 40-45% with impaired relaxation filling pattern Findings Left Ventricle Normal left ventricular cavity size. There is normal left ventricular wall thickness. The left ventricular systolic function is mild to moderately decreased. The visually estimated ejection fraction is between 40-45%. Spectral Doppler is indicative of an impaired relaxation filling pattern. Peak GLS is -8.4%, which is significantly reduced. Prior Study Comparison Changes noted compared to prior study dated: 07/11/2022. LV systolic function is marginally improved Measurements 2D Linear Measurements IVSd: 0.98 0.6-0.9/0.6-1.0 cm LVIDd: 4.96 3.9-5.3/4.2-5.9 cm LVIDd Index: 2.99 2.4-3.2/2.2-3.1 cm/m2 LVIDs: 3.80 2.0-3.6 cm LVPWd: 1.11 0.7-1.1 cm LV Mass: 237.67 67-162/88-224 g LV Mass Index: 143.17 43-95/49-115 g/m2 LVOT Diam: 2.40 3.0+(-)1.3 cm 2D Systolic Function EF 4C: 41.10 >55% EF 2C: 44.00 >55% EF BiP: 42.00 >55% Mitral Valve MV Pk E: 0.46 MV PK A: 0.26 MV Decel Time: 351.00 E/A: 1.80 E'Lateral: 5.25 E'Medial: 3.45 E/E' Med: 13.40 E/E' Lat: 8.80 PHT: 103.00 MVA PHT: 2.14 Decel [place]: 1.32 LVOT LVOT Pk Kwadwo: 0.52 LVOT Mn Kwadwo: 0.34 LVOT VTI: 0.11 LVOT Pk Grad: 1.00 LVOT Mn Grad: 1.00 LVOT Diam: 2.40 LVOT Area: 4.52 Diastolic Function MV Pk E: 0.46 MV Pk A: 0.26 E/A: 1.80 E'Medial: 3.45 E/E' Med: 13.40 E' Laterial: 5.25 E/E' Lat: 8.80 Updated in Other Vendor System with Status of Final Fransisco Menjivar MD electronically signed on 02/14/2023 3:44:03 PM with status of Final
== END ==
LOC: HO.CARD 12:37
PROVIDERS: PCP Family Medicine; Visit Provider Internal Medicine
DX: I42.9 Cardiomyopathy, unspecified (principal); I48.91 Unspecified atrial fibrillation; I50.22 Chronic systolic (congestive) heart failure
CPT/HCPCS: 93308; 93356

== ENCOUNTER 2023-03-14 09:56 | Outpatient (REF) | payer MEDICARE, MEDICAID, SELFPAY ==
[2023-03-14 11:18] LABS: MANUAL DIFF FLAG NO
[2023-03-14 11:37] LABS: Basophils Absolute Auto 0.1 X10*3/uL (0.0-0.2); Basophils Percent Auto 0.9 % (0-2); Eosinophils Absolute Auto 0.7 X10*3/uL (0.0-0.4); Eosinophils Percent Auto 6.8 % (0-4); Hematocrit 48.7 % (42.0-52.0); Imm Gran Abs Auto 0.02 X10*3/uL (0.00-0.03); Imm Gran Pct Auto 0.2 % (0.0-0.4); Lymphocytes Absolute Auto 2.8 X10*3/uL (1.2-4.9); Lymphocytes Percent Auto 29.1 % (20-40); Mean Corpuscular HGB Conc 32.9 g/dl (31.0-36.0); Mean Corpuscular Hemoglobin 31.3 pg (27.0-33.0); Mean Corpuscular Volume 95.1 fL (80.0-98.0); Mean Platelet Volume 11.6 fL (9.4-12.4); Monocytes Absolute Auto 0.9 X10*3/uL (0.1-1.2); Neutrophils Absolute Auto 5.1 x10*3/uL (2.0-8.3); Platelet Count 273 X10*3/uL (160-400); Red Blood Count 5.12 X10*6/uL (4.60-5.80); Red Cell Distribution Width 12.4 % (11.0-16.0); White Blood Count 9.5 X10*3/uL (4.8-10.8)
[2023-03-14 12:05] LABS: Alanine Aminotransferase 24 U/L (0-40); Albumin Level 4.2 g/dL (3.5-5.0); Alkaline Phosphatase 117 U/L (39-117); Anion Gap 12 (12-20); Aspartate Amino Transferase 20 U/L (5-37); Bilirubin Total 2.4 mg/dL (0.0-1.0); Blood Urea Nitrogen 19 mg/dL (9-16); Calcium 9.7 mg/dL (8.4-10.2); Carbon Dioxide 27 mmol/L (22-29); Chloride 106 mmol/L (96-108); Estimated Glomerular Filt Rate > 60; Glucose Fasting 81 mg/dL (60-99); Potassium 4.2 mmol/L (3.3-5.1); Sodium 141 mmol/L (135-145); Total Protein 6.5 g/dL (6.5-8.0)
[2023-03-14 12:27] LABS: Free T4 (Free Thyroxine) 1.16 ng/dL (0.71-1.85); Thyroid Stimulating Hormone 0.03 uIU/mL (0.32-4.0)
[2023-03-16 15:29] LABS: Triiodothyronine T3 Total 103 ng/dL (76-181)
[2023-03-21 14:03] LABS: Testosterone, Total 615 ng/dL (250-1100)
== END 2023-03-14 09:57 | disposition home or self-care (01) ==
LOC: HO.WFDLDS 09:56
PROVIDERS: Visit Provider Family Medicine
DX: Z00.00 Encounter for general adult medical examination without abnormal findings (principal); E03.9 Hypothyroidism, unspecified; R53.83 Other fatigue
CPT/HCPCS: 36415; 80053; 84402; 84403; 84439; 84443; 84480; 85025

== ENCOUNTER 2023-04-03 08:21 | Day surgery (SDC) | payer MEDICARE, MEDICAID, SELFPAY ==
--- NOTE | 2023-04-02 10:48 | HO.ANESPROP2 ---
Documented by User: Nidia Smalls NP 04/02/23 10:52 HPI - Anesthesia Eval Consult details Narrative: 72yo M for Colonoscopy Cardiac cleared Eliquis for afib - ok to hold per cardio PMFSH Active Problems Active Problems: All Active Problems (Updated 03/29/23 @ 15:21 by Dunia Henry, RN) COPD exacerbation (Acute) Hypothyroidism (Acute) Lump in the groin (Acute) Viral illness (Acute) Viral illness (Acute) History of COVID-19 (Acute) Atrial fibrillation with RVR (Acute) PAF (paroxysmal atrial fibrillation) (Acute) Cardiomyopathy (Acute) Fungal infection of skin (Acute) Adult general medical exam (Acute) Screening for colon cancer (Acute) Immunization counseling (Acute) Screening for prostate cancer (Acute) Cough (Acute) Preoperative cardiovascular examination (Acute) Hypertension (Acute) Fatigue (Acute) NSVT (nonsustained ventricular tachycardia) (Acute) Status post cardiac catheterization (Acute) COPD (chronic obstructive pulmonary disease) (Acute) Thyrotoxicosis (Acute) Chronic systolic CHF (congestive heart failure) (Acute) Cardiomyopathy (Acute) Pulmonary embolism (Acute) Past Medical History Medical History (Updated 03/29/23 @ 15:21 by Dunia Henry RN) Cardiomyopathy Chronic systolic CHF (congestive heart failure) COPD (chronic obstructive pulmonary disease) Hypothyroid NSVT (nonsustained ventricular tachycardia) On anticoagulant therapy On beta brennon at home Pulmonary embolism Thyrotoxicosis Family History Family History Father Stroke Other Mental health disorder Surgical History Surgical History History of cholecystectomy Status post cardiac catheterization Social History Social History Household Members: Family Housing: House Housing Other:: mobile home Do you presently have visiting nurse or other home services: No Alcohol intake: former Year quit: 1987 Patient Tobacco Use Status: Former Tobacco user e-Cigarette/Vaping Use: Never Used Second Hand Smoke Exposure: Yes Are you DNR?: No Advance Directives: No Advance Directives Information Provided: Yes Recently lost weight without trying: Unsure service: No Current occupational status: disabled Current occupational exposures/hazards: No Cognitive needs: No Hearing needs: No Vision needs: No Meds Allergies Allergy/AdvReac Type Severity Reaction Status Date / Time No Known Allergies Allergy Mild NOT Verified 03/27/23 12:16 APPLICABLE Home Medications Medication Instructions Recorded Confirmed Last Taken Type fluticasone furoate 100 1 puff inhalation DAILY 10/08/21 03/29/23 10/07/21 History mcg-vilanterol 25 mcg/dose inhalation powder (Breo Ellipta) montelukast 10 mg tablet 10 mg PO DAILY 04/13/22 03/29/23 Unknown History umeclidinium 62.5 mcg/actuation 1 inh inhalation DAILY 06/12/22 03/29/23 Unknown History blister powder for inhalation (Incruse Ellipta) dapagliflozin propanediol 10 mg 10 mg PO DAILY 04/03/23 04/03/23 Unknown History tablet (Farxiga) dapagliflozin propanediol 10 mg 10 mg PO DAILY 04/03/23 04/03/23 Unknown History tablet (Farxiga) Exam Exam Date and Time: April 02, 2023 1048 Pertinent Lab Results Pertinent Lab Results: Laboratory Tests 03/14/23 03/14/23 10:00 10:00 WBC 9.5 Hgb 16.0 Hct 48.7 Plt Count 273 Sodium 141 Potassium 4.2 Chloride 106 Carbon Dioxide 27 BUN 19 H Creatinine 1.01 Narrative Narrative: ECHO 02/2023 Conclusions: - [id number] LV systolic dysfunction with LVEF of 40-45% ? with impaired relaxation filling pattern ? Cardiac catheterization 12/2021 proximal LAD 30% stenosis but otherwise normal. Assessment and Plan Assessment Anesthesia Assessment: Chart Reviewed Documented by User: Margo Coronado MD 04/03/23 10:42 [facility] Past Medical History Medical History (Updated 03/29/23 @ 15:21 by Dunia Henry RN) Cardiomyopathy Chronic systolic CHF (congestive heart failure) COPD (chronic obstructive pulmonary disease) Hypothyroid NSVT (nonsustained ventricular tachycardia) On anticoagulant therapy On beta brennon at home Pulmonary embolism Thyrotoxicosis Family History Family History Father Stroke Other Mental health disorder Family history of problems with anesthesia: No Surgical History Surgical History History of cholecystectomy Status post cardiac catheterization History of Problems with Anesthesia: No Social History Social History Household Members: Family Housing: House Housing Other:: mobile home Do you presently have visiting nurse or other home services: No Alcohol intake: former Year quit: 1987 Patient Tobacco Use Status: Former Tobacco user e-Cigarette/Vaping Use: Never Used Second Hand Smoke Exposure: Yes Are you DNR?: No Advance Directives: No Advance Directives Information Provided: Yes Recently lost weight without trying: Unsure service: No Current occupational status: disabled Current occupational exposures/hazards: No Cognitive needs: No Hearing needs: No Vision needs: No Meds Allergies Allergy/AdvReac Type Severity Reaction Status Date / Time No Known Allergies Allergy Mild NOT Verified 03/27/23 12:16 APPLICABLE Home Medications Medication Instructions Recorded Confirmed Last Taken Type fluticasone furoate 100 1 puff inhalation DAILY 10/08/21 03/29/23 10/07/21 History mcg-vilanterol 25 mcg/dose inhalation powder (Breo Ellipta) montelukast 10 mg tablet 10 mg PO DAILY 04/13/22 03/29/23 Unknown History umeclidinium 62.5 mcg/actuation 1 inh inhalation DAILY 06/12/22 03/29/23 Unknown History blister powder for inhalation (Incruse Ellipta) dapagliflozin propanediol 10 mg 10 mg PO DAILY 04/03/23 04/03/23 Unknown History tablet (Farxiga) dapagliflozin propanediol 10 mg 10 mg PO DAILY 04/03/23 04/03/23 Unknown History tablet (Farxiga) Exam Airway Mallampati Class: I TM Dist: >3cm Neck ROM: Full Denture: Upper and Lower Loose/Missing/Broken Teeth: No Heart: rr Lungs: cta Assessment and Plan Assessment Anesthesia Assessment: Anesthesia Plan Discussed Final Anesthetic Review Family History of Problems with Anesthesia: No History of Problems with Anesthesia: No NPO: Yes ASA Class: III Final Preanesthetic Review: No Changes in Pt Med Stat, Meds/Allgs Chart Reviewed, Consent Obtained/Reviewed and Anes Risks/Benef Reviewed Patient Risk: Low Procedure Risk: Low Anesthetic Plan Anesthetic Plan: MAC: Disposition: Standard PACU
[2023-04-03 08:47] LABS: Glucose, Whole Blood 100 mg/dL (60-115)
[2023-04-03 08:52] VITALS: BP 123/81; PULSE 71; RESP 20; TEMP 36.6; O2SAT 97; BMI 21.6
[2023-04-03] MEDS: Lactated Ringers 1,000 ML 50 ML IVCONT (08:59)
--- NOTE | 2023-04-03 09:16 | MHC.SHP ---
Pre-Procedural Eval Section A Date of Service: 04/03/23 Section B Chief Complaint: Encounter for screening for malignant neoplasm Relevant Family History (Specify if Yes): No Relevant Social History: None Present Medications: see Short Stay Collaborative assessment Medical History: Significant History (Cardiomyopathy Chronic systolic CHF (congestive heart failure) COPD (chronic obstructive pulmonary disease) Hypothyroid NSVT (nonsustained ventricular tachycardia) On anticoagulant therapy On beta brennon at home Pulmonary embolism Thyrotoxicosis) History of Previous Operations: Relevant previous surgery/procedure and date(s) (History of cholecystectomy Status post cardiac catheterization) Allergies: Allergies Allergy/AdvReac Type Severity Reaction Status Date / Time No Known Allergies Allergy Mild NOT Verified 03/27/23 12:16 APPLICABLE Review of Systems Sugical H&P ROS: Negative: Constitution, Cardiovascular, Respiratory, Neurological, Psychiatric, Hem-Onc, Allergic/Immunologic, Gastrointestinal, Genitourinary, Musculoskeletal, Integumentary, Endocrine and Eyes/Ears/Nose/Throat Exam Surgical H&P Exam: Normal: HEENT, Normal: Heart, Normal: Lungs, Normal: Extremities, Normal: Abdomen, Normal: Skin and Normal: Neurological Plan Diagnosis/Plan: Unchanged I have reviewed the history and physical and performed a pertinent physical examination on my patient. No changes have occurred unless specified. Time Spent With Patient Time: Total time managing care of this patient today ____ minutes.
--- NOTE | 2023-04-03 09:39 | W.PM.OPN ---
Operative Note Operative Note Date of Service: 04/03/23 Narrative: Operative Information Procedure Description: Colonoscopy Indication: screening Anesthesia: MAC COLONOSCOPY Instrument: Olympus variable stiffness pediatric scope 190L Colonoscopy Monitoring: Vital signs and clinical assessment, continuous EKG monitoring, Pulse oximetry, Carbon Dioxide monitoring and blood pressure monitoring were done throughout the procedure. Colon withdrawal time was 11 minutes. Procedure: The patient was placed in the left lateral decubitis position and pre-procedure medications were administered. After a digital rectal examination of the ano-rectum, the video colonoscope was inserted into the rectum and advanced through the colon to the cecum/TI. The colonoscope was slowly withdrawn in a retrograde panoramic fashion and the colon mucosa was carefully examined including a retroflexed view of the rectum. Findings and interventions are described below. Procedure Difficulty: easy Findings: Terminal Ileum-normal Cecum:normal Ascending Colon: normal Transverse Colon -normal Descending Colon:normal Sigmoid Colon: normal Rectum: Retroflexion with small internal hemorrhoids, grade I Anorectum - normal Colon preparation: Jefferson Bowel Preparation Scale Right colon; 2 Transverse colon: 2 Left colon; 3 (0 = Unprepared colon segment with mucosa not seen due to solid stool that cannot be cleared. 1 = Portion of mucosa of the colon segment seen, but other areas of the colon segment not well seen due to staining, residual stool and/or opaque liquid. 2 = Minor amount of residual staining, small fragments of stool and/or opaque liquid, but mucosa of colon segment seen well. 3 = Entire mucosa of colon segment seen well with no residual staining, small fragments of stool or opaque liquid) Impression and Post Procedure Diagnosis: internal hemorrhoids Plan: High fiber diet leaflet Avoid straining at stool, epsom salts and sitz bath, anusol supps or cream Repeat Colonoscopy in 10 years if health allows and patient wishes or earlier if clinically indicated, otherwise this is his last screening colo Above findings were reviewed with the patient and relevant handouts were provided if indicated.
[2023-04-03 10:27] VITALS: BP 77/49; PULSE 79; RESP 16; TEMP 36.3; O2SAT 97
[2023-04-03 10:42] VITALS: BP 75/45; PULSE 81; RESP 18; O2SAT 99
[2023-04-03 10:57] VITALS: BP 100/69; PULSE 76; RESP 18; TEMP 36.1; O2SAT 76
== END 2023-04-03 11:52 | disposition home or self-care (01) ==
PROVIDERS: PCP Family Medicine; Visit Provider Internal Medicine Gastroenterology
PROC: 0DJD8ZZ Inspection of Lower Intestinal Tract, Via Natural or Artificial Opening Endoscopic (ICD-10-PCS; CPT 45378; principal; 2023-04-03 10:10)
DX: Z12.11 Encounter for screening for malignant neoplasm of colon (principal); K64.0 First degree hemorrhoids; I50.22 Chronic systolic (congestive) heart failure; I42.9 Cardiomyopathy, unspecified; I48.0 Paroxysmal atrial fibrillation; J44.9 Chronic obstructive pulmonary disease, unspecified; E03.9 Hypothyroidism, unspecified; Z79.01 Long term (current) use of anticoagulants; Z79.899 Other long term (current) drug therapy; Z90.49 Acquired absence of other specified parts of digestive tract; Z87.891 Personal history of nicotine dependence
CPT/HCPCS: G0121; 82947

== ENCOUNTER 2023-05-07 10:30 | Outpatient (REF) | payer MEDICARE, MEDICAID, SELFPAY ==
[2023-05-07 14:50] LABS: Free T4 (Free Thyroxine) 0.72 ng/dL (0.71-1.85); Thyroid Stimulating Hormone 3.41 uIU/mL (0.32-4.0)
[2023-05-08 20:22] LABS: Triiodothyronine T3 Total 89 ng/dL (76-181)
== END 2023-05-07 10:31 | disposition home or self-care (01) ==
LOC: HO.WFDLDS 10:30
PROVIDERS: Visit Provider Family Medicine
DX: E03.9 Hypothyroidism, unspecified (principal)
CPT/HCPCS: 36415; 84439; 84443; 84480

== ENCOUNTER 2023-05-09 11:30 | Outpatient (AMB) | payer MEDICARE, MEDICAID, SELFPAY ==
--- NOTE | 2023-05-09 11:43 | MHC.PC.OV ---
Vital Signs 05/09/23 11:47 Height 5 ft 5 in Weight 133 lb BMI 22.1 BP 100/68 Blood Pressure Location Rt brachial Position Sitting Pulse 59 Pulse Source Pulse Oximeter Temp 98.9 F Temp Source Temporal Artery Scan Pulse Oximetry (%) 98 Oxygen Delivery Method Room Air Intake Visit Reasons: f/u hypertension and hypothyroidism Intake Note: Patient is here to follow up regarding his thyroid and blood pressure. Patient would also like to double check his medications do not need any more refills. 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 Accompanied by: Self / Same As Patient Allergies No Known Allergies Allergy (Mild, Verified 05/09/23 11:51) NOT APPLICABLE Medication List - Last Reconciled 05/09/23 by Mac Lockwood MD albuterol sulfate 90 mcg/actuation (ProAir HFA) 2 puffs inhalation Q6H PRN 1 month apixaban (Eliquis) 5 mg PO BID 90 days atorvastatin 40 mg PO BEDTIME bisoprolol fumarate 2.5 mg (1/2 x 5 mg) PO DAILY clotrimazole 1% (Antifungal (clotrimazole)) 1 appl topical BID 2 weeks dapagliflozin propanediol (Farxiga) 10 mg PO DAILY dapagliflozin propanediol (Farxiga) 10 mg PO DAILY dapagliflozin propanediol (Farxiga) 10 mg PO DAILY 90 days fluticasone furoate-vilanterol 100-25 mcg/dose (Breo Ellipta) 1 puff inhalation DAILY furosemide 40 mg PO DAILY levothyroxine 50 mcg PO DAILY@0600 30 days losartan 12.5 mg (1/2 x 25 mg) PO DAILY 90 days montelukast 10 mg PO DAILY umeclidinium 62.5 mcg/actuation (Incruse Ellipta) 1 inh inhalation DAILY Tobacco use date assessed: 03/27/23 Fall risk assessment: No Falls in past year Last assessed Fall Risk: 05/09/23 Dental Screening Dental Screen Date: 05/09/23 Did you have a dental visit in the last 12 months?: No Did you have a dental problem in the last 6 months where you did not have access to dental care?: No Was dental information given to patient?: Patient declined HPI f/u hypertension and hypothyroidism HPI Details 72 y/o male presents to f/u hypertension and hypothyroidism. Blood pressure today is 100/68. He is on losartan 12.5mg daily. Thyroid levels drawn 05/07/23. TSH 3.41. Free T4 0.72. Total T3 89. [facility] Medical History (Updated 03/29/23 @ 15:21 by Dunia Henry RN) Cardiomyopathy Chronic systolic CHF (congestive heart failure) COPD (chronic obstructive pulmonary disease) Hypothyroid NSVT (nonsustained ventricular tachycardia) On anticoagulant therapy On beta brennon at home Pulmonary embolism Thyrotoxicosis Surgical History (Updated 04/23/23 @ 16:29 by Kishor Sorto) History of cholecystectomy Hx of colonoscopy Status post cardiac catheterization Family History Father Stroke Other Mental health disorder Social History Household Members: Family Housing: House Housing Other:: mobile home Do you presently have visiting nurse or other home services: No Alcohol intake: former Year quit: 1987 Patient Tobacco Use Status: Former Tobacco user e-Cigarette/Vaping Use: Never Used Second Hand Smoke Exposure: Yes service: No Current occupational status: disabled Current occupational exposures/hazards: No Cognitive needs: No Hearing needs: No Vision needs: No Questionnaire Thrive Questionnaire Date Thrive assessed: 11/01/21 VAHID-7 AMB Questionnaire VAHID-7 Date VAHID - 7 assessed: 08/10/22 Source: Developed by Drs. Kieran Robledo, Elayne Cameron, Candido Antonio and colleagues, with an educational boogie from [employer] Review of Systems Const Denies chills, Denies fatigue, Denies fever(s), Denies headache(s) and Denies weakness ENT Denies dizziness and Denies headache(s) Card Denies chest pain, Denies lightheadedness, Denies dyspnea and Denies other (Palpitations) Resp Denies cough, Denies dyspnea, Denies wheezing and Denies other ( shortness of breath) Musc Denies numbness and Denies tingling Neuro Denies dizziness, Denies headache(s), Denies numbness, Denies tingling, Denies paresthesias and Denies weakness Psych Denies anxiety and Denies depression Endo Denies fatigue Aller/Immun Denies wheezing Physical exam (Primary Care) Vital Signs: Last Vital Signs Temp 98.9 F 05/09/23 11:47 Pulse 59 05/09/23 11:47 BP 100/68 05/09/23 11:47 Pulse Ox 98 05/09/23 11:47 Oxygen Delivery Method Room Air 05/09/23 11:47 BMI result Body Mass Index 22.1 Tobacco/Smoking Status: Tobacco use Status Tobacco use date assessed 03/27/23 05/09/23 11:45 Patient Tobacco Use Status Former Tobacco user 05/09/23 11:45 e-Cigarette/Vaping Use Never Used 05/09/23 11:45 Thrive Assessment: Date of Thrive Assessment Date Thrive assessed 11/01/21 05/09/23 11:45 Const General: no acute distress and well developed Nutritional Appearance: well nourished Orientation/consciousness: patient oriented x3 HENMT Head: Yes normocephalic and Yes atraumatic Eyes General: appearance normal, both eyes and all related structures Pupils: Equal, round and reactive pupils present EOM: EOMs intact bilaterally Resp Effort & Inspection: normal respiratory effort Auscultation: clear to auscultation bilaterally Cardio Rate: regular rate Rhythm: regular rhythm Heart sounds: S1 normal heart sound present, S2 normal heart sound present, no gallops, no murmurs and no rubs Neuro General: patient oriented x3 and gait normal Cranial nerves: Yes Equal, round and reactive pupils present Psych Affect: normal affect Assessment and Plan Assessment & Plan (1) Hypertension: Code(s): I10 - Essential (primary) hypertension Plan: Blood pressure is controlled. No problems with his medications Continue current medication regimen Hydrate well (2) Hypothyroidism: Code(s): E03.9 - Hypothyroidism, unspecified Plan: Thyroid hormone levels now within normal limits after decreasing levothyroxine to 50 mcg daily Continue current medication regimen Coding Level of Care Code Est Pt Level 3 (54501) Diagnoses Hypertension I10 Hypothyroidism E03.9
[2023-05-09 11:47] VITALS: BP 100/68; PULSE 59; TEMP 37.2; O2SAT 98; BMI 22.1
== END 2023-05-09 12:27 | disposition home or self-care (01) ==
PROVIDERS: PCP Family Medicine; Visit Provider Family Medicine
DX: I10 Essential (primary) hypertension (principal); E03.9 Hypothyroidism, unspecified
CPT/HCPCS: 99213

== ENCOUNTER 2023-06-14 08:55 | Outpatient (AMB) | payer MEDICARE, MEDICAID, SELFPAY ==
[2023-06-14 08:57] VITALS: BP 100/72; PULSE 58; BMI 22.0
--- NOTE | 2023-06-14 08:57 | A.OFFVIS_ITS ---
Intake Vital Signs 06/14/23 08:57 Height 5 ft 5 in Weight 132 lb 4.438 oz BMI 22.0 BP 100/72 Blood Pressure Location Rt brachial Position Sitting Pulse 58 Pulse Source Pulse Oximeter Intake Visit Reasons: follow up Intake Note: follow up Secretary Of State Required: No Allergies No Known Allergies Allergy (Mild, Verified 06/14/23 09:04) NOT APPLICABLE Medication List - Last Reconciled 06/14/23 by Chaya Solis, GROUND SUPPORT EQUIPMENT MECHANIC-C albuterol sulfate 90 mcg/actuation (ProAir HFA) 2 puffs inhalation Q6H PRN 1 month apixaban (Eliquis) 5 mg PO BID 90 days atorvastatin 40 mg PO BEDTIME bisoprolol fumarate 2.5 mg (1/2 x 5 mg) PO DAILY dapagliflozin propanediol (Farxiga) 10 mg PO DAILY fluticasone furoate-vilanterol 100-25 mcg/dose (Breo Ellipta) 1 puff inhalation DAILY furosemide 40 mg PO DAILY levothyroxine 50 mcg PO DAILY@0600 30 days losartan 12.5 mg (1/2 x 25 mg) PO DAILY 90 days montelukast 10 mg PO DAILY umeclidinium 62.5 mcg/actuation (Incruse Ellipta) 1 inh inhalation DAILY HPI follow up HPI Details Tico is a 72-year-old male with past medical history of thyroid toxicosis, now stable on thyroid supplement, cardiomyopathy with EF as low as 20%, 07/2020, prior smoking, diabetes, pulmonary embolism 07/2020, systolic heart failure, atrial fibrillation, nonobstructive coronary disease on cardiac catheterization who presents for follow-up after recent echocardiogram. Today he reports he has been doing generally well. Has no specific cardiac complaints. Denies chest discomfort at rest or with activity. He does report some fatigue. No shortness of breath that is concerning to him. No palpitations, dizziness, presyncope, syncope, PND, orthopnea or edema. He is taking his medications as directed. No bleeding issues reported. Significant other is present. [facility] Medical History Cardiomyopathy Chronic systolic CHF (congestive heart failure) COPD (chronic obstructive pulmonary disease) Hypothyroid NSVT (nonsustained ventricular tachycardia) On anticoagulant therapy On beta brennon at home Pulmonary embolism Thyrotoxicosis Surgical History History of cholecystectomy Hx of colonoscopy Status post cardiac catheterization Family History Father Stroke Other Mental health disorder Social History Household Members: Family Housing: House Housing Other:: mobile home Do you presently have visiting nurse or other home services: No Alcohol intake: former Year quit: 1987 Patient Tobacco Use Status: Former Tobacco user e-Cigarette/Vaping Use: Never Used Second Hand Smoke Exposure: Yes service: No Current occupational status: disabled Current occupational exposures/hazards: No Cognitive needs: No Hearing needs: No Vision needs: No Review of Systems Const Details: Doing only light physical activity All systems reviewed & are unremarkable except as noted in HPI and below ENT Denies dizziness Card Details: Intermittent cough Denies chest pain, Denies chest pain at rest, Denies chest pain with activity, Denies rapid heart rate, Denies pedal edema, Denies edema, Denies leg edema, Denies lightheadedness, Denies palpitations, Denies dyspnea, Denies dyspnea on exertion and Denies orthopnea Resp Denies cough, Denies dyspnea and Denies dyspnea on exertion GI Denies hematochezia and Denies change in stool character Musc Denies abnormal gait, Denies limited range of motion, Denies muscle cramps, Denies muscle weakness, Denies numbness, Denies radiating pain into limb, Denies stiffness and Denies tingling Neuro Denies abnormal gait, Denies dizziness, Denies numbness and Denies tingling Endo Denies palpitations Physical Exam Vital Signs: Last Vital Signs Pulse 58 06/14/23 08:57 BP 100/72 06/14/23 08:57 BMI result Body Mass Index 22.0 Const General: cooperative, healthy appearing, comfortable and no acute distress Orientation/consciousness: patient oriented x3 Neck Neck: Yes normal visual inspection Resp Effort & Inspection: normal respiratory effort Auscultation: clear to auscultation bilaterally, no crackles, no rales, no rhonchi and no wheezes Cardio Jugular venous distension: no JVD Rate: regular rate Rhythm: regular rhythm Heart sounds: S1 normal heart sound present, S2 normal heart sound present, no murmurs and no rubs Neuro General: patient oriented x3 Extrem General: Yes normal to inspection Psych Appearance: grossly normal Mental Status: mental status grossly normal Speech and movement: Normal speech and movement present Assessment & Plan Assessment & Plan (1) Cardiomyopathy: Code(s): I42.9 - Cardiomyopathy, unspecified Plan: History of nonischemic cardiomyopathy with EF as low as 20% 07/2020. Cardiac catheterization done 12/20/2021 shows only mild nonobstructive coronary artery disease. He has been managed medically with gradual improvement in his EF. Echocardiogram done on 02/13/2023 shows EF 40-45%. On examination today he has no clinical signs indicating decompensated heart failure. He continues on losartan and bisoprolol for neurohormonal modulation. He continues on Lasix 40 mg daily. Signs and symptoms of heart failure reviewed with him. Cardiology follow-up in 6 months, sooner if needed (2) Status post cardiac catheterization: Comment: 12/20/2021 showing left main, left circumflex, RCA all normal, lad mild proximal stenosis, 30%. Code(s): Z98.890 - Other specified postprocedural states (3) PAF (paroxysmal atrial fibrillation): Code(s): I48.0 - Paroxysmal atrial fibrillation Plan: History of paroxysmal atrial fibrillation. He is not reporting issues with heart palpitations. Heart tones regular on examination with early beat noted at times consistent with sinus rhythm with PACs. ECG strips from 04/03/2023 reviewed and do show sinus rhythm with PACs. He is on bisoprolol for heart rate control. Pulse rate today in the upper 50s. He is on Eliquis for anticoagulation. No bleeding issues reported. Labs done 03/14/2023 shows creatinine 1.01, hematocrit 48.7. Continue current treatment Medications: New dapagliflozin propanediol (Farxiga) 10 mg PO DAILY 90 tabs 3RF Coding Level of Care Code Est Pt Level 3 (72210) Diagnoses Cardiomyopathy I42.9 Status post cardiac catheterization Z98.890 PAF (paroxysmal atrial fibrillation) I48.0 Time Spent (min) 26 Comment Chart review, documentation, interview, assess
== END 2023-06-14 09:33 | disposition home or self-care (01) ==
PROVIDERS: PCP Family Medicine; Referring Provider Family Medicine; Visit Provider Nurse Practitioner Family
DX: I42.9 Cardiomyopathy, unspecified (principal); Z98.890 Other specified postprocedural states; I48.0 Paroxysmal atrial fibrillation
CPT/HCPCS: 99213

== ENCOUNTER → 2023-06-14 08:55 | Outpatient (BNVA) | payer MEDICARE, MEDICAID, SELFPAY | PROVIDERS: PCP Family Medicine; Referring Provider Family Medicine; Visit Provider Nurse Practitioner Family | DX: I42.8 Other cardiomyopathies (principal); I48.0 Paroxysmal atrial fibrillation; Z79.01 Long term (current) use of anticoagulants; Z79.899 Other long term (current) drug therapy | CPT/HCPCS: 99212 ==

== ENCOUNTER 2023-07-11 10:59 | Outpatient (AMB) | payer MEDICARE, MEDICAID, SELFPAY ==
[2023-07-11 11:24] VITALS: BP 104/60; PULSE 63; RESP 14; TEMP 37.2; O2SAT 98; BMI 22.5
--- NOTE | 2023-07-11 11:24 | A.OFFPC_ITS ---
Vital Signs 07/11/23 11:24 Height 5 ft 5 in Weight 135 lb 8 oz BMI 22.5 BP 104/60 Blood Pressure Location Rt brachial Position Sitting Respiration 14 Pulse 63 Pulse Source Pulse Oximeter Temp 98.9 F Temp Source Oral Pulse Oximetry (%) 98 Oxygen Delivery Method Room Air Intake Visit Reasons: f/u hypertension Intake Note: Patient is here to follow up for blood pressure and thyroid labs. Patient reports he will need med refills. Transition Specialist Required: No Accompanied by: Self / Same As Patient Allergies No Known Allergies Allergy (Mild, Verified 07/11/23 11:41) NOT APPLICABLE Tobacco use date assessed: 03/27/23 Fall risk assessment: No Falls in past year Last assessed Fall Risk: 07/11/23 HPI f/u hypertension HPI Details 72 y/o male presents to f/u hypertension . Blood pressure today is 104/60. He is on losartan 12.5mg daily. [facility] Medical History Cardiomyopathy Chronic systolic CHF (congestive heart failure) COPD (chronic obstructive pulmonary disease) Hypothyroid NSVT (nonsustained ventricular tachycardia) On anticoagulant therapy On beta brennon at home Pulmonary embolism Thyrotoxicosis Surgical History History of cholecystectomy Hx of colonoscopy Status post cardiac catheterization Family History Father Stroke Other Mental health disorder Social History Household Members: Family Housing: House Housing Other:: mobile home Do you presently have visiting nurse or other home services: No Alcohol intake: former Year quit: 1987 Patient Tobacco Use Status: Former Tobacco user e-Cigarette/Vaping Use: Never Used Second Hand Smoke Exposure: Yes service: No Current occupational status: disabled Current occupational exposures/hazards: No Cognitive needs: No Hearing needs: No Vision needs: No Questionnaire Thrive Questionnaire Date Thrive assessed: 11/01/21 VAHID-7 AMB Questionnaire VAHID-7 Date VAHID - 7 assessed: 08/10/22 Source: Developed by Drs. Kieran Robledo, Elayne Cameron, Candido Antonio and colleagues, with an educational boogie from [employer]. Review of Systems Const Denies chills, Denies fatigue, Denies fever(s), Denies headache(s) and Denies weakness ENT Denies dizziness and Denies headache(s) Card Denies chest pain, Denies lightheadedness, Denies dyspnea and Denies other (Palpitations) Resp Denies cough, Denies dyspnea, Denies wheezing and Denies other ( shortness of b reath) Musc Denies numbness and Denies tingling Neuro Denies dizziness, Denies headache(s), Denies numbness, Denies tingling, Denies paresthesias and Denies weakness Psych Denies anxiety and Denies depression Endo Denies fatigue Aller/Immun Denies wheezing Physical exam (Primary Care) Vital Signs: Last Vital Signs Temp 98.9 F 07/11/23 11:24 Pulse 63 07/11/23 11:24 Resp 14 07/11/23 11:24 BP 104/60 07/11/23 11:24 Pulse Ox 98 07/11/23 11:24 Oxygen Delivery Method Room Air 07/11/23 11:24 BMI result Body Mass Index 22.5 Tobacco/Smoking Status: Tobacco use Status Tobacco use date assessed 03/27/23 07/11/23 11:26 Patient Tobacco Use Status Former Tobacco user 07/11/23 11:26 e-Cigarette/Vaping Use Never Used 07/11/23 11:26 Thrive Assessment: Date of Thrive Assessment Date Thrive assessed 11/01/21 07/11/23 11:26 Const General: no acute distress and well developed Nutritional Appearance: well nourished Orientation/consciousness: patient oriented x3 [facility] Head: Yes normocephalic and Yes atraumatic Eyes General: appearance normal, both eyes and all related structures Pupils: Equal, round and reactive pupils present EOM: EOMs intact bilaterally Resp Effort & Inspection: normal respiratory effort Auscultation: clear to auscultation bilaterally Cardio Other: Irregularly?irregular?rhythm Rate: regular rate Heart sounds: S1 normal heart sound present, S2 normal heart sound present, no gallops, no murmurs and no rubs Neuro General: patient oriented x3 and gait normal Cranial nerves: Yes Equal, round and reactive pupils present Extrem Other: 1+?L radial?pulse. Hand?is?warm. No?cyanosis.??Mildly?decr eased?capillary?refill. Psych Affect: normal affect Assessment and Plan Assessment & Plan (1) Hypertension: Code(s): I10 - Essential (primary) hypertension Plan: Blood?pressure?is?well?contr olled.??Goal?is?less?than?a?130/80?for?patient?with?cardiomyopathy. Continue?losartan (2) Cardiomyopathy: Code(s): I42.9 - Cardiomyopathy, unspecified Plan: Stable.??EF?has?improved?since?last?year?from?around?20%?to?40-50%. Follow-up?with?Cardiology?as?recommended Continue?Farxiga (3) PAF (paroxysmal atrial fibrillation): Code(s): I48.0 - Paroxysmal atrial fibrillation Plan: Stable He?is?on?Eliquis (4) Decreased radial pulse: Code(s): R09.89 - Other specified symptoms and signs involving the circulatory and respiratory systems Plan: Mildly?decreased?L radial?pulse. Limb is?not?cold. Likely?partly?due?to?atrial?fibrillation?and?to?decreased?ejection?fraction. Patient?is?significantly?concerned. Referred?to?vascular?surgery Orders: Referrals Vascular Surgery Referral R09.89 - Other specified symptoms and signs involving the circulatory and respiratory systems Coding Level of Care Code Est Pt Level 4 (00112) Diagnoses Hypertension I10 Cardiomyopathy I42.9 PAF (paroxysmal atrial fibrillation) I48.0 Decreased radial pulse R09.89
== END 2023-07-11 13:07 | disposition home or self-care (01) ==
PROVIDERS: PCP Family Medicine; Visit Provider Family Medicine
DX: I10 Essential (primary) hypertension (principal); I42.9 Cardiomyopathy, unspecified; I48.0 Paroxysmal atrial fibrillation; R09.89 Other specified symptoms and signs involving the circulatory and respiratory systems
CPT/HCPCS: 99214

== ENCOUNTER 2023-08-30 10:10 | Outpatient (AMB) | payer MEDICARE, MEDICAID, SELFPAY ==
--- NOTE | 2023-08-30 10:14 | MHC.OFFVIS ---
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 He had been seen by his primary care noticed a blood pressure differential in bilateral upper extremities. He has a prior history of smoking and quit nearly 8 years ago. Prior to that he was smoking a pack or 2 daily. He has a prior history of congestive heart failure as well. He presents concerned of about his left upper extremity. Of note he reports that he is asymptomatic from this. He denies any pain or discomfort or arm claudication type symptoms. [facility] Medical History On beta brennon at home On anticoagulant therapy Thyrotoxicosis Cardiomyopathy NSVT (nonsustained ventricular tachycardia) Pulmonary embolism Chronic systolic CHF (congestive heart failure) COPD (chronic obstructive pulmonary disease) Hypothyroid Surgical History Hx of colonoscopy Status post cardiac catheterization History of cholecystectomy Family History Father Stroke Other Mental health disorder Social History Household Members: Family Housing: House Housing Other:: mobile home Do you presently have visiting nurse or other home services: No Alcohol intake: former Year quit: 1987 Patient Tobacco Use Status: Former Tobacco user e-Cigarette/Vaping Use: Never Used Second Hand Smoke Exposure: Yes service: No Current occupational status: disabled Current occupational exposures/hazards: No Cognitive needs: No Hearing needs: No Vision needs: No Review of Systems Const All systems reviewed & are unremarkable except as noted in HPI and below Reports no additional complaints ENT Reports Normal hearing present Card Denies chest pain, Denies chest pain at rest, Denies chest pain with activity and Denies pedal edema Resp Denies cough GI Denies abdominal pain Musc Denies abnormal gait, Denies muscle cramps and Denies radiating pain into limb Skin/Breast Denies skin ulcer and Denies wounds Neuro Reports Normal hearing present and Denies abnormal gait Psych Reports no additional complaints Physical Exam Vital Signs: BMI result Body Mass Index 22.5 Const General: cooperative, healthy appearing and comfortable Orientation/consciousness: oriented to person, oriented to place and oriented to time HEENT Head: Yes normal to inspection Neck Other: Bilateral carotid bruits Neck: Yes normal visual inspection Carotids: no bruits Chest Chest palpation & inspection: normal inspection of the chest Resp Effort & Inspection: normal respiratory effort and able to speak in complete sentences Auscultation: clear to auscultation bilaterally, no crackles, no rales, no rhonchi and no wheezes Cardio Other: Diminished left upper extremity brachial radial ulnar pulses Rate: regular rate Rhythm: regular rhythm Heart sounds: S1 normal heart sound present and S2 normal heart sound present Bruits: no carotid bruits Peripheral pulses: Peripheral pulses 2+ throughout GI Inspection: Yes normal to inspection Skin Wounds: no wounds Hair: normal Neuro General: oriented to person, oriented to place and oriented to time Cranial nerves: Yes CN's II-XII intact bilaterally and Yes Normal hearing present Cognition (Neuro): normal cognition Motor exam (neuro): 5/5 motor strength present throughout Extrem Other: venous exam: No significant superficial varicosities or spider telangiectasias, minimal edema General: No clubbing, No cyanosis and No edema Psych Appearance: grossly normal Mental Status: mental status grossly normal Speech and movement: Normal speech and movement present Assessment & Plan Assessment & Plan (1) Decreased radial pulse: Code(s): R09.89 - Other specified symptoms and signs involving the circulatory and respiratory systems Plan: At the current time he is asymptomatic regarding his left upper extremity diminished brachial radial and ulnar pulses. May have some subclavian stenosis. Would not intervene until he becomes symptomatic from it. We did discuss risk factor modification. He will follow up with us regarding his carotids and aorta. (2) Bilateral carotid artery stenosis: Code(s): I65.23 - Occlusion and stenosis of bilateral carotid arteries Plan: I did appreciate some bruits. Would recommend carotid ultrasound to better elucidate this. In addition this will give us additional information regarding his subclavian arteries and vertebral. (3) Screening for abdominal aortic aneurysm: Code(s): Z13.6 - Encounter for screening for cardiovascular disorders Plan: Due to his significant smoking history would root obtain screening aneurysm ultrasound. He will follow up with us after testing. Orders: Orders US abdominal aortic aneurysm 1 Week Z13.6 - Encounter for screening for cardiovascular disorders US carotid duplex BI 1 Week I65.23 - Occlusion and stenosis of bilateral carotid arteries Coding Level of Care Code New Pt Level 4 (99601) Diagnoses Decreased radial pulse R09.89 Bilateral carotid artery stenosis I65.23 Screening for abdominal aortic aneurysm Z13.6
[2023-08-30 10:17] VITALS: BMI 22.5
== END 2023-08-30 10:54 | disposition home or self-care (01) ==
PROVIDERS: PCP Family Medicine; Visit Provider Surgery Vascular Surgery
DX: R09.89 Other specified symptoms and signs involving the circulatory and respiratory systems (principal); I65.23 Occlusion and stenosis of bilateral carotid arteries; Z13.6 Encounter for screening for cardiovascular disorders
CPT/HCPCS: 99203

== ENCOUNTER → 2023-08-30 10:10 | Outpatient (BNVA) | payer MEDICARE, MEDICAID, SELFPAY | PROVIDERS: PCP Family Medicine; Visit Provider Surgery Vascular Surgery | DX: Z13.6 Encounter for screening for cardiovascular disorders (principal); I65.23 Occlusion and stenosis of bilateral carotid arteries; R09.89 Other specified symptoms and signs involving the circulatory and respiratory systems | CPT/HCPCS: 99202 ==

== ENCOUNTER 2023-10-04 08:41 | Outpatient (REF) | payer MEDICARE, MEDICAID, SELFPAY ==
--- NOTE | ~2023-10-04 | US_ITS ---
EXAMINATION: US EXTRACRANIAL CAROTID DUPLEX, BILATERAL CLINICAL INFORMATION: Left subclavian stenosis and carotid bruit. COMPARISON: None available. TECHNIQUE: Real-time ultrasound and Doppler techniques (integrating B-mode 2-D vascular images, Doppler spectral analysis and color-flow Doppler imaging) were utilized to interrogate the extracranial carotid arteries, the vertebral arteries and proximal subclavian arteries bilaterally. The degree of stenosis is determined by criteria similar to NASCET. FINDINGS: Right Side: 1. There is no atherosclerotic plaque seen in the bifurcation/proximal ICA region. 2. The common carotid artery PSV proximally is 85 cm/s and distally 66 cm/s. 3. The proximal internal carotid artery velocities are 57 cm/s systolic and 19 cm/s diastolic. 4. The proximal external carotid artery PSV is 56 cm/s. 5. The vertebral artery shows antegrade flow. 6. The subclavian artery waveforms are normal. Left Side: 1. There is no atherosclerotic plaque seen in the bifurcation/proximal ICA region. 2. The common carotid artery PSV proximally is 80 cm/s and distally 64 cm/s. 3. The proximal internal carotid artery velocities are 75 cm/s systolic and 30 cm/s diastolic. 4. The proximal external carotid artery PSV is 65 cm/s. 5. The vertebral artery shows antegrade flow. 6. The subclavian artery waveform is abnormal monophasic. US/US carotid duplex BI IMPRESSION: 1. RIGHT: Normal right internal carotid artery without atherosclerotic plaque or hemodynamically significant stenosis. 2. LEFT: Normal left internal carotid artery without atherosclerotic plaque or hemodynamically significant stenosis. 3. Monophasic waveform left subclavian artery consistent with significant stenosis. Antegrade flow in the left vertebral artery.
--- NOTE | ~2023-10-04 | US_ITS ---
EXAMINATION: US RETROPERITONEAL LIMITED (AORTA) CLINICAL INFORMATION: Screening for cardiovascular disorders. History of smoking. COMPARISON: None available. TECHNIQUE: Valera-scale, color Doppler and spectral Doppler evaluation of the abdominal aorta. FINDINGS: The measurements of the aorta in maximum AP and transverse dimensions respectively are as follows: Proximal: 2.1 x 2.3 cm. Mid: 1.6 x 2.0 cm. Distal: 1.7 x 1.7 cm. PSV: 56.1 cm/s. The measurements of the common iliac arteries in maximum AP and TRV dimensions are as follows: Right Common Iliac Artery: 1.0 x 1.0 cm. Left Common Iliac Artery: 1.1 x 0.93 cm. US/US abdominal aortic aneurysm IMPRESSION: Negative for abdominal aortic aneurysm.
== END 2023-10-04 08:42 | disposition home or self-care (01) ==
LOC: HO.US 08:41
PROVIDERS: PCP Family Medicine; Visit Provider Surgery Vascular Surgery
DX: Z13.6 Encounter for screening for cardiovascular disorders (principal); I65.23 Occlusion and stenosis of bilateral carotid arteries
CPT/HCPCS: 76706; 93880

== ENCOUNTER 2023-10-10 10:33 | Outpatient (AMB) | payer MEDICARE, MEDICAID, SELFPAY ==
--- NOTE | 2023-10-10 11:02 | A.OFFPC_ITS ---
Vital Signs 10/10/23 11:03 Height 5 ft 5 in Weight 135 lb 2 oz BMI 22.5 BP 110/66 Blood Pressure Location Lt brachial Position Sitting Pulse 57 Pulse Source Pulse Oximeter Pulse Oximetry (%) 99 Oxygen Delivery Method Room Air Intake Visit Reasons: f/u hypertension and hypothyroidism Intake Note: Patient is following up on hypertension and hypothyroid symptoms. Allergies No Known Allergies Allergy (Mild, Verified 10/10/23 11:09) NOT APPLICABLE Tobacco use date assessed: 10/10/23 Fall risk assessment: No Falls in past year Last assessed Fall Risk: 10/10/23 HPI f/u hypertension and hypothyroidism HPI Details 73 y/o male presents to f/u hypertension and hypothyroidism. Blood pressure today 110/66. He is on losartan 12.5mg. No recent labs to review for his thyroid levels. [facility] Medical History On beta brennon at home On anticoagulant therapy Thyrotoxicosis Cardiomyopathy NSVT (nonsustained ventricular tachycardia) Pulmonary embolism Chronic systolic CHF (congestive heart failure) COPD (chronic obstructive pulmonary disease) Hypothyroid Surgical History Hx of colonoscopy Status post cardiac catheterization History of cholecystectomy Family History Father Stroke Other Mental health disorder Social History Household Members: Family Housing: House Housing Other:: mobile home Do you presently have visiting nurse or other home services: No Alcohol intake: former Year quit: 1987 Patient Tobacco Use Status: Former Tobacco user e-Cigarette/Vaping Use: Never Used Second Hand Smoke Exposure: Yes service: No Current occupational status: disabled Current occupational exposures/hazards: No Cognitive needs: No Hearing needs: No Vision needs: No Questionnaire PHQ-9 Over the last 2 weeks, how often have you been bothered by any of the following problems? 1. Little interest or pleasure in doing things: more than half the days 2. Feeling down, depressed, or hopeless: several days 3. Trouble falling or staying asleep, or sleeping too much: not at all 4. Feeling tired or having little energy: several days 5. Poor appetite or overeating: not at all 6. Feeling bad about yourself - or that you are a failure or have let yourself or your family down: nearly every day 7. Trouble concentrating on things, such as reading the newspaper or watching television: not at all 8. Moving or speaking so slowly that other people could have noticed. Or the opposite - being so fidgety or restless that you have been moving around a lot more than usual: not at all 9. Thoughts that you would be better off or of hurting yourself in some way: not at all Total score: 7 Depression Screening Interpretation: Positive Depression Screening Done: Yes Source: Developed by Drs. Kieran Robledo, Elayne Cameron, Candido Antonio and colleagues, with an educational boogie from [employer]. Thrive Questionnaire Date Thrive assessed: 11/01/21 AUDIT C Alcohol Use Questionnaire (AUDIT-C) 1. How often do you have a drink containing alcohol?: Never 3. How often do you have six or more drinks on one occasion?: Never Total Score: 0 VAHID-7 AMB Questionnaire VAHID-7 Date VAHID - 7 assessed: 10/10/23 Feeling nervous, anxious, or on edge: 2 = More than half the days Not being able to stop or control worryin = Nearly every day Worrying too much about different things: 3 = Nearly every day Trouble relaxin = Nearly every day Being so restless that it is hard to sit still: 1 = Several days Becoming easily annoyed or irritable: 3 = Nearly every day Feeling afraid as if something awful might happen: 0 = Not at all Total VAHID-7 score (0-4 normal; 5-9 mild; 10-14 moderate; 15-21 severe): 15 Source: Developed by Drs. Kieran Robledo, Elayne Cameron, Candido Antonio and colleagues, with an educational boogie from [employer]. Review of Systems Const Denies chills, Denies fatigue, Denies fever(s), Denies headache(s) and Denies weakness ENT Denies dizziness and Denies headache(s) Card Denies chest pain, Denies lightheadedness, Denies dyspnea and Denies other (Palpitations) Resp Denies cough, Denies dyspnea, Denies wheezing and Denies other ( shortness of breath) Musc Denies numbness and Denies tingling Neuro Denies dizziness, Denies headache(s), Denies numbness, Denies tingling, Denies paresthesias and Denies weakness Psych Denies anxiety and Denies depression Endo Denies fatigue Aller/Immun Denies wheezing Physical exam (Primary Care) Vital Signs: Last Vital Signs Pulse 57 10/10/23 11:03 BP 110/66 10/10/23 11:03 Pulse Ox 99 10/10/23 11:03 Oxygen Delivery Method Room Air 10/10/23 11:03 BMI result Body Mass Index 22.5 Tobacco/Smoking Status: Tobacco use Status Tobacco use date assessed 10/10/23 10/10/23 11:10 Patient Tobacco Use Status Former Tobacco user 10/10/23 11:02 e-Cigarette/Vaping Use Never Used 10/10/23 11:02 PHQ-9: PHQ-9 Score PHQ-9: Total score 7 10/10/23 11:15 Depression Screening Interpretation: Positive Thrive Assessment: Date of Thrive Assessment Date Thrive assessed 11/01/21 10/10/23 11:02 Const General: no acute distress and well developed Nutritional Appearance: well nourished Orientation/consciousness: patient oriented x3 [facility] Head: Yes normocephalic and Yes atraumatic Eyes General: appearance normal, both eyes and all related structures Pupils: Equal, round and reactive pupils present EOM: EOMs intact bilaterally Resp Effort & Inspection: normal respiratory effort Auscultation: clear to auscultation bilaterally Cardio Rate: regular rate Rhythm: regular rhythm Heart sounds: S1 normal heart sound present, S2 normal heart sound present, no gallops, no murmurs and no rubs Neuro General: patient oriented x3 and gait normal Cranial nerves: Yes Equal, round and reactive pupils present Psych Affect: normal affect Assessment and Plan Assessment & Plan (1) Hypertension: Code(s): I10 - Essential (primary) hypertension Plan: Blood?pressure?shows?good?control.??Goal?is?less?than?140/90 Continue?current?medications (2) Hypothyroidism: Code(s): E03.9 - Hypothyroidism, unspecified Plan: Patient?has?not?sabina en?his?labs?drawn?but?will?do?so?at?next?chance?when?he?is?fasting?as?we?are?als o?checking?other?lab?work?in?preparation?for?next?visits?physical (3) Immunization counseling: Code(s): Z71.85 - Encounter for immunization safety counseling Plan: Patient?had?thought?he?would?gotten?his?flu?sh ot?but?I?do?not?see?any?record?of?this. He?can?get?this?today?if?his?pharmacy?confirms?he?has?not?gotten?it?yet. Medications: Refilled levothyroxine 50 mcg PO DAILY@0600 30 days 30 tabs 3RF Coding Level of Care Code Est Pt Level 4 (87367) Diagnoses Hypertension I10 Hypothyroidism E03.9 Immunization counseling Z71.85
[2023-10-10 11:03] VITALS: BP 110/66; PULSE 57; O2SAT 99; BMI 22.5
== END 2023-10-10 12:27 | disposition home or self-care (01) ==
PROVIDERS: PCP Family Medicine; Visit Provider Family Medicine
DX: I10 Essential (primary) hypertension (principal); E03.9 Hypothyroidism, unspecified; Z71.85 Encounter for immunization safety counseling
CPT/HCPCS: 99214

== ENCOUNTER 2023-10-10 12:20 | Outpatient (REF) | payer MEDICARE, MEDICAID, SELFPAY ==
[2023-10-10 14:22] LABS: Appearance Urine Clear; Color Urine Yellow; Glucose Urine UA >=1000 mg/dL (Negative); Leukocyte Esterase Urine Negative (Negative); MANUAL DIFF FLAG NO; Nitrite Urine Negative (Negative); PH 6.5 (5.0-9.0); UMIC TRIGGER UA YES; Urine Blood Negative (Negative); Urine Ketones Negative (Negative); Urine Protein Negative (Neg-Trace)
[2023-10-10 14:25] LABS: Basophils Absolute Auto 0.1 X10*3/uL (0.0-0.2); Basophils Percent Auto 0.8 % (0-2); Eosinophils Absolute Auto 0.5 X10*3/uL (0.0-0.4); Hematocrit 50.5 % (42.0-52.0); Hemoglobin 16.6 g/dl (14.0-18.0); Imm Gran Abs Auto 0.03 X10*3/uL (0.00-0.03); Imm Gran Pct Auto 0.4 % (0.0-0.4); Lymphocytes Absolute Auto 1.8 X10*3/uL (1.2-4.9); Lymphocytes Percent Auto 21.4 % (20-40); Mean Corpuscular HGB Conc 32.9 g/dl (31.0-36.0); Mean Corpuscular Hemoglobin 31.1 pg (27.0-33.0); Mean Corpuscular Volume 94.7 fL (80.0-98.0); Mean Platelet Volume 11.4 fL (9.4-12.4); Monocytes Absolute Auto 0.9 X10*3/uL (0.1-1.2); Neutrophils Absolute Auto 5.3 x10*3/uL (2.0-8.3); Neutrophils Percent Auto 61.4 % (45-73); Platelet Count 232 X10*3/uL (160-400); Red Blood Count 5.33 X10*6/uL (4.60-5.80); Red Cell Distribution Width 12.8 % (11.0-16.0); White Blood Count 8.5 X10*3/uL (4.8-10.8)
[2023-10-10 14:28] LABS: Bacteria Urine None Seen (None Seen); Hyaline Casts Urine 0-2 /LPF (0-2); RBC Urine 0-2 /HPF (0-2); Squamous Epithelial Cell Urine 0-2 /HPF (0-2); WBC Urine 0-5 /HPF (0-5)
[2023-10-10 14:55] LABS: Creatinine Urine 57.84 mg/dL; Microalbum/Creatinine Ratio Ur 8.6 ug/mg cr (<30)
[2023-10-10 17:03] LABS: Alanine Aminotransferase 28 U/L (0-40); Albumin Level 4.7 g/dL (3.5-5.0); Alkaline Phosphatase 96 U/L (39-117); Anion Gap 9 (12-20); Aspartate Amino Transferase 30 U/L (5-37); Bilirubin Total 1.3 mg/dL (0.0-1.0); Blood Urea Nitrogen 14 mg/dL (9-16); Calcium 9.8 mg/dL (8.4-10.2); Carbon Dioxide 30 mmol/L (22-29); Chloride 106 mmol/L (96-108); Cholesterol 120 mg/dL (<200); Estimated Glomerular Filt Rate > 60; Glucose Fasting 88 mg/dL (60-99); HDL Cholesterol 37 mg/dL (>40); LDL Cholesterol Calculated 63 mg/dL (<100); Potassium 4.3 mmol/L (3.3-5.1); Sodium 141 mmol/L (135-145); Total Protein 7.7 g/dL (6.5-8.0); Triglycerides 101 mg/dL (<150)
[2023-10-10 17:07] LABS: Free T4 (Free Thyroxine) 0.68 ng/dL (0.71-1.85); Thyroid Stimulating Hormone 28.29 uIU/mL (0.32-4.0)
[2023-10-10 17:21] LABS: Prostate Specific Antigen Scr 0.84 ng/mL (<0.05-4.0)
[2023-10-11 08:18] LABS: Triiodothyronine T3 Total 66 ng/dL (76-181)
== END 2023-10-10 12:21 | disposition home or self-care (01) ==
LOC: HO.WFDLDS 12:20
PROVIDERS: Visit Provider Family Medicine
DX: Z00.00 Encounter for general adult medical examination without abnormal findings (principal); E03.9 Hypothyroidism, unspecified; I10 Essential (primary) hypertension; Z12.5 Encounter for screening for malignant neoplasm of prostate
CPT/HCPCS: 36415; 80053; 80061; 81001; 82043; 82570; 84153; 84439; 84443; 84480; 85025

== ENCOUNTER 2023-11-09 13:32 | Outpatient (AMB) | payer MEDICARE, MEDICAID, SELFPAY ==
--- NOTE | 2023-11-09 13:26 | A.OFFPC_ITS ---
Intake Visit Reasons: f/u labs Intake Note: Patient is following up on labs today. Allergies No Known Allergies Allergy (Mild, Verified 11/09/23 13:27) NOT APPLICABLE Tobacco use date assessed: 11/09/23 Fall risk assessment: No Falls in past year Last assessed Fall Risk: 11/09/23 Dental Screening Dental Screen Date: 11/09/23 Did you have a dental visit in the last 12 months?: No Did you have a dental problem in the last 6 months where you did not have access to dental care?: No Was dental information given to patient?: Patient has dentist HPI f/u labs HPI Details Patient?presents?to?follow-up?labs?including?thyroid?labs TSH?had?been?in?the?normal?range?at?his?last?check?but?more?recently?TSH?is?now? quite?high. He?was?being?prescribed?75?mcg?daily (50?mcg?tabs x 1.5?tabs?daily)?but?he?has?only?been?taking?50?mcg?(1?tab?daily) [facility] Medical History On beta brennon at home On anticoagulant therapy Thyrotoxicosis Cardiomyopathy NSVT (nonsustained ventricular tachycardia) Pulmonary embolism Chronic systolic CHF (congestive heart failure) COPD (chronic obstructive pulmonary disease) Hypothyroid Surgical History Hx of colonoscopy Status post cardiac catheterization History of cholecystectomy Family History Father Stroke Other Mental health disorder Social History Household Members: Family Housing: House Housing Other:: mobile home Do you presently have visiting nurse or other home services: No Alcohol intake: former Year quit: 1987 Patient Tobacco Use Status: Former Tobacco user e-Cigarette/Vaping Use: Never Used Second Hand Smoke Exposure: Yes service: No Current occupational status: disabled Current occupational exposures/hazards: No Cognitive needs: No Hearing needs: No Vision needs: No Questionnaire PHQ-9 Over the last 2 weeks, how often have you been bothered by any of the following problems? 1. Little interest or pleasure in doing things: several days 2. Feeling down, depressed, or hopeless: several days 3. Trouble falling or staying asleep, or sleeping too much: several days 4. Feeling tired or having little energy: several days 5. Poor appetite or overeating: several days 6. Feeling bad about yourself - or that you are a failure or have let yourself or your family down: several days 7. Trouble concentrating on things, such as reading the newspaper or watching television: several days 8. Moving or speaking so slowly that other people could have noticed. Or the opposite - being so fidgety or restless that you have been moving around a lot more than usual: several days 9. Thoughts that you would be better off or of hurting yourself in some way: several days Total score: 9 Source: Developed by Drs. Kieran Robledo, Elayne Cameron, Candido Antonio and colleagues, with an educational boogie from [employer]. Thrive Questionnaire Date Thrive assessed: 11/09/23 I am a: Patient What is your living situation today?: I have a steady place to live Within the past 12 months, did the food you bought not last and you didn't have the money to get more?: Never true Within the past 12 months, did you worry whether your food would run out before you got money to buy more?: Never true Do you have trouble paying for medicines?: No Do you have trouble paying your heating and electricity bill?: No Do you have trouble taking care of your child, family member or friend?: No Do you have trouble with day-to-day activities such as bathing, preparing meals, shopping, managing finances, etc.?: No Are you currently unemployed and looking for a job?: No Are you interested in more education?: No THRIVE Score: 0 AUDIT C Alcohol Use Questionnaire (AUDIT-C) 1. How often do you have a drink containing alcohol?: Never 3. How often do you have six or more drinks on one occasion?: Never Total Score: 0 VAHID-7 AMB Questionnaire VAHID-7 Date VAHID - 7 assessed: 11/09/23 Feeling nervous, anxious, or on edge: 1 = Several days Not being able to stop or control worryin = Several days Worrying too much about different things: 1 = Several days Trouble relaxin = Several days Being so restless that it is hard to sit still: 1 = Several days Becoming easily annoyed or irritable: 1 = Several days Feeling afraid as if something awful might happen: 1 = Several days Total VAHID-7 score (0-4 normal; 5-9 mild; 10-14 moderate; 15-21 severe): 7 Source: Developed by Drs. Kieran Robledo, Elayne Cameron, Candido Antonio and colleagues, with an educational boogie from [employer]. Review of Systems Const Denies chills, Denies fatigue, Denies fever(s), Denies headache(s) and Denies weakness ENT Denies dizziness and Denies headache(s) Card Denies chest pain, Denies lightheadedness, Denies dyspnea and Denies other (Palpitations) Resp Denies cough, Denies dyspnea, Denies wheezing and Denies other ( shortness of breath) Musc Denies numbness and Denies tingling Neuro Denies dizziness, Denies headache(s), Denies numbness, Denies tingling, Denies paresthesias and Denies weakness Psych Denies anxiety and Denies depression Endo Denies fatigue Aller/Immun Denies wheezing Physical exam (Primary Care) Tobacco/Smoking Status: Tobacco use Status Tobacco use date assessed 11/09/23 11/09/23 13:30 Patient Tobacco Use Status Former Tobacco user 11/09/23 13:30 e-Cigarette/Vaping Use Never Used 11/09/23 13:30 PHQ-9: PHQ-9 Score PHQ-9: Total score 9 11/09/23 13:30 Thrive Assessment: Date of Thrive Assessment Date Thrive assessed 11/09/23 11/09/23 13:30 Telehealth Telehealth Location of provider rendering services: practice address Location of patient: address on file Patient Identification confirmed using: Name, : Yes Telehealth method: voice only Patient verbally consented to treatment: Yes Patient verbally consented to billing insurance company: Yes Patient informed of any privacy concerns related to visit: Yes Minutes spent on Phone/Video with Pt.: 7 Assessment and Plan Assessment & Plan (1) Hypothyroidism: Code(s): E03.9 - Hypothyroidism, unspecified Plan: Patient?had?not?been?taking?75?mcg?daily?as?prescribed.??He?was?taking?50?mg?marylu ly. He?will?take?75?mcg?daily Recheck?thyroid?hormone?levels?prior?to?his?next?visit?which?is?in?December. Orders: Orders Free T4 (Free Thyroxine) Today E03.9 - Hypothyroidism, unspecified Thyroid Stimulating Hormone Today E03.9 - Hypothyroidism, unspecified Triiodothyronine T3 Total Today E03.9 - Hypothyroidism, unspecified Basic Metabolic Panel Today E03.9 - Hypothyroidism, unspecified, Z00.00 - Encounter for general adult medical examination without abnormal findings Medications: Refilled levothyroxine 75 mcg (1.5 x 50 mcg) PO DAILY@0600 30 days 45 tabs 3RF Coding Level of Care Code Tele Est Pt Level 2 (22663) Diagnoses Hypothyroidism E03.9
== END 2023-11-09 14:42 | disposition home or self-care (01) ==
LOC: HO.HMGFM 13:32
PROVIDERS: PCP Family Medicine; Visit Provider Family Medicine
DX: E03.9 Hypothyroidism, unspecified (principal)
CPT/HCPCS: 99441

== ENCOUNTER 2023-11-15 10:10 | Outpatient (AMB) | payer MEDICARE, MEDICAID, SELFPAY ==
[2023-11-15 10:23] VITALS: BMI 22.5
--- NOTE | 2023-11-15 10:23 | MHC.OFFVIS ---
Intake Vital Signs 11/15/23 10:23 Height 5 ft 5 in Weight 135 lb BMI 22.5 Intake Visit Reasons: follow up carotid and AAA US 10/04/23 Intake Note: follow up carotid US & AAA US 10/04/23, pt states no changes Accompanied by: friend/ healthcare or medical Allergies No Known Allergies Allergy (Mild, Verified 11/15/23 10:25) NOT APPLICABLE HPI follow up carotid and AAA US 10/04/23 HPI Details Very pleasant 73-year-old gentleman presents for follow-up regarding carotid disease along with aortic aneurysm. The workup originally began as workup for diminished pulses of the left upper extremity. He reports that he has had no interval issues with that left upper extremity. He does feel that it occasionally does get tired. That being said he is able to rake for 15 minutes to a 1/2 hour with no significant difficulty with use of that left upper extremity. Now presents for follow-up with noninvasive testing. [facility] Medical History On beta brennon at home On anticoagulant therapy Thyrotoxicosis Cardiomyopathy NSVT (nonsustained ventricular tachycardia) Pulmonary embolism Chronic systolic CHF (congestive heart failure) COPD (chronic obstructive pulmonary disease) Hypothyroid Surgical History Hx of colonoscopy Status post cardiac catheterization History of cholecystectomy Family History Father Stroke Other Mental health disorder Social History Household Members: Family Housing: House Housing Other:: mobile home Do you presently have visiting nurse or other home services: No Alcohol intake: former Year quit: 1987 Patient Tobacco Use Status: Former Tobacco user e-Cigarette/Vaping Use: Never Used Second Hand Smoke Exposure: Yes service: No Current occupational status: disabled Current occupational exposures/hazards: No Cognitive needs: No Hearing needs: No Vision needs: No Review of Systems Const All systems reviewed & are unremarkable except as noted in HPI and below Reports no additional complaints ENT Reports Normal hearing present Card Denies chest pain, Denies chest pain at rest, Denies chest pain with activity and Denies pedal edema Resp Denies cough GI Denies abdominal pain Musc Denies abnormal gait, Denies muscle cramps and Denies radiating pain into limb Skin/Breast Denies skin ulcer and Denies wounds Neuro Reports Normal hearing present and Denies abnormal gait Psych Reports no additional complaints Physical Exam Vital Signs: BMI result Body Mass Index 22.5 Const General: cooperative, healthy appearing and comfortable Orientation/consciousness: oriented to person, oriented to place and oriented to time HEENT Head: Yes normal to inspection Neck Neck: Yes normal visual inspection Carotids: no bruits Chest Chest palpation & inspection: normal inspection of the chest Resp Effort & Inspection: normal respiratory effort and able to speak in complete sentences Auscultation: clear to auscultation bilaterally, no crackles, no rales, no rhonchi and no wheezes Cardio Other: Right upper extremity palpable brachial radial ulnar pulses Left upper extremity radial and ulnar signals only Rate: regular rate Rhythm: regular rhythm Heart sounds: S1 normal heart sound present and S2 normal heart sound present Bruits: no carotid bruits Peripheral pulses: Peripheral pulses 2+ throughout GI Inspection: Yes normal to inspection Skin Wounds: no wounds Hair: normal Neuro General: oriented to person, oriented to place and oriented to time Cranial nerves: Yes CN's II-XII intact bilaterally and Yes Normal hearing present Cognition (Neuro): normal cognition Motor exam (neuro): 5/5 motor strength present throughout Extrem Other: venous exam: No significant superficial varicosities or spider telangiectasias, minimal edema General: No clubbing, No cyanosis and No edema Psych Appearance: grossly normal Mental Status: mental status grossly normal Speech and movement: Normal speech and movement present Results Reviewed Results Reviewed: Noninvasive testing regarding aorta dated 10/04/2023 was negative for any aortic aneurysm Carotid testing dated 10/04/2023 demonstrates bilateral 0-49% stenosis. There is monophasic waveform and left subclavian consistent with stenosis. Antegrade flow in the vertebral Assessment & Plan Assessment & Plan (1) Bilateral carotid artery stenosis: Code(s): I65.23 - Occlusion and stenosis of bilateral carotid arteries Plan: In short carotid testing is within normal limits. He does have left subclavian stenosis. At the current time he is relatively asymptomatic from this. I did recommend observing it for now. He is in agreement. We will schedule him for surveillance follow-up within 1 year's time. Should there be any interval issues, happy to see him back sooner. Thank you for allowing us to assist in his care. If there are any questions or concerns please do not hesitate to contact us. Coding Level of Care Code Est Pt Level 4 (72503) Diagnoses Bilateral carotid artery stenosis I65.23
== END 2023-11-15 10:44 | disposition home or self-care (01) ==
PROVIDERS: PCP Family Medicine; Visit Provider Surgery Vascular Surgery
DX: I65.23 Occlusion and stenosis of bilateral carotid arteries (principal)
CPT/HCPCS: 99213

== ENCOUNTER → 2023-11-15 10:10 | Outpatient (BNVA) | payer MEDICARE, MEDICAID, SELFPAY | PROVIDERS: PCP Family Medicine; Visit Provider Surgery Vascular Surgery | DX: I65.23 Occlusion and stenosis of bilateral carotid arteries (principal) | CPT/HCPCS: 99212 ==

== ENCOUNTER 2023-11-21 11:20 | Outpatient (AMB) | payer MEDICARE, MEDICAID, SELFPAY ==
--- NOTE | 2023-11-21 11:22 | MHC.OFFVIS ---
Intake Vital Signs 11/21/23 11:33 Height 5 ft 5 in Weight 135 lb BMI 22.5 BP 98/62 Blood Pressure Location Lt brachial Position Sitting Pulse 59 Intake Visit Reasons: rediscuss colo Intake Note: Patient follow up to pre colonoscopy screening. Patient cc: between diarrhea and constipation and gassy. Denies any other GI issues. Instructor Modeling Required: No Accompanied by: Family/Other Allergies No Known Allergies Allergy (Mild, Verified 11/21/23 11:22) NOT APPLICABLE HPI rediscuss colo HPI Details LAST VISIT: Screening for colon cancer Patient is cleared for the procedure will going bulk the procedure today. Went over again with patient and discuss how to prep. What to do before during and after the procedure discussed with patient. Stressed the importance of clear liquid diet to patient day before the procedure. Patient is accompanied by his friend who helps patient with the prep. Patient was cleared by his apparel machinery instructor for the procedure with intermediate low risk. Hold Eliquis for 2 days before the procedure. I will see him after the procedure. Patient is agreeable to this plan and verbalizes understanding of instructions. He was given the opportunity to ask questions and all questions answered. ? Thank you for allowing me to participate in his care Plan Medications Refilled bisacodyl (Dulcolax (bisacodyl)) take 2 tabs at noon the day before your colonoscopy 10 mg (2 x 5 mg) PO ONCE 1 day 2 tabs 0RF Z12.11 - Encounter for screening for malignant neoplasm of colon polyethylene glycol 3350 (Miralax) As directed by gastroenterology department at [facility] 238 grams PO ONCE 238 grams 0RF Z12.11 - Encounter for screening for malignant neoplasm of colon COLONOSCOPY: Findings: Terminal Ileum-normal Cecum:normal Ascending Colon: normal Transverse Colon -normal Descending Colon:normal Sigmoid Colon: normal Rectum: Retroflexion with small internal hemorrhoids, grade I Anorectum - normal Colon preparation: [place] Bowel Preparation Scale Right colon; 2 Transverse colon: 2 Left colon; 3 (0 = Unprepared colon segment with mucosa not seen due to solid stool that cannot be cleared. 1 = Portion of mucosa of the colon segment seen, but other areas of the colon segment not well seen due to staining, residual stool and/or opaque liquid. 2 = Minor amount of residual staining, small fragments of stool and/or opaque liquid, but mucosa of colon segment seen well. 3 = Entire mucosa of colon segment seen well with no residual staining, small fragments of stool or opaque liquid) Impression and Post Procedure Diagnosis: internal hemorrhoids Plan: High fiber diet leaflet Avoid straining at stool, epsom salts and sitz bath, anusol supps or cream Repeat Colonoscopy in 10 years if health allows and patient wishes or earlier if clinically indicated, otherwise this is his last screening colo TODAY'S VISIT Patient is here today for follow-up. Patient reports that he has been feeling well. Never followed up after colonoscopy. Patient had no polyps his prep was good and colonoscopy recommended in 10 years depending on health. Patient reports that since the last time I have seen him he has been doing better. Depending on what he eats he might have occasional loose stools. Patient reports that he is not taking anything to help her move his bowels. Most of the time he is moving his bowels well. Patient reports that he drink plenty fluids. Has good appetite. Denies melena hematochezia, unintentional weight loss or ribbon like stools. Patient denies any dyspepsia, dysphagia or odynophagia. FORMERLY [facility], [facility] Medical History On beta brennon at home On anticoagulant therapy Thyrotoxicosis Cardiomyopathy NSVT (nonsustained ventricular tachycardia) Pulmonary embolism Chronic systolic CHF (congestive heart failure) COPD (chronic obstructive pulmonary disease) Hypothyroid Surgical History Hx of colonoscopy Status post cardiac catheterization History of cholecystectomy Family History Father Stroke Other Mental health disorder Social History Household Members: Family Housing: House Housing Other:: mobile home Do you presently have visiting nurse or other home services: No Alcohol intake: former Year quit: 1987 Patient Tobacco Use Status: Former Tobacco user e-Cigarette/Vaping Use: Never Used Second Hand Smoke Exposure: Yes service: No Current occupational status: disabled Current occupational exposures/hazards: No Cognitive needs: No Hearing needs: No Vision needs: No Review of Systems Const Denies weight gain and Denies weight loss ENT Reports no additional complaints, Denies dysphagia and Denies odynophagia Card Reports no additional complaints Resp Reports no additional complaints GI Denies abdominal pain, Denies belching, Denies melena, Denies bloating, Reports constipation, Denies dysphagia, Denies excessive flatus, Denies dyspepsia, Denies heartburn, Denies diarrhea, Reports loose stools, Denies nausea, Denies odynophagia and Denies vomiting Reports no additional complaints Musc Reports no additional complaints Neuro Reports no additional complaints Psych Reports no additional complaints Endo Reports no additional complaints Physical Exam Vital Signs: Last Vital Signs Pulse 59 11/21/23 11:33 BP 98/62 11/21/23 11:33 BMI result Body Mass Index 22.5 Const General: healthy appearing, no acute distress and well developed Nutritional Appearance: well nourished Orientation/consciousness: patient oriented x3 Resp Effort & Inspection: normal respiratory effort, able to speak in complete sentences, no tracheal deviation and symmetric chest movement Auscultation: clear to auscultation bilaterally Cardio Rate: regular rate GI Inspection: Yes normal to inspection and No distended Palpation (GI): Soft to palpation, not firm, nontender and No hepatosplenomegaly present Auscultation: normal bowel sounds General: Yes no CVA tenderness Back/Spine/Pelvis Back: no CVA tenderness Skin General skin exam: elasticity normal, turgor normal and dry skin Neuro General: patient oriented x3 Psych Appearance: grossly normal Mental Status: mental status grossly normal Assessment & Plan Assessment & Plan (1) IBS (irritable bowel syndrome): Code(s): K58.9 - Irritable bowel syndrome without diarrhea Qualifiers: Irritable bowel syndrome type: with both diarrhea and constipation Qualified Code(s): K58.2 - Mixed irritable bowel syndrome Plan Continue low FODMAP diet. List of food recommended as well as list of food to avoid. Patient will follow-up in our office on as needed basis. He is agreeable to this plan and verbalizes understanding of instructions. He was given the opportunity to ask questions and all questions answered. Thank you for allowing me to participate in his care Coding Level of Care Code Est Pt Level 3 (86524) Diagnoses Irritable bowel syndrome with both constipation and diarrhea K58.2 Irritable bowel syndrome type: with both diarrhea and constipation Time Spent (min) 25 Comment 15 minutes spent with patient and additional 10 minutes spent reviewing his records
[2023-11-21 11:33] VITALS: BP 98/62; PULSE 59; BMI 22.5
== END 2023-11-21 12:16 | disposition home or self-care (01) ==
PROVIDERS: PCP Family Medicine; Visit Provider Nurse Practitioner Family
DX: K58.2 Mixed irritable bowel syndrome (principal)
CPT/HCPCS: 99213

== ENCOUNTER → 2023-11-21 11:20 | Outpatient (BNVA) | payer MEDICARE, MEDICAID, SELFPAY | PROVIDERS: PCP Family Medicine; Visit Provider Nurse Practitioner Family | DX: K58.2 Mixed irritable bowel syndrome (principal) | CPT/HCPCS: 99212 ==

== ENCOUNTER 2023-12-11 09:22 | Outpatient (AMB) | payer MEDICARE, MEDICAID, SELFPAY ==
[2023-12-11 09:47] VITALS: BP 120/72; PULSE 59; BMI 22.9
--- NOTE | 2023-12-11 09:47 | A.OFFVIS_ITS ---
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 Required: No Director Trading: Director Trading Present Allergies No Known Allergies Allergy (Mild, Verified 12/11/23 09:49) NOT APPLICABLE Medication List - Last Reconciled 12/11/23 by WARREN LeeC albuterol sulfate 90 mcg/actuation (ProAir HFA) 2 puffs inhalation Q6H PRN 1 mo nth apixaban (Eliquis) 5 mg PO BID 90 days atorvastatin 40 mg PO BEDTIME bisoprolol fumarate 2.5 mg (1/2 x 5 mg) PO DAILY 90 days dapagliflozin propanediol (Farxiga) 10 mg PO DAILY fluticasone furoate-vilanterol 100-25 mcg/dose (Breo Ellipta) 1 puff inhalation DAILY furosemide 40 mg PO DAILY levothyroxine 75 mcg (1.5 x 50 mcg) PO DAILY@0600 30 days losartan 12.5 mg (1/2 x 25 mg) PO DAILY 90 days montelukast 10 mg PO DAILY umeclidinium 62.5 mcg/actuation (Incruse Ellipta) 1 inh inhalation DAILY HPI 6 month follow uo HPI Details Tico is a 73-year-old male with past medical history thyroid toxicosis, now on thyroid supplement, cardiomyopathy with EF as low as 20% in 07/2020, prior history of smoking, diabetes, pulmonary embolism 07/2020, systolic heart failure, atrial fibrillation, nonobstructive coronary artery disease who presents for follow-up. Today he reports feeling well since his last visit in May. He has not had any hospitalizations or ER trips. He denies chest discomfort at rest or with activity. He does have some shortness of breath and fatigue with exertional activities but does admit to being mostly sedentary. No palpitations, lightheadedness, presyncope, syncope, PND, orthopnea or edema. He is taking his medications as directed. No bleeding issues reported. Significant other is present. FORMERLY [facility] Medical History On beta brennon at home On anticoagulant therapy Thyrotoxicosis Cardiomyopathy NSVT (nonsustained ventricular tachycardia) Pulmonary embolism Chronic systolic CHF (congestive heart failure) COPD (chronic obstructive pulmonary disease) Hypothyroid Surgical History Hx of colonoscopy Status post cardiac catheterization History of cholecystectomy Family History Father Stroke Other Mental health disorder Social History Household Members: Family Housing: House Housing Other:: mobile home Do you presently have visiting nurse or other home services: No Alcohol intake: former Year quit: 1987 Patient Tobacco Use Status: Former Tobacco user e-Cigarette/Vaping Use: Never Used Second Hand Smoke Exposure: Yes service: No Current occupational status: disabled Current occupational exposures/hazards: No Cognitive needs: No Hearing needs: No Vision needs: No Review of Systems Const All systems reviewed & are unremarkable except as noted in HPI and below ENT Denies dizziness Card Denies chest pain, Denies chest pain at rest, Denies chest pain with activity, Denies rapid heart rate, Denies pedal edema, Denies edema, Denies leg edema, Denies lightheadedness, Denies palpitations, Denies dyspnea, Denies dyspnea on exertion and Denies orthopnea Resp Denies cough, Denies dyspnea and Denies dyspnea on exertion GI Denies hematochezia and Denies change in stool character Musc Denies abnormal gait, Denies limited range of motion, Denies muscle cramps, Denies muscle weakness, Denies numbness, Denies radiating pain into limb, Denies stiffness and Denies tingling Neuro Denies abnormal gait, Denies dizziness, Denies numbness and Denies tingling Endo Denies palpitations Physical Exam Vital Signs: BMI result Body Mass Index 22.9 Const General: cooperative, healthy appearing, comfortable and no acute distress Orientation/consciousness: patient oriented x3 Neck Neck: Yes normal visual inspection Resp Effort & Inspection: normal respiratory effort Auscultation: clear to auscultation bilaterally, no crackles, no rales, no rhonchi and no wheezes Cardio Jugular venous distension: no JVD Rate: regular rate Rhythm: regular rhythm Heart sounds: S1 normal heart sound present, S2 normal heart sound present, no murmurs and no rubs Neuro General: patient oriented x3 Extrem General: Yes normal to inspection Psych Appearance: grossly normal Mental Status: mental status grossly normal Speech and movement: Normal speech and movement present Office Procedures EKG Details: Today, read by me, sinus bradycardia, PACs, nonspecific ST and T-wave abnormality, no significant change from prior EKG, QTC 465 milliseconds, rate 59 [id number], Complete Assessment & Plan Assessment & Plan (1) Cardiomyopathy: Code(s): I42.9 - Cardiomyopathy, unspecified Plan: History of nonischemic cardiomyopathy with EF as low as 20% 07/2020. Cardiac catheterization done 12/20/2021 shows only mild nonobstructive coronary artery disease. He has been managed medically with gradual improvement in his EF. Last Echocardiogram done on 02/13/2023 shows EF 40-45%. On examination today he has no clinical signs indicating decompensated heart failure. He continues on losartan and bisoprolol for neurohormonal modulation. He continues on Lasix 40 mg daily. Labs done 10/10/2023 shows potassium 4.3, creatinine 0.98. Signs and symptoms of heart failure reviewed with him. Cardiology follow-up in 6 months, sooner if needed (2) Status post cardiac catheterization: Comment: 12/20/2021 showing left main, left circumflex, RCA all normal, lad mild proximal stenosis, 30%. Code(s): Z98.890 - Other specified postprocedural states Plan: As above (3) PAF (paroxysmal atrial fibrillation): Code(s): I48.0 - Paroxysmal atrial fibrillation Plan: History of paroxysmal atrial fibrillation. He is not reporting issues with heart palpitations. Heart tones regular on examination with early beat noted at times consistent with sinus rhythm with PACs. EKG done today showing sinus rhythm with to PACs, rate 59. He is on bisoprolol for heart rate control. He is on Eliquis for anticoagulation. No bleeding issues reported. Labs done 10/10/2023 shows creatinine 0.98, hematocrit 50.5. Continue current treatment (4) Coronary artery disease: Code(s): I25.10 - Atherosclerotic heart disease of [place] coronary artery without angina pectoris Plan: History of nonobstructive coronary artery disease. EKG today showing sinus rhythm with nonspecific ST and T-wave abnormality as seen on prior EKG, rate 59. No reports of anginal sounding symptoms. He is not on aspirin as he is on Eliquis. He is on atorvastatin 40 mg daily with ideal LDL goal less than 70. Labs done 10/10/2023 shows LDL 63. He is on bisoprolol and losartan. No med changes made. Signs and symptoms of angina reviewed. Plan Time spent on chart review, documentation, interview and assessment Orders: Orders CA echo transthoracic complete 6 Months I42.9 - Cardiomyopathy, unspecified Coding Level of Care Code Est Pt Level 4 (36498) Diagnoses Cardiomyopathy I42.9 Status post cardiac catheterization Z98.890 PAF (paroxysmal atrial fibrillation) I48.0 Coronary artery disease I25.10 CPT Codes EKG - CPT: 12869-[id number], Complete ([id number]) Time Spent (min) 28
== END 2023-12-11 10:15 | disposition home or self-care (01) ==
PROVIDERS: PCP Family Medicine; Visit Provider Nurse Practitioner Family
DX: I42.9 Cardiomyopathy, unspecified (principal); Z98.890 Other specified postprocedural states; I48.0 Paroxysmal atrial fibrillation; I25.10 Atherosclerotic heart disease of native coronary artery without angina pectoris
CPT/HCPCS: 93010; 99214

== ENCOUNTER → 2023-12-11 09:22 | Outpatient (BNVA) | payer MEDICARE, MEDICAID, SELFPAY | PROVIDERS: PCP Family Medicine; Visit Provider Nurse Practitioner Family | DX: I42.9 Cardiomyopathy, unspecified (principal); I48.0 Paroxysmal atrial fibrillation; I25.10 Atherosclerotic heart disease of native coronary artery without angina pectoris; Z98.890 Other specified postprocedural states | CPT/HCPCS: 93005; 99212 ==

== ENCOUNTER 2023-12-13 10:45 | Outpatient (REF) | payer MEDICARE, MEDICAID, SELFPAY ==
[2023-12-13 14:21] LABS: Appearance Urine Clear; Color Urine Yellow; Glucose Urine UA >=1000 mg/dL (Negative); Leukocyte Esterase Urine Negative (Negative); Nitrite Urine Negative (Negative); PH 6.5 (5.0-9.0); Specific Gravity - Urine >= 1.030 (1.005-1.025); UMIC TRIGGER UA YES; Urine Blood Negative (Negative); Urine Ketones Negative (Negative); Urine Protein Negative (Neg-Trace)
[2023-12-13 14:29] LABS: Bacteria Urine None Seen (None Seen); Hyaline Casts Urine 0-2 /LPF (0-2); RBC Urine 0-2 /HPF (0-2); Squamous Epithelial Cell Urine 0-2 /HPF (0-2); WBC Urine 0-5 /HPF (0-5)
[2023-12-13 14:45] LABS: Alanine Aminotransferase 24 U/L (0-40); Albumin Level 4.4 g/dL (3.5-5.0); Alkaline Phosphatase 108 U/L (39-117); Anion Gap 13 (12-20); Aspartate Amino Transferase 24 U/L (5-37); Bilirubin Total 1.6 mg/dL (0.0-1.0); Blood Urea Nitrogen 18 mg/dL (9-16); Calcium 9.4 mg/dL (8.4-10.2); Carbon Dioxide 29 mmol/L (22-29); Chloride 106 mmol/L (96-108); Estimated Glomerular Filt Rate > 60; Glucose Random 94 mg/dL (60-115); Potassium 3.9 mmol/L (3.3-5.1); Sodium 144 mmol/L (135-145); Total Protein 7.2 g/dL (6.5-8.0)
[2023-12-13 15:02] LABS: Free T4 (Free Thyroxine) 0.92 ng/dL (0.71-1.85); Thyroid Stimulating Hormone 4.11 uIU/mL (0.32-4.0)
[2023-12-15 02:04] LABS: Triiodothyronine T3 Total 89 ng/dL (76-181)
== END 2023-12-13 10:46 | disposition home or self-care (01) ==
LOC: HO.WFDLDS 10:45
PROVIDERS: Visit Provider Family Medicine
DX: Z00.00 Encounter for general adult medical examination without abnormal findings (principal); E03.9 Hypothyroidism, unspecified
CPT/HCPCS: 36415; 80053; 81001; 84439; 84443; 84480

== ENCOUNTER 2023-12-19 13:12 | Outpatient (AMB) | payer MEDICARE, MEDICAID, SELFPAY ==
[2023-12-19 13:20] VITALS: BP 114/70; PULSE 73; RESP 13; TEMP 35.9; O2SAT 99; BMI 23.2
--- NOTE | 2023-12-19 13:20 | A.OFFPC_ITS ---
Vital Signs 12/19/23 13:20 Height 5 ft 5 in Weight 139 lb 6 oz BMI 23.2 BP 114/70 Blood Pressure Location Rt brachial Position Sitting Respiration 13 Pulse 73 Pulse Source Pulse Oximeter Temp 96.7 F L Temp Source Temporal Artery Scan Pulse Oximetry (%) 99 Oxygen Delivery Method Room Air Intake Visit Reasons: Extended exam with f/u labs and health maint Promotional Marketing Agent Required: No Accompanied by: Family/Other Allergies No Known Allergies Allergy (Mild, Verified 12/19/23 13:26) NOT APPLICABLE Tobacco use date assessed: 11/09/23 Fall risk assessment: No Falls in past year Last assessed Fall Risk: 12/19/23 Dental Screening Dental Screen Date: 12/19/23 Did you have a dental visit in the last 12 months?: No Did you have a dental problem in the last 6 months where you did not have access to dental care?: No Was dental information given to patient?: Patient declined HPI Extended exam with f/u labs and health maint HPI Details 73 y/o male presents for an extended exa m with f/u labs and health maintenance. Labs were drawn 12/13/23. Reviewed labs with pt. TSH improved from 28.29 to 4.11. No recent lipid panel. Blood pressure today 114/70. He is on losartan 12.5mg, bisoprolol 2.5mg daily. FORMERLY [facility], [facility] Medical History On beta brennon at home On anticoagulant therapy Thyrotoxicosis Cardiomyopathy NSVT (nonsustained ventricular tachycardia) Pulmonary embolism Chronic systolic CHF (congestive heart failure) COPD (chronic obstructive pulmonary disease) Hypothyroid Surgical History Hx of colonoscopy Status post cardiac catheterization History of cholecystectomy Family History Father Stroke Other Mental health disorder Social History Household Members: Family Housing: House Housing Other:: mobile home Do you presently have visiting nurse or other home services: No Alcohol intake: former Year quit: 1987 Patient Tobacco Use Status: Former Tobacco user e-Cigarette/Vaping Use: Never Used Second Hand Smoke Exposure: Yes service: No Current occupational status: disabled Current occupational exposures/hazards: No Cognitive needs: No Hearing needs: No Vision needs: No Questionnaire Thrive Questionnaire Date Thrive assessed: 11/09/23 AUDIT C Alcohol Use Questionnaire (AUDIT-C) 1. How often do you have a drink containing alcohol?: Never 3. How often do you have six or more drinks on one occasion?: Never Total Score: 0 VAHID-7 AMB Questionnaire VAHID-7 Date VAHID - 7 assessed: 11/09/23 Source: Developed by Drs. Kieran Robledo, Elayne Cameron, Candido nAtonio and colleagues, with an educational boogie from [employer]. Review of Systems Const Denies chills, Denies fatigue, Denies fever(s), Denies headache(s) and Denies weakness Eyes Denies change in vision ENT Denies dizziness, Denies headache(s), Denies hearing loss, Denies nasal congest ion, Denies sinus pain, Denies sinus pressure and Denies sore throat Card Denies chest pain, Denies lightheadedness, Denies dyspnea and Denies other (palpitations) Resp Denies cough, Denies dyspnea and Denies wheezing GI Denies abdominal pain, Denies melena, Denies hematochezia, Denies change in bowel habits, Denies dyspepsia and Denies nausea Denies hematuria and Denies dysuria Musc Denies abnormal gait, Denies myalgias, Denies arthralgias, Denies numbness and Denies tingling Skin/Breast Denies rash, Denies unusual bruising and Denies wounds Neuro Denies abnormal gait, Denies dizziness, Denies headache(s), Denies memory loss, Denies numbness, Denies Sensory deficit (Neuro), Denies tingling and Denies weakness Psych Denies anxiety, Denies depression and Denies memory loss Endo Denies cold intolerance, Denies fatigue, Denies heat intolerance, Denies polydipsia and Denies polyuria Jose A/Lymph Denies easy bleeding and Denies easy bruising Aller/Immun Denies wheezing Physical exam (Primary Care) Vital Signs: Last Vital Signs Temp 96.7 F L 12/19/23 13:20 Pulse 73 12/19/23 13:20 Resp 13 12/19/23 13:20 BP 114/70 12/19/23 13:20 Pulse Ox 99 12/19/23 13:20 Oxygen Delivery Method Room Air 12/19/23 13:20 BMI result Body Mass Index 23.2 Tobacco/Smoking Status: Tobacco use Status Tobacco use date assessed 11/09/23 12/19/23 13:31 Patient Tobacco Use Status Former Tobacco user 12/19/23 13:31 e-Cigarette/Vaping Use Never Used 12/19/23 13:31 Thrive Assessment: Date of Thrive Assessment Date Thrive assessed 11/09/23 12/19/23 13:31 Const General: no acute distress, well developed, alert and awake Nutritional Appearance: well nourished Orientation/consciousness: patient oriented x3 HENMT Head: Yes normocephalic and Yes atraumatic Ears: hearing grossly normal bilaterally and TM's normal bilaterally General nose exam: Normal external nose present and Normal nares present Mouth: Normal oral and palatal mucosa present and moist mucous membranes Teeth and gingiva: dentition normal Throat: Yes posterior oropharynx normal Eyes General: appearance normal, both eyes and all related structures Pupils: Equal, round and reactive pupils present and Pupil accommodation reflex normal EOM: EOMs intact bilaterally Neck Neck: Yes normal visual inspection, Yes no lymphadenopathy and Yes trachea midline Thyroid: Thyroid normal Carotids: no bruits Lymphatic: no lymphadenopathy noted Chest Chest palpation & inspection: normal inspection of the chest Resp Effort & Inspection: normal respiratory effort Auscultation: clear to auscultation bilaterally Cardio Rate: regular rate Rhythm: regular rhythm Heart sounds: S1 normal heart sound present, S2 normal heart sound present, no gallops, no murmurs and no rubs Bruits: no abdominal aortic bruits and no carotid bruits GI Palpation (GI): No Abdominal aortic bruit present, Soft to palpation, nontender, No hepatosplenomegaly present and No Rebound tenderness present Auscultation: normal bowel sounds General: Yes no CVA tenderness Back/Spine/Pelvis Back: no CVA tenderness Cervical Spine: cervical ROM normal and No Cervical spine tenderness Thoracic/Lumbar Spine: thoraco-lumbar ROM normal, No pain with thoraco-lumbar ROM, No thoracic spinal tenderness and No lumbar spinal tenderness Skin Lesions: no lesions Rashes: no rashes Trauma: no lacerations or abrasions Wounds: no wounds Nails: normal Neuro General: patient oriented x3 Cranial nerves: Yes Equal, round and reactive pupils present Cognition (Neuro): normal cognition Gait exam (Neuro): Normal gait present Motor exam (neuro): 5/5 motor strength present throughout Sensory Exam: No Sensory deficit (Neuro) Deep tendon reflexes (DTR's): Right patellar reflex intensity grade: 2+ and Left patellar reflex intensity grade: 2+ Extrem General: Yes normal to inspection and No edema Psych Appearance: grossly normal Affect: normal affect Attitude: cooperative Thought process: Normal thought process present Assessment and Plan Assessment & Plan (1) Hypothyroidism: Code(s): E03.9 - Hypothyroidism, unspecified Plan: History?of?thyrotoxicosis?and?subsequent?hypothyroidism Had?been?taking?50?mcg?of?levothyroxine?rather?than?recommended?75?mcg Increased?medication?to?75?mcg?daily?at?last?office?visit?about?a?month?ago. TSH?almost?within?normal?range?now?and?likely?not?quite?at?steady?state Continue?current?medication?and?we?can?follow-up?again?with?next?lab?draw (2) Coronary artery disease: Code(s): I25.10 - Atherosclerotic heart disease of [place] coronary artery without angina pectoris Plan: Recently?saw?Cardiology. Stable Follow-up?with?Cardiology?as?recommended (3) Bilateral carotid artery stenosis: Code(s): I65.23 - Occlusion and stenosis of bilateral carotid arteries Plan: Saw?vascular?and?no?carotid?stenosis?though?he?does?have?subclavian?stenosis Recommended?monitoring. Follow-up?with?vascular?as?recommended (4) Atrial fibrillation with RVR: Code(s): I48.91 - Unspecified atrial fibrillation Plan: Currently?stable Continue?Eliquis Follow-up?with?Cardiology?as?recommended (5) Hypertension: Code(s): I10 - Essential (primary) hypertension Plan: Blood?pressure?is?well?controlled.??Goal?is?less?than?130/80 Continue?current?medication?regimen (6) Screening for prostate cancer: Code(s): Z12.5 - Encounter for screening for malignant neoplasm of prostate Plan: PSA?in?September?was?within?normal?limits Continue?annual?screening (7) Immunization counseling: Code(s): Z71.85 - Encounter for immunization safety counseling Plan: Advised?COVID?booster Advised?RSV Advised?shingles He?can?consider?pneumonia?20?vaccine?as?well (8) Screening for colon cancer: Code(s): Z12.11 - Encounter for screening for malignant neoplasm of colon Plan: Up-to-date Follow-up?with?Gastroenterology?as?recommended (9) Adult general medical exam: Code(s): Z00.00 - Encounter for general adult medical examination without abnormal findings Plan: 73-year-old?male?presents?for?complete?physical?exam Medications: Changed From montelukast 10 mg PO DAILY To montelukast 10 mg PO DAILY 30 days 30 tabs 2RF Coding Level of Care Code Est Pt Level 4 (67389) Diagnoses Hypothyroidism E03.9 Coronary artery disease I25.10 Bilateral carotid artery stenosis I65.23 Atrial fibrillation with RVR I48.91 Hypertension I10 Screening for prostate cancer Z12.5 Immunization counseling Z71.85 Screening for colon cancer Z12.11 Adult general medical exam Z00.00
== END 2023-12-19 14:44 | disposition home or self-care (01) ==
PROVIDERS: PCP Family Medicine; Visit Provider Family Medicine
DX: Z00.00 Encounter for general adult medical examination without abnormal findings (principal); I48.91 Unspecified atrial fibrillation; E03.9 Hypothyroidism, unspecified; I25.10 Atherosclerotic heart disease of native coronary artery without angina pectoris; I65.23 Occlusion and stenosis of bilateral carotid arteries; I10 Essential (primary) hypertension; Z12.5 Encounter for screening for malignant neoplasm of prostate; Z71.85 Encounter for immunization safety counseling; Z12.11 Encounter for screening for malignant neoplasm of colon
CPT/HCPCS: 99397

== ENCOUNTER 2024-02-18 08:39 | Outpatient (REF) | payer MEDICARE, MEDICAID, SELFPAY ==
--- NOTE | 2024-02-18 10:38 | MHC.AU.HA1 ---
Hearing Aid Evaluation Date of Visit: 02/18/24 Historical Information: Description of Hearing: Mild sloping to severe sensorineural hearing loss. Summary: Seen for evaluation. Accompanied by Georgette. Amplification recommended. Reviewed options. Counseled on adjustment to amplification. Pt. would like rechargeable. Would like to connect with Android phone, difficulty hearing on the phone noted. Hearing Aid Prescription: Based on the individual?s shared listening needs, communication environments, dexterity, desire for connectivity, and personal preferences, the following prescription for amplification has been made: Right ear: Make, Model, Color: Phonak Audeo L 70 R, pirate blue Battery Size: Rechargeable Broach Setter/Slim Tube: 2M Type of Earmold/Dome/CShell/SlimTip: med vented Left ear: Make, Model, Color: Phonak Audeo L 70 R, pirate blue Battery Size: Rechargeable Broach Setter/Slim Tube: 2M Type of Earmold/Dome/CShell/SlimTip: med vented Plan of Care: Patient wishes to purchase hearing aids as prescribed. [facility] to be billed. Action Taken/Action Needed: Medical Clearance to be requested from PCP/ENT Hearing Instrument Fitting to be scheduled when materials arrive Primary Diagnosis: H90.3 Bilateral Sensorineural Hearing Loss Signature: Provider: Virgen Win, MARI-A
== END 2024-02-18 08:40 | disposition home or self-care (01) ==
LOC: HO.SH 08:39
PROVIDERS: PCP Family Medicine; Visit Provider Family Medicine
DX: Z01.118 Encounter for examination of ears and hearing with other abnormal findings (principal); Z46.1 Encounter for fitting and adjustment of hearing aid; H90.3 Sensorineural hearing loss, bilateral
CPT/HCPCS: 92557; 92591

== ENCOUNTER 2024-02-20 11:25 | Outpatient (AMB) | payer MEDICARE, MEDICAID, SELFPAY ==
--- NOTE | 2024-02-20 11:27 | A.OFFPC_ITS ---
Vital Signs 02/20/24 11:29 Height 5 ft 5 in Weight 138 lb 8 oz BMI 23.0 BP 123/76 Blood Pressure Location Lt brachial Position Sitting Pulse 62 Pulse Source Pulse Oximeter Pulse Oximetry (%) 99 Oxygen Delivery Method Room Air Intake Visit Reasons: f/u hypertension and hypothyroid Intake Note: Patient is here for follow up on hypertension and will get labs done today for thyroid. Allergies No Known Allergies Allergy (Mild, Verified 12/19/23 13:26) NOT APPLICABLE Medication List - Last Reconciled 02/20/24 by Mac Lockwood MD albuterol sulfate 90 mcg/actuation (ProAir HFA) 2 puffs inhalation Q6H PRN 1 month apixaban (Eliquis) 5 mg PO BID 90 days atorvastatin 40 mg PO BEDTIME bisoprolol fumarate 2.5 mg (1/2 x 5 mg) PO DAILY 90 days dapagliflozin propanediol (Farxiga) 10 mg PO DAILY fluticasone furoate-vilanterol 100-25 mcg/dose (Breo Ellipta) 1 puff inhalation DAILY furosemide 40 mg PO DAILY levothyroxine 75 mcg (1.5 x 50 mcg) PO DAILY@0600 30 days losartan 12.5 mg (1/2 x 25 mg) PO DAILY 90 days montelukast 10 mg PO DAILY 30 days umeclidinium 62.5 mcg/actuation (Incruse Ellipta) 1 inh inhalation DAILY Tobacco use date assessed: 02/20/24 Dental Screening Dental Screen Date: 12/19/23 HPI f/u hypertension and hypothyroid HPI Details 73 y/o male presents to f/u hypertension . Blood pressure today 123/76. He is on losartan 12.5mg daily, bisoprolol 2.5mg. [facility] Medical History On beta brennon at home On anticoagulant therapy Thyrotoxicosis Cardiomyopathy NSVT (nonsustained ventricular tachycardia) Pulmonary embolism Chronic systolic CHF (congestive heart failure) COPD (chronic obstructive pulmonary disease) Hypothyroid Surgical History Hx of colonoscopy Status post cardiac catheterization History of cholecystectomy Family History Father Stroke Other Mental health disorder Social History Household Members: Family Housing: House Housing Other:: mobile home Do you presently have visiting nurse or other home services: No Alcohol intake: former Year quit: 1987 Patient Tobacco Use Status: Former Tobacco user e-Cigarette/Vaping Use: Never Used Second Hand Smoke Exposure: Yes service: No Current occupational status: disabled Current occupational exposures/hazards: No Cognitive needs: No Hearing needs: No Vision needs: No Questionnaire Thrive Questionnaire Date Thrive assessed: 11/09/23 VAHID-7 AMB Questionnaire VAHID-7 Date VAHID - 7 assessed: 11/09/23 Source: Developed by Drs. Kieran Robledo, Elayne Cameron, Candido Antonio and colleagues, with an educational boogie from [employer]. Review of Systems Const Denies chills, Denies fatigue, Denies fever(s), Denies headache(s) and Denies weakness ENT Denies dizziness and Denies headache(s) Card Denies dyspnea Resp Denies cough, Denies dyspnea, Denies wheezing and Denies other (shortness of breath) Musc Denies numbness and Denies tingling Neuro Denies dizziness, Denies headache(s), Denies numbness, Denies tingling and Denies weakness Psych Denies anxiety and Denies depression Endo Denies fatigue Aller/Immun Denies wheezing Physical exam (Primary Care) Vital Signs: Last Vital Signs Pulse 62 02/20/24 11:29 BP 123/76 02/20/24 11:29 Pulse Ox 99 02/20/24 11:29 Oxygen Delivery Method Room Air 02/20/24 11:29 BMI result Body Mass Index 23.0 Tobacco/Smoking Status: Tobacco use Status Tobacco use date assessed 02/20/24 02/20/24 11:35 Patient Tobacco Use Status Former Tobacco user 02/20/24 11:28 e-Cigarette/Vaping Use Never Used 02/20/24 11:28 Thrive Assessment: Date of Thrive Assessment Date Thrive assessed 11/09/23 02/20/24 11:28 Const General: well developed; No acute distress Nutritional Appearance: well nourished Orientation/consciousness: patient oriented x3 HENMT Head: Yes normocephalic and Yes atraumatic Eyes General: appearance normal, both eyes and all related structures Pupils: Equal, round and reactive pupils present EOM: EOMs intact bilaterally Resp Effort & Inspection: normal respiratory effort Neuro General: patient oriented x3 and gait normal Cranial nerves: Yes Equal, round and reactive pupils present Psych Affect: normal affect Assessment and Plan Assessment & Plan (1) Hypertension: Code(s): I10 - Essential (primary) hypertension Plan: Blood?pressure?is?controlled.??Goal?is?less?than?130/80 Continue?losartan (2) Coronary artery disease: Code(s): I25.10 - Atherosclerotic heart disease of [place] coronary artery without angina pectoris Plan: Currently?stable (3) Hearing loss: Code(s): H91.90 - Unspecified hearing loss, unspecified ear Plan: Will?benefit?from?amplification Will?sign?forms?for?hearing?aids. (4) Hypothyroidism: Code(s): E03.9 - Hypothyroidism, unspecified Plan: Has?not?had?his?labs?drawn He?will?get?his?labs?drawn?today. Will?call?him?if?action?is?required.??Otherwise?will?follow- up?on?lab?values?at?his?next?visit Coding Level of Care Code Est Pt Level 3 (07875) Diagnoses Hypertension I10 Coronary artery disease I25.10 Hearing loss H91.90 Hypothyroidism E03.9
[2024-02-20 11:29] VITALS: BP 123/76; PULSE 62; O2SAT 99; BMI 23.0
== END 2024-02-20 12:11 | disposition home or self-care (01) ==
PROVIDERS: PCP Family Medicine; Visit Provider Family Medicine
DX: I10 Essential (primary) hypertension (principal); I25.10 Atherosclerotic heart disease of native coronary artery without angina pectoris; H91.93 Unspecified hearing loss, bilateral; E03.9 Hypothyroidism, unspecified
CPT/HCPCS: 99213

== ENCOUNTER 2024-02-20 12:09 | Outpatient (REF) | payer MEDICARE, MEDICAID, SELFPAY ==
[2024-02-20 14:36] LABS: Appearance Urine Clear; Color Urine Yellow; Glucose Urine UA >=1000 mg/dL (Negative); Leukocyte Esterase Urine Negative (Negative); Nitrite Urine Negative (Negative); Specific Gravity - Urine 1.025 (1.005-1.025); UMIC TRIGGER UA YES; Urine Blood Negative (Negative); Urine Ketones Negative (Negative); Urine Protein Negative (Neg-Trace)
[2024-02-20 14:44] LABS: Bacteria Urine None Seen (None Seen); Hyaline Casts Urine 0-2 /LPF (0-2); RBC Urine 0-2 /HPF (0-2); Squamous Epithelial Cell Urine 0-2 /HPF (0-2); WBC Urine 0-5 /HPF (0-5)
[2024-02-20 15:03] LABS: Anion Gap 14 (12-20); Blood Urea Nitrogen 19 mg/dL (9-16); Calcium 9.7 mg/dL (8.4-10.2); Carbon Dioxide 25 mmol/L (22-29); Chloride 106 mmol/L (96-108); Estimated Glomerular Filt Rate > 60; Glucose Random 90 mg/dL (60-115); Sodium 141 mmol/L (135-145)
[2024-02-20 15:23] LABS: Free T4 (Free Thyroxine) 1.07 ng/dL (0.71-1.85); Thyroid Stimulating Hormone 2.88 uIU/mL (0.32-4.0)
[2024-02-21 09:04] LABS: Triiodothyronine T3 Total 90 ng/dL (76-181)
== END 2024-02-20 12:10 | disposition home or self-care (01) ==
LOC: HO.WFDLDS 12:09
PROVIDERS: Visit Provider Family Medicine
DX: Z00.00 Encounter for general adult medical examination without abnormal findings (principal); E03.9 Hypothyroidism, unspecified
CPT/HCPCS: 36415; 80048; 81001; 84439; 84443; 84480

== ENCOUNTER 2024-03-14 09:43 | Outpatient (REF) | payer MEDICARE, MEDICAID, SELFPAY ==
--- NOTE | 2024-03-14 12:30 | MHC.AU.HA2 ---
Hearing Instrument Fitting- Adult- Binaural Date of Visit: 03/14/24 Hearing Instruments Dispensed: Right Ear: Make, Model, Color, Serial Number: Phonak Audeo L 70 R, pirate blue [id number] Tool And Die Maker Repair Warranty: 03/22/2027 Tool And Die Maker Loss and Damage Warranty: 03/22/2027 [facility] Service Plan: 03/14/25 Battery Size: Rechargeable Planimeter Operator/Slim Tube: 2M Earmold/Dome/CShell/SlimTip: med vented Type of Wax Guard: Cerustop Left Ear: Make, Model, Color, Serial Number: Phonak Audeo L 70 R, pirate blue [id number] Tool And Die Maker Repair Warranty: 03/22/2027 Tool And Die Maker Loss and Damage Warranty: 03/22/2027 [facility] Service Plan: 03/14/25 Battery Size: Rechargeable Planimeter Operator/Slim Tube: 2M Earmold/Dome/CShell/SlimTip: med vented Type of Wax Guard: Cerustop Accessories/Assistive Technology: Phonak Knitting Demonstrator Ease S#[id number] Summary of Fitting: Here for hearing aid fitting, accompanied by Georgette. Fit with and oriented to binaural Phonak Audeo L70 R HAs. Set to DSL 5 adult targets, could not store verification measures, equipment malfunction. Feedback management run. Good subjective comfort and benefit reported. Demonstrated charging, maintenance. Practiced insertion and removal. Reviewed precautions. VC disabled. Tico does not have a phone at the moment, may want to pair to phone in the future. Recommendations: Recommendations: Hearing instrument care and maintenance were discussed and practiced. A hearing instrument follow-up was scheduled. Diagnosis Code(s): Primary Diagnosis: H90.3 Bilateral Sensorineural Hearing Loss Signature: Provider: Virgen Win, CCC-A
== END 2024-03-14 09:44 | disposition home or self-care (01) ==
LOC: HO.HAP 09:43
PROVIDERS: Visit Provider Family Medicine
DX: Z46.1 Encounter for fitting and adjustment of hearing aid (principal); H90.3 Sensorineural hearing loss, bilateral
CPT/HCPCS: V5011; V5020; V5160; V5261

== ENCOUNTER 2024-04-10 09:32 | Outpatient (REF) | payer MEDICARE, MEDICAID, SELFPAY ==
--- NOTE | 2024-04-10 11:08 | MHC.AU.HA3 ---
Hearing Instrument Follow-Up- Binaural Date of Visit: 04/10/24 Right Ear: Nirmal, Model, Color, Serial Number: Gavino Cormiereo L 70 R, pirate blue [id number] Water Safety Teacher Repair Warranty: 03/22/2027 Water Safety Teacher Loss and Damage Warranty: 03/22/2027 [facility] Service Plan: 03/14/25 Battery Size: Rechargeable Linux Support Engineer/Slim Tube: 2M Earmold/Dome/CShell/SlimTip:med vented Type of Wax Guard: Cerustop Dispensed By: [facility] Date of Fittin03/14/2024 Left Ear: Nirmal, Model, Color, Serial Number: Gavino Cormiereo L 70 R, pirate blue [id number] Water Safety Teacher Repair Warranty: 03/22/2027 Water Safety Teacher Loss and Damage Warranty: 03/22/2027 [facility] Service Plan: 03/14/25 Battery Size: Rechargeable Linux Support Engineer/Slim Tube: 2M Earmold/Dome/CShell/SlimTip: med vented Type of Wax Guard: Cerustop Dispensed By: [facility] Date of Fittin03/14/2024 Follow-Up Summary: Here for follow up, accompanied by Georgette. They report that Tico lost the left hearing aid about 1.5 weeks ago, got tangled up in his mask at somepoint during a doctor appointment. They report looking for it, calling the office, and calling the transportation service to no avail. They report good satisfaction with hearing aids prior to losing left. Filled out L&D to send to [facility]. Recommendations: Recommendations: Patient will be contacted when materials have arrived. Diagnosis Code(s): Primary Diagnosis: H90.3 Bilateral Sensorineural Hearing Loss Signature: Provider: Virgen Win, [facility]
== END 2024-04-10 09:33 | disposition home or self-care (01) ==
LOC: HO.HAP 09:32
PROVIDERS: Visit Provider Family Medicine
DX: Z13.89 Encounter for screening for other disorder (principal)

== ENCOUNTER 2024-05-01 09:42 | Outpatient (REF) | payer MEDICARE, MEDICAID, SELFPAY ==
--- NOTE | 2024-05-01 10:11 | MHC.AU.HA3 ---
Hearing Instrument Follow-Up- Binaural Date of Visit: 05/01/24 Right Ear: Nirmal, Model, Color, Serial Number: Gavino Cormiereo L 70 R, pirate blue [id number] Director Non Profit Repair Warranty: 03/22/2027 Director Non Profit Loss and Damage Warranty: 03/22/2027 [facility] Service Plan: 03/14/25 Battery Size: Rechargeable Freight Brakeman/Slim Tube: 2M Earmold/Dome/CShell/SlimTip:med vented Type of Wax Guard: Cerustop Dispensed By: [facility] Date of Fittin03/14/2024 Left Ear: Nirmal, Model, Color, Serial Number: Gavino Cormiereo L 70 R, pirate blue [id number] Director Non Profit Repair Warranty: 03/22/2027 Director Non Profit Loss and Damage Warranty: Used [facility] Service Plan: 03/14/25 Battery Size: Rechargeable Freight Brakeman/Slim Tube: 2M Earmold/Dome/CShell/SlimTip: med vented Type of Wax Guard: Cerustop Dispensed By: [facility] Date of Fittin03/14/2024 Follow-Up Summary: Dispensed L&D replacement left. Tico did not have his right aid today. Reports he has been afraid to wear them out of the house since losing the left one. Practiced insertion. Practiced mask removal. Encouraged to wear both aids consistently for the next couple weeks and return for follow up. Recommendations: Recommendations: An additional follow-up was scheduled to monitor progress. Diagnosis Code(s): Primary Diagnosis: H90.3 Bilateral Sensorineural Hearing Loss Signature: Provider: Virgen Win, [facility]
== END 2024-05-01 09:43 | disposition home or self-care (01) ==
LOC: HO.HAP 09:42
PROVIDERS: Visit Provider Family Medicine
DX: Z13.89 Encounter for screening for other disorder (principal)

== ENCOUNTER 2024-05-12 11:40 | Outpatient (AMB) | payer MEDICARE, MEDICAID, SELFPAY ==
--- NOTE | 2024-05-12 12:14 | A.OFFPC_ITS ---
Vital Signs 05/12/24 12:15 Height 5 ft 5 in Weight 137 lb BMI 22.8 BP 109/70 Blood Pressure Location Rt brachial Position Sitting Respiration 12 Pulse 60 Pulse Source Pulse Oximeter Temp 97.5 F Temp Source Temporal Artery Scan Pulse Oximetry (%) 97 Oxygen Delivery Method Room Air Intake Visit Reasons: fu labs Intake Note: Patient is here to follow up for labs. Knurling Machine Tender Required: No Accompanied by: Self / Same As Patient Allergies No Known Allergies Allergy (Mild, Verified 05/12/24 12:37) NOT APPLICABLE Medication List - Last Reconciled 05/12/24 by Latesha Whitaker, WORKFORCE MANAGEMENT CONSULTANT- albuterol sulfate 90 mcg/actuation (ProAir HFA) 2 puffs inhalation Q6H PRN 1 month apixaban (Eliquis) 5 mg PO BID 90 days atorvastatin 40 mg PO BEDTIME bisoprolol fumarate 2.5 mg (1/2 x 5 mg) PO DAILY 90 days dapagliflozin propanediol (Farxiga) 10 mg PO DAILY fluticasone furoate-vilanterol 100-25 mcg/dose (Breo Ellipta) 1 puff inhalation DAILY furosemide 40 mg PO DAILY levothyroxine 75 mcg (1.5 x 50 mcg) PO DAILY@0600 30 days losartan 12.5 mg (1/2 x 25 mg) PO DAILY 90 days montelukast 10 mg PO DAILY 30 days umeclidinium 62.5 mcg/actuation (Incruse Ellipta) 1 inh inhalation DAILY Tobacco use date assessed: 02/20/24 Dental Screening Dental Screen Date: 12/19/23 HPI HPI Comments History of Present Illness Details 73-year-old male with hypothyroid, hyper tension and cardiomyopathy here today for follow up of the labs done by his primary care provider February of 2024. 02/2024 normal CMP, TSH, UA + glucose on farxiga A1c done in the office today 5.8%, within normal limits, no diagnosis of diabetes. Tolerating compliant of his current medications losartan and levothyroxine. Also has questions about vaccines. Wondering about which ones he should get based on his age and chronic conditions. Has not had pneumococcal, shingles, RSV. Exam awake alert, NAD, chronically ill appearing, accompanied by female RRR LS dim throughout No edema BLE Plan: Cont levothyroxine and losartan at same dose. refills sent today Vaccine edu provided today FU with PCP in 3 months, sooner as needed This note is constructed using voice recognition software. While every effort has been made to ensure accuracy in extractor operator helper, still errors may have been included Sometimes, these errors may affect the content or meaning of the given sentence . Total time spent caring for the patient today was 30 minutes. This includes time spent before the visit reviewing the chart, time spent during the visit, and time spent after the visit on documentation PFSH Medical History On beta brennon at home On anticoagulant therapy Thyrotoxicosis Cardiomyopathy NSVT (nonsustained ventricular tachycardia) Pulmonary embolism Chronic systolic CHF (congestive heart failure) COPD (chronic obstructive pulmonary disease) Hypothyroid Surgical History Hx of colonoscopy Status post cardiac catheterization History of cholecystectomy Family History Father Stroke Other Mental health disorder Social History Household Members: Family Housing: House Housing Other:: mobile home Do you presently have visiting nurse or other home services: No Alcohol intake: former Year quit: 1987 Patient Tobacco Use Status: Former Tobacco user e-Cigarette/Vaping Use: Never Used Second Hand Smoke Exposure: Yes service: No Current occupational status: disabled Current occupational exposures/hazards: No Cognitive needs: No Hearing needs: No Vision needs: No Questionnaire Thrive Questionnaire Date Thrive assessed: 11/09/23 VAHID-7 AMB Questionnaire VAHID-7 Date VAHID - 7 assessed: 11/09/23 Source: Developed by Drs. Kieran Robledo, Elayne Cameron, Candido Antonio and colleagues, with an educational boogie from [employer] (acquired by [employer] in 2014). Physical exam (Primary Care) Vital Signs: Last Vital Signs Temp 97.5 F 05/12/24 12:15 Pulse 60 05/12/24 12:15 Resp 12 05/12/24 12:15 BP 109/70 05/12/24 12:15 Pulse Ox 97 05/12/24 12:15 Oxygen Delivery Method Room Air 05/12/24 12:15 BMI result Body Mass Index 22.8 Tobacco/Smoking Status: Tobacco use Status Tobacco use date assessed 02/20/24 05/12/24 12:23 Patient Tobacco Use Status Former Tobacco user 05/12/24 12:23 e-Cigarette/Vaping Use Never Used 05/12/24 12:23 Thrive Assessment: Date of Thrive Assessment Date Thrive assessed 11/09/23 05/12/24 12:23 Results AMB Hemoglobin A1c AMB Hemoglobin A1c 5.8 % Last Edit by Raven Skinner CMA on 05/12/24 12:30 Results Reviewed Results Reviewed: Laboratory Last Values Hgb A1c (Clinic) 5.8 % (4.0-6.0) 05/12/24 12:29 Assessment and Plan Assessment & Plan (1) Hypothyroidism: Code(s): E03.9 - Hypothyroidism, unspecified Qualifiers: Hypothyroidism type: acquired Qualified Code(s): E03.9 - Hypothyroidism, unspecified (2) Hypertension: Code(s): I10 - Essential (primary) hypertension Qualifiers: Hypertension type: primary hypertension Qualified Code(s): I10 - Essential (primary) hypertension (3) Vaccine counseling: Code(s): Z71.85 - Encounter for immunization safety counseling Orders: Orders AMB Hemoglobin A1c Today E11.9 - Type 2 diabetes mellitus without complications Medications: Refilled levothyroxine 75 mcg (1.5 x 50 mcg) PO DAILY@0600 45 tabs 3RF 30 days losartan 12.5 mg (1/2 x 25 mg) PO DAILY 45 tabs 2RF 90 days Patient Instructions: Ask pharmacy about the RSV vaccine, COVID and flu vaccine, Shingles vaccine and pneumonia vaccines RTO in 3 months for routine f/u with PCP, sooner as needed. Coding Level of Care Code Est Pt Level 4 (77612) Diagnoses Acquired hypothyroidism E03.9 Hypothyroidism type: acquired Primary hypertension I10 Hypertension type: primary hypertension Vaccine counseling Z71.85
[2024-05-12 12:15] VITALS: BP 109/70; PULSE 60; RESP 12; TEMP 36.4; O2SAT 97; BMI 22.8
== END 2024-05-12 12:51 | disposition home or self-care (01) ==
PROVIDERS: PCP Family Medicine; Visit Provider Nurse Practitioner Family
DX: E03.9 Hypothyroidism, unspecified (principal); I10 Essential (primary) hypertension; E11.9 Type 2 diabetes mellitus without complications
CPT/HCPCS: 83036; 99214

== ENCOUNTER 2024-05-22 09:18 | Outpatient (REF) | payer MEDICARE, MEDICAID, SELFPAY | END 2024-05-22 09:19 | disposition home or self-care (01) | LOC: HO.HAP 09:18 | PROVIDERS: Visit Provider Family Medicine | DX: Z13.89 Encounter for screening for other disorder (principal) ==

== ENCOUNTER → 2024-05-29 10:33 | Outpatient (REF) | payer MEDICARE, MEDICAID, SELFPAY ==
--- NOTE | 2024-05-29 10:36 | CA_ITS ---
Transthoracic Echocardiogram Patient (Last, First, Middle): Tico Barahona, Gender: Male Date of : 1950 Age: 73 Procedure Date: 05/29/2024 Procedure Type: Transthoracic Echocardiogram Location: OP Height: 167.64 cm Weight: 61.24 kg BSA: 1.69 m2 Heart Rate: 57 bpm BP: 110 / 70 mmHg Gear And Spline Grinder: MARYANNE Referring MD: Chaya Solis OFFICE SUPPORT ASSISTANT-Lizette Symptoms: I42.9 - Cardiomyopathy, unspecified Study Quality: Adequate ECG Rhythm: Sinus Conclusions: - The left ventricular systolic function is mildly decreased. The calculated ejection fraction is 45% by biplane method. - No obvious valvular pathology seen on this study. Findings Left Ventricle Normal left ventricular cavity size. There is mildly increased left ventricular wall thickness. The left ventricular systolic function is mildly decreased. The calculated ejection fraction is 45% by biplane method. There is mild global hypokinesis. Evidence suggests grade II (moderate) diastolic dysfunction. LV peak GLS -8.9% (diminished). Right Ventricle Normal right ventricular cavity size. There is mildly decreased right ventricular systolic function. Atria The left atrium is mildly dilated. The right atrium is normal in size. Aortic Valve There is a normal trileaflet aortic valve. There is mild calcification of the aortic valve. There is no aortic valve stenosis. There is no aortic valve regurgitation. Mitral Valve The mitral valve appears normal. There is trace mitral valve regurgitation. There is no mitral valve stenosis. Pulmonic Valve The pulmonic valve is likely normal. Tricuspid Valve Normal tricuspid valve structure. There is mild tricuspid valve regurgitation. There is no evidence of pulmonary hypertension. Great Vessels The asc aorta is normal in size. Venous The inferior vena cava was not well visualized. Pericardium/Pleural There is no evidence of pericardial effusion. Prior Study Comparison No significant change compared to prior study dated: 02/13/2023. Recommendations, Care & Conclusions No obvious valvular pathology seen on this study. Measurements 2D Linear Measurements IVSd: 1.15 0.6-0.9/0.6-1.0 cm LVIDd: 4.77 3.9-5.3/4.2-5.9 cm LVIDd Index: 2.82 2.4-3.2/2.2-3.1 cm/m2 LVIDs: 3.81 2.0-3.6 cm LVPWd: 1.22 0.7-1.1 cm LA Diam: 3.40 2.7-3.8/3.0-4.0 cm LAIDs Index: 2.01 1.5-2.3 cm/m2 LV Mass: 265.68 67-162/88-224 g LV Mass Index: 157.21 43-95/49-115 g/m2 LVOT Diam: 2.40 3.0+(-)1.3 cm 2D Systolic Function EF 4C: 42.90 >55% EF 2C: 45.20 >55% EF BiP: 45.00 >55% Mitral Valve MV Pk E: 0.55 MV PK A: 0.30 MV Decel Time: 175.00 E/A: 1.80 E'Lateral: 4.47 E'Medial: 3.59 E/E' Med: 15.30 E/E' Lat: 12.30 PHT: 51.00 MVA PHT: 4.31 Decel Price: 3.13 Aortic Valve AoV Pk Kwadwo: 0.89 AoV Mn Kwadwo: 0.64 AoV VTI: 0.20 AoV Pk Grad: 3.00 Aov Mn Grad: 2.00 SONAL Cont.VTI: 2.86 LVOT LVOT Pk Kwadwo: 0.61 LVOT Mn Kwadwo: 0.38 LVOT VTI: 0.13 LVOT Pk Grad: 1.00 LVOT Mn Grad: 1.00 LVOT Diam: 2.40 LVOT Area: 4.52 Diastolic Function MV Pk E: 0.55 MV Pk A: 0.30 E/A: 1.80 E'Medial: 3.59 E/E' Med: 15.30 E' Laterial: 4.47 E/E' Lat: 12.30 Right Ventricle TAPSE (mm): 15.60 TVS' Kwadwo: 9.81 Tricuspid Valve TR Pk Kwadwo: 2.37 TR Pk Grad: 22.00 Great Vessels Aorta Sinus of Valsalva: 3.70 2.0-3.5 cm Ao Asc: 3.20 2.1-3.4 cm Pulmonary Valve PV Pk Kwadwo: 0.57 Peak PV Grad: 1.00 Updated in Other Vendor System with Status of Final Orestes Melvin MD electronically signed on 05/31/2024 2:38:12 PM with status of Final
== END ==
LOC: HO.CARD 10:33
PROVIDERS: PCP Family Medicine; Visit Provider Nurse Practitioner Family
DX: I42.9 Cardiomyopathy, unspecified (principal)
CPT/HCPCS: 93306; 93356

== ENCOUNTER → 2024-05-29 10:36 | Outpatient (BNV) | payer MEDICARE, MEDICAID, SELFPAY | PROVIDERS: PCP Family Medicine; Visit Provider Internal Medicine | DX: I36.1 Nonrheumatic tricuspid (valve) insufficiency (principal); I35.8 Other nonrheumatic aortic valve disorders; R93.1 Abnormal findings on diagnostic imaging of heart and coronary circulation | CPT/HCPCS: 93306; 93356 ==

== ENCOUNTER 2024-06-10 09:29 | Outpatient (AMB) | payer MEDICARE, MEDICAID, SELFPAY ==
[2024-06-10 10:08] VITALS: BP 116/60; PULSE 62; BMI 22.7
--- NOTE | 2024-06-10 10:08 | A.OFFVIS_ITS ---
Vital Signs 06/10/24 10:08 Height 5 ft 5 in Weight 136 lb 10.986 oz BMI 22.7 BP 116/60 Blood Pressure Location Lt brachial Position Sitting Pulse 62 Pulse Source Pulse Oximeter Intake Visit Reasons: 6 mth f/up Allergies No Known Allergies Allergy (Mild, Verified 05/12/24 12:37) NOT APPLICABLE Medication List - Last Reconciled 06/10/24 by Chaya Solis, [employer] albuterol sulfate 90 mcg/actuation (ProAir HFA) 2 puffs inhalation Q6H PRN 1 month apixaban (Eliquis) 5 mg PO BID 90 days atorvastatin 40 mg PO BEDTIME bisoprolol fumarate 2.5 mg (1/2 x 5 mg) PO DAILY 90 days dapagliflozin propanediol (Farxiga) 10 mg PO DAILY fluticasone furoate-vilanterol 100-25 mcg/dose (Breo Ellipta) 1 puff inhalation DAILY furosemide 40 mg PO DAILY levothyroxine 75 mcg (1.5 x 50 mcg) PO DAILY@0600 30 days losartan 12.5 mg (1/2 x 25 mg) PO DAILY 90 days montelukast 10 mg PO DAILY 30 days umeclidinium 62.5 mcg/actuation (Incruse Ellipta) 1 inh inhalation DAILY HPI HPI 6 mth f/up: Details: Tico is a 73-year-old male with past medical history thyroid toxicosis, 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 Today he reports feeling well since his last visit in November. He has not had any hospitalizations or ER trips. He denies chest discomfort at rest or with activity. He does have some shortness of breath and fatigue with exertional activities but does admit to being mostly sedentary. No palpitations, lightheadedness, presyncope, syncope, PND, orthopnea or edema. He is taking his medications as directed. No bleeding issues reported. Significant other is present. [facility] Medical History On beta brennon at home On anticoagulant therapy Thyrotoxicosis Cardiomyopathy NSVT (nonsustained ventricular tachycardia) Pulmonary embolism Chronic systolic CHF (congestive heart failure) COPD (chronic obstructive pulmonary disease) Hypothyroid Surgical History Hx of colonoscopy Status post cardiac catheterization History of cholecystectomy Family History Father Stroke Other Mental health disorder Social History Household Members: Family Housing: House Housing Other:: mobile home Do you presently have visiting nurse or other home services: No Alcohol intake: former Year quit: 1987 Patient Tobacco Use Status: Former Tobacco user e-Cigarette/Vaping Use: Never Used Second Hand Smoke Exposure: Yes service: No Current occupational status: disabled Current occupational exposures/hazards: No Cognitive needs: No Hearing needs: No Vision needs: No Review of Systems Const All systems reviewed & are unremarkable except as noted in HPI and below Denies weakness ENT Denies dizziness Card Denies chest pain, Denies chest pain with activity, Denies syncope, Denies rapid heart rate, Denies pedal edema, Denies edema, Denies leg edema, Denies lightheadedness, Denies palpitations, Denies dyspnea, Denies dyspnea on exertion and Denies orthopnea Resp Denies cough, Denies dyspnea and Denies dyspnea on exertion GI Denies hematochezia and Denies change in stool character Musc Denies abnormal gait, Denies muscle cramps, Denies muscle weakness, Denies numbness, Denies radiating pain into limb and Denies tingling Neuro Denies abnormal gait, Denies dizziness, Denies syncope, Denies numbness, Denies tingling and Denies weakness Endo Denies palpitations Physical Exam Vital Signs: Last Vital Signs Pulse 62 06/10/24 10:08 BP 116/60 06/10/24 10:08 BMI result Body Mass Index 22.7 Const General: cooperative, healthy appearing, comfortable and no acute distress Orientation/consciousness: patient oriented x3 Neck Neck: Yes normal visual inspection Resp Effort & Inspection: normal respiratory effort Auscultation: clear to auscultation bilaterally, no rales, no rhonchi and no wheezes Cardio Jugular venous distension: no JVD Rate: regular rate Rhythm: regular rhythm Heart sounds: S1 normal heart sound present, S2 normal heart sound present, no murmurs and no rubs Neuro General: patient oriented x3 Extrem General: Yes normal to inspection and No no pedal edema Psych Appearance: grossly normal Mental Status: mental status grossly normal Speech and movement: Normal speech and movement present Assessment & Plan Assessment & Plan (1) Cardiomyopathy: Code(s): I42.9 - Cardiomyopathy, unspecified Category: Medical Plan: History of nonischemic cardiomyopathy with EF as low as 20% 07/2020. Cardiac catheterization done 12/20/2021 shows only mild nonobstructive coronary artery disease. He has been managed medically with gradual improvement in his EF. Echocardiogram done on 05/29/2024 shows EF 45%. On examination today he has no clinical signs indicating decompensated heart failure. He continues on losartan and bisoprolol for neurohormonal modulation. He continues on Lasix 40 mg daily. Labs done 02/20/2024 shows creatinine 0.92. Signs and symptoms of heart failure reviewed with him. Cardiology follow-up in 6 months, sooner if needed (2) Status post cardiac catheterization: Comment: 12/20/2021 showing left main, left circumflex, RCA all normal, lad mild proximal stenosis, 30%. Code(s): Z98.890 - Other specified postprocedural states Category: Surgical Plan: As above (3) PAF (paroxysmal atrial fibrillation): Code(s): I48.0 - Paroxysmal atrial fibrillation Category: Medical Plan: History of paroxysmal atrial fibrillation. He denies any recent heart pa lpitations. Heart tones regular on examination. EKG done last visit showed sinus rhythm with to PACs, rate 59. He is on bisoprolol for heart rate control. He is on Eliquis for anticoagulation. No bleeding issues reported. Continue current treatment (4) Coronary artery disease: Code(s): I25.10 - Atherosclerotic heart disease of [place] coronary artery without angina pectoris Category: Medical Plan: History of nonobstructive coronary artery disease. No reports of anginal sounding symptoms. He is not on aspirin as he is on Eliquis. He is on atorvastatin 40 mg daily with ideal LDL goal less than 70. Labs done 10/10/2023 shows LDL 63. He is on bisoprolol and losartan. No med changes made. Signs and symptoms of angina reviewed. Plan Time spent on chart review, documentation, interview and assessment Coding Level of Care Code Est Pt Level 4 (89055) Diagnoses Cardiomyopathy I42.9 Status post cardiac catheterization Z98.890 PAF (paroxysmal atrial fibrillation) I48.0 Coronary artery disease I25.10 Time Spent (min) 28
== END 2024-06-10 10:48 | disposition home or self-care (01) ==
PROVIDERS: PCP Family Medicine; Visit Provider Nurse Practitioner Family
DX: I42.9 Cardiomyopathy, unspecified (principal); Z98.890 Other specified postprocedural states; I48.0 Paroxysmal atrial fibrillation; I25.10 Atherosclerotic heart disease of native coronary artery without angina pectoris
CPT/HCPCS: 99214

== ENCOUNTER → 2024-06-10 09:29 | Outpatient (BNVA) | payer MEDICARE, MEDICAID, SELFPAY | PROVIDERS: PCP Family Medicine; Visit Provider Nurse Practitioner Family | DX: I42.9 Cardiomyopathy, unspecified (principal); I48.0 Paroxysmal atrial fibrillation; I25.10 Atherosclerotic heart disease of native coronary artery without angina pectoris; Z98.890 Other specified postprocedural states | CPT/HCPCS: 99212 ==

== ENCOUNTER 2024-08-06 11:27 | Outpatient (AMB) | payer MEDICARE, MEDICAID, SELFPAY ==
--- NOTE | 2024-08-06 11:35 | A.OFFPC_ITS ---
Vital Signs 08/06/24 11:38 Height 5 ft 5 in Weight 134 lb 2 oz BMI 22.3 BP 109/70 Blood Pressure Location Rt brachial Position Sitting Respiration 16 Pulse 70 Pulse Source Pulse Oximeter Temp 97.7 F Temp Source Temporal Artery Scan Pulse Oximetry (%) 97 Oxygen Delivery Method Room Air Intake Visit Reasons: FOLLOW UP - see comments Intake Note: follow up labs fron 05/02/24 Allergies No Known Allergies Allergy (Mild, Verified 08/06/24 11:37) NOT APPLICABLE Medication List - Last Reconciled 08/06/24 by Mac Lockwood MD albuterol sulfate 90 mcg/actuation (ProAir HFA) 2 puffs inhalation Q6H PRN 1 month apixaban (Eliquis) 5 mg PO BID 90 days atorvastatin 40 mg PO BEDTIME bisoprolol fumarate 2.5 mg (1/2 x 5 mg) PO DAILY 90 days Farxiga (dapagliflozin propanediol) 10 mg PO DAILY NS fluticasone furoate-vilanterol 100-25 mcg/dose (Breo Ellipta) 1 puff inhalation DAILY furosemide 40 mg PO DAILY levothyroxine 75 mcg (1.5 x 50 mcg) PO DAILY@0600 30 days losartan 12.5 mg (1/2 x 25 mg) PO DAILY 90 days montelukast 10 mg PO DAILY 30 days umeclidinium 62.5 mcg/actuation (Incruse Ellipta) 1 inh inhalation DAILY Tobacco use date assessed: 02/20/24 Dental Screening Dental Screen Date: 12/19/23 HPI FOLLOW UP - see comments HPI Details 73 y/o male presents to f/u hypertension , chronic conditions. Blood pressure today 109/70, 70p. He is on losartan 12.5mg, bisoprolol 2.5mg daily. Had been following up with Cardiology for cardiomyopathy/CAD. They deny any recent chest pain. Continues taking levothyroxine 75mcg. [facility] Medical History On beta brennon at home On anticoagulant therapy Thyrotoxicosis Cardiomyopathy NSVT (nonsustained ventricular tachycardia) Pulmonary embolism Chronic systolic CHF (congestive heart failure) COPD (chronic obstructive pulmonary disease) Hypothyroid Surgical History Hx of colonoscopy Status post cardiac catheterization History of cholecystectomy Family History Father Stroke Other Mental health disorder Social History Household Members: Family Housing: House Housing Other:: mobile home Do you presently have visiting nurse or other home services: No Alcohol intake: former Year quit: 1987 Patient Tobacco Use Status: Former Tobacco user e-Cigarette/Vaping Use: Never Used Second Hand Smoke Exposure: Yes service: No Current occupational status: disabled Current occupational exposures/hazards: No Cognitive needs: No Hearing needs: No Vision needs: No Questionnaire PHQ-9 Over the last 2 weeks, how often have you been bothered by any of the following problems? 1. Little interest or pleasure in doing things: several days 2. Feeling down, depressed, or hopeless: several days 3. Trouble falling or staying asleep, or sleeping too much: several days 4. Feeling tired or having little energy: several days 5. Poor appetite or overeating: several days 6. Feeling bad about yourself - or that you are a failure or have let yourself or your family down: several days 7. Trouble concentrating on things, such as reading the newspaper or watching television: not at all 8. Moving or speaking so slowly that other people could have noticed. Or the opposite - being so fidgety or restless that you have been moving around a lot more than usual: several days 9. Thoughts that you would be better off or of hurting yourself in some way: not at all Total score: 7 Source: Developed by Drs. Kieran Robledo, Elayne Cameron, Candido Antonio and colleagues, with an educational boogie from [employer]. Thrive Questionnaire Date Thrive assessed: 11/09/23 I am a: Patient What is your living situation today?: I have a steady place to live Within the past 12 months, did the food you bought not last and you didn't have the money to get more?: Sometimes True Within the past 12 months, did you worry whether your food would run out before you got money to buy more?: Sometimes True Do you have trouble paying for medicines?: No Do you have trouble getting transportation to medical appointments?: No Do you have trouble paying your heating and electricity bill?: No Do you have trouble taking care of your child, family member or friend?: No Do you have trouble with day-to-day activities such as bathing, preparing meals, shopping, managing finances, etc.?: Yes Are you currently unemployed and looking for a job?: No Are you interested in more education?: No Please select the resources that you would like help with: None Currently or been in a relationship where the following occur: No concerns r eported THRIVE Score: 2 AUDIT C Alcohol Use Questionnaire (AUDIT-C) 1. How often do you have a drink containing alcohol?: Never Total Score: 0 VAHID-7 AMB Questionnaire VAHID-7 Date VAHID - 7 assessed: 11/09/23 Feeling nervous, anxious, or on edge: 1 = Several days Not being able to stop or control worryin = Several days Worrying too much about different things: 1 = Several days Trouble relaxin = Several days Being so restless that it is hard to sit still: 1 = Several days Becoming easily annoyed or irritable: 1 = Several days Feeling afraid as if something awful might happen: 1 = Several days Total VAHID-7 score (0-4 normal; 5-9 mild; 10-14 moderate; 15-21 severe): 7 Source: Developed by Drs. Kieran Robledo, Elayne Cameron, Candido Antonio and colleagues, with an educational boogie from [employer]. Review of Systems Const Denies chills, Denies fatigue, Denies fever(s), Denies headache(s) and Denies weakness ENT Denies dizziness and Denies headache(s) Card Denies dyspnea Resp Denies cough, Denies dyspnea, Denies wheezing and Denies other (shortness of breath) Musc Denies numbness and Denies tingling Neuro Denies dizziness, Denies headache(s), Denies numbness, Denies tingling and Denies weakness Psych Denies anxiety and Denies depression Endo Denies fatigue Aller/Immun Denies wheezing Physical exam (Primary Care) Vital Signs: Last Vital Signs Temp 97.7 F 08/06/24 11:38 Pulse 70 08/06/24 11:38 Resp 16 08/06/24 11:38 BP 109/70 08/06/24 11:38 Pulse Ox 97 08/06/24 11:38 Oxygen Delivery Method Room Air 08/06/24 11:38 BMI result Body Mass Index 22.3 Tobacco/Smoking Status: Tobacco use Status Tobacco use date assessed 02/20/24 08/06/24 11:35 Patient Tobacco Use Status Former Tobacco user 08/06/24 11:35 e-Cigarette/Vaping Use Never Used 08/06/24 11:35 PHQ-9: PHQ-9 Score PHQ-9: Total score 7 08/06/24 11:45 Thrive Assessment: Date of Thrive Assessment Date Thrive assessed 11/09/23 08/06/24 11:35 Currently or been in a relationship where the following occur: No concerns reported Const General: well developed; No acute distress Nutritional Appearance: well nourished Orientation/consciousness: patient oriented x3 HENMT Head: Yes normocephalic and Yes atraumatic Eyes General: appearance normal, both eyes and all related structures Pupils: Equal, round and reactive pupils present EOM: EOMs intact bilaterally Resp Effort & Inspection: normal respiratory effort Auscultation: clear to auscultation bilaterally Cardio Rate: regular rate Rhythm: regular rhythm Heart sounds: S1 normal heart sound present, S2 normal heart sound present, no gallops, no murmurs and no rubs Neuro General: patient oriented x3 and gait normal Cranial nerves: Yes Equal, round and reactive pupils present Psych Affect: normal affect Coding Level of Care Code Est Pt Level 4 (38988) Diagnoses Primary hypertension I10 Hypertension type: primary hypertension Coronary artery disease I25.10 Acquired hypothyroidism E03.9 Hypothyroidism type: acquired Cardiomyopathy I42.9 Assessment & Plan Assessment & Plan (1) Hypertension: Code(s): I10 - Essential (primary) hypertension Category: Medical Qualifiers: Hypertension type: primary hypertension Qualified Code(s): I10 - Essential (primary) hypertension Plan: Blood?pressure?is?controlled.??Goal?is?less?than?130/80 Continue?current?medications (2) Coronary artery disease: Code(s): I25.10 - Atherosclerotic heart disease of [place] coronary artery without angina pectoris Category: Medical Plan: Stable Continue?current?medication?regimen Follow-up?with?Cardiology?as?recommended (3) Hypothyroidism: Code(s): E03.9 - Hypothyroidism, unspecified Category: Medical Qualifiers: Hypothyroidism type: acquired Qualified Code(s): E03.9 - Hypot hyroidism, unspecified Plan: Thyroid?hormone?levels?in?May?were?within?normal?range Continue?current?levothyroxine?regimen Will?recheck?prior?to?next?visit (4) Cardiomyopathy: Code(s): I42.9 - Cardiomyopathy, unspecified Category: Medical Plan: Stable Continue?current?regimen?with?Eliquis?and?Farxiga?and?furosemide. Control?blood?pressure Continue?atorvastatin I?recommended?mild?but?regular?exercise Follow-up?with?Cardiology?as?recommended Orders: Orders Triiodothyronine T3 Total Today E03.9 - Hypothyroidism, unspecified [facility] [place]. Panel Fast Today E03.9 - Hypothyroidism, unspecified, Z00.00 - Encounter for general adult medical examination without abnormal findings Free T4 (Free Thyroxine) Today E03.9 - Hypothyroidism, unspecified Thyroid Stimulating Hormone Today E03.9 - Hypothyroidism, unspecified Medications: New fluticasone furoate-vilanterol 100-25 mcg/dose (Breo Ellipta) 1 inh inhalation DAILY 30 days 60 ea 3RF Refilled apixaban (Eliquis) 5 mg PO BID 90 days 180 tabs 3RF montelukast 10 mg PO DAILY 30 days 30 tabs 2RF atorvastatin 40 mg PO BEDTIME 90 tabs 3RF
[2024-08-06 11:38] VITALS: BP 109/70; PULSE 70; RESP 16; TEMP 36.5; O2SAT 97; BMI 22.3
== END 2024-08-06 12:07 | disposition home or self-care (01) ==
PROVIDERS: PCP Family Medicine; Visit Provider Family Medicine
DX: I10 Essential (primary) hypertension (principal); I25.10 Atherosclerotic heart disease of native coronary artery without angina pectoris; E03.9 Hypothyroidism, unspecified; I42.9 Cardiomyopathy, unspecified

== ENCOUNTER → 2024-08-06 11:27 | Outpatient (BNVA) | payer MEDICARE, MEDICAID, SELFPAY | PROVIDERS: PCP Family Medicine; Visit Provider Family Medicine | DX: I10 Essential (primary) hypertension (principal); I25.10 Atherosclerotic heart disease of native coronary artery without angina pectoris; E03.9 Hypothyroidism, unspecified; I42.9 Cardiomyopathy, unspecified; Z79.01 Long term (current) use of anticoagulants; Z79.899 Other long term (current) drug therapy | CPT/HCPCS: 96127; 99212 ==

== ENCOUNTER 2024-09-15 10:48 | Outpatient (AMB) | payer MEDICARE, MEDICAID, SELFPAY ==
--- NOTE | 2024-09-15 11:35 | MHC.PC.OV ---
Vital Signs 09/15/24 11:37 Height 5 ft 5 in Weight 136 lb 6 oz BMI 22.7 BP 96/60 Blood Pressure Location Rt brachial Position Sitting Respiration 14 Pulse 57 Pulse Source Pulse Oximeter Pulse Oximetry (%) 97 Oxygen Delivery Method Room Air Intake Visit Reasons: routine fu chronic conditions 30 min Intake Note: f/u chronic conditions Allergies No Known Allergies Allergy (Mild, Verified 09/15/24 11:35) NOT APPLICABLE Tobacco use date assessed: 02/20/24 Dental Screening Dental Screen Date: 12/19/23 HPI routine fu chronic conditions 30 min HPI Details 73 y/o male presents to f/u chronic conditions. Blood pressure today 96/60, 57p. PFSH Medical History On beta brennon at home On anticoagulant therapy Thyrotoxicosis Cardiomyopathy NSVT (nonsustained ventricular tachycardia) Pulmonary embolism Chronic systolic CHF (congestive heart failure) COPD (chronic obstructive pulmonary disease) Hypothyroid Surgical History Hx of colonoscopy Status post cardiac catheterization History of cholecystectomy Family History Father Stroke Other Mental health disorder Social History Household Members: Family Housing: House Housing Other:: mobile home Do you presently have visiting nurse or other home services: No Alcohol intake: former Year quit: 1987 Patient Tobacco Use Status: Former Tobacco user e-Cigarette/Vaping Use: Never Used Second Hand Smoke Exposure: Yes service: No Current occupational status: disabled Current occupational exposures/hazards: No Cognitive needs: No Hearing needs: No Vision needs: No Questionnaire Thrive Questionnaire Date Thrive assessed: 08/06/24 I am a: Patient What is your living situation today?: I have a steady place to live Within the past 12 months, did the food you bought not last and you didn't have the money to get more?: Sometimes True Within the past 12 months, did you worry whether your food would run out before you got money to buy more?: Sometimes True Do you have trouble paying for medicines?: No Do you have trouble getting transportation to medical appointments?: No Do you have trouble paying your heating and electricity bill?: No Do you have trouble taking care of your child, family member or friend?: No Do you have trouble with day-to-day activities such as bathing, preparing meals, shopping, managing finances, etc.?: Yes Are you currently unemployed and looking for a job?: No Are you interested in more education?: No Please select the resources that you would like help with: None Currently or been in a relationship where the following occur: No concerns reported THRIVE Score: 2 VAHID-7 AMB Questionnaire VAHID-7 Date VAHID - 7 assessed: 11/09/23 Source: Developed by Drs. Kieran Robledo, Elayne Cameron, Candido Antonio and colleagues, with an educational boogie from [employer]. Review of Systems Const Denies chills, Denies fatigue, Denies fever(s), Denies headache(s) and Denies weakness ENT Denies dizziness and Denies headache(s) Card Denies chest pain, Denies lightheadedness, Denies dyspnea and Denies other (Palpitations) Resp Denies cough, Denies dyspnea, Denies wheezing and Denies other ( shortness of breath) Musc Denies numbness and Denies tingling Neuro Denies dizziness, Denies headache(s), Denies numbness, Denies tingling, Denies paresthesias and Denies weakness Psych Denies anxiety and Denies depression Endo Denies fatigue Aller/Immun Denies wheezing Physical exam (Primary Care) Vital Signs: Last Vital Signs Pulse 57 09/15/24 11:37 Resp 14 09/15/24 11:37 BP 96/60 09/15/24 11:37 Pulse Ox 97 09/15/24 11:37 Oxygen Delivery Method Room Air 09/15/24 11:37 BMI result Body Mass Index 22.7 Tobacco/Smoking Status: Tobacco use Status Tobacco use date assessed 02/20/24 09/15/24 11:40 Patient Tobacco Use Status Former Tobacco user 09/15/24 11:40 e-Cigarette/Vaping Use Never Used 09/15/24 11:40 Thrive Assessment: Date of Thrive Assessment Date Thrive assessed 08/06/24 09/15/24 11:40 Currently or been in a relationship where the following occur: No concerns reported Const General: no acute distress and well developed Nutritional Appearance: well nourished Orientation/consciousness: patient oriented x3 HENVA Head: Yes normocephalic and Yes atraumatic Eyes General: appearance normal, both eyes and all related structures Pupils: Equal, round and reactive pupils present EOM: EOMs intact bilaterally Resp Effort & Inspection: normal respiratory effort Auscultation: clear to auscultation bilaterally Cardio Rate: bradycardic Rhythm: regular rhythm Heart sounds: S1 normal heart sound present, S2 normal heart sound present, no gallops, no murmurs and no rubs Neuro General: patient oriented x3 and gait normal Cranial nerves: Yes Equal, round and reactive pupils present Psych Affect: normal affect Coding Level of Care Code Est Pt Level 3 (51138) Diagnoses Primary hypertension I10 Hypertension type: primary hypertension Coronary artery disease I25.10 Assessment & Plan Assessment & Plan (1) Hypertension: Code(s): I10 - Essential (primary) hypertension Category: Medical Qualifiers: Hypertension type: primary hypertension Qualified Code(s): I10 - Essential (primary) hypertension Plan: Blood?pressure?is?running?a?little?low. Goal?is?less?than?130/80 Patient?says?he?feels?well?today Encouraged?good?hydration We?will?recheck?at?next?visit.??If?blood?pressure?is?still?running?low?could?discontinue?losartan?or?bisoprolol. No?medication?changes?today (2) Coronary artery disease: Code(s): I25.10 - Atherosclerotic heart disease of [place] coronary artery without angina pectoris Category: Medical Plan: Stable
[2024-09-15 11:37] VITALS: BP 96/60; PULSE 57; RESP 14; O2SAT 97; BMI 22.7
== END 2024-09-15 12:03 | disposition home or self-care (01) ==
PROVIDERS: PCP Family Medicine; Visit Provider Family Medicine
DX: I10 Essential (primary) hypertension (principal); I25.10 Atherosclerotic heart disease of native coronary artery without angina pectoris

== ENCOUNTER 2024-09-15 11:04 | Outpatient (REF) | payer MEDICARE, MEDICAID, SELFPAY ==
[2024-09-15 16:05] LABS: Alanine Aminotransferase 29 U/L (0-40); Albumin Level 4.4 g/dL (3.5-5.0); Alkaline Phosphatase 103 U/L (39-117); Anion Gap 11 (12-20); Aspartate Amino Transferase 33 U/L (5-37); Bilirubin Total 1.3 mg/dL (0.0-1.0); Blood Urea Nitrogen 16 mg/dL (9-16); Calcium 9.7 mg/dL (8.4-10.2); Carbon Dioxide 27 mmol/L (22-29); Chloride 108 mmol/L (96-108); Estimated Glomerular Filt Rate > 60; Glucose Fasting 89 mg/dL (60-99); Potassium 3.4 mmol/L (3.3-5.1); Sodium 143 mmol/L (135-145); Total Protein 6.8 g/dL (6.5-8.0)
[2024-09-15 16:08] LABS: Free T4 (Free Thyroxine) 1.11 ng/dL (0.71-1.85); Thyroid Stimulating Hormone 1.49 uIU/mL (0.32-4.0)
[2024-09-16 07:38] LABS: Triiodothyronine T3 Total 106 ng/dL (76-181)
== END 2024-09-15 11:05 | disposition home or self-care (01) ==
LOC: HO.WFDLDS 11:04
PROVIDERS: Visit Provider Family Medicine
DX: I10 Essential (primary) hypertension (principal); I25.10 Atherosclerotic heart disease of native coronary artery without angina pectoris; Z00.00 Encounter for general adult medical examination without abnormal findings; E03.9 Hypothyroidism, unspecified
CPT/HCPCS: 36415; 80053; 84439; 84443; 84480; 99212

== ENCOUNTER 2024-11-17 09:37 | Outpatient (REF) | payer MEDICARE, MEDICAID, SELFPAY ==
--- NOTE | ~2024-11-17 | US_ITS ---
EXAMINATION: BILATERAL CAROTID ULTRASOUND WITH DOPPLER HISTORY: I65.23 - Occlusion and stenosis of bilateral carotid arteries COMPARISON: Comparison is made with the prior examination dated 10/04/2023. TECHNIQUE: Real time and Color and Spectral doppler ultrasonography of the carotid and vertebral arteries was performed in multiple planes. FINDINGS: No significant plaque is identified. VERTEBRAL FLOW DIRECTION: Antegrade bilaterally. PEAK SYSTOLIC VELOCITIES (in cm/sec): RIGHT: CCA: Prox: 91 Dist: 67 ICA: Prox: 48 Mid: 64 Dist: 65 ICA/CCA Ratio: 0.71 ECA: 62 Peak ICA EDV: 23 LEFT: CCA: Prox: 79 Dist: 72 ICA: Prox: 72 Mid: 85 Dist: 94 ICA/CCA Ratio: 1.19 ECA: 69 Peak ICA EDV: 32 US/US carotid duplex BI IMPRESSION: Normal carotid ultrasound. Electronically signed by: Kieran Faustin MD 11/17/2024 11:01 AM [facility]
== END 2024-11-17 09:38 | disposition home or self-care (01) ==
LOC: HO.US 09:37
PROVIDERS: PCP Family Medicine; Visit Provider Surgery Vascular Surgery
DX: I65.23 Occlusion and stenosis of bilateral carotid arteries (principal)
CPT/HCPCS: 93880

== ENCOUNTER → 2024-11-17 09:40 | Outpatient (BNV) | payer MEDICARE, MEDICAID, SELFPAY | PROVIDERS: PCP Family Medicine; Visit Provider Radiology Diagnostic Radiology | DX: I65.23 Occlusion and stenosis of bilateral carotid arteries (principal) | CPT/HCPCS: 93880 ==

== ENCOUNTER 2024-12-11 11:20 | Outpatient (AMB) | payer MEDICARE, MEDICAID, SELFPAY ==
[2024-12-11 12:53] VITALS: BP 100/62; PULSE 56; BMI 22.6
--- NOTE | 2024-12-11 12:53 | MHC.OFFVIS ---
Vital Signs 12/11/24 12:53 Height 5 ft 5 in Weight 135 lb 12.876 oz BMI 22.6 BP 100/62 Blood Pressure Location Rt brachial Position Sitting Pulse 56 Pulse Source Monitor Intake Visit Reasons: 6 mth f/up Pantograph I Engraver Required: No Board Of Education Secretary: Board Of Education Secretary Present Allergies No Known Allergies Allergy (Mild, Verified 12/11/24 12:55) NOT APPLICABLE Medication List - Last Reconciled 12/11/24 by WARREN LeeC albuterol sulfate 90 mcg/actuation (ProAir HFA) 2 puffs inhalation Q6H PRN 1 month apixaban (Eliquis) 5 mg PO BID 90 days atorvastatin 40 mg PO BEDTIME bisoprolol fumarate 2.5 mg (1/2 x 5 mg) PO DAILY Farxiga (dapagliflozin propanediol) 10 mg PO DAILY NS fluticasone furoate-vilanterol 100-25 mcg/dose (Breo Ellipta) 1 inh inhalation DAILY 30 days furosemide 40 mg PO DAILY levothyroxine 75 mcg (1.5 x 50 mcg) PO DAILY@0600 30 days losartan 12.5 mg (1/2 x 25 mg) PO DAILY 90 days montelukast 10 mg PO DAILY 30 days umeclidinium 62.5 mcg/actuation (Incruse Ellipta) 1 inh inhalation DAILY HPI HPI 6 mth f/up: Details: Tico is a 74-year-old male with past medical history prior smoking, COPD, diabetes, pulmonary embolism 07/2020, cardiomyopathy with EF as low as 20% in 07/2020, systolic heart failure, paroxysmal atrial fibrillation, nonobstructive coronary artery disease who presents for follow-up. Today he reports feeling well since his last visit in May. He has not had any hospitalizations or ER trips. He denies chest discomfort at rest or with activity. He does have some shortness of breath and fatigue with exertional activities but does admit to being mostly sedentary. No palpitations, lightheadedness, presyncope, syncope, PND, orthopnea or edema. He is taking his medications as directed. No bleeding issues reported. Significant other is present. [facility] Medical History On beta brennon at home On anticoagulant therapy Thyrotoxicosis Cardiomyopathy NSVT (nonsustained ventricular tachycardia) Pulmonary embolism Chronic systolic CHF (congestive heart failure) COPD (chronic obstructive pulmonary disease) Hypothyroid Surgical History Hx of colonoscopy Status post cardiac catheterization History of cholecystectomy Family History Father Stroke Other Mental health disorder Social History Household Members: Family Housing: House Housing Other:: mobile home Do you presently have visiting nurse or other home services: No Alcohol intake: former Year quit: 1987 Patient Tobacco Use Status: Former Tobacco user e-Cigarette/Vaping Use: Never Used Second Hand Smoke Exposure: Yes service: No Current occupational status: disabled Current occupational exposures/hazards: No Cognitive needs: No Hearing needs: No Vision needs: No Review of Systems Const All systems reviewed & are unremarkable except as noted in HPI and below ENT Denies dizziness Card Denies chest pain, Denies chest pain at rest, Denies chest pain with activity, Denies rapid heart rate, Denies pedal edema, Denies edema, Denies leg edema, Denies lightheadedness, Denies palpitations, Denies dyspnea, Denies dyspnea on exertion and Denies orthopnea Resp Denies cough, Denies dyspnea and Denies dyspnea on exertion GI Denies hematochezia and Denies change in stool character Musc Denies abnormal gait, Denies limited range of motion, Denies muscle cramps, Denies muscle weakness, Denies numbness, Denies radiating pain into limb, Denies stiffness and Denies tingling Neuro Denies abnormal gait, Denies dizziness, Denies numbness and Denies tingling Endo Denies palpitations Physical Exam Vital Signs: BMI result Body Mass Index 22.6 Const General: cooperative, healthy appearing, comfortable and no acute distress Orientation/consciousness: patient oriented x3 Neck Neck: Yes normal visual inspection Resp Effort & Inspection: normal respiratory effort Auscultation: clear to auscultation bilaterally, no rales, no rhonchi and no wheezes Cardio Jugular venous distension: no JVD Rate: regular rate Rhythm: regular rhythm Heart sounds: S1 normal heart sound present, S2 normal heart sound present, no murmurs and no rubs Neuro General: patient oriented x3 Extrem General: Yes normal to inspection and No no pedal edema Psych Appearance: grossly normal Mental Status: mental status grossly normal Speech and movement: Normal speech and movement present Office Procedures EKG Details: Sinus bradycardia with PAC, can not exclude prior anterior infarct, marked ST/ T-wave abnormality inferior lateral leads which is the same as prior EKG, rate 56, QTC 451 millisecond [id number], Complete Assessment & Plan Assessment & Plan (1) Cardiomyopathy: Code(s): I42.9 - Cardiomyopathy, unspecified Category: Medical Plan: History of nonischemic cardiomyopathy with EF as low as 20% 07/2020. Cardiac catheterization done 12/20/2021 shows only mild nonobstructive coronary artery disease. He has been managed medically with gradual improvement in his EF. Echocardiogram done on 05/29/2024 shows EF 45%. On examination today he has no clinical signs indicating decompensated heart failure. He continues on losartan and bisoprolol for neurohormonal modulation. He continues on Lasix 40 mg daily. Labs done 09/15/2024 shows creatinine 0.91. Signs and symptoms of heart failure reviewed with him. Will update echo prior to next visit. Cardiology follow-up in 6 months, sooner if needed (2) Status post cardiac catheterization: Comment: 12/20/2021 showing left main, left circumflex, RCA all normal, lad mild proximal stenosis, 30%. Code(s): Z98.890 - Other specified postprocedural states Category: Surgical (3) PAF (paroxysmal atrial fibrillation): Code(s): I48.0 - Paroxysmal atrial fibrillation Category: Medical Plan: History of paroxysmal atrial fibrillation. no reports of heart palpitations. EKG done today showing sinus bradycardia with PAC, rate 56. He is on bisoprolol for heart rate control. He is on Eliquis for anticoagulation. No bleeding issues reported. Continue current treatment (4) Coronary artery disease: Code(s): I25.10 - Atherosclerotic heart disease of [place] coronary artery without angina pectoris Category: Medical Plan: History of nonobstructive coronary artery disease. No reports of anginal sounding symptoms. He is not on aspirin as he is on Eliquis. He is on atorvastatin 40 mg daily with ideal LDL goal less than 70. Labs done 10/10/2023 shows LDL 63. Will enter order for updated lipid profile. He is on bisoprolol and losartan. BP today 100/62, asymptomatic. No med changes made. Signs and symptoms of angina reviewed. (5) Abnormal EKG: Code(s): R94.31 - Abnormal electrocardiogram [ECG] [EKG] Category: Medical Plan: His EKG shows ST and T-wave abnormalities in the inferior lateral leads. No anginal symptoms. EKG from today same as 10/25/2022 And similar to EKG last year. Plan Time spent on chart review, documentation, interview and assessment Orders: Orders Lipid Panel Today I25.10 - Atherosclerotic heart disease of [place] coronary artery without angina pectoris CA echo transthoracic complete 05/18/25 I42.9 - Cardiomyopathy, unspecified Comprehensive Met. Panel Today I25.10 - Atherosclerotic heart disease of [place] coronary artery without angina pectoris Coding Level of Care Code Est Pt Level 4 (18881) Complex EM visit Add On G2211 Diagnoses Cardiomyopathy I42.9 Status post cardiac catheterization Z98.890 PAF (paroxysmal atrial fibrillation) I48.0 Coronary artery disease I25.10 Abnormal EKG R94.31 CPT Codes EKG - CPT: 61206-[id number], Complete ([id number]) Time Spent (min) 28
== END 2024-12-11 13:21 | disposition home or self-care (01) ==
PROVIDERS: PCP Family Medicine; Visit Provider Nurse Practitioner Family
DX: I42.9 Cardiomyopathy, unspecified (principal); Z98.890 Other specified postprocedural states; I48.0 Paroxysmal atrial fibrillation; I25.10 Atherosclerotic heart disease of native coronary artery without angina pectoris; R94.31 Abnormal electrocardiogram [ECG] [EKG]
CPT/HCPCS: 93010; 99214; G2211

== ENCOUNTER → 2024-12-11 11:20 | Outpatient (BNVA) | payer MEDICARE, MEDICAID, SELFPAY | PROVIDERS: PCP Family Medicine; Visit Provider Nurse Practitioner Family | DX: I42.9 Cardiomyopathy, unspecified (principal); I48.0 Paroxysmal atrial fibrillation; I25.10 Atherosclerotic heart disease of native coronary artery without angina pectoris; R94.31 Abnormal electrocardiogram [ECG] [EKG]; Z98.890 Other specified postprocedural states; R00.1 Bradycardia, unspecified | CPT/HCPCS: 93005; 99212 ==

== ENCOUNTER 2024-12-12 11:04 | Outpatient (AMB) | payer MEDICARE, MEDICAID, SELFPAY ==
--- NOTE | 2024-12-12 11:13 | MHC.PC.OV ---
Vital Signs 12/12/24 11:15 Height 5 ft 5 in Weight 135 lb 2 oz BMI 22.5 BP 100/60 Blood Pressure Location Rt brachial Position Sitting Respiration 14 Pulse 62 Pulse Source Pulse Oximeter Pulse Oximetry (%) 96 Oxygen Delivery Method Room Air Intake Visit Reasons: f/u hypertension, chronic conditions Intake Note: follow up for HTN pt refused for pt to get temp checked due to not wanting him to remove his mask.pt would also like to go over radiology results Internal Medicine Veterinary Technician Required: No Allergies No Known Allergies Allergy (Mild, Verified 12/12/24 11:13) NOT APPLICABLE Medication List - Last Reconciled 12/12/24 by Mac Lockwood MD albuterol sulfate 90 mcg/actuation (ProAir HFA) 2 puffs inhalation Q6H PRN 1 month apixaban (Eliquis) 5 mg PO BID 90 days atorvastatin 40 mg PO BEDTIME bisoprolol fumarate 2.5 mg (1/2 x 5 mg) PO DAILY Farxiga (dapagliflozin propanediol) 10 mg PO DAILY NS fluticasone furoate-vilanterol 100-25 mcg/dose (Breo Ellipta) 1 inh inhalation DAILY 30 days furosemide 40 mg PO DAILY levothyroxine 75 mcg (1.5 x 50 mcg) PO DAILY@0600 30 days losartan 12.5 mg (1/2 x 25 mg) PO DAILY 90 days montelukast 10 mg PO DAILY 30 days umeclidinium 62.5 mcg/actuation (Incruse Ellipta) 1 inh inhalation DAILY Tobacco use date assessed: 02/20/24 Dental Screening Dental Screen Date: 12/19/23 HPI f/u hypertension, chronic conditions HPI Details 74 y/o male presents to f/u HTN, chronic conditions. Blood pressure today 100/60, 62p. He is on losartan 12.5mg daily. Has complaints of mild viral illness. [facility] Medical History On beta brennon at home On anticoagulant therapy Thyrotoxicosis Cardiomyopathy NSVT (nonsustained ventricular tachycardia) Pulmonary embolism Chronic systolic CHF (congestive heart failure) COPD (chronic obstructive pulmonary disease) Hypothyroid Surgical History Hx of colonoscopy Status post cardiac catheterization History of cholecystectomy Family History Father Stroke Other Mental health disorder Social History Household Members: Family Housing: House Housing Other:: mobile home Do you presently have visiting nurse or other home services: No Alcohol intake: former Year quit: 1987 Patient Tobacco Use Status: Former Tobacco user e-Cigarette/Vaping Use: Never Used Second Hand Smoke Exposure: Yes service: No Current occupational status: disabled Current occupational exposures/hazards: No Cognitive needs: No Hearing needs: No Vision needs: No Questionnaire PHQ-9 Over the last 2 weeks, how often have you been bothered by any of the following problems? 1. Little interest or pleasure in doing things: several days 2. Feeling down, depressed, or hopeless: several days 3. Trouble falling or staying asleep, or sleeping too much: several days 4. Feeling tired or having little energy: several days 5. Poor appetite or overeating: several days 6. Feeling bad about yourself - or that you are a failure or have let yourself or your family down: several days 7. Trouble concentrating on things, such as reading the newspaper or watching television: several days 8. Moving or speaking so slowly that other people could have noticed. Or the opposite - being so fidgety or restless that you have been moving around a lot more than usual: several days 9. Thoughts that you would be better off or of hurting yourself in some way: not at all Total score: 8 Source: Developed by Drs. Kieran Robledo, Elayne Cameron, Candido Antonio and colleagues, with an educational boogie from [employer]. Thrive Questionnaire Date Thrive assessed: 08/06/24 I am a: Patient What is your living situation today?: I have a steady place to live Within the past 12 months, did the food you bought not last and you didn't have the money to get more?: Often true Within the past 12 months, did you worry whether your food would run out before you got money to buy more?: Sometimes True Do you have trouble paying for medicines?: No Do you have trouble getting transportation to medical appointments?: No Do you have trouble paying your heating and electricity bill?: I choose not to answer this question Do you have trouble taking care of your child, family member or friend?: No Do you have trouble with day-to-day activities such as bathing, preparing meals, shopping, managing finances, etc.?: No Are you currently unemployed and looking for a job?: No Are you interested in more education?: No Please select the resources that you would like help with: None Currently or been in a relationship where the following occur: No concerns reported THRIVE Score: 2 AUDIT C Alcohol Use Questionnaire (AUDIT-C) 1. How often do you have a drink containing alcohol?: Never Total Score: 0 VAHID-7 AMB Questionnaire VAHID-7 Date VAHID - 7 assessed: 11/09/23 Feeling nervous, anxious, or on edge: 1 = Several days Not being able to stop or control worryin = Several days Worrying too much about different things: 1 = Several days Trouble relaxin = Several days Being so restless that it is hard to sit still: 1 = Several days Becoming easily annoyed or irritable: 1 = Several days Feeling afraid as if something awful might happen: 1 = Several days Total VAHID-7 score (0-4 normal; 5-9 mild; 10-14 moderate; 15-21 severe): 7 Source: Developed by Drs. Kieran Robledo, Elayne Cameron, Candido Antonio and colleagues, with an educational boogie from [employer]. Review of Systems Const Denies chills, Denies fatigue, Denies fever(s), Denies headache(s) and Denies weakness ENT Denies dizziness and Denies headache(s) Card Denies chest pain, Denies lightheadedness, Denies dyspnea and Denies other (Palpitations) Resp Denies cough, Denies dyspnea, Denies wheezing and Denies other ( shortness of breath) Musc Denies numbness and Denies tingling Neuro Denies dizziness, Denies headache(s), Denies numbness, Denies tingling, Denies paresthesias and Denies weakness Psych Denies anxiety and Denies depression Endo Denies fatigue Aller/Immun Denies wheezing Physical exam (Primary Care) Vital Signs: Last Vital Signs Pulse 62 12/12/24 11:15 Resp 14 12/12/24 11:15 BP 100/60 12/12/24 11:15 Pulse Ox 96 12/12/24 11:15 Oxygen Delivery Method Room Air 12/12/24 11:15 BMI result Body Mass Index 22.5 Tobacco/Smoking Status: Tobacco use Status Tobacco use date assessed 02/20/24 12/12/24 11:18 Patient Tobacco Use Status Former Tobacco user 12/12/24 11:18 e-Cigarette/Vaping Use Never Used 12/12/24 11:18 PHQ-9: PHQ-9 Score PHQ-9: Total score 8 12/12/24 11:19 Thrive Assessment: Date of Thrive Assessment Date Thrive assessed 08/06/24 12/12/24 11:18 Currently or been in a relationship where the following occur: No concerns reported Const General: no acute distress and well developed Nutritional Appearance: well nourished Orientation/consciousness: patient oriented x3 HENMT Head: Yes normocephalic and Yes atraumatic Eyes General: appearance normal, both eyes and all related structures Pupils: Equal, round and reactive pupils present EOM: EOMs intact bilaterally Resp Other: Faint crackles at the bases Effort & Inspection: normal respiratory effort Auscultation: clear to auscultation bilaterally Cardio Rate: regular rate Rhythm: regular rhythm Heart sounds: S1 normal heart sound present, S2 normal heart sound present, no gallops, no murmurs and no rubs Neuro General: patient oriented x3 and gait normal Cranial nerves: Yes Equal, round and reactive pupils present Psych Affect: normal affect Coding Level of Care Code Est Pt Level 4 (87394) Diagnoses Primary hypertension I10 Hypertension type: primary hypertension Coronary artery disease I25.10 Viral illness B34.9 Acquired hypothyroidism E03.9 Hypothyroidism type: acquired Assessment & Plan Assessment & Plan (1) Hypertension: Code(s): I10 - Essential (primary) hypertension Category: Medical Qualifiers: Hypertension type: primary hypertension Qualified Code(s): I10 - Essential (primary) hypertension Plan: Blood?pressure?is?controlled.??Goal?is?less?than?130/80 Continue?current?medications Hydrate?well (2) Coronary artery disease: Code(s): I25.10 - Atherosclerotic heart disease of [place] coronary artery without angina pectoris Category: Medical Plan: Stable.??Patient?saw?Cardiology?yesterday Follow-up?with?Cardiology?as?recommended (3) Viral illness: Code(s): B34.9 - Viral infection, unspecified Category: Medical Plan: Mild?upper?respiratory?viral?illness Should?resolve?in?a?few?days. (4) Hypothyroidism: Code(s): E03.9 - Hypothyroidism, unspecified Category: Medical Qualifiers: Hypothyroidism type: acquired Qualified Code(s): E03.9 - Hypothyroidism, unspecified Plan: Thyroid?hormone?levels?within?normal?range?at?last?check. Continue?levothyroxine?as?prescribed
[2024-12-12 11:15] VITALS: BP 100/60; PULSE 62; RESP 14; O2SAT 96; BMI 22.5
== END 2024-12-12 11:43 | disposition home or self-care (01) ==
PROVIDERS: PCP Family Medicine; Visit Provider Family Medicine
DX: I10 Essential (primary) hypertension (principal); I25.10 Atherosclerotic heart disease of native coronary artery without angina pectoris; B34.9 Viral infection, unspecified; E03.9 Hypothyroidism, unspecified

== ENCOUNTER → 2024-12-12 11:04 | Outpatient (BNVA) | payer MEDICARE, MEDICAID, SELFPAY | PROVIDERS: PCP Family Medicine; Visit Provider Family Medicine | DX: I10 Essential (primary) hypertension (principal); I25.10 Atherosclerotic heart disease of native coronary artery without angina pectoris; B34.9 Viral infection, unspecified; E03.9 Hypothyroidism, unspecified | CPT/HCPCS: 99212 ==

== ENCOUNTER 2025-01-08 10:59 | Outpatient (AMB) | payer MEDICARE, MEDICAID, SELFPAY ==
--- NOTE | 2025-01-08 11:16 | A.OFFVIS_ITS ---
Vital Signs 01/08/25 11:18 Height 5 ft 5 in Weight 135 lb BMI 22.5 Intake Visit Reasons: 1 year follow up carotid Intake Note: 1 yr follow up carotid US 11/17/24. Pt states no changes or complaints Service Order Expediter Required: No Allergies No Known Allergies Allergy (Mild, Verified 01/08/25 11:20) NOT APPLICABLE HPI HPI 1 year follow up carotid: Details: The patient is a 74-year-old male presenting for follow-up on carotid artery health and previous arm circulation issues. At the current time he is asymptomatic in terms of his carotids. He also denies any significant discomfort from his left upper extremity. The patient engages in gardening and feeding animals but remains cautious not to overexert himself. He has a significant history of smoking cessation for nine years, reducing risks associated with vascular complications. He now presents for vascular follow-up [facility] Medical History On beta brennon at home On anticoagulant therapy Thyrotoxicosis Cardiomyopathy NSVT (nonsustained ventricular tachycardia) Pulmonary embolism Chronic systolic CHF (congestive heart failure) COPD (chronic obstructive pulmonary disease) Hypothyroid Surgical History Hx of colonoscopy Status post cardiac catheterization History of cholecystectomy Family History Father Stroke Other Mental health disorder Social History Household Members: Family Housing: House Housing Other:: mobile home Do you presently have visiting nurse or other home services: No Alcohol intake: former Year quit: 1987 Patient Tobacco Use Status: Former Tobacco user e-Cigarette/Vaping Use: Never Used Second Hand Smoke Exposure: Yes service: No Current occupational status: disabled Current occupational exposures/hazards: No Cognitive needs: No Hearing needs: No Vision needs: No Review of Systems Const All systems reviewed & are unremarkable except as noted in HPI and below Reports no additional complaints ENT Reports Normal hearing present Card Denies chest pain, Denies chest pain at rest, Denies chest pain with activity and Denies pedal edema Resp Denies cough GI Denies abdominal pain Musc Denies abnormal gait, Denies muscle cramps and Denies radiating pain into limb Skin/Breast Denies skin ulcer and Denies wounds Neuro Reports Normal hearing present and Denies abnormal gait Psych Reports no additional complaints Physical Exam Vital Signs: BMI result Body Mass Index 22.5 Const General: cooperative, healthy appearing and comfortable Orientation/consciousness: oriented to person, oriented to place and oriented to time HEENT Head: Yes normal to inspection Neck Neck: Yes normal visual inspection Carotids: no bruits Chest Chest palpation & inspection: normal inspection of the chest Resp Effort & Inspection: normal respiratory effort and able to speak in complete sentences Auscultation: clear to auscultation bilaterally, no crackles, no rales, no rhonchi and no wheezes Cardio Rate: regular rate Rhythm: regular rhythm Heart sounds: S1 normal heart sound present and S2 normal heart sound present Bruits: no carotid bruits Peripheral pulses: Peripheral pulses 2+ throughout GI Inspection: Yes normal to inspection Skin Wounds: no wounds Hair: normal Neuro General: oriented to person, oriented to place and oriented to time Cranial nerves: Yes CN's II-XII intact bilaterally and Yes Normal hearing present Cognition (Neuro): normal cognition Motor exam (neuro): 5/5 motor strength present throughout Extrem Other: venous exam: No significant superficial varicosities or spider telangiectasias, minimal edema General: No clubbing, No cyanosis and No edema Psych Appearance: grossly normal Mental Status: mental status grossly normal Speech and movement: Normal speech and movement present Results Reviewed Results Reviewed: Carotid testing dated 11/17/2024 demonstrates bilateral 0-49% stenosis with no significant disease. Vertebrals were flowing antegrade. Written report and images were reviewed. Assessment & Plan Assessment & Plan (1) Bilateral carotid artery stenosis: Code(s): I65.23 - Occlusion and stenosis of bilateral carotid arteries Category: Medical Plan: In short patient has asymptomatic carotid disease. We have reviewed signs and symptoms of a stroke. We also discussed risk factor modification inclusive a healthy diet low in cholesterol. In addition we underwent the left subclavian stenosis in detail. At the current time would not recommend any intervention as he is asymptomatic from this. I did inform them that in the future any IVs blood draws or blood pressure should be taken in the right upper extremity. The patient will follow up with us with surveillance ultrasound of the carotids 1 year. Should there be any changes or signs or symptoms of a stroke we will be happy to see them back sooner. Thank you for allowing us to participate in this patient's care. If there are any questions or concerns please do not hesitate to contact us. (2) Stenosis of left subclavian artery: Code(s): I77.1 - Stricture of artery Category: Medical Plan: See above Orders: Orders US carotid duplex BI 1 Year I65.23 - Occlusion and stenosis of bilateral carotid arteries Coding Level of Care Code Est Pt Level 4 (78202) Complex EM visit Add On G2211 Diagnoses Bilateral carotid artery stenosis I65.23 Stenosis of left subclavian artery I77.1
[2025-01-08 11:18] VITALS: BMI 22.5
== END 2025-01-08 11:40 | disposition home or self-care (01) ==
LOC: HO.HVS 10:59
PROVIDERS: PCP Family Medicine; Visit Provider Surgery Vascular Surgery
DX: I65.23 Occlusion and stenosis of bilateral carotid arteries (principal); I77.1 Stricture of artery
CPT/HCPCS: 99214; G2211

== ENCOUNTER → 2025-01-08 10:59 | Outpatient (BNVA) | payer MEDICARE, MEDICAID, SELFPAY | PROVIDERS: PCP Family Medicine; Visit Provider Surgery Vascular Surgery | DX: I65.23 Occlusion and stenosis of bilateral carotid arteries (principal); I77.1 Stricture of artery; Z87.891 Personal history of nicotine dependence | CPT/HCPCS: 99212 ==

== ENCOUNTER 2025-01-19 11:19 | Outpatient (AMB) | payer MEDICARE, MEDICAID, SELFPAY ==
--- NOTE | 2025-01-19 11:26 | MHC.OFFVIS ---
Vital Signs 01/19/25 11:41 Height 5 ft 5 in BMI Reason not done Patient refused/unable BP 124/78 Blood Pressure Location Rt brachial Position Sitting Pulse 56 Pulse Source Pulse Oximeter Pulse Oximetry (%) 97 Oxygen Delivery Method Room Air Intake Visit Reasons: 1 yr f/u IBS (irritable bowel syndrome) Intake Note: ESTABLISHED PATIENT for 1 YR FUV. IBS mgmt. Chief Complaint; Pt denies any GI concerns at this time and reports to [place] that he is feeling well. Allergies No Known Allergies Allergy (Mild, Verified 01/19/25 11:42) NOT APPLICABLE HPI HPI 1 yr f/u IBS (irritable bowel syndrome): Details: LAST VISIT IBS (irritable bowel syndrome) Plan Continue low FODMAP diet. List of food recommended as well as list of food to avoid. Patient will follow-up in our office on as needed basis. He is agreeable to this plan and verbalizes understanding of instructions. He was given the opportunity to ask questions and all questions answered. ? Thank you for allowing me to participate in his care TODAY'S VISIT: Patient is here today for follow-up. Patient reports that since last visit he has been feeling well. Reports to have good appetite. Denies any melena, hematochezia, unintentional weight loss or ribbon like stools. Patient denies any dyspepsia, dysphagia or odynophagia. Patient had normal colonoscopy last year recommendation 10 years recall. Reports symptoms of IBS under control. Patient is trying to follow as much as can low FODMAP diet [facility] Medical History On beta brennon at home On anticoagulant therapy Thyrotoxicosis Cardiomyopathy NSVT (nonsustained ventricular tachycardia) Pulmonary embolism Chronic systolic CHF (congestive heart failure) COPD (chronic obstructive pulmonary disease) Hypothyroid Surgical History Hx of colonoscopy Status post cardiac catheterization History of cholecystectomy Family History Father Stroke Other Mental health disorder Social History Household Members: Family Housing: House Housing Other:: mobile home Do you presently have visiting nurse or other home services: No Alcohol intake: former Year quit: 1987 Patient Tobacco Use Status: Former Tobacco user e-Cigarette/Vaping Use: Never Used Second Hand Smoke Exposure: Yes service: No Current occupational status: disabled Current occupational exposures/hazards: No Cognitive needs: No Hearing needs: No Vision needs: No Review of Systems Const Denies weight gain and Denies weight loss ENT Reports no additional complaints, Denies dysphagia and Denies odynophagia Card Reports no additional complaints Resp Reports no additional complaints GI Denies abdominal pain, Denies belching, Denies melena, Denies bloating, Denies change in bowel habits, Denies dysphagia, Denies excessive flatus, Denies dyspepsia, Denies heartburn, Denies diarrhea, Denies loose stools, Denies nausea, Denies odynophagia and Denies vomiting Reports no additional complaints Musc Reports no additional complaints Neuro Reports no additional complaints Psych Reports no additional complaints Endo Reports no additional complaints Physical Exam Vital Signs: Last Vital Signs Pulse 56 01/19/25 11:41 BP 124/78 01/19/25 11:41 Pulse Ox 97 01/19/25 11:41 Oxygen Delivery Method Room Air 01/19/25 11:41 Const General: healthy appearing, no acute distress and well developed Nutritional Appearance: well nourished Orientation/consciousness: patient oriented x3 Resp Effort & Inspection: normal respiratory effort, able to speak in complete sentences, no tracheal deviation and symmetric chest movement Auscultation: clear to auscultation bilaterally Cardio Rate: regular rate GI Inspection: Yes normal to inspection and No distended Palpation (GI): Soft to palpation, not firm, nontender and No hepatosplenomegaly present Auscultation: normal bowel sounds General: Yes no CVA tenderness Back/Spine/Pelvis Back: no CVA tenderness Skin General skin exam: elasticity normal, turgor normal and dry skin Neuro General: patient oriented x3 Psych Appearance: grossly normal Mental Status: mental status grossly normal Assessment & Plan Assessment & Plan (1) IBS (irritable bowel syndrome): Code(s): K58.9 - Irritable bowel syndrome, unspecified Qualifiers: Irritable bowel syndrome type: without diarrhea Qualified Code(s): K58.9 - Irritable bowel syndrome, unspecified Plan Continue avoiding dietary triggers and late night snacking. Continue low FODMAP diet. Increase fluid intake and activity to promote better bowel motility. Follow-up in the office in 6 months, sooner on as needed basis. Patient is agreeable to this plan and verbalizes understanding of instructions. He was given the opportunity to ask questions and all questions answered. Thank you for allowing me to participate in his care Coding Level of Care Code Est Pt Level 3 (28567) Diagnoses Irritable bowel syndrome without diarrhea K58.9 Irritable bowel syndrome type: without diarrhea Time Spent (min) 25 Comment 15 minutes spent with patient and additional 10 minutes spent reviewing his records
[2025-01-19 11:41] VITALS: BP 124/78; PULSE 56; O2SAT 97
== END 2025-01-19 12:26 | disposition home or self-care (01) ==
LOC: HO.HGI 11:20
PROVIDERS: PCP Family Medicine; Visit Provider Nurse Practitioner Family
DX: K58.9 Irritable bowel syndrome, unspecified (principal)
CPT/HCPCS: 99213

== ENCOUNTER → 2025-01-19 11:19 | Outpatient (BNVA) | payer MEDICARE, MEDICAID, SELFPAY | PROVIDERS: PCP Family Medicine; Visit Provider Nurse Practitioner Family | DX: K58.9 Irritable bowel syndrome, unspecified (principal) | CPT/HCPCS: 99212 ==

== ENCOUNTER 2025-01-26 08:22 | Outpatient (AMB) | payer MEDICARE, MEDICAID, SELFPAY ==
--- NOTE | 2025-01-26 08:43 | A.OFFPC_ITS ---
Vital Signs 01/26/25 08:47 Height 5 ft 5 in Weight 130 lb 6 oz BMI 21.7 BP 120/68 Blood Pressure Location Rt brachial Position Sitting Respiration 14 Pulse 47 L Pulse Source Pulse Oximeter Pulse Oximetry (%) 96 Oxygen Delivery Method Room Air Intake Visit Reasons: Back pain /difficulty waking Intake Note: chief complaint is back pain due to trying to pull a pole from his yard Plasterer Helper Required: No Allergies No Known Allergies Allergy (Mild, Verified 01/26/25 08:45) NOT APPLICABLE Medication List - Last Reconciled 01/26/25 by Mac Lockwood MD albuterol sulfate 90 mcg/actuation (ProAir HFA) 2 puffs inhalation Q6H PRN 1 month apixaban (Eliquis) 5 mg PO BID 90 days atorvastatin 40 mg PO BEDTIME bisoprolol fumarate 2.5 mg (1/2 x 5 mg) PO DAILY cyclobenzaprine 10 mg PO BID PRN 7 days Farxiga (dapagliflozin propanediol) 10 mg PO DAILY NS fluticasone furoate-vilanterol 100-25 mcg/dose (Breo Ellipta) 1 inh inhalation DAILY 30 days furosemide 40 mg PO DAILY levothyroxine 75 mcg (1.5 x 50 mcg) PO DAILY@0600 30 days losartan 12.5 mg (1/2 x 25 mg) PO DAILY 90 days montelukast 10 mg PO DAILY 30 days umeclidinium 62.5 mcg/actuation (Incruse Ellipta) 1 inh inhalation DAILY Tobacco use date assessed: 02/20/24 Fall risk assessment: 1 Fall in past year Last assessed Fall Risk: 01/26/25 Dental Screening Dental Screen Date: 12/19/23 HPI Back pain /difficulty waking HPI Details 74 y/o male presents today with complain ts of back pain. He notes he had a fall about 3-4 weeks ago. He had fallen trying to pull a stake out of the ground. He had landed around his low back/pelvis. He is using tylenol, heating pad for relief. HPI Comments History of Present Illness Details Documentation assistance for Mac Lockwood MD, was provided by Naren Jin,? Visitor Services Representative on 01/26/2025 at 9:16 AM EST. I, Dr. Lockwood, have read, observed, and verified documentation. ?? [facility] Medical History On beta brennon at home On anticoagulant therapy Thyrotoxicosis Cardiomyopathy NSVT (nonsustained ventricular tachycardia) Pulmonary embolism Chronic systolic CHF (congestive heart failure) COPD (chronic obstructive pulmonary disease) Hypothyroid Surgical History Hx of colonoscopy Status post cardiac catheterization History of cholecystectomy Family History Father Stroke Other Mental health disorder Social History Household Members: Family Housing: House Housing Other:: mobile home Do you presently have visiting nurse or other home services: No Alcohol intake: former Year quit: 1987 Patient Tobacco Use Status: Former Tobacco user e-Cigarette/Vaping Use: Never Used Second Hand Smoke Exposure: Yes service: No Current occupational status: disabled Current occupational exposures/hazards: No Cognitive needs: No Hearing needs: No Vision needs: No Questionnaire Thrive Questionnaire Date Thrive assessed: 12/12/24 I am a: Patient What is your living situation today?: I have a steady place to live Within the past 12 months, did the food you bought not last and you didn't have the money to get more?: Often true Within the past 12 months, did you worry whether your food would run out before you got money to buy more?: Sometimes True Do you have trouble paying for medicines?: No Do you have trouble getting transportation to medical appointments?: No Do you have trouble paying your heating and electricity bill?: I choose not to answer this question Do you have trouble taking care of your child, family member or friend?: No Do you have trouble with day-to-day activities such as bathing, preparing meals, shopping, managing finances, etc.?: No Are you currently unemployed and looking for a job?: No Are you interested in more education?: No Please select the resources that you would like help with: None Currently or been in a relationship where the following occur: No concerns reported THRIVE Score: 2 VAHID-7 AMB Questionnaire VAHID-7 Date VAHID - 7 assessed: 11/09/23 Source: Developed by Drs. Kieran Robledo, Elayne Cameron, Candido Antonio and colleagues, with an educational boogie from [email or web address]. Review of Systems Const Denies chills, Denies fatigue, Denies fever(s), Denies headache(s) and Denies weakness ENT Denies dizziness and Denies headache(s) Card Denies dyspnea Resp Denies cough, Denies dyspnea, Denies wheezing and Denies other (shortness of breath) Musc Reports back pain, Denies numbness and Denies tingling Neuro Denies dizziness, Denies headache(s), Denies numbness, Denies tingling and Denies weakness Psych Denies anxiety and Denies depression Endo Denies fatigue Aller/Immun Denies wheezing Physical exam (Primary Care) Vital Signs: Last Vital Signs Pulse 47 L 01/26/25 08:47 Resp 14 01/26/25 08:47 BP 120/68 01/26/25 08:47 Pulse Ox 96 01/26/25 08:47 Oxygen Delivery Method Room Air 01/26/25 08:47 BMI result Body Mass Index 21.7 Tobacco/Smoking Status: Tobacco use Status Tobacco use date assessed 02/20/24 01/26/25 08:46 Patient Tobacco Use Status Former Tobacco user 01/26/25 08:46 e-Cigarette/Vaping Use Never Used 01/26/25 08:46 Thrive Assessment: Date of Thrive Assessment Date Thrive assessed 12/12/24 01/26/25 08:46 Currently or been in a relationship where the following occur: No concerns reported Const General: well developed; No acute distress Nutritional Appearance: well nourished Orientation/consciousness: patient oriented x3 [facility] Head: Yes normocephalic and Yes atraumatic Eyes General: appearance normal, both eyes and all related structures Pupils: Equal, round and reactive pupils present EOM: EOMs intact bilaterally Resp Effort & Inspection: normal respiratory effort Neuro General: patient oriented x3 and gait normal Cranial nerves: Yes Equal, round and reactive pupils present Psych Affect: normal affect Coding Level of Care Code Est Pt Level 3 (22356) Diagnoses Back pain M54.9 Status post fall Z91.81 Assessment & Plan Assessment & Plan (1) Back pain: Code(s): M54.9 - Dorsalgia, unspecified Category: Medical Plan: Low?back?and?left?buttock?pain?after trying?to?pull?out?a?root?and slipping?and?falling?backwards. Likely?some?muscle?strain?as?well?as?contusions. Normal?straight?leg?raise?bilaterally?and?normal?ambulation. Check?x-rays - will?call?action?is?required He?can?use?Tylenol?and?also?a?short?course?of?muscle?relaxant. Ice/heat If?not?improving?he?will?let?know.??Would?start?physical?therapy (2) Status post fall: Code(s): Z91.81 - History of falling Category: Medical Plan: As above Orders: Orders XR lumbar spine 2-3V Today M54.9 - Dorsalgia, unspecified XR pelvis 1-2V Today M54.9 - Dorsalgia, unspecified Medications: New cyclobenzaprine 10 mg PO BID 7 days PRN 14 tabs 0RF muscle spasm
[2025-01-26 08:47] VITALS: BP 120/68; PULSE 47; RESP 14; O2SAT 96; BMI 21.7
== END 2025-01-26 09:18 | disposition home or self-care (01) ==
LOC: HO.HMCFM 08:23
PROVIDERS: PCP Family Medicine; Visit Provider Family Medicine
DX: M54.9 Dorsalgia, unspecified (principal); Z91.81 History of falling

== ENCOUNTER → 2025-01-26 08:22 | Outpatient (BNVA) | payer MEDICARE, MEDICAID, SELFPAY | PROVIDERS: PCP Family Medicine; Visit Provider Family Medicine | DX: M54.9 Dorsalgia, unspecified (principal); Z91.81 History of falling | CPT/HCPCS: 99212 ==

== ENCOUNTER 2025-02-11 12:59 | Outpatient (AMB) | payer MEDICARE, MEDICAID, SELFPAY ==
[2025-02-11 14:23] VITALS: BP 128/60; PULSE 60; O2SAT 97; BMI 21.3
--- NOTE | 2025-02-11 14:23 | MHC.OFFVIS ---
Vital Signs 02/11/25 14:23 Height 5 ft 5 in Weight 128 lb BMI 21.3 BP 128/60 Pulse 60 Pulse Source Pulse Oximeter Pulse Oximetry (%) 97 Oxygen Delivery Method Room Air Intake Visit Reasons: COPD Chemical Radiation Technician: Chemical Radiation Technician offered & declined Accompanied by: Self / Same As Patient Allergies No Known Allergies Allergy (Mild, Verified 02/11/25 14:26) NOT APPLICABLE Medication List - Last Reconciled 02/11/25 by Shelbi Ta LPN albuterol sulfate 90 mcg/actuation (ProAir HFA) 2 puffs inhalation Q6H PRN 1 month apixaban (Eliquis) 5 mg PO BID 90 days atorvastatin 40 mg PO BEDTIME bisoprolol fumarate 2.5 mg (1/2 x 5 mg) PO DAILY Farxiga (dapagliflozin propanediol) 10 mg PO DAILY NS fluticasone furoate-vilanterol 100-25 mcg/dose (Breo Ellipta) 1 inh inhalation DAILY 30 days furosemide 40 mg PO DAILY levothyroxine 75 mcg (1.5 x 50 mcg) PO DAILY@0600 30 days losartan 12.5 mg (1/2 x 25 mg) PO DAILY 90 days montelukast 10 mg PO DAILY 30 days umeclidinium 62.5 mcg/actuation (Incruse Ellipta) 1 inh inhalation DAILY HPI HPI COPD: Details: Tico is a pleasant 74-year-old male, former smoker with 35+ pack year history, quit 2016 with underlying COPD, hyperlipidemia, CHF LVEF 45%, atrial fibrillation and history of PE 2019, on Eliquis. He was referred by PCP for pulmonary evaluation. He was previously under the care of [facility] pulmonary however would like to transition to this office. He last saw Dr. Agrawal 12/15/24 which he was treated for COPD exacerbation with a Z-[place] and prednisone, with resolution of symptoms. Prior PFT 2017 revealed mild COPD, not interested in repeating. 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 His last chest CT was from 2021 which revealed multiple stable nodules has not had any imaging since. He has been suboptimally controlled on Breo 100 mcg and Incruse. He notes difficulty using albuterol MDI, does not have a nebulizer at home. Continues to report dyspnea on exertion, occasional wheezing and productive cough with white sputum. He endorses seasonal allergies, no recent allergy testing. He is unsure prior history of asthma or any pertinent family history. 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 He is under the care of a [facility] for CHF, reportedly compliant Lasix. He denies any bilateral lower extremity edema, orthopnea or paroxysmal nocturnal dyspnea. [facility] Medical History On beta brennon at home On anticoagulant therapy Thyrotoxicosis Cardiomyopathy NSVT (nonsustained ventricular tachycardia) Pulmonary embolism Chronic systolic CHF (congestive heart failure) COPD (chronic obstructive pulmonary disease) Hypothyroid Surgical History Hx of colonoscopy Status post cardiac catheterization History of cholecystectomy Family History Father Stroke Other Mental health disorder Social History (Updated 02/11/25 @ 14:33 by Shelbi Ta LPN) Household Members: Family Housing: House Housing Other:: mobile home Do you presently have visiting nurse or other home services: No Alcohol intake: former Year quit: 1987 Patient Tobacco Use Status: Former Tobacco user Tobacco use type: Cigarette Cigarette Packs Per Day: 0.5 Years Smoked: 50 e-Cigarette/Vaping Use: Never Used Second Hand Smoke Exposure: Yes service: No Current occupational status: disabled Current occupational exposures/hazards: No Cognitive needs: No Hearing needs: No Vision needs: No Review of Systems Const Denies chills, Denies excessive sweating, Denies fever(s), Denies headache(s) and Denies night sweats Eyes Denies dry eyes, Denies irritation and Denies itchy eyes ENT Reports Normal hearing present, Denies headache(s), Denies nasal congestion, Denies nasal discharge and Denies sore throat Card Denies chest pain, Denies chest pain at rest, Denies chest pain with activity, Denies claudication, Denies leg edema, Denies orthopnea and Denies paroxysmal nocturnal dyspnea Resp Denies chest congestion, Denies excessive phlegm production, Denies pain on inspiration, Denies pain with cough and Denies stridor Musc Denies myalgias Neuro Reports Normal hearing present and Denies headache(s) Endo Denies excessive sweating Jose A/Lymph Denies lymphadenopathy Aller/Immun Denies itchy eyes Physical Exam Vital Signs: Last Vital Signs Pulse 60 02/11/25 14:23 BP 128/60 02/11/25 14:23 Pulse Ox 97 02/11/25 14:23 Oxygen Delivery Method Room Air 02/11/25 14:23 BMI result Body Mass Index 21.3 Const General: cooperative, comfortable, no acute distress and alert Nutritional Appearance: thin Orientation/consciousness: patient oriented x3 Limitations: no limitations HEENT Head: Yes normal to inspection, Yes normocephalic and Yes atraumatic Ears: hearing grossly normal bilaterally and external ears normal Eyes General: appearance normal, both eyes and all related structures Eyelids: Yes eyelids normal Sclerae: sclerae normal EOM: EOMs intact bilaterally Neck Neck: Yes normal visual inspection and Yes no lymphadenopathy Lymphatic: no lymphadenopathy noted Chest Chest palpation & inspection: normal inspection of the chest Resp Effort & Inspection: normal respiratory effort, able to speak in complete sentences, no audible wheezes, no cough, no stridor, not tachypneic, no tripod positioning and no use of accessory muscles Auscultation: diminished lung sounds Cardio Jugular venous distension: no JVD Rate: regular rate Rhythm: regular rhythm Skin Other: warm, dry General skin exam: no rashes or lesions noted Neuro General: patient oriented x3 Cranial nerves: Yes Normal hearing present Cognition (Neuro): normal cognition Gait exam (Neuro): Normal gait present Extrem General: Yes normal to inspection, Yes capillary refill normal, Yes no clubbing, cyanosis or edema and Yes no pedal edema Psych Appearance: grossly normal and well kempt Speech and movement: Normal speech and movement present and Clear speech present Affect: normal affect Attitude: cooperative Thought process: Normal thought process present Thought content: Normal thought content present Insight: Good insight present (Psych) Judgement: Good judgement present (Psych) Assessment & Plan Assessment & Plan (1) COPD (chronic obstructive pulmonary disease): Code(s): J44.9 - Chronic obstructive pulmonary disease, unspecified Category: Medical (2) Environmental allergies: Code(s): Z91.09 - Other allergy status, other than to drugs and biological substances Category: Medical (3) Multiple pulmonary nodules: Code(s): R91.8 - Other nonspecific abnormal finding of lung field Category: Medical (4) Personal history of smoking: Code(s): Z87.891 - Personal history of nicotine dependence Category: Social Hx Plan Tico presents for pulmonary evaluation for known history of COPD. Discussed obtaining updated PFT however he would like to defer at this time. He reports suboptimal control on current regimen, will increase Breo to 200 mcg in addition to Incruse. Will send nebulizer for home use with levalbuterol given cardiac history. Will send for RAST to assess for allergic component. Will send for chest CT to assess stability prior pulmonary nodules and smoking history. All questions were answered and patient is in agreement of plan. Will follow-up in 6-8 weeks or sooner if needed. Orders: Orders Resp Allergy Profile Region I Today Z91.09 - Other allergy status, other than to drugs and biological substances Complete Blood Count Auto Diff Today Z91.09 - Other allergy status, other than to drugs and biological substances Immunoglobulin E Today Z91.09 - Other allergy status, other than to drugs and biological substances CT chest wo IV con Today R91.8 - Other nonspecific abnormal finding of lung field, Z87.891 - Personal history of nicotine dependence Medications: New umeclidinium 62.5 mcg/actuation (Incruse Ellipta) 1 inh inhalation DAILY 30 ea 3RF fluticasone furoate-vilanterol 200-25 mcg/dose (Breo Ellipta) 1 inh inhalation DAILY 60 ea 3RF Discontinued fluticasone furoate-vilanterol 100-25 mcg/dose (Breo Ellipta) Discontinued Reason: Patient Completed Course 1 inh inhalation DAILY 30 days 60 ea 3RF Coding Level of Care Code New Pt Level 4 (87885) Diagnoses COPD (chronic obstructive pulmonary disease) J44.9 Environmental allergies Z91.09 Multiple pulmonary nodules R91.8 Personal history of smoking Z87.891
== END 2025-02-11 15:24 | disposition home or self-care (01) ==
LOC: HO.HPSW 13:00
PROVIDERS: PCP Family Medicine; Referring Provider Family Medicine; Visit Provider Nurse Practitioner Family
DX: J44.9 Chronic obstructive pulmonary disease, unspecified (principal); Z91.09 Other allergy status, other than to drugs and biological substances; R91.8 Other nonspecific abnormal finding of lung field; Z87.891 Personal history of nicotine dependence
CPT/HCPCS: 99204

== ENCOUNTER → 2025-02-11 12:59 | Outpatient (BNVA) | payer MEDICARE, MEDICAID, SELFPAY | PROVIDERS: PCP Family Medicine; Referring Provider Family Medicine; Visit Provider Nurse Practitioner Family | DX: J44.9 Chronic obstructive pulmonary disease, unspecified (principal); R91.8 Other nonspecific abnormal finding of lung field; Z91.09 Other allergy status, other than to drugs and biological substances; Z87.891 Personal history of nicotine dependence | CPT/HCPCS: 99202 ==

== ENCOUNTER 2025-02-23 10:42 | Outpatient (AMB) | payer MEDICARE, MEDICAID, SELFPAY ==
--- NOTE | 2025-02-23 11:00 | A.OFFPC_ITS ---
Vital Signs 02/23/25 11:02 Height 5 ft 5 in Weight 127 lb 6 oz BMI 21.2 BP 110/70 Blood Pressure Location Rt brachial Position Sitting Respiration 14 Pulse 61 Pulse Source Pulse Oximeter Pulse Oximetry (%) 96 Oxygen Delivery Method Room Air Intake Visit Reasons: f/u HTN, chronic conditions Intake Note: patient is here to follow up on htn and x-ray report pt refused oral temp checks Buckle Strap Puncher Required: No Allergies No Known Allergies Allergy (Mild, Verified 02/23/25 11:01) NOT APPLICABLE Tobacco use date assessed: 02/20/24 Dental Screening Dental Screen Date: 12/19/23 HPI f/u HTN, chronic conditions HPI Details 74 y/o male presents to f/u HTN, chronic conditions. BP today 110/70, 61p. He is on losartan 12.5mg daily. Lumbar spine diagnostic report 01/30/25 shows: No acute abnormality. Slight compression deformity of L1. Grade 1 L4-L5 spondylolisthesis in association with decreased height of L4-L5 intervertebral disc. Multilevel endplate degenerative changes. [facility] Medical History On beta brennon at home On anticoagulant therapy Thyrotoxicosis Cardiomyopathy NSVT (nonsustained ventricular tachycardia) Pulmonary embolism Chronic systolic CHF (congestive heart failure) COPD (chronic obstructive pulmonary disease) Hypothyroid Surgical History Hx of colonoscopy Status post cardiac catheterization History of cholecystectomy Family History Father Stroke Other Mental health disorder Social History (Updated 02/11/25 @ 14:33 by Shelbi Ta LPN) Household Members: Family Housing: House Housing Other:: mobile home Do you presently have visiting nurse or other home services: No Alcohol intake: former Year quit: 1987 Patient Tobacco Use Status: Former Tobacco user Tobacco use type: Cigarette Cigarette Packs Per Day: 0.5 Years Smoked: 50 Packs Per Year: 25 e-Cigarette/Vaping Use: Never Used Second Hand Smoke Exposure: Yes service: No Current occupational status: disabled Current occupational exposures/hazards: No Cognitive needs: No Hearing needs: No Vision needs: No Questionnaire Thrive Questionnaire Date Thrive assessed: 02/28/25 I am a: Patient What is your living situation today?: I have a steady place to live Within the past 12 months, did the food you bought not last and you didn't have the money to get more?: Often true Within the past 12 months, did you worry whether your food would run out before you got money to buy more?: Sometimes True Do you have trouble paying for medicines?: No Do you have trouble getting transportation to medical appointments?: No Do you have trouble paying your heating and electricity bill?: I choose not to answer this question Do you have trouble taking care of your child, family member or friend?: No Do you have trouble with day-to-day activities such as bathing, preparing meals, shopping, managing finances, etc.?: No Are you currently unemployed and looking for a job?: No Are you interested in more education?: No Please select the resources that you would like help with: None Currently or been in a relationship where the following occur: No concerns reported THRIVE Score: 2 VAHID-7 AMB Questionnaire VAHID-7 Date VAHID - 7 assessed: 11/09/23 Source: Developed by Drs. Kieran Robledo, Elayne Cameron, Candido Antonio and colleagues, with an educational boogie from [employer]. Review of Systems Const Denies chills, Denies fatigue, Denies fever(s), Denies headache(s) and Denies weakness ENT Denies dizziness and Denies headache(s) Card Denies dyspnea Resp Denies cough, Denies dyspnea, Denies wheezing and Denies other (shortness of breath) Musc Denies numbness and Denies tingling Neuro Denies dizziness, Denies headache(s), Denies numbness, Denies tingling and Denies weakness Psych Denies anxiety and Denies depression Endo Denies fatigue Aller/Immun Denies wheezing Physical exam (Primary Care) Vital Signs: Last Vital Signs Pulse 61 02/23/25 11:02 Resp 14 02/23/25 11:02 BP 110/70 02/23/25 11:02 Pulse Ox 96 02/23/25 11:02 Oxygen Delivery Method Room Air 02/23/25 11:02 BMI result Body Mass Index 21.2 Tobacco/Smoking Status: Tobacco use Status Tobacco use date assessed 02/20/24 02/23/25 11:05 Patient Tobacco Use Status Former Tobacco user 05/12/25 11:05 Tobacco use type Cigarette 02/23/25 11:05 e-Cigarette/Vaping Use Never Used 02/23/25 11:05 Thrive Assessment: Date of Thrive Assessment Date Thrive assessed 12/12/24 02/23/25 11:05 Currently or been in a relationship where the following occur: No concerns reported Const General: well developed; No acute distress Nutritional Appearance: well nourished Orientation/consciousness: patient oriented x3 HENMT Head: Yes normocephalic and Yes atraumatic Eyes General: appearance normal, both eyes and all related structures Pupils: Equal, round and reactive pupils present EOM: EOMs intact bilaterally Resp Effort & Inspection: normal respiratory effort Neuro General: patient oriented x3 and gait normal Cranial nerves: Yes Equal, round and reactive pupils present Psych Affect: normal affect Coding Level of Care Code Est Pt Level 4 (09418) Diagnoses Primary hypertension I10 Hypertension type: primary hypertension Coronary artery disease I25.10 Back pain M54.9 Assessment & Plan Assessment & Plan (1) Hypertension: Code(s): I10 - Essential (primary) hypertension Category: Medical Qualifiers: Hypertension type: primary hypertension Qualified Code(s): I10 - Essential (primary) hypertension Plan: Blood?pressure?is?controlled.??Goal?is?less?than?130/80 Continue?current?medication?regimen (2) Coronary artery disease: Code(s): I25.10 - Atherosclerotic heart disease of [place] coronary artery without angina pectoris Category: Medical Plan: Stable (3) Back pain: Code(s): M54.9 - Dorsalgia, unspecified Category: Medical Plan: Back?pain?after?fall. X-ray?shows?mild?compression?fracture?at L1 and?also?spondylolisthesis. 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
[2025-02-23 11:02] VITALS: BP 110/70; PULSE 61; RESP 14; O2SAT 96; BMI 21.2
--- OUTSIDE RECORDS SUMMARY | 2025-02-23 11:28 | XMS_ITS | Encounter Summary ---
Author Organization [facility] Address [address] [place] [address] Care Team Providers Care Group Controller Name Role Phone Luz Elena Coello MD Primary Care Provider Jerica Curry, Pcp Primary Care Provider Lurdes allen Encounter Details Date Type Department Care Team Description 03/30/2016 Hospital Medical Records [address] [place] [address] Kate Borges, GENERAL FARM HAND Social History Tobacco Use Types Packs/Day Years Used Date Smoking Tobacco: Former Cigarettes 0.7 50 Q uit: 03/28/2017 Smokeless Tobacco: Former Alcohol Use Standard Drinks/Week Comments No 0 (1 standard drink = 0.6 oz pur e alcohol) Sex Assigned at Date Recorded Not on file documented as of this encounter Plan of Treatment Not on file documented as of this encounter Visit Diagnoses Not on filedocumented in this encounter Care Teams Group Controller Relationship Specialty Start Date End Date Luz Elena Coello MD PCP - General Internal Medicine 01/03/16 01/31/21 Marquise Curry PCP - General Internal Medicine 02/01/21 documented as of this encounter
--- OUTSIDE RECORDS SUMMARY | 2025-02-23 11:28 | XMS_ITS | Encounter Summary ---
Author Organization [facility] Address [address] [place] [address] Care Team Providers Care Delivery Supervisor Name Role Phone Luz Elena Coello MD Primary Care Provider Jerica Curry Pcp Primary Care Provider Lurdes allen Reason for Visit * Reason Onset Date Comments TEST RESULTS 10/23/2017 Encounter Details Date Type Department Care Team Description 10/23/2017 Telephone Medicine/Pediatrics - [address] [id number] Dimple Reeves PA-C TEST RESULTS Social History Tobacco Use Types Packs/Day Years Used Date Smoking Tobacco: Former Cigarettes 0.7 50 Smokeless Tobacco: Former Alcohol Use Standard Drinks/Week Comments No 0 (1 standard drink = 0.6 oz pur e alcohol) Sex Assigned at Date Recorded Not on file documented as of this encounter Miscellaneous Notes * Telephone Encounter - Dimple Reeves PA-C - 10/24/2017 10:28 AM EST Orders done. Thank you * Telephone Encounter - Margo Jones RN - 10/24/2017 10:10 AM EST Patient reports he takes med everyday. Patient agreeable to repeat lab test. Informed patient to expect to see change in dose. * Telephone Encounter - Margo Jones RN - 10/23/2017 4:50 PM EST Left message for patient to call back * Telephone Encounter - Dimple Reeves PA-C - 10/23/2017 4:44 PM EST Please let the patient know that his thyroid function is very abnormal. Is he missing frequent doses of Levothyroxine? If he is taking it consistently I will send a higher dose to his pharmacy and heshould repeat the test in about 10 weeks at the lab. Thank you documented in this encounter Plan of Treatment Not on file documented as of this encounter Results * (ABNORMAL) THYROID PROFILE W/TSH (02/04/2018 2:19 PM EDT) TSH CASCADE 11.63(H) 0.40 - 4.00 uIU/ml 02/04/2018 7:00 PM EDT [facility] 02/04/2018 2:19 PM EDT 02/04/2018 2:19 PM EDT Dimple Reeves PA-C LAB Performing Organization Address City/State/[facility] Co de Phone Number [place] [phone] [facility] documented in this encounter Visit Diagnoses Diagnosis Hypothyroidism, unspecified type- Primary documented in this encounter Care Teams Delivery Supervisor Relationship Specialty Start Date End Date Luz Elena Coello MD PCP - General Internal Medicine 01/03/16 01/31/21 [facility], Pcp PCP - General Internal Medicine 02/01/21 documented as of this encounter
--- OUTSIDE RECORDS SUMMARY | 2025-02-23 11:28 | XMS_ITS | Encounter Summary ---
Author Organization [facility] Address [address] [place] [address] Care Team Providers Care Electronic Publishing Specialist Name Role Phone Luz Elena Coello MD Primary Care Provider Jerica Curry, Pcp Primary Care Provider Lurdes allen Encounter Details Date Type Department Care Team Description 08/20/2019 Old Medical Records Medical Records [address] [place] [address] Abstract, Provider Social History Tobacco Use Types Packs/Day Years [...] on filedocumented in this encounter Care Teams Electronic Publishing Specialist Relationship Specialty Start Date End Date Luz Elena Coello MD PCP - General Internal Medicine 01/03/16 01/31/21 Antoinette Pcp PCP - General Internal Medicine 02/01/21 documented as of this encounter
--- OUTSIDE RECORDS SUMMARY | 2025-02-23 11:28 | XMS_ITS | Encounter Summary ---
Author Organization [facility] Address [address] [place] [address] Care Team Providers Care Celery Stripper Name Role Phone Luz Elena Coello MD Primary Care Provider Jerica Curry, Pcp Primary Care Provider Lurdes allen Encounter Details Date Type Department Care Team Description 02/24/2016 Cloth Mercerizing Supervisor Report Medical Records [address] [place] [address] Buzz Agrawal MD Social History Tobacco Use Types Packs/Day Years Used Date Smoking Tobacco: Every Day Cigarettes 0.7 50 Alcohol Use Standard Drinks/Week Comments No 0 (1 standard drink = 0.6 oz pur e alcohol) Sex Assigned at Date Recorded Not on file documented as of this encounter Plan of Treatment Not on file documented as of this encounter Visit Diagnoses Not on filedocumented in this encounter Care Teams Celery Stripper Relationship Specialty Start Date End Date Luz Elena Coello MD PCP - General Internal Medicine 01/03/16 01/31/21 Antoinette, Pcp PCP - General Internal Medicine 02/01/21 documented as of this encounter
--- OUTSIDE RECORDS SUMMARY | 2025-02-23 11:28 | XMS_ITS | Encounter Summary ---
Author Organization [facility] Address [address] [place] [address] Care Team Providers Care Truck Switcher Name Role Phone Luz Elena Coello MD Primary Care Provider Jerica Curry, Pcp Primary Care Provider Lurdes allen Encounter Details Date Type Department Care Team Description 07/11/2016 Release of Information Medical Records [address] [place] [id number] Abstract, Provider Social History Tobacco Use Types Packs/Day Years Used Date Smoking Tobacco: Former Cigarettes 0.7 50 Alcohol Use Standard Drinks/Week Comments No 0 (1 standard drink = 0.6 oz pur e alcohol) Sex Assigned at Date Recorded Not on file documented as of this encounter Plan of Treatment Not on file documented as of this encounter Visit Diagnoses Not on filedocumented in this encounter Care Teams Truck Switcher Relationship Specialty Start Date End Date Luz Elena Coello MD PCP - General Internal Medicine 01/03/16 01/31/21 Antoinette, Pcp PCP - General Internal Medicine 02/01/21 documented as of this encounter
--- OUTSIDE RECORDS SUMMARY | 2025-02-23 11:28 | XMS_ITS | Encounter Summary ---
Author Organization [facility] Address [address] [place] [address] Care Team Providers Care Data Librarian Name Role Phone Luz Elena Coello MD Primary Care Provider Jerica Curry, Pcp Primary Care Provider Lurdes allen Encounter Details Date Type Department Care Team Description 01/27/2016 Hr Associate Report Medical Records [address] [place] [address] Buzz Agrawal MD Social History Tobacco Use [...] on filedocumented in this encounter Care Teams Data Librarian Relationship Specialty Start Date End Date Luz Elena Coello MD PCP - General Internal Medicine 01/03/16 01/31/21 Antoinette, Pcp PCP - General Internal Medicine 02/01/21 documented as of this encounter
--- OUTSIDE RECORDS SUMMARY | 2025-02-23 11:28 | XMS_ITS | Encounter Summary ---
Author Organization [facility] Address [address] [place] [address] Care Team Providers Care Straw Boss Name Role Phone Luz Elena Coello MD Primary Care Provider Jerica Curry, Pcp Primary Care Provider Lurdes allen Encounter Details Date Type Department Care Team Description 07/02/2017 Transfer Records Medical Records [address] [place] [address] Abstract, Provider Social History Tobacco Use Types [...] on filedocumented in this encounter Care Teams Straw Boss Relationship Specialty Start Date End Date Luz Elena Coello MD PCP - General Internal Medicine 01/03/16 01/31/21 Antoinette Pcp PCP - General Internal Medicine 02/01/21 documented as of this encounter
== END 2025-02-23 11:55 | disposition home or self-care (01) ==
LOC: HO.HMCFM 10:43
PROVIDERS: PCP Family Medicine; Visit Provider Family Medicine
DX: I10 Essential (primary) hypertension (principal); I25.10 Atherosclerotic heart disease of native coronary artery without angina pectoris; M54.9 Dorsalgia, unspecified

== ENCOUNTER → 2025-02-23 10:42 | Outpatient (BNVA) | payer MEDICARE, MEDICAID, SELFPAY | PROVIDERS: PCP Family Medicine; Visit Provider Family Medicine | DX: I10 Essential (primary) hypertension (principal); I25.10 Atherosclerotic heart disease of native coronary artery without angina pectoris; M54.9 Dorsalgia, unspecified | CPT/HCPCS: 99212 ==

== ENCOUNTER 2025-03-25 13:00 | Outpatient (REF) | payer MEDICARE, MEDICAID, SELFPAY ==
--- NOTE | ~2025-03-25 | CT_ITS ---
CLINICAL HISTORY: R91.8 - Other nonspecific abnormal finding of lung field CT chest without contrast Comparison: CT/SR - CT CHEST WO IV CON - 08/22/22 09:59 EST Findings: No cardiomegaly. Moderate atherosclerotic disease of the coronary arteries. No mediastinal adenopathy or pericardial effusion. Visualized thyroid demonstrates no discrete lesion. Lungs exhibit moderately severe centrilobular emphysema and several bilateral nodules, the largest of which abuts the minor fissure, on axial 83 and measures up to 6 mm. No new , increasing or suspicious nodule identified. The visualized upper abdomen demonstrates no acute process. There is fecal retention within the colon. No acute osseous abnormality. Impression: Moderately severe centrilobular emphysema with several stable sized bilateral nodules. No new, increasing or suspicious nodule. This document has been electronically signed by: Tank Byrd MD on 03/26/2025 07:12:12
== END 2025-03-25 13:01 | disposition home or self-care (01) ==
LOC: HO.CT 13:00
PROVIDERS: PCP Family Medicine; Visit Provider Nurse Practitioner Family
DX: R91.8 Other nonspecific abnormal finding of lung field (principal); Z87.891 Personal history of nicotine dependence
CPT/HCPCS: 71250

== ENCOUNTER → 2025-03-25 13:02 | Outpatient (BNV) | payer MEDICARE, MEDICAID, SELFPAY | PROVIDERS: PCP Family Medicine; Visit Provider Radiology Vascular & Interventional Radiology | DX: J43.2 Centrilobular emphysema (principal) | CPT/HCPCS: 71250 ==

== ENCOUNTER 2025-03-26 11:41 | Outpatient (REF) | payer MEDICARE, MEDICAID, SELFPAY ==
[2025-03-26 14:10] LABS: MANUAL DIFF FLAG NO
[2025-03-26 14:23] LABS: Basophils Absolute Auto 0.1 X10*3/uL (0.0-0.2); Basophils Percent Auto 1.3 % (0-2); Eosinophils Absolute Auto 0.6 X10*3/uL (0.0-0.4); Eosinophils Percent Auto 7.1 % (0-4); Hematocrit 51.3 % (42.0-52.0); Hemoglobin 16.4 g/dl (14.0-18.0); Imm Gran Abs Auto 0.02 X10*3/uL (0.00-0.03); Imm Gran Pct Auto 0.2 % (0.0-0.4); Lymphocytes Percent Auto 24.5 % (20-40); Mean Platelet Volume 11.6 fL (9.4-12.4); Monocytes Absolute Auto 0.8 X10*3/uL (0.1-1.2); Monocytes Percent Auto 9.2 % (2-11); Neutrophils Absolute Auto 4.7 x10*3/uL (2.0-8.3); Neutrophils Percent Auto 57.7 % (45-73); Platelet Count 289 X10*3/uL (160-400); Red Blood Count 5.29 X10*6/uL (4.60-5.80); Red Cell Distribution Width 12.7 % (11.0-16.0); White Blood Count 8.2 X10*3/uL (4.8-10.8)
[2025-03-26 14:37] LABS: Alanine Aminotransferase 40 U/L (0-40); Albumin Level 4.7 g/dL (3.5-5.0); Alkaline Phosphatase 146 U/L (39-117); Anion Gap 11 (12-20); Aspartate Amino Transferase 41 U/L (5-37); Bilirubin Total 1.1 mg/dL (0.0-1.0); Blood Urea Nitrogen 14 mg/dL (9-16); Calcium 10.1 mg/dL (8.4-10.2); Carbon Dioxide 30 mmol/L (22-29); Chloride 106 mmol/L (96-108); Cholesterol 108 mg/dL (<200); Estimated Glomerular Filt Rate > 60; Glucose Random 100 mg/dL (60-115); HDL Cholesterol 35 mg/dL (>40); LDL Cholesterol Calculated 48 mg/dL (<100); Sodium 143 mmol/L (135-145); Total Protein 7.2 g/dL (6.5-8.0); Triglycerides 125 mg/dL (<150)
[2025-03-26 14:47] LABS: Free T4 (Free Thyroxine) 1.19 ng/dL (0.71-1.85)
[2025-03-26 14:53] LABS: Thyroid Stimulating Hormone 1.38 uIU/mL (0.32-4.0)
[2025-03-27 07:18] LABS: Immunoglobulin E 96 kU/L (<OR=114)
[2025-03-27 08:14] LABS: Triiodothyronine T3 Total 94 ng/dL (76-181)
[2025-03-31 10:29] LABS: Class Alternaria alternata 0; Class Aspergillus fumigatus 0; Class Bermuda Grass 0; Class Birch 0; Class Cat Dander 0; Class Cladosporium herbarum 0; Class Cockroach 0; Class Common Ragweed 0; Class Cottonwood 0; Class Derm. pterony 0; Class Dermatophagoides farinae 0; Class Dog Dander 0; Class Elm 0; Class Maple Box Elder 0; Class Mountain Cedar 0; Class Mouse Urine Protein 0; Class Mugwort 0; Class Oak 0; Class Penicillium crysogenum 0; Class Rough Pigweed 0; Class Sheep Sorrel 0; Class Sycamore 0; Class Timothy Grass 0; Class Walnut Tree 0; Class White Ash 0/1; Class White Mulberry 0; D001 IgE D pteronyssinus <0.10 kU/L; D002 - IgE D farinae <0.10 kU/L; E001 - IgE Cat Dander <0.10 kU/L; E005 - IgE Dog Dander <0.10 kU/L; E072-IgE Mouse Urine <0.10 kU/L; G002 IgE Bermuda Grass <0.10 kU/L; G006 - IgE Timothy Grass <0.10 kU/L; I006-IgE Cockroach, German <0.10 kU/L; Immunoglobulin E 93 kU/L (<OR=114); M001 IgE Penicillium chrysogen <0.10 kU/L; M002 - IgE Cladosporium herbar <0.10 kU/L; M003 - IgE Aspergillus fumigat <0.10 kU/L; M006 - IgE Alternaria alternat <0.10 kU/L; T001 IgE Maple/Box Elder <0.10 kU/L; T003 IgE Common Silver Birch <0.10 kU/L; T006 - IgE Cedar, Mountain <0.10 kU/L; T007 - IgE Oak, White <0.10 kU/L; T008 IgE Elm, American <0.10 kU/L; T010 - IgE Walnut <0.10 kU/L; T011 - IgE Maple Leaf Sycamore <0.10 kU/L; T014 - IgE Cottonwood <0.10 kU/L; T015 - IgE Ash, White 0.13 kU/L; T070 - IgE White Mulberry <0.10 kU/L; W001 - IgE Ragweed, Short <0.10 kU/L; W006 - IgE Mugwort <0.10 kU/L; W014 IgE Pigweed, Common <0.10 kU/L; W018 IgE Sheep Sorrel <0.10 kU/L
== END 2025-03-26 11:42 | disposition home or self-care (01) ==
LOC: HO.WFDLDS 11:41
PROVIDERS: Nurse Practitioner Family; Referring Provider Nurse Practitioner Family; Visit Provider Family Medicine
DX: I25.10 Atherosclerotic heart disease of native coronary artery without angina pectoris (principal); E03.9 Hypothyroidism, unspecified; Z91.09 Other allergy status, other than to drugs and biological substances
CPT/HCPCS: 36415; 80053; 80061; 82785; 84439; 84443; 84480; 85025; 86003

== ENCOUNTER 2025-04-10 13:34 | Outpatient (AMB) | payer MEDICARE, MEDICAID, SELFPAY ==
--- NOTE | 2025-04-10 13:04 | MHC.OFFVIS ---
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 Prior PFT 2018 revealed mild COPD, not interested in repeating. He reported suboptimal control on Breo 100 mcg and Incruse, at the last visit Breo was increased to 200 mcg. He was also prescribed a nebulizer which he did receive however has not used. He continues to report dry cough which is triggered by weather changes as well as dyspnea on exertion. Denies chest tightness or wheezing. Today he presents to review CT chest, and RAST results. He denies any urgent care visits/hospitalizations related to respiratory distress since the last visit. [facility] Medical History On beta brennon at home On anticoagulant therapy Thyrotoxicosis Cardiomyopathy NSVT (nonsustained ventricular tachycardia) Pulmonary embolism Chronic systolic CHF (congestive heart failure) COPD (chronic obstructive pulmonary disease) Hypothyroid Surgical History Hx of colonoscopy Status post cardiac catheterization History of cholecystectomy Family History Father Stroke Other Mental health disorder Social History Household Members: Family Housing: House Housing Other:: mobile home Do you presently have visiting nurse or other home services: No Alcohol intake: former Year quit: 1987 Patient Tobacco Use Status: Former Tobacco user Tobacco use type: Cigarette Cigarette Packs Per Day: 0.5 Years Smoked: 50 e-Cigarette/Vaping Use: Never Used Second Hand Smoke Exposure: Yes service: No Current occupational status: disabled Current occupational exposures/hazards: No Cognitive needs: No Hearing needs: No Vision needs: No Review of Systems Const Denies chills, Denies excessive sweating, Denies fever(s), Denies headache(s) and Denies night sweats Eyes Denies dry eyes, Denies irritation and Denies itchy eyes ENT Reports Normal hearing present, Denies headache(s), Denies nasal congestion, Denies nasal discharge and Denies sore throat Card Denies chest pain, Denies chest pain at rest, Denies chest pain with activity, Denies claudication, Denies leg edema, Denies orthopnea and Denies paroxysmal nocturnal dyspnea Resp Denies chest congestion, Denies excessive phlegm production, Denies pain on inspiration, Denies pain with cough and Denies stridor Musc Denies myalgias Neuro Reports Normal hearing present and Denies headache(s) Endo Denies excessive sweating Jose A/Lymph Denies lymphadenopathy Aller/Immun Denies itchy eyes Physical Exam Vital Signs: Last Vital Signs Pulse 51 04/10/25 13:37 BP 102/60 04/10/25 13:37 Pulse Ox 99 04/10/25 13:37 Oxygen Delivery Method Room Air 04/10/25 13:37 BMI result Body Mass Index 21.5 Const General: cooperative, comfortable, no acute distress and alert Nutritional Appearance: thin Orientation/consciousness: patient oriented x3 Limitations: no limitations HEENT Head: Yes normal to inspection, Yes normocephalic and Yes atraumatic Ears: hearing grossly normal bilaterally and external ears normal Neck Neck: Yes normal visual inspection and Yes no lymphadenopathy Lymphatic: no lymphadenopathy noted Chest Chest palpation & inspection: normal inspection of the chest Resp Effort & Inspection: normal respiratory effort, able to speak in complete sentences, no audible wheezes, no cough, no stridor, not tachypneic, no tripod positioning and no use of accessory muscles Auscultation: diminished lung sounds Cardio Jugular venous distension: no JVD Rate: regular rate Rhythm: regular rhythm Skin Other: warm, dry General skin exam: no rashes or lesions noted Neuro General: patient oriented x3 Cranial nerves: Yes Normal hearing present Cognition (Neuro): normal cognition Gait exam (Neuro): Normal gait present Extrem General: Yes normal to inspection, Yes capillary refill normal, Yes no clubbing, cyanosis or edema and Yes no pedal edema Psych Appearance: grossly normal and well kempt Speech and movement: Normal speech and movement present and Clear speech present Affect: normal affect Attitude: cooperative Thought process: Normal thought process present Thought content: Normal thought content present Insight: Good insight present (Psych) Judgement: Good judgement present (Psych) Results Reviewed Results Reviewed: [address] [address] [address] Scan Report Signed Patient: Tico Barahona Sr MR#: [id number] : 1950 Acct:[id number] Age/Sex: 74 / M ADM Date: 03/25/25 Loc: HO.CT Attending Dr: Shahrzad Burrell NP Ordering Physician: Shahrzad Burrell NP Date of Service: 03/25/25 Procedure(s): CT chest wo IV con Accession Number(s): [id number] cc: Mac Lockwood MD; Shahrzad Burrell NP~ Report Number: [id number]: Total DLP = 111.00 mGy-cm CLINICAL HISTORY: R91.8 - Other nonspecific abnormal finding of lung field CT chest without contrast Comparison: CT/SR - CT CHEST WO IV CON - 08/22/22 09:59 EST Findings: No cardiomegaly. Moderate atherosclerotic disease of the coronary arteries. No mediastinal adenopathy or pericardial effusion. Visualized thyroid demonstrates no discrete lesion. Lungs exhibit moderately severe centrilobular emphysema and several bilateral nodules, the largest of which abuts the minor fissure, on axial 83 and measures up to 6 mm. No new , increasing or suspicious nodule identified. The visualized upper abdomen demonstrates no acute process. There is fecal retention within the colon. No acute osseous abnormality. Impression: Moderately severe centrilobular emphysema with several stable sized bilateral nodules. No new, increasing or suspicious nodule. This document has been electronically signed by: Tank Byrd MD on 03/26/2025 07:12:12 Dictated By: Tank Byrd MD Signed By: <Electronically signed by Tank Byrd MD in OV> 03/26/25711 DD/ 1 TD/TT: 03/26/25711 Lead Software Developer: Assessment & Plan Assessment & Plan (1) COPD (chronic obstructive pulmonary disease): Code(s): J44.9 - Chronic obstructive pulmonary disease, unspecified Category: Medical (2) Environmental allergies: Code(s): Z91.09 - Other allergy status, other than to drugs and biological substances Category: Medical (3) Multiple pulmonary nodules: Code(s): R91.8 - Other nonspecific abnormal finding of lung field Category: Medical (4) Personal history of smoking: Code(s): Z87.821 - Personal history of nicotine dependence Category: Social Hx Plan Reviewed chest CT which revealed moderately severe centrilobular emphysema with several stable sized bilateral nodules, largest 6 mm. Will repeat in one year to assess stability. Encouraged continued use of Breo and Incruse, as well as nebulized levalbuterol PRN. He is aware if symptoms do not improve to call office. RAST + for white jeff tree otherwise negative. All questions were answered and patient is in agreement of plan. Will follow-up in 3 months or sooner if needed. Medications: Refilled fluticasone furoate-vilanterol 200-25 mcg/dose (Breo Ellipta) 1 inh inhalation DAILY 60 ea 3RF umeclidinium 62.5 mcg/actuation (Incruse Ellipta) 1 inh inhalation DAILY 30 ea 3RF Coding Level of Care Code Est Pt Level 4 (73685) Diagnoses COPD (chronic obstructive pulmonary disease) J44.9 Environmental allergies Z91.09 Multiple pulmonary nodules R91.8 Personal history of smoking Z87.418
[2025-04-10 13:37] VITALS: BP 102/60; PULSE 51; O2SAT 99; BMI 21.5
== END 2025-04-10 14:36 | disposition home or self-care (01) ==
LOC: HO.HPSW 13:35
PROVIDERS: PCP Family Medicine; Visit Provider Nurse Practitioner Family
DX: J44.9 Chronic obstructive pulmonary disease, unspecified (principal); Z91.09 Other allergy status, other than to drugs and biological substances; R91.8 Other nonspecific abnormal finding of lung field; Z87.891 Personal history of nicotine dependence
CPT/HCPCS: 99214

== ENCOUNTER → 2025-04-10 13:34 | Outpatient (BNVA) | payer MEDICARE, MEDICAID, SELFPAY | PROVIDERS: PCP Family Medicine; Visit Provider Nurse Practitioner Family | DX: R91.8 Other nonspecific abnormal finding of lung field (principal); J44.9 Chronic obstructive pulmonary disease, unspecified; Z91.09 Other allergy status, other than to drugs and biological substances; Z87.891 Personal history of nicotine dependence | CPT/HCPCS: 99212 ==

== ENCOUNTER 2025-05-01 11:25 | Outpatient (AMB) | payer MEDICARE, MEDICAID, SELFPAY ==
[2025-05-01 12:19] VITALS: BP 110/66; PULSE 58; RESP 12; O2SAT 96; BMI 21.2
--- NOTE | 2025-05-01 12:19 | A.OFFPC_ITS ---
Vital Signs 05/01/25 12:19 Height 5 ft 5 in Weight 127 lb 4 oz BMI 21.2 BP 110/66 Blood Pressure Location Rt brachial Position Sitting Respiration 12 Pulse 58 Pulse Source Pulse Oximeter Pulse Oximetry (%) 96 Oxygen Delivery Method Room Air Intake Visit Reasons: f/u on labs / thyroid Intake Note: patient is scheduled to review lab results with pcp Workers Compensation Paralegal Required: No Allergies No Known Allergies Allergy (Mild, Verified 05/01/25 12:20) NOT APPLICABLE Medication List - Last Reconciled 05/01/25 by Mac Lockwood MD albuterol sulfate 90 mcg/actuation (ProAir HFA) 2 puffs inhalation Q6H PRN 1 month apixaban (Eliquis) 5 mg PO BID 90 days atorvastatin 40 mg PO BEDTIME bisoprolol fumarate 2.5 mg (1/2 x 5 mg) PO DAILY Breo Ellipta 200-25 mcg/dose (fluticasone furoate-vilanterol) 1 inh inhalation DAILY NS Farxiga (dapagliflozin propanediol) 10 mg PO DAILY NS furosemide 40 mg PO DAILY levalbuterol HCl 1.25 mg (3 mL) inhalation Q4-6H PRN levothyroxine 75 mcg (1.5 x 50 mcg) PO DAILY@0600 30 days losartan 12.5 mg (1/2 x 25 mg) PO DAILY 90 days montelukast 10 mg PO DAILY 30 days umeclidinium 62.5 mcg/actuation (Incruse Ellipta) 1 inh inhalation DAILY Tobacco use date assessed: 02/20/24 Dental Screening Dental Screen Date: 12/19/23 HPI f/u on labs / thyroid HPI Details 74 y/o male presents to f/u labs, blood pressure. Labs drawn 03/26/25. Triglycerides 125. TC 108. LDL 48. HDL low at 35. He is on levothyroxine 75 mcg daily. All thyroid levels within normal range. BP today 110/66, 58p. PFSH Medical History On beta brennon at home On anticoagulant therapy Thyrotoxicosis Cardiomyopathy NSVT (nonsustained ventricular tachycardia) Pulmonary embolism Chronic systolic CHF (congestive heart failure) COPD (chronic obstructive pulmonary disease) Hypothyroid Surgical History Hx of colonoscopy Status post cardiac catheterization History of cholecystectomy Family History Father Stroke Other Mental health disorder Social History Household Members: Family Housing: House Housing Other:: mobile home Do you presently have visiting nurse or other home services: No Alcohol intake: former Year quit: 1987 Patient Tobacco Use Status: Former Tobacco user Tobacco use type: Cigarette Cigarette Packs Per Day: 0.5 Years Smoked: 50 e-Cigarette/Vaping Use: Never Used Second Hand Smoke Exposure: Yes service: No Current occupational status: disabled Current occupational exposures/hazards: No Cognitive needs: No Hearing needs: No Vision needs: No Questionnaire Thrive Questionnaire Date Thrive assessed: 12/12/24 I am a: Patient What is your living situation today?: I have a steady place to live Within the past 12 months, did the food you bought not last and you didn't have the money to get more?: Often true Within the past 12 months, did you worry whether your food would run out before you got money to buy more?: Sometimes True Do you have trouble paying for medicines?: No Do you have trouble getting transportation to medical appointments?: No Do you have trouble paying your heating and electricity bill?: I choose not to answer this question Do you have trouble taking care of your child, family member or friend?: No Do you have trouble with day-to-day activities such as bathing, preparing meals, shopping, managing finances, etc.?: No Are you currently unemployed and looking for a job?: No Are you interested in more education?: No Please select the resources that you would like help with: None Currently or been in a relationship where the following occur: No concerns reported THRIVE Score: 2 VAHID-7 AMB Questionnaire VAHID-7 Date VAHID - 7 assessed: 11/09/23 Source: Developed by Drs. Kieran Robledo, Elayne Cameron, Candido Antonio and colleagues, with an educational boogie from [employer] Physical exam (Primary Care) Vital Signs: Last Vital Signs Pulse 58 05/01/25 12:19 Resp 12 05/01/25 12:19 BP 110/66 05/01/25 12:19 Pulse Ox 96 05/01/25 12:19 Oxygen Delivery Method Room Air 05/01/25 12:19 BMI result Body Mass Index 21.2 Tobacco/Smoking Status: Tobacco use Status Tobacco use date assessed 02/20/24 05/01/25 12:22 Patient Tobacco Use Status Former Tobacco user 05/01/25 12:22 Tobacco use type Cigarette 05/01/25 12:22 e-Cigarette/Vaping Use Never Used 05/01/25 12:22 Thrive Assessment: Date of Thrive Assessment Date Thrive assessed 12/12/24 05/01/25 12:22 Currently or been in a relationship where the following occur: No concerns reported Telehealth Telehealth Telehealth Platform: Telephone Location of provider rendering services: practice address Location of patient: address on file Patient Identification confirmed using: Name, : Yes Telehealth method: voice only Patient verbally consented to treatment: Yes Patient verbally consented to billing insurance company: Yes Patient informed of any privacy concerns related to visit: Yes Minutes spent on Phone/Video with Pt.: 5 Coding Level of Care Code Tele Est Pt Level 2 (94554) Diagnoses Primary hypertension I10 Hypertension type: primary hypertension Coronary artery disease I25.10 Acquired hypothyroidism E03.9 Hypothyroidism type: acquired Low HDL (under 40) E78.6 Elevated liver enzymes R74.8 Hyperlipidemia E78.5 Assessment & Plan Assessment & Plan (1) Hypertension: Code(s): I10 - Essential (primary) hypertension Category: Medical Qualifiers: Hypertension type: primary hypertension Qualified Code(s): I10 - Essential (primary) hypertension Plan: Blood pressure is controlled. Goal is less than 130/80 Continue current medications (2) Coronary artery disease: Code(s): I25.10 - Atherosclerotic heart disease of [place] coronary artery without angina pectoris Category: Medical Plan: Stable f/u w/ Cardiology as recommended (3) Hypothyroidism: Code(s): E03.9 - Hypothyroidism, unspecified Category: Medical Qualifiers: Hypothyroidism type: acquired Qualified Code(s): E03.9 - Hypothyroidism, unspecified Plan: Thyroid hormone levels are all within normal range Continue current medication (4) Low HDL (under 40): Code(s): E78.6 - Lipoprotein deficiency Category: Medical Plan: Encouraged exercise as tolerated (5) Elevated liver enzymes: Code(s): R74.8 - Abnormal levels of other serum enzymes Category: Medical Plan: Liver enzyme mildly elevated. Encouraged increased hydration Will recheck with next blood draw (6) Hyperlipidemia: Code(s): E78.5 - Hyperlipidemia, unspecified Category: Medical Plan: Patient is on atorvastatin LDL cholesterol is controlled and at goal of less than 70 Will continue to monitor Continue current medication Orders: Orders Comprehensive [place]. Panel Fast Today R74.8 - Abnormal levels of other serum enzymes, Z00.00 - Encounter for general adult medical examination without a bnormal findings Lipid Panel Today E78.5 - Hyperlipidemia, unspecified, Z00.00 - Encounter for general adult medical examination without abnormal findings
== END 2025-05-01 16:22 | disposition home or self-care (01) ==
PROVIDERS: PCP Family Medicine; Visit Provider Family Medicine
DX: I10 Essential (primary) hypertension (principal); I25.10 Atherosclerotic heart disease of native coronary artery without angina pectoris; E03.9 Hypothyroidism, unspecified; E78.6 Lipoprotein deficiency; R74.8 Abnormal levels of other serum enzymes; E78.5 Hyperlipidemia, unspecified

== ENCOUNTER 2025-05-14 08:33 | Outpatient (REF) | payer MEDICARE, MEDICAID, SELFPAY ==
--- NOTE | ~2025-05-14 | XR_ITS ---
EXAMINATION: XR LUMBAR SPINE 6 OR MORE VIEWS INCLUDING BENDING HISTORY: M51.369 - Other intervertebral disc degeneration, lumbar region without ... COMPARISON: There are no prior studies for comparison. FINDINGS: AP, and neutral, flexion, and extension lateral views of the lumbar spine are submitted. Osseous mineralization is normal. Five nonrib-bearing lumbar vertebral bodies are identified, maintaining normal height without evidence of fracture. There is slight rightward curvature. There is grade I spondylolisthesis of L4 on L5 without significant change in flexion or extension. There is mild to moderate degenerative disc disease with disc space narrowing and osteophyte formation. There is osteoarthritis of the facet joints. The visualized paraspinal soft tissues are unremarkable. XR/XR lumbar spine 6V w bending IMPRESSION: Mild rightward curvature. Mild to moderate degenerative disc disease. Grade I spondylolisthesis of L4 on L5 without significant change with flexion or extension. Electronically signed by: Kieran Faustin MD 05/14/2025 09:51 AM EDT
--- NOTE | ~2025-05-14 | XR_ITS ---
EXAMINATION: XR BILATERAL HIPS WITH AP PELVIS CLINICAL INFORMATION: M25.559 - Pain in unspecified hip COMPARISON: None available. TECHNIQUE: AP view of the pelvis and frog-leg lateral views of each hip were obtained. FINDINGS: Right hip: There is mild axial joint space narrowing. Minimal osteophyte formation is present at the femoral head and acetabular roof. No soft tissue calcification is seen. Left hip: There is mild axial migration of the femoral head in the joint. There are small to medium sized marginal osteophytes involving lateral femoral head and acetabular roof. No soft tissue calcific lesions are seen. SI joints demonstrate mild degenerative irregularity and small marginal osteophytes. XR/XR hips ADAM min 3V IMPRESSION: Mild osteoarthritis of both hips, left greater than right. Mild osteoarthritis of bilateral SI joints. Electronically signed by: Felix Marshall MD 05/14/2025 09:39 AM EDT
== END 2025-05-14 08:34 | disposition home or self-care (01) ==
LOC: HO.HOSX 08:33
PROVIDERS: PCP Family Medicine; Visit Provider Physical Medicine & Rehabilitation
DX: S32.010S Wedge compression fracture of first lumbar vertebra, sequela (principal); M51.369 Other intervertebral disc degeneration, lumbar region without mention of lumbar back pain or lower extremity pain; M43.16 Spondylolisthesis, lumbar region; M25.551 Pain in right hip; M25.552 Pain in left hip; R26.89 Other abnormalities of gait and mobility; Z91.81 History of falling; W18.30XS Fall on same level, unspecified, sequela
CPT/HCPCS: 72114; 73522; 99202

== ENCOUNTER 2025-05-14 08:33 | Outpatient (AMB) | payer MEDICARE, MEDICAID, SELFPAY ==
--- OUTSIDE RECORDS SUMMARY | 2025-05-14 08:44 | XMS_ITS | Clinical Summary ---
Author Organization [facility] Address [address] [place] [address] Care Team Providers Care Appointment Specialist Name Role Phone Community, Pcp Primary Care Provider Unavailabl e Allergies No known active allergies Medications Medication Sig Dispensed Refills Start Date End Date Status ibuprofen (ADVIL,MOTRIN) 600 MG tablet Take 600 mg by mouth every 6 hours as needed. 0 Active acetaminophen (TYLENOL) 325 MG tablet Take 650 mg by mouth every 6 hours as needed. 0 Active ALBUTEROL SULFATE 108 (90 Base) MCG/ACT Aero Soln Inhale 2 Puffs into the lungs 4 times daily as needed for Cough, Wheezing or Shortness of Breath. 1 Inhaler 1 08/19/2019 Active Fluticasone Furoate-Vilanterol 100-25 MCG/INH AEROSOL POWDER,BREATH ACTIVATED Inhale into the lungs daily. 0 Active benzonatate (TESSALON) 100 MG capsule Take 100 mg by mouth 3 times daily as needed. 0 Active SPACER DEVICE-ADULT Use as directed with inhaler. 1 Device 0 11/14/2019 Active predniSONE (DELTASONE) 20 MG tablet Take 2 tabs x 5 days 10 Tab 0 11/14/2019 Active atorvastatin (LIPITOR) 40 MG tablet Take 1 Tab by mouth daily. 90 Tab 0 06/08/2020 Active levothyroxine (SYNTRHOID, LEVOTHROID) 137 MCG tablet Take 1 Tab by mouth daily for 360 days. 30 Tab 5 07/22/2020 Active ELIQUIS DVT/PE STARTER PACK 5 MG Tab TAKE 2 TABLETS BY MOUTH 2 TIMES A DAY,X7 DAYS FOLLOWED BY 1 TABLET BY MOUTH TWICE DAILY FOR 23 DAYS 0 07/17/2020 Active Active Problems Patient Care Coordination No te Formatting of this note is d ifferent from the original. Checking Your Blood Sugars Please check your blood sugars every day. Please check your sugars at the following times of day: before breakfast Your Blood Sugar Goals Pre Meal: 90-130 2 hours after meals: 110-160 Bedtime: 110-150 Use the Results Bring your glucometer to every appointment Write your fingerstick blood sugars down on a log sheet or record book. Bring them to your appointment Look for patterns in the numbers. The results help you and your provider make decisions about your diabetes treatment plan. Your Results and your Goals Your Result / Date of Completion Your Goal / How Often to Assess Component Value Date HGBA1C 5.3 02/14/2016 Less than 7% --- 2-4 times per year BP Readings from Last 1 Encounters: 04/05/16 130/90 Less than 140/90 --- once per year Component Value Date MALBCR 9.1 02/14/2016 Less than 30 --- once per year Component Value Date LDL 77 02/14/2016 Less than 100 --- once per year Wt Readings from Last 1 Encounters: 04/05/16 125 lb (56.7 kg) Your goal weight by next visit: 125 --- reassess 2-4 times a year Health Maintenance Due Topic Date Due Dtap/tdap/td (#1 - Tdap) 1961 Depression Screen 1962 Diabetes: Annual Foot Exam 1968 Diabetes: Annual Care Plan 1968 Hepatitis C Screening 2000 Colon Cancer Screening 2000 Adult Immunization: Zostavax For Patients Over 60 2010 Fall Risk Assessment 2015 Pneumococcal Vaccine (#1 of 2 - Dose 1 = PCV13, Dose 2 = PPSV23) 2015 Abdominal Aortic Aneurysm (Aaa) Screening 2015 Diabetes: Annual Eye Exam 12/23/2015 Your Action Plan Check blood glucose as directed and write down all results. Contact me if you experience any barriers to care such as inability to purchase your medication, difficulty getting to your appointments or difficulty understanding your care plan When to Call your Healthcare Provider If your blood sugar falls below 70 and you do not know why or you become unconscious If you are sick and unable to take liquids because or nausea or vomiting If you have a fever over 101 If your blood sugar is 300 or higher on greater than 3 separate occasions during the same week If you are just unsure what to do Educational Resources [place] Diabetes Association (www.diabetes.org) Centers for Disease Control and Prevention (www.cdc.gov/diabetes) This care plan was created in collaboration with Ruiz Barahona Sr. on 04/05/2016 Problem Noted Date Heart failure with reduced ejection frac tion 07/26/2020 Pulmonary embolism 07/26/2020 TIA (transient ischemic attack) 07/26/20 20 Chronic obstructive pulmonary disease Pure hypercholesterolemia 05/15/2018 Lumbar spinal stenosis 02/09/2016 Depression Arthritis Lung nodules Overview: Pulmonary hamartoma History of tobacco use Hypothyroidism Emphysema lung Cataract, left eye Resolved Problems Problem Noted Date Resolved Date Diet-controlled type 2 diabetes mellitus 019 08/20/2019 DM (diabetes mellitus) 6 Thyroid disease 01/03/2016 Uncomplicated type 2 diabetes mellitus 11/18/2018 Immunizations Name Administration Dates Next Due Influenza vaccine high dose age 65 and over 07/30/2019,07/11/2018,06/26/2017,07/10 Pneumoccoccal(Adult) Polysac charide PPSV23 10/22/2017 Pneumococcal Conjugate PCV-13 09/15/2016 TD (STATE SUPPLIED FOR ADULT S AND CHILDREN) 10/22/2017 Family History Medical History Relation Name Comments CA Lung Brother 7 Stroke Father old age Mother 96 Relation Name Status Comments Brother 1 (Age 58) Brother 2 Alive Brother 3 Alive Brother 4 Alive Brother 5 Alive Brother 6 Brother 7 Daughter 1 Alive Daughter 2 Alive Father (Age 69) stroke Maternal Grandfather Maternal Grandmother Mother (Age 92) Paternal Grandfather Paternal Grandmother Sister 1 Alive Sister 2 Alive Sister 3 Alive Sister 4 Alive Sister 5 Alive Son 1 Alive Son 2 Alive Social History Tobacco Use Types Packs/Day Years Used Date Smoking Tobacco: Former Cigarettes 0.7 50 Q uit: 03/28/2017 Smokeless Tobacco: Former Alcohol Use Standard Drinks/Week Comments No 0 (1 standard drink = 0.6 oz pur e alcohol) Sex Assigned at Date Recorded Not on file Last Filed Vital Signs Vital Sign Reading Time Taken Comments Blood Pressure 118/70 11/14/2019 10:07 AM EST Pulse 88 11/14/2019 10:07 AM EST Temperature 36.8 C (98.3 F) 11/14/2019 10:07 AM EST Respiratory Rate 18 11/14/2019 10:07 AM EST Oxygen Saturation 99% 11/14/2019 10:07 AM EST Inhaled Oxygen Concentration - - Weight 54.4 kg (120 lb) 11/14/2019 10:07 AM EST Height 167.6 cm (5' 6 ) 08/19/2019 11:39 AM EST Body Mass Index 19.37 08/19/2019 11:39 AM EST Plan of Treatment Health Maintenance Due Date Last Done Comments Covid-19 Vaccine (#1) 04/01/1951 DEPRESSION SCREEN 1962 SHINGLES VACCINE (1 of 2) 2000 DIABETES: ANNUAL FOOT EXAM 07/10/2017 07/10/2016 DTAP/TDAP/TD (1 - Tdap) 10/23/2017 10/22/2017 FALL RISK ASSESSMENT 05/15/2019 05/15/2018 DIABETES: BLOOD SUGAR CONTRO L TEST (HGBA1C) 11/19/2019 08/19/2019, 11/18/2018, 05/15/2018, Additional history exists DIABETES: ANNUAL EYE EXAM 03/13/2020 03/13/2019, 07/2015 DIABETES: ANNUAL URINE PROTE IN TEST (MICROALBUMIN) 05/19/2020 05/19/2019, 10/22/2017, 02/14/2016 DIABETES/HEART DISEASE: SHANKAR AL CHOLESTEROL (LDL) 08/19/2020 08/19/2019, 11/18/2018, 05/15/2018, Additional history exists Lung Cancer Screening (Low D ose CT) 05/31/2021 05/31/2020, 01/17/2016 COLON CANCER SCREENING 03/26/2023 3 (External Completion) BMI CHECK/ADVISE 10/15/2024 INFLUENZA (#1) 2025 07/30/2019, 06/16, 06/26/2017, Additional history exists HEPATITIS C SCREENING Completed 07/04/2016 PNEUMOCOCCAL VACCINE Completed 10/22/2017, 09/15/20 ABDOMINAL AORTIC ANEURYSM (A AA) SCREENING Completed 04/10/2018, 10/13/2016 Care Teams Appointment Specialist Relationship Specialty Start Date End Date Community, Pcp PCP - General Internal Medicine 02/01/21
--- NOTE | 2025-05-14 08:46 | A.OFFVIS_ITS ---
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 Patient was referred by his PCP Mac Lockwood 02/23/25, at that visit patient was seen for Back pain after a fall at home DOI: 01/17/25. At today's visit he states that he has not tried physical therapy or an injections, the pain radiates across the lower back and sometimes radiates into the hips. No numbness or tingling to report at this time. X-ray shows mild compression fracture at L1 and also spondylolisthesis. Allergies No Known Allergies Allergy (Mild, Verified 05/14/25 08:51) NOT APPLICABLE Medication List - Last Reconciled 05/14/25 by Chelsie Garcia MD albuterol sulfate 90 mcg/actuation (ProAir HFA) 2 puffs inhalation Q6H PRN 1 month apixaban (Eliquis) 5 mg PO BID 90 days atorvastatin 40 mg PO BEDTIME bisoprolol fumarate 2.5 mg (1/2 x 5 mg) PO DAILY Breo Ellipta 200-25 mcg/dose (fluticasone furoate-vilanterol) 1 inh inhalation DAILY NS Farxiga (dapagliflozin propanediol) 10 mg PO DAILY NS furosemide 40 mg PO DAILY levalbuterol HCl 1.25 mg (3 mL) inhalation Q4-6H PRN levothyroxine 75 mcg (1.5 x 50 mcg) PO DAILY@0600 30 days losartan 12.5 mg (1/2 x 25 mg) PO DAILY 90 days montelukast 10 mg PO DAILY 30 days umeclidinium 62.5 mcg/actuation (Incruse Ellipta) 1 inh inhalation DAILY HPI Comments Details: Multiple past medical history including AFib and PE, on Eliquis. Patient referred after fall in January. Referral Sitz spondylolysis but upon review of x- ray done 01/30/2025 at [facility], no spondylolysis was mentioned. However there was grade 1 spondylolisthesis L4-5 and slight compression on L1 vertebral body. Here with torch operator Georgette. Denies severe pain prior to fall in January. He does have arthritis up and down the back . Pain now middle lower back. Denies radiation to legs. No numbness or weakness. Has chronically poor balance. Has a cane for backup but normally does not use it. No associated chest pain or radiation to chest/abdomen. No bladder/bowel changes. He says that he did fracture his back 2002. [facility] Medical History On beta brennon at home On anticoagulant therapy Thyrotoxicosis Cardiomyopathy NSVT (nonsustained ventricular tachycardia) Pulmonary embolism Chronic systolic CHF (congestive heart failure) COPD (chronic obstructive pulmonary disease) Hypothyroid Surgical History Hx of colonoscopy Status post cardiac catheterization History of cholecystectomy Family History Father Stroke Other Mental health disorder Social History Household Members: Family Housing: House Housing Other:: mobile home Do you presently have visiting nurse or other home services: No Alcohol intake: former Year quit: 1987 Patient Tobacco Use Status: Former Tobacco user Tobacco use type: Cigarette Cigarette Packs Per Day: 0.5 Years Smoked: 50 e-Cigarette/Vaping Use: Never Used Second Hand Smoke Exposure: Yes service: No Current occupational status: disabled Current occupational exposures/hazards: No Cognitive needs: No Hearing needs: No Vision needs: No Review of Systems Const All systems reviewed & are unremarkable except as noted in HPI and below Physical Exam Exam Exam: Constitutional: Patient appears to be in no acute distress, well nourished and well developed. Patient was appropriately conversant and oriented. Good historian. MSK: No specific abnormalities found on inspection of the spine and all extremities. No pain with palpation over the lumbar area. No specific tenderness over spinous processes. He indicated pain is on the lower lumbar area, not L1. Lumbar ROM was full. Bilateral hip, knee and ankle ROM WNL. No ligamentous laxity or crepitance. No increased effusion. Straight-leg raising test negative. FABERE test positive bilateral lower back pain. Strength is 5/5 in all muscle groups tested. No increased tone noted. He did have good strength despite being in pain. Neurological: Neurologic examination of the upper and lower extremities was nonfocal with intact sensation, muscle stretch reflexes and without focal motor deficits . Nielson?s negative bilaterally. Babinski was down going bilaterally. Clonus was negative. Gait is non-antalgic without loss of balance. Vital Signs: BMI result Body Mass Index 20.7 Results Reviewed Results Reviewed: Lumbar x-rays done [facility] 01/30/2025 reported diminished height L4-5 but other disc spaces are maintained. Grade 1 L4-5 spondylolisthesis. SI joints intact. Slight compression deformity L1. No other fracture. I reviewed records from the following: PCP Assessment & Plan Assessment & Plan (1) Lumbar adjacent segment disease with spondylolisthesis: Code(s): M51.369 - Other intervertebral disc degeneration, lumbar region without mention of lumbar back pain or lower extremity pain; M43.16 - Spondylolisthesis, lumbar region Category: Medical (2) Vertebral compression fracture: Code(s): M48.50XA - Collapsed vertebra, not elsewhere classified, site unspecified, initial encounter for fracture Category: Medical Qualifiers: Encounter type: sequela Fracture of vertebra location: lumbar Lumbar vertebra fracture level: L1 Qualified Code(s): S32.010S - Wedge compression fracture of first lumbar vertebra, sequela (3) Status post fall: Code(s): Z91.81 - History of falling Category: Medical (4) Poor balance: Code(s): R26.89 - Other abnormalities of gait and mobility Category: Medical Plan Lower back pain, nonradicular, no neurologic deficit. 1. Grade 1 L4-5 spondylolisthesis-most likely degenerative in etiology. Do not think it is causing any spinal cord compression as there is no neurologic deficit or signs today. We can do more lumbar x-ray views to assess for spondylolysis/pars fracture, and any movement. 2. L1 compression reported on x-ray - most likely chronic. Patient did not have tenderness over L1 today. His pain is not on that level. 3. Fall risk, poor balance - referring to PT to work on lower back, gait and balance as well. They were amenable to this. Also to assess for need of assistive device. Assessment and plan discussed with patient, and patient was agreeable. All questions were answered thoroughly. Follow up 3 months. Chelsie Garcia MD, [place]SH[place] Board Certified, [place] [employer] and Rehabilitation (ABPMR) Board Certified, [place] [employer] Electrodiagn[employer] (ABEM) Orders: Orders XR hips ADAM min 3V Today M25.559 - Pain in unspecified hip, M43.16 - Spondylolisthesis, lumbar region, M48.50XA - Collapsed vertebra, not elsewhere classified, site unspecified, initial encounter for fracture, M51.369 - Other intervertebral disc degeneration, lumbar region without mention of lumbar back pain or lower extremity pain XR lumbar spine 6V w bending Today M43.16 - Spondylolisthesis, lumbar region, M48.50XA - Collapsed vertebra, not elsewhere classified, site unspecified, initial encounter for fracture, M51.369 - Other intervertebral disc degeneration, lumbar region without mention of lumbar back pain or lower extremity pain PT Evaluation and Treatment Today R26.89 - Other abnormalities of gait and mobility, Z91.81 - History of falling Coding Level of Care Code New Pt Level 4 (21684) Diagnoses Lumbar adjacent segment disease with spondylolisthesis M51.369; M43.16 Compression fracture of L1 vertebra, sequela S32.010S Encounter type: sequela Fracture of vertebra location: lumbar Lumbar vertebra fracture level: L1 Status post fall Z91.81 Poor balance R26.89
[2025-05-14 08:50] VITALS: BMI 20.7
== END 2025-05-14 09:19 | disposition home or self-care (01) ==
LOC: HO.HOS 08:34
PROVIDERS: PCP Family Medicine; Visit Provider Physical Medicine & Rehabilitation
DX: M51.369 Other intervertebral disc degeneration, lumbar region without mention of lumbar back pain or lower extremity pain (principal); M43.16 Spondylolisthesis, lumbar region; S32.010S Wedge compression fracture of first lumbar vertebra, sequela; Z91.81 History of falling; R26.89 Other abnormalities of gait and mobility
CPT/HCPCS: 99204

== ENCOUNTER → 2025-05-14 09:13 | Outpatient (BNV) | payer MEDICARE, MEDICAID, SELFPAY | PROVIDERS: PCP Family Medicine; Visit Provider Radiology Diagnostic Radiology | DX: M43.16 Spondylolisthesis, lumbar region (principal) | CPT/HCPCS: 72114 ==

== ENCOUNTER 2025-07-08 13:50 | Outpatient (AMB) | payer MEDICARE, MEDICAID, SELFPAY ==
--- NOTE | 2025-07-08 13:54 | A.OFFVIS_ITS ---
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 Prior PFT 2018 revealed mild COPD, not interested in repeating. Patient continues to report symptoms of dyspnea and occasional dry cough however has not been consistently using Breo 200 mcg and Incruse, only using a few times a week. Denies any symptoms suggestive of an infectious process. He denies any urgent care visits/hospitalizations related to respiratory distress since the last visit. [facility] Medical History On beta brennon at home On anticoagulant therapy Thyrotoxicosis Cardiomyopathy NSVT (nonsustained ventricular tachycardia) Pulmonary embolism Chronic systolic CHF (congestive heart failure) COPD (chronic obstructive pulmonary disease) Hypothyroid Surgical History Hx of colonoscopy Status post cardiac catheterization History of cholecystectomy Family History Father Stroke Other Mental health disorder Social History Household Members: Family Housing: House Housing Other:: mobile home Do you presently have visiting nurse or other home services: No Alcohol intake: former Year quit: 1987 Patient Tobacco Use Status: Former Tobacco user Tobacco use type: Cigarette Cigarette Packs Per Day: 0.5 Years Smoked: 50 e-Cigarette/Vaping Use: Never Used Second Hand Smoke Exposure: Yes service: No Current occupational status: disabled Current occupational exposures/hazards: No Cognitive needs: No Hearing needs: No Vision needs: No Review of Systems Const Denies chills, Denies excessive sweating, Denies fever(s), Denies headache(s) and Denies night sweats Eyes Denies dry eyes, Denies irritation and Denies itchy eyes ENT Reports Normal hearing present, Denies headache(s), Denies nasal congestion, Denies nasal discharge and Denies sore throat Card Denies chest pain, Denies chest pain at rest, Denies chest pain with activity, Denies claudication, Denies leg edema, Reports dyspnea on exertion, Denies orthopnea and Denies paroxysmal nocturnal dyspnea Resp Denies change in phlegm color, Denies chest congestion, Reports cough, Denies hemoptysis, Denies excessive phlegm production, Denies pain on inspiration, Denies pain with cough, Reports dyspnea on exertion, Denies stridor and Denies wheezing Musc Denies myalgias Neuro Reports Normal hearing present and Denies headache(s) Endo Denies excessive sweating Jose A/Lymph Denies lymphadenopathy Aller/Immun Denies itchy eyes and Denies wheezing Physical Exam Vital Signs: Last Vital Signs Pulse 65 07/08/25 13:55 BP 96/58 L 07/08/25 13:55 Pulse Ox 97 07/08/25 13:55 Oxygen Delivery Method Room Air 07/08/25 13:55 BMI result Body Mass Index 21.2 Const General: cooperative, comfortable, no acute distress and alert Nutritional Appearance: thin Orientation/consciousness: patient oriented x3 Limitations: no limitations HEENT Head: Yes normal to inspection, Yes normocephalic and Yes atraumatic Ears: hearing grossly normal bilaterally and external ears normal Neck Neck: Yes normal visual inspection and Yes no lymphadenopathy Lymphatic: no lymphadenopathy noted Chest Chest palpation & inspection: normal inspection of the chest Resp Effort & Inspection: normal respiratory effort, able to speak in complete sentences, no audible wheezes, no cough, no stridor, not tachypneic, no tripod positioning and no use of accessory muscles Auscultation: diminished lung sounds Cardio Jugular venous distension: no JVD Rate: regular rate Rhythm: regular rhythm Skin Other: warm, dry General skin exam: no rashes or lesions noted Neuro General: patient oriented x3 Cranial nerves: Yes Normal hearing present Cognition (Neuro): normal cognition Gait exam (Neuro): Normal gait present Extrem General: Yes normal to inspection, Yes capillary refill normal, Yes no clubbing, cyanosis or edema and Yes no pedal edema Psych Appearance: grossly normal and well kempt Speech and movement: Normal speech and movement present and Clear speech present Affect: normal affect Attitude: cooperative Thought process: Normal thought process present Thought content: Normal thought content present Insight: Good insight present (Psych) Judgement: Good judgement present (Psych) Results Reviewed Results Reviewed: [address] [address] [address] Scan Report Signed Patient: Tico Barahona Sr MR#: [id number] : 1950 Acct:[id number] Age/Sex: 74 / M ADM Date: 03/25/25 Loc: HO.CT Attending Dr: Shahrzad Burrell NP Ordering Physician: Shahrzad Burrell NP Date of Service: 03/25/25 Procedure(s): CT chest wo IV con Accession Number(s): [id number] cc: Mac Lockwood MD; Shahrzad Burrell NP~ Report Number: [id number]: Total DLP = 111.00 mGy-cm CLINICAL HISTORY: R91.8 - Other nonspecific abnormal finding of lung field CT chest without contrast Comparison: CT/SR - CT CHEST WO IV CON - 08/22/22 09:59 EST Findings: No cardiomegaly. Moderate atherosclerotic disease of the coronary arteries. No mediastinal adenopathy or pericardial effusion. Visualized thyroid demonstrates no discrete lesion. Lungs exhibit moderately severe centrilobular emphysema and several bilateral nodules, the largest of which abuts the minor fissure, on axial 83 and measures up to 6 mm. No new , increasing or suspicious nodule identified. The visualized upper abdomen demonstrates no acute process. There is fecal retention within the colon. No acute osseous abnormality. Impression: Moderately severe centrilobular emphysema with several stable sized bilateral nodules. No new, increasing or suspicious nodule. This document has been electronically signed by: Tank Byrd MD on 03/26/2025 07:12:12 Assessment & Plan Assessment & Plan (1) COPD (chronic obstructive pulmonary disease): Code(s): J44.9 - Chronic obstructive pulmonary disease, unspecified Category: Medical (2) Environmental allergies: Code(s): Z91.09 - Other allergy status, other than to drugs and biological substances Category: Medical (3) Multiple pulmonary nodules: Code(s): R91.8 - Other nonspecific abnormal finding of lung field Category: Medical (4) Personal history of smoking: Code(s): Z87.891 - Personal history of nicotine dependence Category: Social Hx Plan Discussed importance of compliance with medication. Encouraged patient to use Breo and Incruse on a daily basis, as well as nebulized levalbuterol PRN. He is aware if symptoms do not improve to call office. Prior chest CT 03/2025 revealed moderately severe centrilobular emphysema with several stable sized bilateral nodules, largest 6 mm. Will repeat in one year to assess stability, order previously placed. All questions were answered and patient is in agreement of plan. Will follow-up in 3 months or sooner if needed. Coding Level of Care Code Est Pt Level 3 (64805) Diagnoses COPD (chronic obstructive pulmonary disease) J44.9 Environmental allergies Z91.09 Multiple pulmonary nodules R91.8 Personal history of smoking Z87.899
[2025-07-08 13:55] VITALS: BP 96/58; PULSE 65; O2SAT 97; BMI 21.2
== END 2025-07-08 14:29 | disposition home or self-care (01) ==
LOC: HO.HPSW 13:51
PROVIDERS: PCP Family Medicine; Visit Provider Nurse Practitioner Family
DX: J44.9 Chronic obstructive pulmonary disease, unspecified (principal); Z91.09 Other allergy status, other than to drugs and biological substances; R91.8 Other nonspecific abnormal finding of lung field; Z87.891 Personal history of nicotine dependence
CPT/HCPCS: 99213

== ENCOUNTER → 2025-07-08 13:50 | Outpatient (BNVA) | payer MEDICARE, MEDICAID, SELFPAY | PROVIDERS: PCP Family Medicine; Visit Provider Nurse Practitioner Family | DX: J44.9 Chronic obstructive pulmonary disease, unspecified (principal); Z91.09 Other allergy status, other than to drugs and biological substances; R91.8 Other nonspecific abnormal finding of lung field; Z87.891 Personal history of nicotine dependence | CPT/HCPCS: 99212 ==

== ENCOUNTER → 2025-07-14 13:41 | Outpatient (REF) | payer MEDICARE, MEDICAID, SELFPAY ==
--- NOTE | 2025-07-14 13:44 | CA_ITS ---
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 The calculated ejection fraction is 31% by biplane method. - No obvious valvular pathology seen on this study. Findings Procedure Information Contrast agent, definity, is being given per protocol without apparent complications. Left Ventricle Normal left ventricular cavity size. The left ventricular systolic function is moderately decreased. The calculated ejection fraction is 31% by biplane method. There is moderate global hypokinesis. Evidence suggests grade II (moderate) diastolic dysfunction. There is mild septal and mild basal asymmetric hypertrophy. Globally hypokinetic with regional variation. Right Ventricle Normal right ventricular cavity size. There is low normal right ventricular systolic function. Atria The left atrium is moderately dilated. The right atrium is normal in size. Aortic Valve There is a normal trileaflet aortic valve. There is no aortic valve stenosis. There is no aortic valve regurgitation. Mitral Valve The mitral valve appears normal. There is trace mitral valve regurgitation. There is no mitral valve stenosis. Pulmonic Valve The pulmonic valve is likely normal. There is trace pulmonic valve regurgitation. Tricuspid Valve There is mild tricuspid valve regurgitation. There is no evidence of pulmonary hypertension. Great Vessels The asc aorta is normal in size. Venous The inferior vena cava is normal in size and collapses greater than 50% with inspiration. Pericardium/Pleural There is no evidence of pericardial effusion. Prior Study Comparison Changes noted compared to prior study dated: 05/29/2024. LVEF lower. Recommendations, Care & Conclusions No obvious valvular pathology seen on this study. Measurements 2D Linear Measurements IVSd: 1.12 0.6-0.9/0.6-1.0 cm LVIDd: 4.91 3.9-5.3/4.2-5.9 cm LVIDd Index: 3.01 2.4-3.2/2.2-3.1 cm/m2 LVIDs: 3.88 2.0-3.6 cm LVPWd: 0.74 0.7-1.1 cm LA Diam: 3.70 2.7-3.8/3.0-4.0 cm LAIDs Index: 2.27 1.5-2.3 cm/m2 LV Mass: 199.88 67-162/88-224 g LV Mass Index: 122.63 43-95/49-115 g/m2 LVOT Diam: 2.40 3.0+(-)1.3 cm 2D Systolic Function EF 4C: 32.80 >55% EF 2C: 31.30 >55% EF BiP: 30.80 >55% Mitral Valve MV Pk E: 0.37 MV PK A: 0.22 MV Decel Time: 325.00 E/A: 1.70 E'Lateral: 3.70 E'Medial: 2.83 E/E' Med: 13.20 E/E' Lat: 10.10 PHT: 95.00 MVA PHT: 2.32 Decel [place]: 1.15 Aortic Valve AoV Pk Kwadwo: 0.65 AoV Mn Kwadwo: 0.47 AoV VTI: 0.15 AoV Pk Grad: 2.00 Aov Mn Grad: 1.00 SONAL Cont.VTI: 2.12 LVOT LVOT Pk Kwadwo: 0.37 LVOT Mn Kwadwo: 0.24 LVOT VTI: 0.07 LVOT Pk Grad: 1.00 LVOT Mn Grad: 0.00 LVOT Diam: 2.40 LVOT Area: 4.52 Diastolic Function MV Pk E: 0.37 MV Pk A: 0.22 E/A: 1.70 E'Medial: 2.83 E/E' Med: 13.20 E' Laterial: 3.70 E/E' Lat: 10.10 Right Ventricle TAPSE (mm): 20.70 TVS' Kwadwo: 10.10 Tricuspid Valve TR Pk Kwadwo: 2.66 TR Pk Grad: 28.00 RA Press: 3.00 RVSP: 31.00 Great Vessels Aorta Sinus of Valsalva: 3.71 2.0-3.[address] [place]: 2.87 1.7-3.4 cm Ao Asc: 3.30 2.1-3.4 cm Updated in Other Vendor System with Status of Final Orestes Melvin MD electronically signed on 07/16/2025 11:19:27 AM with status of Final
== END ==
LOC: HO.CARD 13:41
PROVIDERS: PCP Family Medicine; Visit Provider Nurse Practitioner Family
DX: I42.9 Cardiomyopathy, unspecified (principal)
CPT/HCPCS: 93306; Q9957

== ENCOUNTER → 2025-07-14 13:44 | Outpatient (BNV) | payer MEDICARE, MEDICAID, SELFPAY | PROVIDERS: PCP Family Medicine; Visit Provider Internal Medicine | DX: I42.2 Other hypertrophic cardiomyopathy (principal) | CPT/HCPCS: 93306 ==

== ENCOUNTER 2025-07-24 13:35 | Outpatient (AMB) | payer MEDICARE, MEDICAID, SELFPAY ==
[2025-07-24 14:10] VITALS: BP 100/58; PULSE 58; BMI 21.0
--- NOTE | 2025-07-24 14:10 | A.OFFVIS_ITS ---
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: No Accompanied by: Spouse Allergies No Known Allergies Allergy (Mild, Verified 07/24/25 14:13) NOT APPLICABLE Medication List - Last Reconciled 07/24/25 by WARREN LeeC albuterol sulfate 90 mcg/actuation (ProAir HFA) 2 puffs inhalation Q6H PRN 1 month apixaban (Eliquis) 5 mg PO BID 90 days atorvastatin 40 mg PO BEDTIME bisoprolol fumarate 2.5 mg (1/2 x 5 mg) PO DAILY Breo Ellipta 200-25 mcg/dose (fluticasone furoate-vilanterol) 1 inh inhalation DAILY NS Farxiga (dapagliflozin propanediol) 10 mg PO DAILY NS furosemide 40 mg PO DAILY levalbuterol HCl 1.25 mg (3 mL) inhalation Q4-6H PRN levothyroxine 75 mcg (1.5 x 50 mcg) PO DAILY@0600 30 days losartan 12.5 mg (1/2 x 25 mg) PO DAILY 90 days montelukast 10 mg PO DAILY 30 days umeclidinium 62.5 mcg/actuation (Incruse Ellipta) 1 inh inhalation DAILY HPI HPI f/u: Details: Tico is a 74-year-old male with past medical history prior smoking, COPD, diabetes, pulmonary embolism 07/2020, cardiomyopathy with EF as low as 20% in 07/2020, systolic heart failure, paroxysmal atrial fibrillation, nonobstructive coronary artery disease who presents for follow-up after recent echocardiogram. Today he reports feeling well well since his last visit in November. He has not had any hospitalizations or ER trips. He denies chest discomfort at rest or with activity. He does have some shortness of breath and fatigue with exertional activities but does admit to being mostly sedentary. No palpitations, lightheadedness, presyncope, syncope, PND, orthopnea or edema. His significant other is health does in and does not admit to pains or symptoms he is having. She says in the past when he had very rapid heartbeat he could not feel it. She confirms he is taking his medications as directed. No bleeding issues reported. He has been mostly sedentary and not doing any routine physical activities. He is mostly on his cell phone. He does not drink alcohol or use any illicit substances. Significant other no for sleep apnea. [facility] Medical History On beta brennon at home On anticoagulant therapy Thyrotoxicosis Cardiomyopathy NSVT (nonsustained ventricular tachycardia) Pulmonary embolism Chronic systolic CHF (congestive heart failure) COPD (chronic obstructive pulmonary disease) Hypothyroid Surgical History Hx of colonoscopy Status post cardiac catheterization History of cholecystectomy Family History Father Stroke Other Mental health disorder Social History Household Members: Family Housing: House Housing Other:: mobile home Do you presently have visiting nurse or other home services: No Alcohol intake: former Year quit: 1987 Patient Tobacco Use Status: Former Tobacco user Tobacco use type: Cigarette Cigarette Packs Per Day: 0.5 Years Smoked: 50 e-Cigarette/Vaping Use: Never Used Second Hand Smoke Exposure: Yes service: No Current occupational status: disabled Current occupational exposures/hazards: No Cognitive needs: No Hearing needs: No Vision needs: No Review of Systems Const All systems reviewed & are unremarkable except as noted in HPI and below Denies daytime sleepiness, Denies difficulty sleeping, Denies snoring, Denies stops breathing during sleep and Denies weakness Card Denies chest pain, Denies rapid heart rate, Denies irregular heart rhythm, Denies claudication, Denies leg edema, Denies lightheadedness, Denies palpitations, Denies dyspnea, Denies dyspnea on exertion, Denies orthopnea, Denies paroxysmal nocturnal dyspnea and Denies slow heart rate Resp Denies cough, Denies dyspnea, Denies dyspnea on exertion and Denies snoring GI Reports no additional complaints, Denies hematochezia, Denies change in stool character and Denies dyspepsia Musc Details: mostly sedentary Denies abnormal gait, Denies muscle weakness and Denies numbness Neuro Denies abnormal gait, Denies numbness and Denies weakness Endo Denies palpitations Physical Exam Vital Signs: Last Vital Signs Pulse 58 07/24/25 14:10 BP 100/58 L 07/24/25 14:10 BMI result Body Mass Index 21.0 Const General: cooperative, healthy appearing, comfortable and no acute distress Orientation/consciousness: patient oriented x3 Neck Neck: Yes normal visual inspection Resp Effort & Inspection: normal respiratory effort Auscultation: clear to auscultation bilaterally, no rales, no rhonchi and no wheezes Cardio Jugular venous distension: no JVD Rate: regular rate Rhythm: regular rhythm Heart sounds: S1 normal heart sound present, S2 normal heart sound present, no murmurs and no rubs Neuro General: patient oriented x3 Extrem General: Yes normal to inspection and No no pedal edema Psych Appearance: grossly normal Mental Status: mental status grossly normal Speech and movement: Normal speech and movement present Assessment & Plan Assessment & Plan (1) Cardiomyopathy: Code(s): I42.9 - Cardiomyopathy, unspecified Category: Medical Plan: History of nonischemic cardiomyopathy with EF as low as 20% 07/2020. Cardiac catheterization done 12/20/2021 shows only mild nonobstructive coronary artery disease. He has been managed medically with gradual improvement in his EF up to 45% on 05/29/2024. A follow-up echocardiogram was done on 07/14/2025, now showing EF 31%. Unknown cause for drop in EF. Unable to further titrate neurohormonal modulation due to low heart rate and blood pressure. No clinical signs indicating decompensated heart failure. Continues on losartan and bisoprolol. Continues on Lasix 40 mg daily. Labs done 09/15/2024 shows creatinine 0.91. W ith history of PAF will check Holter monitor to assess for rapid rates. Will check a pharmacological nuclear stress test to evaluate for ischemia. Signs and symptoms of heart failure reviewed with him. Cardiology follow-up in 4 months, sooner if needed (2) Status post cardiac catheterization: Comment: 12/20/2021 showing left main, left circumflex, RCA all normal, lad mild proximal stenosis, 30%. Code(s): Z98.890 - Other specified postprocedural states Category: Surgical (3) PAF (paroxysmal atrial fibrillation): Code(s): I48.0 - Paroxysmal atrial fibrillation Category: Medical Plan: History of paroxysmal atrial fibrillation. No reports of heart palpitations but it is possible he does not feel them. Clinically in sinus rhythm today. He is on bisoprolol for heart rate control. He is on Eliquis for anticoagulation. Continue current treatment (4) Coronary artery disease: Code(s): I25.10 - Atherosclerotic heart disease of [place] coronary artery without angina pectoris Category: Medical Plan: History of nonobstructive coronary artery disease. No reports of anginal sounding symptoms. He is not on aspirin as he is on Eliquis. He is on atorvas tatin 40 mg daily with ideal LDL goal less than 70. Labs done 03/26/25 shows LDL 48. He is on bisoprolol and losartan. No med changes made. Signs and symptoms of angina reviewed. (5) Abnormal EKG: Code(s): R94.31 - Abnormal electrocardiogram [ECG] [EKG] Category: Medical Plan: His EKG last visit showed ST and T-wave abnormalities in the inferior lateral leads. No anginal symptoms. EKG from today same as 10/25/2022 And similar to EKG last year. Plan Time spent on chart review, documentation, interview and assessment Orders: Orders ECG 3 day holter monitor Today I25.10 - Atherosclerotic heart disease of [place] coronary artery without angina pectoris, I42.9 - Cardiomyopathy, unspecified, I48.0 - Paroxysmal atrial fibrillation [place] lexiscan stress w cortney Today I25.10 - Atherosclerotic heart disease of [place] coronary artery without angina pectoris, I42.9 - Cardiomyopathy, unspecified, I48.0 - Paroxysmal atrial fibrillation [place] cardiolite stress test Today I25.10 - Atherosclerotic heart disease of [place] coronary artery without angina pectoris, I42.9 - Cardiomyopathy, unspecified, I48.0 - Paroxysmal atrial fibrillation Coding Level of Care Code Est Pt Level 4 (00333) Complex EM visit Add On G2211 Diagnoses Cardiomyopathy I42.9 Status post cardiac catheterization Z98.890 PAF (paroxysmal atrial fibrillation) I48.0 Coronary artery disease I25.10 Abnormal EKG R94.31 Time Spent (min) 36
== END 2025-07-24 15:00 | disposition home or self-care (01) ==
LOC: HO.HCS 13:36
PROVIDERS: PCP Family Medicine; Visit Provider Nurse Practitioner Family
DX: I42.9 Cardiomyopathy, unspecified (principal); Z98.890 Other specified postprocedural states; I48.0 Paroxysmal atrial fibrillation; I25.10 Atherosclerotic heart disease of native coronary artery without angina pectoris; R94.31 Abnormal electrocardiogram [ECG] [EKG]
CPT/HCPCS: 99214; G2211

== ENCOUNTER → 2025-07-24 13:35 | Outpatient (BNVA) | payer MEDICARE, MEDICAID, SELFPAY | PROVIDERS: PCP Family Medicine; Visit Provider Nurse Practitioner Family | DX: I48.0 Paroxysmal atrial fibrillation (principal); I42.9 Cardiomyopathy, unspecified; Z98.890 Other specified postprocedural states; I25.10 Atherosclerotic heart disease of native coronary artery without angina pectoris; R94.31 Abnormal electrocardiogram [ECG] [EKG] | CPT/HCPCS: 99212 ==

== ENCOUNTER 2025-08-17 10:22 | Outpatient (AMB) | payer MEDICARE, MEDICAID, SELFPAY ==
--- NOTE | 2025-08-17 10:48 | MHC.PC.OV ---
Vital Signs 08/17/25 10:55 Height 5 ft 5 in Weight 127 lb BMI 21.1 BP 110/60 Blood Pressure Location Rt brachial Position Sitting Respiration 16 Pulse 61 Pulse Source Pulse Oximeter Pulse Oximetry (%) 96 Oxygen Delivery Method Room Air Intake Visit Reasons: f/u HTN, chronic conditions Intake Note: patient is scheduled to follow up for htn labs have not been completed patient will get labs done when fasting. Career Center Advisor Required: No Allergies No Known Allergies Allergy (Mild, Verified 08/17/25 10:54) NOT APPLICABLE Medication List - Last Reconciled 08/17/25 by Mac Lockwood MD albuterol sulfate 90 mcg/actuation (ProAir HFA) 2 puffs inhalation Q6H PRN 1 month apixaban (Eliquis) 5 mg PO BID 90 days atorvastatin 40 mg PO BEDTIME bisoprolol fumarate 2.5 mg (1/2 x 5 mg) PO DAILY Breo Ellipta 200-25 mcg/dose (fluticasone furoate-vilanterol) 1 inh inhalation DAILY NS Farxiga (dapagliflozin propanediol) 10 mg PO DAILY NS furosemide 40 mg PO DAILY levalbuterol HCl 1.25 mg (3 mL) inhalation Q4-6H PRN levothyroxine 75 mcg (1.5 x 50 mcg) PO DAILY@0600 30 days losartan 12.5 mg (1/2 x 25 mg) PO DAILY 90 days montelukast 10 mg PO DAILY 30 days umeclidinium 62.5 mcg/actuation (Incruse Ellipta) 1 inh inhalation DAILY Tobacco use date assessed: 02/20/24 Dental Screening Dental Screen Date: 12/19/23 HPI f/u HTN, chronic conditions HPI Details 74 y/o male presents to f/u HTN, chronic conditions. Blood pressure today 110/60, 61p. Hx of CAD, AFib. Notes back pain has been improving. [facility] Medical History On beta brennon at home On anticoagulant therapy Thyrotoxicosis Cardiomyopathy NSVT (nonsustained ventricular tachycardia) Pulmonary embolism Chronic systolic CHF (congestive heart failure) COPD (chronic obstructive pulmonary disease) Hypothyroid Surgical History Hx of colonoscopy Status post cardiac catheterization History of cholecystectomy Family History Father Stroke Other Mental health disorder Social History Household Members: Family Housing: House Housing Other:: mobile home Do you presently have visiting nurse or other home services: No Alcohol intake: former Year quit: 1987 Patient Tobacco Use Status: Former Tobacco user Tobacco use type: Cigarette Cigarette Packs Per Day: 0.5 Years Smoked: 50 e-Cigarette/Vaping Use: Never Used Second Hand Smoke Exposure: Yes service: No Current occupational status: disabled Current occupational exposures/hazards: No Cognitive needs: No Hearing needs: No Vision needs: No Questionnaire Thrive Questionnaire Date Thrive assessed: 12/12/24 I am a: Patient What is your living situation today?: I have a steady place to live Within the past 12 months, did the food you bought not last and you didn't have the money to get more?: Often true Within the past 12 months, did you worry whether your food would run out before you got money to buy more?: Sometimes True Do you have trouble paying for medicines?: No Do you have trouble getting transportation to medical appointments?: No Do you have trouble paying your heating and electricity bill?: I choose not to answer this question Do you have trouble taking care of your child, family member or friend?: No Do you have trouble with day-to-day activities such as bathing, preparing meals, shopping, managing finances, etc.?: No Are you currently unemployed and looking for a job?: No Are you interested in more education?: No Please select the resources that you would like help with: None Currently or been in a relationship where the following occur: No concerns reported THRIVE Score: 2 VAHID-7 AMB Questionnaire VAHID-7 Date VAHID - 7 assessed: 11/09/23 Source: Developed by Drs. Kieran Robledo, Elayne Cameron, Candido Antonio and colleagues, with an educational boogie from [employer]. Review of Systems Const Denies chills, Denies fatigue, Denies fever(s), Denies headache(s) and Denies weakness ENT Denies dizziness and Denies headache(s) Card Denies dyspnea Resp Denies cough, Denies dyspnea, Denies wheezing and Denies other (shortness of breath) Musc Denies numbness and Denies tingling Neuro Denies dizziness, Denies headache(s), Denies numbness, Denies tingling and Denies weakness Psych Denies anxiety and Denies depression Endo Denies fatigue Aller/Immun Denies wheezing Physical exam (Primary Care) Vital Signs: Last Vital Signs Pulse 61 08/17/25 10:55 Resp 16 08/17/25 10:55 BP 110/60 08/17/25 10:55 Pulse Ox 96 08/17/25 10:55 Oxygen Delivery Method Room Air 08/17/25 10:55 BMI result Body Mass Index 21.1 Tobacco/Smoking Status: Tobacco use Status Tobacco use date assessed 02/20/24 08/17/25 10:49 Patient Tobacco Use Status Former Tobacco user 08/17/25 10:49 Tobacco use type Cigarette 08/17/25 10:49 e-Cigarette/Vaping Use Never Used 08/17/25 10:49 Thrive Assessment: Date of Thrive Assessment Date Thrive assessed 12/12/24 08/17/25 10:49 Currently or been in a relationship where the following occur: No concerns reported Const General: well developed; No acute distress Nutritional Appearance: well nourished Orientation/consciousness: patient oriented x3 HENMT Head: Yes normocephalic and Yes atraumatic Eyes General: appearance normal, both eyes and all related structures Pupils: Equal, round and reactive pupils present EOM: EOMs intact bilaterally Resp Effort & Inspection: normal respiratory effort Auscultation: clear to auscultation bilaterally Cardio Rate: regular rate Rhythm: regular rhythm Heart sounds: S1 normal heart sound present, S2 normal heart sound present, no gallops, no murmurs and no rubs Neuro General: patient oriented x3 and gait normal Cranial nerves: Yes Equal, round and reactive pupils present Psych Affect: normal affect Coding Level of Care Code Est Pt Level 4 (36211) Diagnoses Primary hypertension I10 Hypertension type: primary hypertension Coronary artery disease I25.10 PAF (paroxysmal atrial fibrillation) I48.0 Back pain M54.9 Elevated liver enzymes R74.8 Acquired hypothyroidism E03.9 Hypothyroidism type: acquired Assessment & Plan Assessment & Plan (1) Hypertension: Code(s): I10 - Essential (primary) hypertension Category: Medical Qualifiers: Hypertension type: primary hypertension Qualified Code(s): I10 - Essential (primary) hypertension Plan: Blood pressure is well controlled. Goal is less than 130/80 Continue current medication (2) Coronary artery disease: Code(s): I25.10 - Atherosclerotic heart disease of three affiliated coronary artery without angina pectoris Category: Medical Plan: History of coronary artery disease and cardiomyopathy. Reason echocardiogram showed decreased ejection fraction of 31%. Followed by cardiology and has an upcoming myocardial perfusion scan (3) PAF (paroxysmal atrial fibrillation): Code(s): I48.0 - Paroxysmal atrial fibrillation Category: Medical Plan: He is on Eliquis Holter monitor was ordered by Cardiology Currently stable (4) Back pain: Code(s): M54.9 - Dorsalgia, unspecified Category: Medical Plan: Patient says back pain has significantly improved. He can follow-up with physiatry needed. (5) Elevated liver enzymes: Code(s): R74.8 - Abnormal levels of other serum enzymes Category: Medical Plan: Following mildly elevated liver enzymes. Has not gotten his labs drawn yet but will do so today. (6) Hypothyroidism: Code(s): E03.9 - Hypothyroidism, unspecified Category: Medical Qualifiers: Hypothyroidism type: acquired Qualified Code(s): E03.9 - Hypothyroidism, unspecified Plan: He is on levothyroxine 75 mcg daily. Due to recheck thyroid hormone levels which have been stable. Orders: Orders Free T4 (Free Thyroxine) Today E03.9 - Hypothyroidism, unspecified Comprehensive Met. Panel Today R74.8 - Abnormal levels of other serum enzymes Triiodothyronine T3 Total Today E03.9 - Hypothyroidism, unspecified Thyroid Stimulating Hormone Today E03.9 - Hypothyroidism, unspecified
[2025-08-17 10:55] VITALS: BP 110/60; PULSE 61; RESP 16; O2SAT 96; BMI 21.1
== END 2025-08-17 11:25 | disposition home or self-care (01) ==
LOC: HO.HMCFM 10:23
PROVIDERS: PCP Family Medicine; Visit Provider Family Medicine
DX: I10 Essential (primary) hypertension (principal); I25.10 Atherosclerotic heart disease of native coronary artery without angina pectoris; I48.0 Paroxysmal atrial fibrillation; M54.9 Dorsalgia, unspecified; R74.8 Abnormal levels of other serum enzymes; E03.9 Hypothyroidism, unspecified

== ENCOUNTER 2025-08-17 10:22 | Outpatient (REF) | payer MEDICARE, MEDICAID, SELFPAY ==
[2025-08-17 14:27] LABS: Alanine Aminotransferase 42 U/L (0-40); Albumin Level 4.7 g/dL (3.5-5.0); Alkaline Phosphatase 110 U/L (39-117); Anion Gap 10 (12-20); Aspartate Amino Transferase 41 U/L (5-37); Blood Urea Nitrogen 16 mg/dL (9-16); Calcium 9.4 mg/dL (8.4-10.2); Carbon Dioxide 31 mmol/L (22-29); Chloride 105 mmol/L (96-108); Cholesterol 118 mg/dL (<200); Estimated Glomerular Filt Rate > 60; HDL Cholesterol 41 mg/dL (>40); Potassium 3.9 mmol/L (3.3-5.1); Sodium 142 mmol/L (135-145); Total Protein 7.3 g/dL (6.5-8.0); Triglycerides 115 mg/dL (<150)
--- OUTSIDE RECORDS SUMMARY | 2025-08-17 14:34 | XMS_ITS | Encounter Summary ---
Author Organization [facility] Address [address] [place] [address] Care Team Providers Care Glue Size Machine Operator Name Role Phone Luz Elena Coello MD Primary Care Provider Jerica Curry, Pcp Primary Care Provider Lurdes allen Encounter Details Date Type Department Care Team Description 07/02/2017 Transfer Records Medical Records [address] [place] [address] Abstract, Provider Social History Tobacco Use Types [...] on filedocumented in this encounter Care Teams Glue Size Machine Operator Relationship Specialty Start Date End Date Luz Elena Coello MD PCP - General Internal Medicine 01/03/16 01/31/21 Antoinette Pcp PCP - General Internal Medicine 02/01/21 documented as of this encounter
--- OUTSIDE RECORDS SUMMARY | 2025-08-17 14:34 | XMS_ITS | Encounter Summary ---
Author Organization [facility] Address [address] [place] [address] Care Team Providers Care Geotechnical Intern Name Role Phone Luz Elena Coello MD Primary Care Provider Jerica Curry Pcp Primary Care Provider Lurdes allen Reason for Visit * Reason Onset Date Comments TEST RESULTS 10/23/2017 Encounter Details Date Type Department Care Team Description 10/23/2017 Telephone Medicine/Pediatrics - [address] [id number] Dimple Reeves PA-C TEST RESULTS Social History [...] - 4.00 uIU/ml 02/04/2018 7:00 PM EDT [facility] 02/04/2018 2:19 PM EDT 02/04/2018 2:19 PM EDT Dimple Reeves PA-C LAB Performing Organization Address City/State/[facility] Co de Phone Number [place] [phone] [facility] documented in this encounter Visit Diagnoses Diagnosis Hypothyroidism, unspecified type- Primary documented in this encounter Care Teams Geotechnical Intern Relationship Specialty Start Date End Date Luz Elena Coello MD PCP - General Internal Medicine 01/03/16 01/31/21 [facility], Pcp PCP - General Internal Medicine 02/01/21 documented as of this encounter
--- OUTSIDE RECORDS SUMMARY | 2025-08-17 14:34 | XMS_ITS | Encounter Summary ---
Author Organization [facility] Address [address] [place] [address] Care Team Providers Care Distribution Lead Name Role Phone Luz Elena Coello MD Primary Care Provider Jerica Curry, Pcp Primary Care Provider Lurdes allen Encounter Details Date Type Department Care Team Description 01/04/2016 Release of Information Medical Records [address] [place] [id number] Abstract, Provider Social History Tobacco Use Types [...] on filedocumented in this encounter Care Teams Distribution Lead Relationship Specialty Start Date End Date Luz Elena Coello MD PCP - General Internal Medicine 01/03/16 01/31/21 Antoinette, Pcp PCP - General Internal Medicine 02/01/21 documented as of this encounter
--- OUTSIDE RECORDS SUMMARY | 2025-08-17 14:34 | XMS_ITS | Encounter Summary ---
Author Organization [facility] Address [address] [place] [address] Care Team Providers Care Medical Records Tech Name Role Phone Luz Elena Coello MD Primary Care Provider Jerica Curry, Pcp Primary Care Provider Lurdes allen Encounter Details Date Type Department Care Team Description 05/23/2018 Software Packager Report Medical Records [address] [place] [address] Social History Tobacco Use Types Packs/Day Years [...] on filedocumented in this encounter Care Teams Medical Records Tech Relationship Specialty Start Date End Date Luz Elena Coello MD PCP - General Internal Medicine 01/03/16 01/31/21 Antoinette, Pcp PCP - General Internal Medicine 02/01/21 documented as of this encounter
--- OUTSIDE RECORDS SUMMARY | 2025-08-17 14:34 | XMS_ITS | Encounter Summary ---
Author Organization [facility] Address [address] [place] [address] Care Team Providers Care Occupational Therapist'S Assistant Name Role Phone Luz Elena Coello MD Primary Care Provider Jerica Curry, Pcp Primary Care Provider Lurdes allen Encounter Details Date Type Department Care Team Description 03/10/2016 Laser Cutter Report Medical Records [address] [place] [address] Maria Luisa Fulton MD Social History Tobacco Use Types Packs/Day [...] on filedocumented in this encounter Care Teams Occupational Therapist'S Assistant Relationship Specialty Start Date End Date Luz Elena Coello MD PCP - General Internal Medicine 01/03/16 01/31/21 Antoinette Pcp PCP - General Internal Medicine 02/01/21 documented as of this encounter
--- OUTSIDE RECORDS SUMMARY | 2025-08-17 14:34 | XMS_ITS | Encounter Summary ---
Author Organization [facility] Address [address] [place] [address] Care Team Providers Care Soil Technician Name Role Phone Luz Elena Coello MD Primary Care Provider Jerica Curry, Pcp Primary Care Provider Lurdes allen Encounter Details Date Type Department Care Team Description 08/20/2019 Old Medical Records Medical Records [address] [place] [address] Abstract, Provider Social History Tobacco Use Types [...] on filedocumented in this encounter Care Teams Soil Technician Relationship Specialty Start Date End Date Luz Elena Coello MD PCP - General Internal Medicine 01/03/16 01/31/21 Antoinette Pcp PCP - General Internal Medicine 02/01/21 documented as of this encounter
--- OUTSIDE RECORDS SUMMARY | 2025-08-17 14:34 | XMS_ITS | Encounter Summary ---
Author Organization [facility] Address [address] [place] [address] Care Team Providers Care Quality Project Manager Name Role Phone Luz Elena Coello MD Primary Care Provider Jerica Curry, Pcp Primary Care Provider Lurdes allen Encounter Details Date Type Department Care Team Description 04/22/2018 Education Reviewer Report Medical Records [address] [place] [address] Buzz Agrawal MD Social History Tobacco Use [...] on filedocumented in this encounter Care Teams Quality Project Manager Relationship Specialty Start Date End Date Luz Elena Coello MD PCP - General Internal Medicine 01/03/16 01/31/21 Antoinette Pcp PCP - General Internal Medicine 02/01/21 documented as of this encounter
--- OUTSIDE RECORDS SUMMARY | 2025-08-17 14:34 | XMS_ITS | Clinical Summary ---
Author Organization [facility] Address [address] [place] [address] Care Team Providers Care Newborn Hearing Screener Name Role Phone Community, Pcp Primary Care [...] just unsure what to do Educational Resources [place] [employer] (www.diabetes.org) Centers for Disease Control [...] AA) SCREENING Completed 04/10/2018, 10/13/2016 Care Teams Newborn Hearing Screener Relationship Specialty Start Date End Date Community, Pcp PCP - General Internal Medicine 02/01/21
== END 2025-08-17 10:23 | disposition home or self-care (01) ==
LOC: HO.WFDLDS 10:22
PROVIDERS: PCP Family Medicine; Visit Provider Family Medicine
DX: Z00.00 Encounter for general adult medical examination without abnormal findings (principal); E78.5 Hyperlipidemia, unspecified; I10 Essential (primary) hypertension; I25.10 Atherosclerotic heart disease of native coronary artery without angina pectoris; I48.0 Paroxysmal atrial fibrillation; M54.9 Dorsalgia, unspecified; R74.8 Abnormal levels of other serum enzymes; E03.9 Hypothyroidism, unspecified
CPT/HCPCS: 36415; 80053; 80061; 99212

== ENCOUNTER 2025-09-16 14:38 | Outpatient (AMB) | payer MEDICARE, MEDICAID, SELFPAY ==
--- NOTE | 2025-09-16 12:59 | MHC.OFFVIS ---
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 Prior PFT 2017 revealed mild COPD, not interested in repeating. Chest CT 03/2025 demonstrated moderately severe centrilobular emphysema with several stable sized bilateral nodules, compared to 2021. No new, increasing or suspicious nodule, order previously placed to monitor for stability in one year. Patient continues to use Breo 200 mcg and Incruse inconsistently, only using a few times a week and reports intermittent dry cough and mild dyspnea. He denies any urgent care visits/hospitalizations related to respiratory distress since the last visit. He has plans in the near future to obtain influenza vaccine. [facility] Medical History On beta brennon at home On anticoagulant therapy Thyrotoxicosis Cardiomyopathy NSVT (nonsustained ventricular tachycardia) Pulmonary embolism Chronic systolic CHF (congestive heart failure) COPD (chronic obstructive pulmonary disease) Hypothyroid Surgical History Hx of colonoscopy Status post cardiac catheterization History of cholecystectomy Family History Father Stroke Other Mental health disorder Social History Household Members: Family Housing: House Housing Other:: mobile home Do you presently have visiting nurse or other home services: No Alcohol intake: former Year quit: 1987 Patient Tobacco Use Status: Former Tobacco user Tobacco use type: Cigarette Cigarette Packs Per Day: 0.5 Years Smoked: 50 e-Cigarette/Vaping Use: Never Used Second Hand Smoke Exposure: Yes service: No Current occupational status: disabled Current occupational exposures/hazards: No Cognitive needs: No Hearing needs: No Vision needs: No Review of Systems Const Denies chills, Denies excessive sweating, Denies fever(s), Denies headache(s) and Denies night sweats Eyes Denies dry eyes, Denies irritation and Denies itchy eyes ENT Reports Normal hearing present, Denies headache(s), Denies nasal congestion, Denies nasal discharge and Denies sore throat Card Denies chest pain, Denies chest pain at rest, Denies chest pain with activity, Denies claudication, Denies leg edema, Reports dyspnea on exertion, Denies orthopnea and Denies paroxysmal nocturnal dyspnea Resp Denies change in phlegm color, Denies chest congestion, Reports cough, Denies hemoptysis, Denies excessive phlegm production, Denies pain on inspiration, Denies pain with cough, Reports dyspnea on exertion, Denies stridor and Denies wheezing Musc Denies myalgias Neuro Reports Normal hearing present and Denies headache(s) Endo Denies excessive sweating Jose A/Lymph Denies lymphadenopathy Aller/Immun Denies itchy eyes and Denies wheezing Physical Exam Vital Signs: Last Vital Signs Pulse 66 09/16/25 14:41 BP 102/58 L 09/16/25 14:41 Pulse Ox 99 09/16/25 14:41 Oxygen Delivery Method Room Air 09/16/25 14:41 BMI result Body Mass Index 20.9 Const General: cooperative, comfortable, no acute distress and alert Nutritional Appearance: thin Orientation/consciousness: patient oriented x3 Limitations: no limitations HEENT Head: Yes normal to inspection, Yes normocephalic and Yes atraumatic Ears: hearing grossly normal bilaterally and external ears normal Neck Neck: Yes normal visual inspection and Yes no lymphadenopathy Lymphatic: no lymphadenopathy noted Chest Chest palpation & inspection: normal inspection of the chest Resp Effort & Inspection: normal respiratory effort, able to speak in complete sentences, no audible wheezes, no cough, no stridor, not tachypneic, no tripod positioning and no use of accessory muscles Auscultation: diminished lung sounds Cardio Jugular venous distension: no JVD Rate: regular rate Rhythm: abnormal rhythm Skin Other: warm, dry General skin exam: no rashes or lesions noted Neuro General: patient oriented x3 Cranial nerves: Yes Normal hearing present Cognition (Neuro): normal cognition Gait exam (Neuro): Normal gait present Extrem General: Yes normal to inspection, Yes capillary refill normal, Yes no clubbing, cyanosis or edema and Yes no pedal edema Psych Appearance: grossly normal and well kempt Speech and movement: Normal speech and movement present and Clear speech present Affect: normal affect Attitude: cooperative Thought process: Normal thought process present Thought content: Normal thought content present Insight: Good insight present (Psych) Judgement: Good judgement present (Psych) Assessment & Plan Assessment & Plan (1) COPD (chronic obstructive pulmonary disease): Code(s): J44.9 - Chronic obstructive pulmonary disease, unspecified Category: Medical (2) Environmental allergies: Code(s): Z91.09 - Other allergy status, other than to drugs and biological substances Category: Medical (3) Multiple pulmonary nodules: Code(s): R91.8 - Other nonspecific abnormal finding of lung field Category: Medical (4) Personal history of smoking: Code(s): Z87.891 - Personal history of nicotine dependence Category: Social Hx Plan Discussed importance of compliance with Breo and Incruse. Discussed switching to nebulized therapy if he is havin difficulties with the inhalers however declined. He is aware if symptoms do not improve to call office. Prior chest CT 03/2025 revealed moderately severe centrilobular emphysema with several stable sized bilateral nodules, largest 6 mm. Will repeat in one year to assess stability, order previously placed. All questions were answered and patient is in agreement of plan. Will follow-up in 3 months or sooner if needed. Coding Level of Care Code Est Pt Level 3 (42885) Diagnoses COPD (chronic obstructive pulmonary disease) J44.9 Environmental allergies Z91.09 Multiple pulmonary nodules R91.8 Personal history of smoking Z87.891
[2025-09-16 14:41] VITALS: BP 102/58; PULSE 66; O2SAT 99; BMI 20.9
== END 2025-09-16 15:03 | disposition home or self-care (01) ==
LOC: HO.HPSW 14:39
PROVIDERS: PCP Family Medicine; Visit Provider Nurse Practitioner Family
DX: J44.9 Chronic obstructive pulmonary disease, unspecified (principal); Z91.09 Other allergy status, other than to drugs and biological substances; R91.8 Other nonspecific abnormal finding of lung field; Z87.891 Personal history of nicotine dependence
CPT/HCPCS: 99213

== ENCOUNTER → 2025-09-16 14:38 | Outpatient (BNVA) | payer MEDICARE, MEDICAID, SELFPAY | PROVIDERS: PCP Family Medicine; Visit Provider Nurse Practitioner Family | DX: J44.9 Chronic obstructive pulmonary disease, unspecified (principal); R91.8 Other nonspecific abnormal finding of lung field; Z87.891 Personal history of nicotine dependence; Z91.09 Other allergy status, other than to drugs and biological substances; Z79.01 Long term (current) use of anticoagulants | CPT/HCPCS: 99212 ==

== ENCOUNTER 2025-09-23 13:28 | Outpatient (AMB) | payer MEDICARE, MEDICAID, SELFPAY ==
--- NOTE | 2025-09-23 13:45 | MHC.OFFVIS ---
Vital Signs 09/23/25 13:55 Height 5 ft 5 in Weight 125 lb BMI 20.8 BP 100/68 Blood Pressure Location Rt brachial Position Sitting Pulse 62 Pulse Source Pulse Oximeter Pulse Oximetry (%) 96 Oxygen Delivery Method Room Air Intake Visit Reasons: R/S from 07/20 per office. Intake Note: Est pt for mgmt of IBS. CC; Pt denies any current GI sx or concerns. Pt is not currently taking any GI meds. Claim Processor Required: No Accompanied by: Family/Other Allergies No Known Allergies Allergy (Mild, Verified 09/23/25 13:45) NOT APPLICABLE HPI HPI R/S from 07/20 per office.: Details: LAST VISIT: IBS (irritable bowel syndrome) Plan Continue avoiding dietary triggers and late night snacking. Continue low FODMAP diet. Increase fluid intake and activity to promote better bowel motility. Follow-up in the office in 6 months, sooner on as needed basis. Patient is agreeable to this plan and verbalizes understanding of instructions. He was given the opportunity to ask questions and all questions answered. ? Thank you for allowing me to participate in his care TODAY'S VISIT Patient is here today for follow-up. Patient reports that for the most part he has been doing fairly well. Patient denies any dyspepsia, dysphagia or odynophagia. Denies any acid reflux. Denies abdominal pain or discomfort. However he does report that he feels gassy from time to time. Patient is not on any particular diet. He does admit that he eats lot of sweets. Patient reports that he is moving his bowels well without any issues. Denies melena, hematochezia, unintentional weight loss or ribbon like stools. For the most part patient reports that he is healing well. Denies nausea or vomiting. [facility] Medical History (Reviewed 09/23/25 @ 13:45 by Joshua Ruiz [facility]) On beta brennon at home On anticoagulant therapy Thyrotoxicosis Cardiomyopathy NSVT (nonsustained ventricular tachycardia) Pulmonary embolism Chronic systolic CHF (congestive heart failure) COPD (chronic obstructive pulmonary disease) Hypothyroid Surgical History Hx of colonoscopy Status post cardiac catheterization History of cholecystectomy Family History Father Stroke Other Mental health disorder Social History Household Members: Family Housing: House Housing Other:: mobile home Do you presently have visiting nurse or other home services: No Alcohol intake: former Year quit: 1987 Patient Tobacco Use Status: Former Tobacco user Tobacco use type: Cigarette Cigarette Packs Per Day: 0.5 Years Smoked: 50 e-Cigarette/Vaping Use: Never Used Second Hand Smoke Exposure: Yes service: No Current occupational status: disabled Current occupational exposures/hazards: No Cognitive needs: No Hearing needs: No Vision needs: No Review of Systems Const Denies weight gain and Denies weight loss ENT Reports no additional complaints, Denies dysphagia and Denies odynophagia Card Reports no additional complaints Resp Reports no additional complaints GI Denies abdominal pain, Denies belching, Denies melena, Denies bloating, Denies change in bowel habits, Denies dysphagia, Denies excessive flatus, Denies dyspepsia, Denies heartburn, Denies diarrhea, Denies loose stools, Denies nausea, Denies odynophagia and Denies vomiting Reports no additional complaints Musc Reports no additional complaints Neuro Reports no additional complaints Psych Reports no additional complaints Endo Reports no additional complaints Physical Exam Vital Signs: Last Vital Signs Pulse 62 09/23/25 13:55 BP 100/68 09/23/25 13:55 Pulse Ox 96 09/23/25 13:55 Oxygen Delivery Method Room Air 09/23/25 13:55 BMI result Body Mass Index 20.8 Const General: healthy appearing, no acute distress and well developed Nutritional Appearance: well nourished Orientation/consciousness: patient oriented x3 Resp Effort & Inspection: normal respiratory effort, able to speak in complete sentences, no tracheal deviation and symmetric chest movement Auscultation: clear to auscultation bilaterally Cardio Rate: regular rate GI Inspection: Yes normal to inspection and No distended Palpation (GI): Soft to palpation, not firm, nontender and No hepatosplenomegaly present Auscultation: normal bowel sounds General: Yes no CVA tenderness Back/Spine/Pelvis Back: no CVA tenderness Skin General skin exam: elasticity normal, turgor normal and dry skin Neuro General: patient oriented x3 Psych Appearance: grossly normal Mental Status: mental status grossly normal Results Reviewed Results Reviewed: Laboratory Tests 08/17/25 11:27 Total Bilirubin 1.4 H AST 41 H ALT 42 H Alkaline Phosphatase 110 Assessment & Plan Assessment & Plan (1) Irritable bowel syndrome: Code(s): K58.9 - Irritable bowel syndrome, unspecified Qualifiers: Irritable bowel syndrome type: without diarrhea Qualified Code(s): K58.9 - Irritable bowel syndrome, unspecified (2) Postprandial abdominal bloating: Code(s): R14.0 - Abdominal distension (gaseous) Plan Patient will continue low FODMAP diet. Increase fluid intake and activity to promote bowel motility. Simethicone as needed for abdominal bloating. Elevated liver enzymes in the beginning of August. Repeat labs. Ultrasound with elastography ordered. Patient will return in 6 months. He will call us if you have any GI concerning symptoms. He is agreeable to this plan and verbalizes understanding of instructions. He was given the opportunity to ask questions and all questions answered. Thank you for allowing me to participate in his care Orders: Orders Liver Panel Today R74.01 - Elevation of levels of liver transaminase levels US abdomen comp w elastography Today R79.89 - Other specified abnormal findings of blood chemistry Medications: New simethicone (Gas Relief (simethicone)) 125 mg PO BID-TID PRN 90 tabs 3RF abdominal distention Coding Level of Care Code Est Pt Level 3 (16785) Diagnoses Irritable bowel syndrome without diarrhea K58.9 Irritable bowel syndrome type: without diarrhea Postprandial abdominal bloating R14.0 Time Spent (min) 25 Comment 15 minutes spent with patient and additional 10 minutes spent reviewing his records
[2025-09-23 13:55] VITALS: BP 100/68; PULSE 62; O2SAT 96; BMI 20.8
== END 2025-09-23 14:26 | disposition home or self-care (01) ==
LOC: HO.HGI 13:29
PROVIDERS: PCP Family Medicine; Visit Provider Nurse Practitioner Family
DX: K58.9 Irritable bowel syndrome, unspecified (principal); R14.0 Abdominal distension (gaseous)
CPT/HCPCS: 99213

== ENCOUNTER → 2025-09-23 13:28 | Outpatient (BNVA) | payer MEDICARE, MEDICAID, SELFPAY | PROVIDERS: PCP Family Medicine; Visit Provider Nurse Practitioner Family | DX: R14.0 Abdominal distension (gaseous) (principal); K58.9 Irritable bowel syndrome, unspecified; R74.01 Elevation of levels of liver transaminase levels | CPT/HCPCS: 99212 ==